=== PATIENT | male | born 1970 | race Caucasian/White ===

== ENCOUNTER 2023-10-20 08:53 | Inpatient (IN) | payer SELFPAY ==
[2023-10-20] VITALS (11 sets, daily range): BP systolic 152–193; BP diastolic 81–125; PULSE 61–92; RESP 11–24; TEMP 36.5–36.7; O2SAT 92–99; BMI 28.3; BMI 32.1
--- NOTE | 2023-10-20 09:48 | XRR_ITS ---
PROCEDURE INFORMATION: Exam: XR Chest Exam date and time: 10/20/2023 9:57 AM Age: 53 years old Clinical indication: Cough and dyspnea; Additional info: Dyspnea/cough TECHNIQUE: Imaging protocol: Radiologic exam of the chest. Views: 1 view. COMPARISON: No relevant prior studies available. FINDINGS: Lungs: There are subtle left lower lobe infiltrates concerning for pneumonia. The right lung is clear. Pleural spaces: Unremarkable. No pleural effusion. No pneumothorax. Heart/Mediastinum: Unremarkable. No cardiomegaly. Bones/joints: Unremarkable. XR/XR chest 1V portable [id number] IMPRESSION: Subtle left lower lobe infiltrates concerning for pneumonia.
[2023-10-20 09:54] LABS: Basophils # 0.1 10^3/uL (0.0-0.1); Basophils % 0.7 %; Eosinophils # 0.2 10^3/uL (0.0-0.8); Eosinophils % 3.1 %; Hematocrit 26.5 % (37-53); Lymphocytes # 0.6 10^3/uL (0.8-4.8); Lymphocytes % 8.6 %; Mean Corpuscular HGB Conc 32.1 g/dL (30-55); Mean Corpuscular Hemoglobin 29.8 pg (27-33); Mean Platelet Volume 9.3 fL (7.4-10.4); Monocytes # 0.8 10^3/uL (0.2-0.9); Monocytes % 11.3 %; Neutrophils # 5.58 10^3/uL (1.8-7.7); Neutrophils % 75.9 %; Nucleated Red Blood Cells % 0 %; Platelet Count 135 10^3/cmm (157-399); Red Blood Count 2.85 10^6/uL (3.85-5.65); Red Cell Distribution Width 16.6 % (12.1-15.1); White Blood Count 7.35 10^3/uL (3.29-11.43)
[2023-10-20 10:15] LABS: Alanine Aminotransferase 19 U/L (0-41); Albumin Level 1.9 g/dL (3.5-5.2); Alkaline Phosphatase 456 U/L (40-130); Anion Gap 10.3 (5-19); Aspartate Amino Transferase 41 U/L (0-40); Blood Urea Nitrogen 33 mg/dL (6-20); Calcium 7.1 mg/dL (8.5-10.5); Carbon Dioxide 19 mmol/L (22-29); Chloride 115 mmol/L (98-107); Globulin 3.4 g/dL (1.3-4.6); Glomerular Filtration Rate 45.6 mL/min (90-130); Glucose 142 mg/dL (65-115); NT Pro B Type Natriuretic Pept 1640 pg/mL (0-125); Osmolality Calculated 300 mOsm/kg (285-295); Potassium 4.3 mmol/L (3.5-5.1); Sodium 140 mmol/L (136-145); Total Bilirubin 0.9 mg/dL (0.15-1.2); Total Protein 5.3 g/dL (6.6-8.7)
--- NOTE | 2023-10-20 10:18 | ED_ITS ---
HPI - SOB/Dyspnea 2 General: Chief Complaint: Shortness of Breath/Dyspnea Stated Complaint: sob, fluid build up Time Seen by Provider: 10/20/23 09:37 History of Present Illness: HPI Narrative: 53-year-old man with a history of cirrho sis and ascites who suddenly moved to [place] from [place] yesterday. He has been having to get paracentesis frequently but did not get 1 before he left. He arrives today with worsening abdominal swelling, some generalized tenderness and primarily just shortness of breath. No fevers. Some mild cough. No altered mental status. No focal motor deficits. No chest pain. O2 sats are 99% on room air on presentation. He is somewhat hypertensive Review of Systems 2 Narrative: Constitutional symptoms: Negative except as documented in HPI. Skin symptoms: Negative except as documented in HPI. Eye symptoms: Negative except as documented in HPI. ENMT symptoms: Negative except as documented in HPI. Respiratory symptoms: Negative except as documented in HPI. Cardiovascular symptoms: Negative except as documented in HPI. Gastrointestinal symptoms: Negative except as documented in HPI. Genitourinary symptoms: Negative except as documented in HPI. Musculoskeletal symptoms: Negative except as documented in HPI. Neurologic symptoms: Negative except as documented in HPI. Psychiatric symptoms: Negative except as documented in HPI. Endocrine symptoms: Negative except as documented in HPI. Physical Exam 2 Narrative: EXAM NARRATIVE: General: Alert, no acute distress. Skin: Warm, dry. Head: Normocephalic, atraumatic. Neck: Supple, trachea midline. Eye: Extraocular movements are intact. Ears, nose, mouth and throat: mucosa moist. Cardiovascular: Regular, Normal peripheral perfusion. Respiratory: Tachypneic, coarse, mild increased work of breathing. Gastrointestinal: Soft, distended, some mild generalized tenderness, protruding umbilical hernia with fluid. Musculoskeletal: Normal ROM, no deformity. Neurological: Alert and oriented, No focal neurological deficit observed. Psychiatric: Cooperative, appropriate mood & affect. Course 2 Vital Signs: Vital signs: Vital Signs Temperature 98.1 F 10/20/23 09:04 Pulse Rate 92 10/20/23 12:49 Respiratory Rate 15 10/20/23 12:49 Blood Pressure 152/81 10/20/23 12:49 Pulse Oximetry 92 10/20/23 12:49 Oxygen Delivery Me thod Room Air 10/20/23 09:04 MDM - SOB/Dyspnea Medical Decision Making Differential diagnosis for patient with shortness of breath includes but is not limited to and based on the above HPI, review of systems and physical exam: Pneumonia. Bronchitis. Asthma or COPD with acute exacerbation. Acute coronary syndrome / HI. Pulmonary embolism. Anxiety. Congestive heart failure. Viral infections including influenza and Covid-19. Atrial fibrillation. Anxiety. Pleural effusion. Pneumothorax. Workup: Lab work, chest X-ray and EKG ordered to evaluate, rule in and rule out above pathologies Chest x-ray: Subtle left lower lobe infiltrate that would be concerning for pneumonia. This was reviewed and interpreted by myself the emergency room physician. I also reviewed the radiology report. CT of the chest abdomen pelvis without contrast: Opacities in the lingula that might represent pneumonia. This was also identified on chest x-ray. Abdomen shows cirrhosis and large volume ascites. Splenomegaly. Periumbilical hernia and inguinal hernia have ascites. Anasarca. This was reviewed and interpreted by myself the emergency room physician. I also reviewed the radiology report. Lab Review: Laboratory results were reviewed and interpreted by myself the emergency room physician. White count is 7. Hemoglobin is 8.5. BUN and creatinine are 33 and 1.6. He has some renal insufficiency. He has known chronic renal disease but unclear what his baseline is as I do not have any other labs. Urinalysis shows just 5- 10 whites and some hematuria but he also has 2+ bacteria so we will treating for urinary tract infection. Ammonia significantly elevated at 118. Platelets are low at 135. Bilirubin is not elevated and is only 0.9. INR is slightly elevated at 1.47. I reviewed the patient's medical record. Reexamination: Patient is slightly confused according to family is compared to his baseline. Still somewhat tachypneic at times. Still has large volume ascites. Oxygen saturations have dropped down into the low 90s on room air at times. Given this complicated situation I feel that admission would be appropriate particularly given his hepatic encephalopathy and multiple infections. Family actually request that he be admitted. He has no focal motor deficits at this time. He has not had any chest pain while he is been here. I had a attempted to try to get this patient home and set up for outpatient care. Having a great deal of difficulty setting up paracentesis and I do not think he can make it till late next week to have this done. Also just the medical complication and number of problems he has right now with no primary provider. He has a pneumonia. He has a urinary tract infection. He has hepatic encephalopathy. He has anasarca. He is very dyspneic with any kind of exertion. Consultation: I spoke with Dr. Medeiros who is on-call for the hospitalist. He reluctantly agrees to observation of the patient. Assessment and plan: Cirrhosis Ascites Anasarca Urinary tract infection Pneumonia Dyspnea -I discussed the patient with the hospitalist on-call who is admitting the patient. - Discussed findings and plan with patient. Answered any questions. - All laboratory values were reviewed and interpreted personally by myself, the ER physician - All imaging was reviewed and interpreted personally by myself, the ER physician. - Evaluation and treatment of this problem were appropriate in the emergency setting Lab Data 10/20/23 09:32 10/20/23 09:32 Labs/Radiology: Radiology Impressions Chest X-Ray 10/20/23 09:48 IMPRESSION: Subtle left lower lobe infiltrates concerning for pneumonia. Chest/Abdomen/Pelvis CT 10/20/23 10:41 IMPRESSION: 1. Opacities in the lingula which could represent pneumonia and/or atelectasis. 2. No calcified coronary artery disease. IMPRESSION: 1. Hepatic cirrhosis and large volume ascites. 2. Splenomegaly and multiple upper abdominal varices. 3. Periumbilical hernia and left inguinal hernia containing ascites. There are no entrapped bowel loops. 4. Anasarca. Laboratory Results WBC 7.35 10^3/uL (3.29-11.43) 10/20/23 09:32 RBC 2.85 10^6/uL (3.85-5.65) L 10/20/23 09:32 Hgb 8.50 g/dL (11.27-16.99) L 10/20/23 09:32 Hct 26.5 % (37-53) L 10/20/23 09:32 MCV 93.0 fl (82-101) 10/20/23 09:32 MCH 29.8 pg (27-33) 10/20/23 09: MCHC 32.1 g/dL (30-55) 10/20/23 09:32 RDW 16.6 % (12.1-15.1) H 10/20/23 09:32 Plt Count 135 10^3/cmm (157-399) L 10/20/23 09:32 MPV 9.3 fL (7.4-10.4) 10/20/23 09:32 Neut % (Auto) 75.9 % 10/20/23 09:32 Lymph % (Auto) 8.6 % 10/20/23 09:32 Steele % (Auto) 11.3 % 10/20/23 09:32 Eos % (Auto) 3.1 % 10/20/23 09:32 Baso % (Auto) 0.7 % 10/20/23 09:32 Neut # (Auto) 5.58 10^3/uL (1.8-7.7) 10/20/23 09:32 Lymph # (Auto) 0.6 10^3/uL (0.8-4.8) L 10/20/23 09:32 Steele # (Auto) 0.8 10^3/uL (0.2-0.9) 10/20/23 09:32 Eos # (Auto) 0.2 10^3/uL (0.0-0.8) 10/20/23 09:32 Baso # (Auto) 0.1 10^3/uL (0.0-0.1) 10/20/23 09:32 Nucleated RBC % (auto) 0 % 10/20/23 09:32 Nucleated RBCs # 0.0 /100WBC 10/20/23 09:32 PT 18.30 SECONDS (12.1-14.9) H 10/20/23 09:32 INR 1.47 (0.8-1.2) H 10/20/23 09:32 APTT 32.4 SECONDS (23.9-36.7) 10/20/23 09:32 Sodium 140 mmol/L (136-145) 10/20/23 09:32 Potassium 4.3 mmol/L (3.5-5.1) 10/20/23 09:32 Chloride 115 mmol/L (98-107) H 10/20/23 09:32 Carbon Dioxide 19 mmol/L (22-29) L 10/20/23 09:32 Anion Gap 10.3 (5-19) 10/20/23 09:32 BUN 33 mg/dL (6-20) H 10/20/23 09:32 Creatinine 1.6 mg/dL (0.7-1.2) H 10/20/23 09:32 GFR Calculation 45.6 mL/min (90-130) L 10/20/23 09:32 Glucose 142 mg/dL (65-115) H 10/20/23 09:32 Calculated Osmolality 300 mOsm/kg (285-295) H 10/20/23 09:32 Lactic Acid 0.9 mmol/L (0.5-2.2) 10/20/23 11:33 Calcium 7.1 mg/dL (8.5-10.5) L 10/20/23 09:32 Total Bilirubin 0.9 mg/dL (0.15-1.2) 10/20/23 09:32 AST 41 U/L (0-40) H 10/20/23 09:32 ALT 19 U/L (0-41) 10/20/23 09:32 Alkaline Phosphatase 456 U/L (40-130) H 10/20/23 09:32 Ammonia 118 umol/L (16-60) H 10/20/23 11:33 NT-Pro-B Natriuret Pep 1640 pg/mL (0-125) H 10/20/23 09:32 Total Protein 5.3 g/dL (6.6-8.7) L 10/20/23 09:32 Albumin 1.9 g/dL (3.5-5.2) L 10/20/23 09:32 Globulin 3.4 g/dL (1.3-4.6) 10/20/23 09:32 Procalcitonin 0.18 ng/mL (0-0.5) 10/20/23 09:32 Urine Color Dark yellow (Yellow) A 10/20/23 10:45 Urine Appearance Clear (CLEAR) 10/20/23 10:45 Urine pH 5 (5-7) 10/20/23 10:45 Ur Specific Hamilton 1.015 (1.005-1.030) 10/20/23 10:45 Urine Protein 3+ (Negative) H 10/20/23 10:45 Urine Glucose (UA) Norm (Normal) 10/20/23 10:45 Urine Ketones Negative (Negative) 10/20/23 10:45 Urine Blood 3+ (Negative) H 10/20/23 10:45 Urine Nitrate Negative (Negative) 10/20/23 10:45 Urine Bilirubin Neg (Negative) 10/20/23 10:45 Urine Urobilinogen Norm mg/dL (Negative) 10/20/23 10:45 Ur Leukocyte Esterase Negative (Negative) 10/20/23 10:45 Urine RBC 25-40 /hpf (0-2) H 10/20/23 10:45 Urine WBC 5-10 /hpf (0-5) H 10/20/23 10:45 Ur Squamous Epith Cells None /hpf (0-5) 10/20/23 10:45 Amorphous Sediment Not Reportable 10/20/23 10:45 Urine Bacteria 2+ /hpf (NONE) H 10/20/23 10:45 All radiology interpretation(s) finalized by discharge Discharge Plan Discharge Patient Disposition: Admitted As Inpatient Admit Provider: Byron Medeiros Clinical Impression: Cirrhosis, Ascites, Hepatic encephalopathy, Pneumonia, Urinary tract infection, Dyspnea Condition: Stable Discharge Diet: As Directed Discharge Activity: Increase activity as tolerated Coding Level of Care Code ED Professor Of Environmental Engineering for Domitila Cortez
[2023-10-20 10:26] LABS: Creatinine Clr Calc Pharmacy 51.7492
[2023-10-20 10:29] LABS: INR 1.47 (0.8-1.2)
[2023-10-20 10:30] LABS: Partial Thromboplastin Time 32.4 SECONDS (23.9-36.7)
--- NOTE | 2023-10-20 10:41 | CTR_ITS ---
PROCEDURE INFORMATION: Exam: CT Chest Without Contrast; Diagnostic Exam date and time: 10/20/2023 10:49 AM Age: 53 years old Clinical indication: Abnormal findings; Abnormal radiologic finding of the abdomen; Abnormal radiologic exam of lung or chest; Additional info: Abnormal chest xray TECHNIQUE: Imaging protocol: Diagnostic computed tomography of the chest without contrast. Radiation optimization: All CT scans at this facility use at least one of these dose optimization techniques: automated exposure control; mA and/or kV adjustment per patient size (includes targeted exams where dose is matched to clinical indication); or iterative reconstruction. COMPARISON: CR (CHEST, ) 10/20/2023 9:57 AM RADIATION DOSE METRICS: Total DLP (mGy-cm): 998.27 FINDINGS: Lungs: There are subtle infiltrates in the lingula which could represent mild pneumonia and/or atelectasis. Pleural spaces: Unremarkable. No pneumothorax. No pleural effusion. Heart: Unremarkable. No cardiomegaly. No pericardial effusion. Coronary arteries: No visible calcified coronary artery disease. Lymph nodes: Several tiny, nonspecific mediastinal and bilateral axillary lymph nodes. Vasculature: Unremarkable. No aortic aneurysm. Bones/joints: Multilevel Schmorl's nodes throughout the thoracic spine. Soft tissues: Mild chest wall edema. PROCEDURE INFORMATION: Exam: CT Abdomen And Pelvis Without Contrast Exam date and time: 10/20/2023 10:49 AM Age: 53 years old Clinical indication: Abnormal findings; Abnormal radiologic finding of the abdomen; Abnormal radiologic exam of lung or chest; Additional info: Abnormal chest xray TECHNIQUE: Imaging protocol: Computed tomography of the abdomen and pelvis without contrast. Radiation optimization: All CT scans at this facility use at least one of these dose optimization techniques: automated exposure control; mA and/or kV adjustment per patient size (includes targeted exams where dose is matched to clinical indication); or iterative reconstruction. COMPARISON: CR (CHEST, ) 10/20/2023 9:57 AM RADIATION DOSE METRICS: Total DLP (mGy-cm): 998.27 FINDINGS: Liver: Hepatic cirrhosis. The liver parenchyma is diffusely heterogeneous, decreasing the sensitivity for liver masses. There is a TIPS stent present. There is recanalization of the umbilical vein and multiple upper abdominal varices. Gallbladder and biliary ducts: Normal. No calcified stones. No ductal dilation. Pancreas: The pancreas is normal in appearance. No evidence of pancreatic ductal dilatation. Spleen: Splenomegaly. The spleen measures 16.5 cm. Adrenal glands: The adrenal glands are normal in appearance. Kidneys and ureters: The kidneys are normal in appearance. No evidence of hydronephrosis or hydroureter. No nephroureteral calculi are identified. Stomach and bowel: The small bowel loops are not thickened and are nondilated. There is colonic diverticulosis but no evidence of diverticulitis. Appendix: The appendix is normal in appearance. No evidence of appendicitis. Intraperitoneal space: There is a large volume of ascites. Vasculature: The abdominal aorta is nonaneurysmal. Lymph nodes: Unremarkable. No enlarged lymph nodes. Urinary bladder: The urinary bladder is normal in appearance. Reproductive: Unremarkable as visualized. Bones/joints: No acute osseous lesions or destructive bone lesion. Soft tissues: There is a periumbilical hernia containing ascites. There is a left inguinal hernia containing ascites. There is diffuse body wall edema suggesting anasarca. CT/[place] [id number] IMPRESSION: 1. Opacities in the lingula which could represent pneumonia and/or atelectasis. 2. No calcified coronary artery disease. IMPRESSION: 1. Hepatic cirrhosis and large volume ascites. 2. Splenomegaly and multiple upper abdominal varices. 3. Periumbilical hernia and left inguinal hernia containing ascites. There are no entrapped bowel loops. 4. Anasarca.
[2023-10-20 11:10] LABS: Procalcitonin 0.18 ng/mL (0-0.5)
[2023-10-20 11:35] LABS: Glucose Urine UA Norm (Normal); Ketones Urine Negative (Negative); Protein Urine 3+ (Negative); Specific Gravity, Urine 1.015 (1.005-1.030); Urine Appearance Clear (CLEAR); Urine Color Dark Yellow (Yellow); pH Urine 5 (5-7)
[2023-10-20 11:36] LABS: Add Urine Culture? Yes; Add Urine Microscopic? YES; Bacteria Urine 2+ /hpf; Bilirubin Urine Neg (Negative); Blood Urine 3+ (Negative); Leukocyte Esterase Urine Negative (Negative); Nitrate Urine Negative (Negative); RBC Urine 25-40 /hpf (0-2); Urobilinogen Urine Norm (Negative)
[2023-10-20] MEDS: FUROsemide 10 mg/mL SDV 10mL 80 MG IVP (11:53)
[2023-10-20] MEDS: doxycycline 100 MG in sodium chloride 0.9% (plus) 100 ML IV (11:54)
[2023-10-20] MEDS: dexamethasone 10 mg/mL INJ IVP (11:56)
[2023-10-20 12:00] LABS: Lactic Sepsis W/Reflex 0.9 mmol/L (0.5-2.2)
[2023-10-20 12:01] LABS: Ammonia 118 umol/L (16-60)
[2023-10-20] MEDS: HYDROcodone-acetaminophen 10-325 mg Tablet 1 TAB PO (12:04)
--- NOTE | 2023-10-20 12:57 | USCV_ITS ---
Luis Fernando Funes Age: 53 Gender: M : 1970 Exam Date: 10/20/2023 15:34 Ordering Phys: Byron Medeiros MD Technologist: GERALD Exam Location: [facility] Indication: chf BP: 152 / 81 HR: 69 Rhythm: Sinus Technical Quality: Adequate MEASUREMENTS (Male / Female) Normal Values 2D ECHO LV Diastolic Diameter PLAX 5.1 cm 4.2 - 5.9 / 3.9 - 5.3 cm IVS Diastolic Thickness 1.3 cm 0.6 - 1.0 / 0.6 - 0.9 cm IVS Systolic Thickness 2.1 cm LVPW Diastolic Thickness 1.8 cm 0.6 - 1.0 / 0.6 - 0.9 cm LVPW Systolic Thickness 3.0 cm LVOT Diameter 2.0 cm LV Ejection Fraction 2D Teich 66.1 % LV Ejection Fraction MOD 4C 69.6 % LV Ejection Fraction MOD 2C 72.4 % LV Ejection Fraction 2C AL 73.6 % LA Diameter 3.7 cm RA Systolic Volume 4C AL 24.6 ml RA Systolic Volume 4C MOD 25.2 ml LA Sys Volume AL 84.5 cm cubed LA Sys Volume Index AL 41.5 cm cubed/m squared Aorta at Sinotubular Diameter 2.3 cm IVC Diameter 1.7 cm M-MODE LA Ao Ratio MM 1.8 AV Cusp Separation MM 2.0 cm DOPPLER AV Peak Velocity 175.0 cm/s AV Area Cont Eq vti 1.6 cm squared AV Area Cont Eq pk 1.7 cm squared MV Peak Velocity 108.0 cm/s MV Area PHT 4.3 cm squared Mitral E to A Ratio 0.8 TV Peak Velocity 198.0 cm/s TR Peak Velocity 205.0 cm/s TR Peak Gradient 16.8 mmHg TR Mean Velocity 164.0 cm/s TR Mean Gradient 11.5 mmHg TR Velocity Time Integral 50.9 cm PV Peak Velocity 166.8 cm/s RV Ejection Time 0.3 s FINDINGS Left Ventricle Mild left ventricular hypertrophy. Normal left ventricular size and systolic function, EF 65%. Right Ventricle Normal right ventricular size and systolic function. Right Atrium Normal right atrial size. Left Atrium Normal left atrial size. Mitral Valve Structurally normal mitral valve. Trace mitral valve regurgitation. Aortic Valve Structurally normal trileaflet aortic valve. No aortic valve stenosis. Tricuspid Valve Structurally normal tricuspid valve. No tricuspid valve regurgitation. Pulmonic Valve Pulmonic valve not well visualized. Pericardium Small pericardial effusion primarily around inferoposterior surface Aorta Normal size aortic root and proximal ascending aorta. IVC Normal inferior vena cava. CONCLUSIONS Mild left ventricle hypertrophy. Normal LV systolic function. Estimated LVEF 65%. No significant valvular abnormalities noted. Normal right heart and pulmonary pressures. Small size pericardial effusion noted around inferoposterior surface. Damir Garay MD (Electronically Signed) Final Date: 20 October 2023 17:32 S
--- NOTE | 2023-10-20 12:58 | P.HP_ITS ---
Providers/Chief Complaint 2 Admitting Physician: Byron Medeiros MD Chief Complaint: sob, fluid build up History of Present Illness Luis Fernando Funes is a 53 year old male with past medical history of liver cirrhosis, CKD, alcohol abuse with last alcohol drink many months ago, post TIPS in last few months who recently moved from [place] yesterday to [place]. Patient states usually he would need to have paracentesis done every few weeks but recently since TIPS procedure he has not required any last 1 month. Today he came to the ER because of abdominal distention, swelling of the scrotum and back pain. Patient denies any nausea, vomiting, headache. States he has been taking his lactulose and rifaximin at home. Patient states he has been admitted to the hospital many times in last 1 year with concerns for ascites. Review of Systems 2 General: Reports: 10 or more systems reviewed and unremarkable except in HPI and below Const: Denies: fever(s), chills, body aches, change in appetite, change in weight, malaise, night sweats, diaphoresis, change in sleep pattern, daytime sleepiness or snoring Eyes: Denies: change in vision, blurry vision, photophobia, eye discomfort or eye discharge ENMT: Denies: throat pain, enlarged tonsils, hoarseness, mouth pain, oral sores, dry mouth, tinnitus, nasal congestion or post nasal drip Card: Denies: chest pain, palpitations, irregular heart rhythm, edema, swelling of feet/ankles, lightheadedness, syncope, pre-syncope, dyspnea on exertion, orthopnea, leg pain with exertion or acrocyanosis Resp: Denies: dyspnea, productive cough, non-productive cough, wheezing, stridor, pain on inspiration, change in phlegm color, hemoptysis or chest congestion GI: Denies: abdominal pain, nausea, vomiting, hematemesis, coffee ground emesis, dysphagia, heartburn, diarrhea, constipation, bloating, GI cramping, change in bowel habits, pain on defecation, hematochezia or melena : Denies: flank pain, difficulty urinating, dysuria, urinary frequency, urinary urgency, urinary hesitancy, urinary dribbling, difficulty starting urination, change in urine stream, nocturia or hematuria Musc: Denies: neck pain, back pain, extremity pain, joint pain, joint swelling, joint redness, joint stiffness or limited range of motion Neuro: Denies: headache(s), numbness in extremities, weakness in extremities, sensory changes, lack of coordination, difficulty walking, frequent falls, dizziness, vertigo, confusion, Slurred speech present, difficulty communicating thoughts or seizure-like activity Psych: Denies: anxiety, depression, mood swings, panic attacks, hopelessness or irritability Endo: Denies: polyuria, polydipsia, tired all the time, cold intolerance, excessive sweating, flushing or heat intolerance Austen/Lymph: Denies: easy bruising or easy bleeding All/Imm: Denies: tongue swelling, facial swelling or acute wheezing Medications/Allergies Home Medications Medication Instructions Recorded Confirmed Last Taken Type azithromycin 250 mg tablet See Rx Instructions PO .COMPLEX #6 10/20/23 Unknown Rx (Zithromax Z-Corby) tabs cefdinir 300 mg capsule 300 mg PO BID 7 days #14 caps 10/20/23 Unknown Rx dexamethasone 6 mg tablet 6 mg PO DAILY 5 days #5 tabs 10/20/23 Unknown Rx furosemide 40 mg tablet (Lasix) 40 mg PO QAM 5 days #5 tabs 10/20/23 Unknown Rx hydrocodone 5 mg-acetaminophen 325 1 tab PO Q6H PRN pain #20 tabs 10/20/23 Unknown Rx mg tablet polyethylene glycol 3350 17 17 g PO DAILY #510 grams 10/20/23 Unknown Rx gram/dose oral powder (Miralax) Allergies Allergy/AdvReac Type Severity Reaction Status Date / Time No Known Allergies Allergy Verified 10/20/23 09:09 PFSH Acute 2 PFSH: Medical History (Updated 10/20/23 @ 15:20 by Byron Medeiros MD) CKD (chronic kidney disease) Varices, gastric Hepatitis C Anemia Portal hypertension Cirrhosis Surgical History (Updated 10/20/23 @ 12:59 by Byron Medeiros MD) S/P TIPS (transjugular intrahepatic portosystemic shunt) Vitals/I&O/Wt Last Vital Signs Temp 98.1 F 10/20/23 09:04 Pulse 92 10/20/23 12:49 Resp 15 10/20/23 12:49 BP 152/81 10/20/23 12:49 Pulse Ox 92 10/20/23 12:49 O2 Del Method Room Air 10/20/23 09:04 Weight last 48 hrs Weight 77.111 kg Physical Exam 2 Narrative: General: No acute distress, AO x3, pallor, icterus present HEENT: PERRLA, pupils bilaterally equal and reactive Chest: Normal vesicular breath sounds, no added sounds, equal good air entry bilaterally CVS: S1-S2 regular, no murmurs, no tachycardia, no gallops, no rubs Abdomen: Soft, distended, nontender no organomegaly, bowel sounds present Neuro: No focal deficits, no facial deformity, AO x3, power 5/5 in all limbs Data 10/20/23 09:32 10/20/23 09:32 Micro: Microbiology 10/20/23 11:34 Blood Culture - Preliminary Blood SPECIMEN COLLECTED 10/20/23 11:34 Blood Culture - Preliminary Blood SPECIMEN COLLECTED A&P Assessment and plan (1) Hyperammonemia: Patient is AOx3. Do not have baseline ammonia levels. Most likely in setting of chronic liver cirrhosis. Continue with lactulose 30 mg 3 times daily, rifaximin twice daily. Repeat ammonia levels in AM. Target 2-3 soft bowel movements a day. (2) Cirrhosis: Post TIPS procedure. With evidence of cirrhosis on CT abdomen/pelvis and varices. Check hepatitis panel, HIV, salicylate level, ammonia level, Tylenol level, urine drug screen. Appreciate INR level. Child perez score: Lactulose and rifaximin as above. Start on propranolol 20 mg twice daily, Protonix 40 mg IV daily. Fluid restriction up to 1200 cc. Already received Lasix in the ER. Most likely will start on Lasix 40 mg oral daily from tomorrow. Strict input charting, daily weights. (3) Ascites: Patient seems comfortable on laying flat for now. Currently on room air. Nontender abdomen. Patient will most likely need paracentesis done on emergently. (4) Hepatitis C: Will await RNA PCR levels. Patient does not remember being treated in the past. Most likely need to set up with PCP as an outpatient for hepatitis C treatment. (5) Anemia: Monitor hemoglobin. Check iron panel, vitamin B12, folate levels. (6) CKD (chronic kidney disease): Do not have baseline creatinine. Patient gives history of CKD. Medical reconciliation done for nephrotoxic drugs. Check urine lites, urine creatinine, urine eosinophils. Plan Infectious source: Unlikely. Patient remains on room air, has no leukocytosis no fever for now. UA negative for leuk esterase or nitrates. Hold off on IV antibiotics for now. Follow-up blood culture in the ER. Respiratory viral panel negative. Request documentation from outside hospital. Full code Cardiac diet Heparin 5000 every 12 hourly for DVT prophylaxis Protonix will be sufficient for PUD prophylaxis Discharge plan: Patient recently moved to the area. Will need to have a PCP to follow-up. Will consult case management once available. Attestations 2 Medical Necessity Statement*: Requires admission under observation hospitalization for management of ascites, anasarca in setting of liver cirrhosis, hyperammonemia, CKD Diagnoses Hyperammonemia E72.20 Cirrhosis K74.60 Ascites R18.8 Hepatitis C B19.20 Anemia D64.9 CKD (chronic kidney disease) N18.9
--- NOTE | 2023-10-20 13:09 | PC.NURSE ---
received pt from ER, around 1 pm. Pt look lethargic and sleepy looking,but awake with eyes open when asked, orientedx4, follows command. noted Ammonia level is 118. Lactulose given as ordered. had 1 bm in ER and voided x1 in toilet. Pt has chronic back pain rated at 4/10 per pain scale. sara orbital, pitting edema noted on LE and feet, distended abdomen. home meds updated.
[2023-10-20] MEDS: pantoprazole 40 mg SDV IVP (13:26)
[2023-10-20] MEDS: lactulose oral liq 20 gm/30 mL UDC 30 GM PO ×2 (13:26→21:05)
[2023-10-20 13:32] LABS: HIV 1 & 2 Antibody Non-Reactive (Non-Reactiv); HIV 1 & 2 Antigen Non-Reactive (Non-Reactiv)
[2023-10-20 13:41] LABS: Hepatitis A Antibody IgM Non-Reactive (Nonreactive); Hepatitis B Core AB, Total Reactive (Nonreactive); Hepatitis B Surface AB < 3.5 (11.5-1000); Iron 74 ug/dL (59-158); Percent Saturation 59.6 % (20-50); Salicylate 2.3 mg/dL (3-10); Thyroid Stimulating Hormone 2.68 uIU/mL (0.27-4.20); Total Iron Binding Capacity 124 mcg/dl; Unsaturated Iron Binding 50 ug/dL (112-347); Vitamin B12 1940 pg/mL (232-1245)
[2023-10-20 13:43] LABS: Acetaminophen < 5.0 ug/mL (10-30); Alcohol Level < 10 mg/dL (0-10); Estmated Average Glucose 85; Hemoglobin A1C 4.6 % (4.0-6.0)
[2023-10-20 13:51] LABS: Adenovirus Not Detected (NOT DETECT); Chlamydia Pneumoniae Not Detected (NOT DETECT); Coronavirus 229E,HKU1,NL63,OC4 Not Detected (NOT DETECT); Human Metapneumovirus Not Detected (NOT DETECT); Human Rhinovirus/Enterovirus Not Detected (NOT DETECT); Influenza A Not Detected (NOT DETECT); Influenza A H1 Not Detected (NOT DETECT); Influenza A H1-2009 Not Detected (NOT DETECT); Influenza A H3 Not Detected (NOT DETECT); Influenza B Not Detected (NOT DETECT); Mycoplasma Pneumoniae Not Detected (NOT DETECT); Parainfluenza Virus Type 1 Not Detected (NOT DETECT); Parainfluenza Virus Type 2 Not Detected (NOT DETECT); Parainfluenza Virus Type 3 Not Detected (NOT DETECT); Parainfluenza Virus Type 4 Not Detected (NOT DETECT); Respiratory Syncytial Virus A Not Detected (NOT DETECT); Respiratory Syncytial Virus B Not Detected (NOT DETECT); SARS-COV-2 Not Detected (NOT DETECT)
[2023-10-20] MEDS: heparin 5,000 unit/mL INJ 1 mL 5000 UNIT SUBCUT (13:54)
[2023-10-20 14:24] LABS: Hepatitis B Surface Antigen Reactive (Nonreactive)
[2023-10-20 14:25] LABS: Hepatitis C Virus Antibody Reactive (Nonreactive)
[2023-10-20 15:21] LABS: Urine Creatinine 107 mg/dL (39-259)
[2023-10-20 15:25] LABS: Amphetamines Screen Urine Positive (Negative); Barbiturates Screen Urine Negative (Negative); Benzodiazepines Screen Urine Negative (Negative); Cocaine Screen Urine Positive (Negative); Opiate Screen Urine Negative (Negative); PCP Screen Urine Negative (Negative); THC Screen Urine Positive (Negative)
[2023-10-20 17:37] LABS: Eosinophil Urine No Eosinophils Seen; Urine Eosinophil Count 0 (0-0)
[2023-10-20] MEDS: propranolol 20 mg Tablet PO (18:04)
[2023-10-20] MEDS: RIFAXIMIN 550 MG 1 EACH PO (18:04)
[2023-10-20] MEDS: HYDROcodone-acetaminophen 5-325 mg Tablet 1 TAB PO (20:20)
[2023-10-20] MEDS: morphine 4 mg/mL SDV 1 mL 2 MG IVP (21:14)
--- NOTE | 2023-10-20 22:32 | PC.NURSE ---
Spoke with regarding patient elevated BP, started on propanolol today but not due for another dose till morning. ordered one time dose of hydralizine.
[2023-10-20] MEDS: hyDRALAzine 20 mg/mL INJ 1 mL 10 MG IVP (23:06)
[2023-10-21] VITALS (47 sets, daily range): BP systolic 91–228; BP diastolic 59–119; PULSE 58–89; RESP 12–28; TEMP 36.3–36.9; O2SAT 58–100
[2023-10-21] MEDS: heparin 5,000 unit/mL INJ 1 mL 5000 UNIT SUBCUT ×2 (00:03→14:13)
[2023-10-21] MEDS: lactulose oral liq 20 gm/30 mL UDC 30 GM PO ×4 (04:01→21:52)
--- NOTE | 2023-10-21 04:13 | PC.NURSE ---
Spoke with regarding patients BP 179/98. ordered dose of hydralizine for elevated BP.
[2023-10-21] MEDS: hyDRALAzine 20 mg/mL INJ 1 mL 10 MG IVP (04:28)
[2023-10-21 04:54] LABS: Basophils % 0.2 %; Hematocrit 28.6 % (37-53); Lymphocytes # 0.5 10^3/uL (0.8-4.8); Lymphocytes % 5.8 %; Mean Corpuscular HGB Conc 32.2 g/dL (30-55); Mean Corpuscular Hemoglobin 29.6 pg (27-33); Mean Platelet Volume 9.4 fL (7.4-10.4); Monocytes # 0.5 10^3/uL (0.2-0.9); Neutrophils # 8.19 10^3/uL (1.8-7.7); Neutrophils % 88.6 %; Nucleated Red Blood Cells % 0 %; Platelet Count 155 10^3/cmm (157-399); Red Blood Count 3.11 10^6/uL (3.85-5.65); Red Cell Distribution Width 16.3 % (12.1-15.1); White Blood Count 9.25 10^3/uL (3.29-11.43)
[2023-10-21 05:19] LABS: Ammonia 130 umol/L (16-60)
[2023-10-21 05:23] LABS: Alanine Aminotransferase 20 U/L (0-41); Albumin Level 2.1 g/dL (3.5-5.2); Alkaline Phosphatase 475 U/L (40-130); Anion Gap 14.6 (5-19); Aspartate Amino Transferase 38 U/L (0-40); Blood Urea Nitrogen 37 mg/dL (6-20); Calcium 7.8 mg/dL (8.5-10.5); Carbon Dioxide 17 mmol/L (22-29); Chloride 113 mmol/L (98-107); Chol HDL Ratio 2.88 mg/dL (1.0-5.00); Cholesterol 170 mg/dL (0-200); Creatinine Clr Calc Pharmacy 47.2663; Glomerular Filtration Rate 37.4 mL/min (90-130); Glucose 247 mg/dL (65-115); HDL Cholesterol 59 mg/dL (60-100); LDL Cholesterol Calculated 104 mg/dL (50-129); LDL HDL Ratio 1.76 RATIO (0.00-3.22); Magnesium 2.4 mg/dL (1.7-2.3); Osmolality Calculated 307 mOsm/kg (285-295); Phosphorus 3.2 mg/dL (2.5-4.5); Potassium 4.6 mmol/L (3.5-5.1); Procalcitonin 0.19 ng/mL (0-0.5); Sodium 140 mmol/L (136-145); Total Bilirubin 0.9 mg/dL (0.15-1.2); Total Protein 6.1 g/dL (6.6-8.7); Triglycerides 36 mg/dL (0-150)
[2023-10-21 05:40] LABS: Folate Level 17.4 ng/mL (4.5-32.2)
[2023-10-21] MEDS: propranolol 20 mg Tablet PO ×2 (08:56→18:00)
[2023-10-21] MEDS: RIFAXIMIN 550 MG 1 EACH PO (08:56)
[2023-10-21] MEDS: FUROsemide 10 mg/mL SDV 4mL 40 MG IVP ×3 (11:06→17:40)
[2023-10-21] MEDS: HYDROcodone-acetaminophen 5-325 mg Tablet 1 TAB PO (11:14)
--- NOTE | 2023-10-21 12:10 | PC.NURSE ---
report called to med surg hand off report provided to Nae Harding.
--- NOTE | 2023-10-21 12:15 | PC.NURSE ---
informed family notified son Minesh that pt is moving to med surg room 278-2. all belongings are sent with patient and his 2 home meds with him to med surg floor.
[2023-10-21] MEDS: pantoprazole 40 mg SDV IVP ×2 (14:12→17:40)
[2023-10-21] MEDS: LORazepam 2 mg/mL INJ 1 mL IVP ×2 (14:12→15:13)
--- NOTE | 2023-10-21 14:53 | XRR_ITS ---
PROCEDURE INFORMATION: Exam: XR Chest Exam date and time: 10/21/2023 3:02 PM Age: 53 years old Clinical indication: Shortness of breath; Additional info: Resp distress TECHNIQUE: Imaging protocol: Radiologic exam of the chest. Views: 1 view. COMPARISON: [place] [id number] 10/20/2023 10:49 AM FINDINGS: Lungs: See Heart/Mediastinum finding. Pleural spaces: Unremarkable. No pleural effusion. No pneumothorax. Heart/Mediastinum: Heart size not optimally evaluated with a single AP view of the chest. Additionally there is a suboptimal inspiratory effort precluding optimal evaluation. Bones/joints: Unremarkable. Gastrointestinal tract: The stomach is distended and filled with debris. XR/XR chest 1V portable [id number] IMPRESSION: No evidence for acute cardiopulmonary disease.
[2023-10-21 15:00] LABS: ABG PCO2 35.7 mmHg (35-45); ABG PH Result 7.33 (7.35-7.45); Arterial Blood Gas Hematocrit 28.8 % (42-52); Base Excess ABG -6.5 mmol/L (-2.0-2.0); Blood Gas Allen Test Pos; Blood Gas Operator Identificat BROMA; Blood Gas Sample Site Radial, left; Blood Gas Sample Type Arterial; HCO3 ABG 18.8 mmol/L (22-26); Oxygen Device ROOM AIR; PO2 FiO2 Ratio Arterial Blood 490
[2023-10-21] MEDS: albuterol 2.5 mg/3 mL Neb INHALATION (15:06)
--- NOTE | 2023-10-21 15:10 | XRR_ITS ---
PROCEDURE INFORMATION: Exam: XR Abdomen Exam date and time: 10/21/2023 4:05 PM Age: 53 years old Clinical indication: Device placement; Gi device; Nasogastric tube; Patient HX: Og placement; Abdominal distention; Cirrhosis TECHNIQUE: Imaging protocol: Radiologic exam of the abdomen. Views: Frontal supine view of the abdomen. 1 View. COMPARISON: [place] [id number] 10/20/2023 10:49 AM FINDINGS: Tubes, catheters and devices: Distal G-tube is positioned in the stomach body. Gastrointestinal tract: The stomach is distended and filled with debris. Colonic constipation is present. Intraperitoneal space: There is ascites in the abdomen/pelvis. Bones/joints: Unremarkable. XR/XR abdomen 1V* [id number] IMPRESSION: 1. Colonic constipation is present. 2. There is ascites in the abdomen/pelvis.
[2023-10-21 15:32] LABS: Glucose Point of Care 196 mg/dL (70-110)
[2023-10-21] MEDS: dexamethasone 10 mg/mL INJ IVP (15:46)
--- NOTE | 2023-10-21 15:46 | XRR_ITS ---
PROCEDURE INFORMATION: Exam: XR Chest Exam date and time: 10/21/2023 3:57 PM Age: 53 years old Clinical indication: Device placement; Ett placement (vent status) TECHNIQUE: Imaging protocol: Radiologic exam of the chest. Views: 1 view. COMPARISON: CR (CHEST, ) 10/21/2023 3:02 PM FINDINGS: Tubes, catheters and devices: ET tube is low lying position 9 mm superior to the miraim and deviated slightly rightward. Lungs: Unremarkable. No consolidation. Pleural spaces: Unremarkable. No pleural effusion. No pneumothorax. Heart/Mediastinum: Heart size not optimally evaluated with a single AP view of the chest. Bones/joints: Unremarkable. XR/XR chest 1V portable [id number] IMPRESSION: ET tube is low lying position 9 mm superior to the miriam and deviated slightly rightward.
[2023-10-21] MEDS: propofol 1,000 MG/100 ML INJ 2.71 MG IV (15:47)
--- NOTE | 2023-10-21 15:51 | ED_ITS ---
HPI - SOB/Dyspnea 2 General: Chief Complaint: Shortness of Breath/Dyspnea Stated Complaint: sob, fluid build up Time Seen by Provider: 10/20/23 09:37 History of Present Illness: HPI Narrative: Was called to bedside for intubation. Patient had increased work of breathing and is being moved to the ICU. [facility] ED 2 PFSH: Medical History (Updated 10/20/23 @ 15:20 by Byron Medeiros MD) CKD (chronic kidney disease) Varices, gastric Hepatitis C Anemia Portal hypertension Cirrhosis Surgical History (Updated 10/20/23 @ 12:59 by Byron Medeiros MD) S/P TIPS (transjugular intrahepatic portosystemic shunt) Physical Exam 2 Narrative: EXAM NARRATIVE: General: Patient appears in distress. Skin: Warm, dry. Head: Normocephalic, atraumatic. Neck: Supple, trachea midline. Eye: Extraocular movements are intact. Ears, nose, mouth and throat: Short thick neck, missing upper teeth, Respiratory: Patient is very tachypneic, severe increased work of breathing. Gastrointestinal: Distended abdomen Musculoskeletal: Normal ROM, no deformity. Neurological: Unable to assess Psychiatric: Unable to assess Course 2 Vital Signs: Vital signs: Vital Signs Temperature 97.7 F 10/21/23 11:43 Pulse Rate 75 10/21/23 15:13 Respiratory Rate 28 H 10/21/23 15:07 Blood Pressure 175/106 10/21/23 11:43 Pulse Oximetry 100 10/21/23 15:07 Oxygen Delivery Me thod Nasal Cannula 10/21/23 15:07 Oxygen Flow Rate 2 10/21/23 15:07 MDM - SOB/Dyspnea Medical Decision Making Time: 1540 Confirmed: Patient, procedure, and site correct. Consent: , Emergent. Indication: Respiratory failure. Procedural sedation: Succinylcholine and etomidate . Monitoring: Cardiac, blood pressure, continuous pulse oximetry. Preparation: Pre oxygenated, Inline stabilization of cervical spine maintained, Ensured proper cuff inflation. Technique: Oral intubation: A 8 ET tube was inserted, glydescope, visualized cords and ett passing through cords. . This was a very technically difficult intubation. The patient had short neck with a very anterior airway. Also vocal cords and epiglottis were extremely edematous. Confirmation of tube placement: Bilateral chest rise, Positive color change indicated on end title CO2. Post procedure exam: Equal breath sounds. Complications: None. Performed by: Self. Total time: 15 minutes. Lab Data 10/21/23 04:40 10/21/23 04:40 Labs/Radiology: Radiology Impressions Chest/Abdomen/Pelvis CT 10/20/23 10:41 IMPRESSION: 1. Opacities in the lingula which could represent pneumonia and/or atelectasis. 2. No calcified coronary artery disease. IMPRESSION: 1. Hepatic cirrhosis and large volume ascites. 2. Splenomegaly and multiple upper abdominal varices. 3. Periumbilical hernia and left inguinal hernia containing ascites. There are no entrapped bowel loops. 4. Anasarca. Chest X-Ray 10/21/23 14:53 IMPRESSION: No evidence for acute cardiopulmonary disease. Laboratory Results WBC 7.35 10^3/uL (3.29-11.43) 10/20/23 09:32 RBC 2.85 10^6/uL (3.85-5.65) L 10/20/23 09:32 Hgb 8.50 g/dL (11.27-16.99) L 10/20/23 09:32 Hct 26.5 % (37-53) L 10/20/23 09:32 MCV 93.0 fl (82-101) 10/20/23 09:32 MCH 29.8 pg (27-33) 10/20/23 09:32 MCHC 32.1 g/dL (30-55) 10/20/23 09:32 RDW 16.6 % (12.1-15.1) H 10/20/23 09:32 Plt Count 135 10^3/cmm (157-399) L 10/20/23 09:32 MPV 9.3 fL (7.4-10.4) 10/20/23 09:32 Neut % (Auto) 75.9 % 10/20/23 09:32 Lymph % (Auto) 8.6 % 10/20/23 09:32 [place] % (Auto) 11.3 % 10/20/23 09:32 Eos % (Auto) 3.1 % 10/20/23 09:32 Baso % (Auto) 0.7 % 10/20/23 09:32 Neut # (Auto) 5.58 10^3/uL (1.8-7.7) 10/20/23 09:32 Lymph # (Auto) 0.6 10^3/uL (0.8-4.8) L 10/20/23 09:32 [place] # (Auto) 0.8 10^3/uL (0.2-0.9) 10/20/23 09:32 Eos # (Auto) 0.2 10^3/uL (0.0-0.8) 10/20/23 09:32 Baso # (Auto) 0.1 10^3/uL (0.0-0.1) 10/20/23 09:32 Nucleated RBC % (auto) 0 % 10/20/23 09:32 Nucleated RBCs # 0.0 /100WBC 10/20/23 09:32 PT 18.30 SECONDS (12.1-14.9) H 10/20/23 09:32 INR 1.47 (0.8-1.2) H 10/20/23 09:32 APTT 32.4 SECONDS (23.9-36.7) 10/20/23 09:32 Sodium 140 mmol/L (136-145) 10/20/23 09:32 Potassium 4.3 mmol/L (3.5-5.1) 10/20/23 09:32 Chloride 115 mmol/L (98-107) H 10/20/23 09:32 Carbon Dioxide 19 mmol/L (22-29) L 10/20/23 09:32 Anion Gap 10.3 (5-19) 10/20/23 09:32 BUN 33 mg/dL (6-20) H 10/20/23 09:32 Creatinine 1.6 mg/dL (0.7-1.2) H 10/20/23 09:32 GFR Calculation 45.6 mL/min (90-130) L 10/20/23 09:32 Glucose 142 mg/dL (65-115) H 10/20/23 09:32 Estimat Average Glucose 85 10/20/23 09:32 Hemoglobin A1c 4.6 % (4.0-6.0) 10/20/23 09:32 Calculated Osmolality 300 mOsm/kg (285-295) H 10/20/23 09:32 Lactic Acid 0.9 mmol/L (0.5-2.2) 10/20/23 11:33 Calcium 7.1 mg/dL (8.5-10.5) L 10/20/23 09:32 Iron 74 ug/dL (59-158) 10/20/23 09:32 TIBC 124 mcg/dl 10/20/23 09:32 % Saturation 59.6 % (20-50) H 10/20/23 09:32 Unsat Iron Binding 50 ug/dL (112-347) L 10/20/23 09:32 Total Bilirubin 0.9 mg/dL (0.15-1.2) 10/20/23 09:32 AST 41 U/L (0-40) H 10/20/23 09:32 ALT 19 U/L (0-41) 10/20/23 09:32 Alkaline Phosphatase 456 U/L (40-130) H 10/20/23 09:32 Ammonia 118 umol/L (16-60) H 10/20/23 11:33 NT-Pro-B Natriuret Pep 1640 pg/mL (0-125) H 10/20/23 09:32 Total Protein 5.3 g/dL (6.6-8.7) L 10/20/23 09:32 Albumin 1.9 g/dL (3.5-5.2) L 10/20/23 09:32 Globulin 3.4 g/dL (1.3-4.6) 10/20/23 09:32 Vitamin B12 1940 pg/mL (232-1245) H 10/20/23 09:32 Procalcitonin 0.18 ng/mL (0-0.5) 10/20/23 09:32 Procalcitonin Cancelled 10/20/23 09:32 TSH 2.68 uIU/mL (0.27-4.20) 10/20/23 09:32 Urine Color Dark yellow (Yellow) A 10/20/23 10:45 Urine Appearance Clear (CLEAR) 10/20/23 10:45 Urine pH 5 (5-7) 10/20/23 10:45 Ur Specific [place] 1.015 (1.005-1.030) 10/20/23 10:45 Urine Protein 3+ (Negative) H 10/20/23 10:45 Urine Glucose (UA) Norm (Normal) 10/20/23 10:45 Urine Ketones Negative (Negative) 10/20/23 10:45 Urine Blood 3+ (Negative) H 10/20/23 10:45 Urine Nitrate Negative (Negative) 10/20/23 10:45 Urine Bilirubin Neg (Negative) 10/20/23 10:45 Urine Urobilinogen Norm mg/dL (Negative) 10/20/23 10:45 Ur Leukocyte Esterase Negative (Negative) 10/20/23 10:45 Urine RBC 25-40 /hpf (0-2) H 10/20/23 10:45 Urine WBC 5-10 /hpf (0-5) H 10/20/23 10:45 Ur Squamous Epith Cells None /hpf (0-5) 10/20/23 10:45 Amorphous Sediment Not Reportable 10/20/23 10:45 Urine Bacteria 2+ /hpf (NONE) H 10/20/23 10:45 Urine Creatinine 107 mg/dL (39-259) 10/20/23 10:45 Salicylates 2.3 mg/dL (3-10) L 10/20/23 09:32 Urine Opiates Screen Negative ng/mL (Negative) 10/20/23 10:45 Acetaminophen < 5.0 ug/mL (10-30) L 10/20/23 09:32 Ur Barbiturates Screen Negative ng/mL (Negative) 10/20/23 10:45 Ur Phencyclidine Scrn Negative ng/mL (Negative) 10/20/23 10:45 Ur Amphetamines Screen Positive ng/mL (Negative) H 10/20/23 10:45 U Benzodiazepines Scrn Negative ng/mL (Negative) 10/20/23 10:45 Urine Cocaine Screen Positive ng/mL (Negative) H 10/20/23 10:45 U Marijuana (THC) Screen Positive ng/mL (Negative) H 10/20/23 10:45 Ethyl Alcohol < 10 mg/dL (0-10) 10/20/23 09:32 Adenovirus (PCR) Not detected (NOT DETECT) 10/20/23 12:05 C. pneumoniae DNA (PCR) Not detected (NOT DETECT) 10/20/23 12:05 Coronavirus 229E (PCR) Not detected (NOT DETECT) 10/20/23 12:05 Hepatitis A IgM Ab Non-reactive (Nonreactive) 10/20/23 09:32 Hep Bs Antigen Reactive (Nonreactive) H 10/20/23 09:32 Hep Bs Antibody < 3.5 (11.5-1000) L 10/20/23 09:32 Hep B Core Total Ab Reactive (Nonreactive) H 10/20/23 09:32 Hepatitis C Antibody Reactive (Nonreactive) H 10/20/23 09:32 HIV 1&2 Ab & HIV 1 Ag Non-reactive (Non-Reactiv) 10/20/23 09:32 HIV 1&2 Antibody Non-reactive (Non-Reactiv) 10/20/23 09:32 Human Metapneumovir PCR Not detected (NOT DETECT) 10/20/23 12:05 Influenza A (H1) PCR Not detected (NOT DETECT) 10/20/23 12:05 Influ A (H1/09) PCR Not detected (NOT DETECT) 10/20/23 12:05 Influenza A (H3) PCR Not detected (NOT DETECT) 10/20/23 12:05 Influenza Type A (PCR) Not detected (NOT DETECT) 10/20/23 12:05 Influenza Type B (PCR) Not detected (NOT DETECT) 10/20/23 12:05 M. pneumoniae (PCR) Not detected (NOT DETECT) 10/20/23 12:05 Parainfluenza 1 (PCR) Not detected (NOT DETECT) 10/20/23 12:05 Parainfluenza 2 (PCR) Not detected (NOT DETECT) 10/20/23 12:05 Parainfluenza 3 (PCR) Not detected (NOT DETECT) 10/20/23 12:05 Parainfluenza 4 (PCR) Not detected (NOT DETECT) 10/20/23 12:05 RSV Type A (PCR) Not detected (NOT DETECT) 10/20/23 12:05 RSV Type B (PCR) Not detected (NOT DETECT) 10/20/23 12:05 Entero/Rhino (PCR) Not detected (NOT DETECT) 10/20/23 12:05 SARS-CoV-2 (PCR) Not detected (NOT DETECT) 10/20/23 12:05 No radiology studies performed this visit Discharge Plan Discharge Patient Disposition: Admitted As Inpatient Admit Provider: Byron Medeiros Clinical Impression: Cirrhosis, Ascites, Hepatic encephalopathy, Pneumonia, Urinary tract infection, Dyspnea Condition: Stable Discharge Diet: As Directed Discharge Activity: Increase activity as tolerated Coding Level of Care Code ED Learning Support Resource Room Teacher for Domitila Cortez
[2023-10-21] MEDS: etomidate 2 mg/mL INJ SDV 10 mL 20 MG IVP (16:00)
[2023-10-21] MEDS: succinylcholine 20 mg/mL SDV 10mL 100 MG IVP (16:00)
--- NOTE | 2023-10-21 16:19 | P.PN_ITS ---
Subjective 2 Subjective: No acute events overnight. Today morning patient went for seen was doing well on CSU with mild difficulty in breathing. He denied having any nausea or vomiting. Complaining of back pain and headache. As per nursing staff he did get agitated overnight because of pain but was directable. During the day he is breathing Getting worse after nebulization treatment but with minimal urine output to Lasix. At around 250 rapid response was called for respiratory distress. Stat chest x-ray, Lasix and nebulization treatment was done along with Castorena catheterization. Patient's respiratory status continued to get worse and with poor mentation hence decision was made to intubate the patient in ICU. Vitals/I&O/Wt Last Vital Signs Temp 97.7 F 10/21/23 11:43 Pulse 75 10/21/23 15:13 Resp 28 H 10/21/23 15:07 BP 175/106 10/21/23 11:43 Pulse Ox 100 10/21/23 15:07 O2 Del Method Nasal Cannula 10/21/23 15:07 O2 Flow Rate 2 10/21/23 15:07 10/21/23 10/21/23 10/21/23 06:59 14:59 22:59 Intake Total 360 / 360 Output Total 200 / 475 200 / 200 Balance -200 / 585 160 / 160 Weight last 48 hrs Weight 90.265 kg Weight 91.444 kg Weight 87.685 kg Weight 77.111 kg Physical Exam 2 Narrative: General: Sedated, intubated HEENT: PERRLA, pupils bilaterally equal and reactive Chest: Normal vesicular breath sounds, no added sounds, equal good air entry bilaterally CVS: S1-S2 regular, no murmurs, no tachycardia, no gallops, no rubs Abdomen: Soft, distended, nontender no organomegaly, bowel sounds present Neuro: No focal deficits, no facial deformity, AO x3, power 5/5 in all limbs Urinary Catheter Management: Castorena: Cath Placed During This Visit: yes Urinary Catheter Date of Insertion: 10/21/23 Urinary Catheter Time of Insertion: 14:53 Data 10/21/23 04:40 10/21/23 04:40 Micro: Microbiology 10/20/23 10:45 Urine Culture - Preliminary Urine,Clean Catch 10/20/23 11:34 Blood Culture - Preliminary Blood NEGATIVE TO DATE 10/20/23 11:34 Blood Culture - Preliminary Blood NEGATIVE TO DATE 10/20/23 16:15 Bacterial Antigens - Final Urine Kidney A&P Assessment and plan (1) Hyperammonemia: Patient is AOx3. Do not have baseline ammonia levels. Most likely in setting of chronic liver cirrhosis. Continue with lactulose 30 mg 4 times daily, rifaximin twice daily. Repeat ammonia levels in AM. Target 2-3 soft bowel movements a day. (2) CKD (chronic kidney disease): Do not have baseline creatinine. Patient gives history of CKD. Medical reconciliation done for nephrotoxic drugs. Appreciate urine lites, urine creatinine, urine eosinophils. Cannot rule out hepatorenal syndrome. Blood pressure stable for now. Will start on IV albumin every 8 hourly and octreotide. Hold off on starting midodrine as blood pressures are elevated (3) Hepatorenal syndrome: (4) Respiratory failure: Most likely in setting of fluid overload along with restrictive lung disease in setting of extensive ascites. Requiring mechanical ventilation. Monitor ABG daily. Sedation with fentanyl and propofol. Empirically start patient on IV vancomycin and Zosyn for now. Check sputum culture, MRSA swab. If MRSA negative will discontinue vancomycin. Diuretics as above. OGT placement. DuoNeb every 6 hour, Solu-Medrol 40 mg IV every 8 hourly. (5) Cirrhosis: Post TIPS procedure. With evidence of cirrhosis on CT abdomen/pelvis and varices. Hep C positive. HIV negative, ammonia level appreciated. Urine drug screen positive for cocaine and amphetamines. Appreciate INR level. Child perez score: Class C 10 points Lactulose and rifaximin as above. Continue with propranolol 20 mg twice daily, Protonix 40 mg IV twice daily. Fluid restriction up to 1200 cc. IV Lasix 40 mg twice daily. Strict input charting, daily weights. (6) Ascites: Patient seems comfortable on laying flat for now. Currently on room air. Nontender abdomen. Will plan for paracentesis once radiology is available. (7) Anemia: Monitor hemoglobin. Appreciate iron panel, vitamin B12, folate levels. (8) Hepatitis C: Will await RNA PCR levels. Patient does not remember being treated in the past. Most likely need to set up with PCP as an outpatient for hepatitis C treatment. Plan Sedation: Fentanyl and propofol Glycemic control: Not needed. A1c 4.6 Nutrition: N.p.o. CODE STATUS: Full code PUD prophylaxis: Protonix DVT prophylaxis: Heparin 5000 every 12 hourly Discharge planning: Home with caregiver once stable Continue with care at ICU This documentation was created by [employer] supervisor aircraft cleaning software. Every effort was made to ensure accuracy of supervisor aircraft cleaning. Any obvious errors or omissions should be clarified with the author of the document. Attestations 2 Medical Necessity Statement*: Requires further hospitalization for management of respiratory failure in setting of fluid overload, ascites in a patient with liver cirrhosis, CADEN and CKD with concerns for hepatorenal syndrome Critical Care Time: The high probability of a clinically significant, sudden or life threatening deterioration of the patient's [pulmonary, neurological, GI, hepato] system(s) required my full and direct attention, intervention and personal management. The critical care time is as shown. This time is in addition to time spent performing any reported procedures but includes the following: [x] Data and vital sign review and interpretation [x] Patient assessment, examination and intervention [x] Documentation [x] Medication orders and management Critical Care Time (min): 90 Coding Level of Care Code Critical Care >/= 30 minutes Critical care time (in minutes): 90 The high probability of a clinically significant, sudden or life threatening deterioration, as referenced in this documentation, required my full and direct attention, intervention and personal management. The critical care time shown is in addition to time spent performing any reported separately billable procedures and includes the following: [x] Data and vital sign review and interpretation [x ] Patient assessment, examination and intervention [x] Medication orders and management [x] Patient/Family updates as able [x] Care Coordination and Documentation. Other Coding Information This patient has a high probability of clinically significant, sudden or life threatening deterioration of the patient's (neurological/pulmonary/cardiac/renal/ID/endocrine) systems required my full, direct attention, the highest level of physician preparedness for urgent intervention and personal management. I managed/supervised life or organ supporting interventions that required frequent physician assessment. I devoted my full attention in the ICU to the direct care of this patient for the period of time indicated above. Time I spent with family or surrogate(s) is included only if the patient was incapable of providing necessary information or participating in decision making. This time includes the following services provided: Telemetry review Mechanical Ventilation Hemodynamic interpretation, assessment and management Review and interpretation of CXR Review and interpretation of lab values Review and interpretation of microbiologic data and culture results Review of medications and administration Review and interpretation of Nutrition requirements and management Discussion of management with other consultants and services Clinical update to family members Diagnoses Hyperammonemia E72.20 CKD (chronic kidney disease) N18.9 Hepatorenal syndrome K76.7 Respiratory failure J96.90 Cirrhosis K74.60 Ascites R18.8 Anemia D64.9 Hepatitis C B19.20
[2023-10-21] MEDS: fentaNYL 1,000 MCG/100 ML BAG 10 MCG IV (16:20)
--- NOTE | 2023-10-21 16:30 | PC.NURSE ---
1535: Pt arrvies to ICU. Agonal breathing and bowers skin t one noted. 1538: Etomidate 20mg IVP and 100mg Succinycholine IVP admin 1540: pt intubated by ER physician. 1545: Og inserted. Several attempts made to start another IV due to pt jerking his arms.
--- NOTE | 2023-10-21 16:34 | PC.NURSE ---
Patient arrived from CSU to Med surg at approx 11:30am. Patient had been complaining of increased shortness of breath and had become very anxious and restless. Physician notified at 1330 and received orders to place CIWA protocol. Ativan 2mg given. Patients breathing pattern worsened,however,vital signs stable at that time. Patient went into resp distress and a rapid response was initiated. Physician present initating orders as follows: Castorena placed, additional 2mg ativan given, 40mg of lasix, additional IV placed, verbal orders to transfer to ICU proceeding Duoneb breathing treatment. During transfer to ICU patient declined rapidly. Patient became cyanotic, due to work of breathing patient unable to communicate. ICU nurse Florencia continued care and patient was intubated.
[2023-10-21 17:14] LABS: ABG PCO2 39.1 mmHg (35-45); ABG PH Result 7.29 (7.35-7.45); Arterial Blood Gas Hematocrit 28.4 % (42-52); Blood Gas Allen Test Pos; Blood Gas Operator Identificat BROMA; Blood Gas Sample Site Radial, right; Blood Gas Sample Type Arterial; Oxygen Device VENT; PO2 FiO2 Ratio Arterial Blood 244
[2023-10-21] MEDS: albumin 25 G/100 ML BAG 60 G IV ×2 (17:18→23:32)
[2023-10-21] MEDS: methylPREDNISolone sod succ 40 mg/mL INJ IVP ×2 (17:42→23:32)
[2023-10-21] MEDS: octreotide 500 MCG in sodium chloride 0.9% (100 ml) 100 ML 10.1 MCG IV (17:45)
[2023-10-21] MEDS: midazolam hcl 100 MG/100 ML BAG IV (17:45)
[2023-10-21] MEDS: vancomycin 1,500 MG/300 ML PIGGYBACK 200 MG IV (17:45)
--- NOTE | 2023-10-21 18:10 | PC.NURSE ---
Medications which were scanned earlier not showing they have been givne. manually documented all medications except for versed and fentanyl. Will scan those and back time to correct time.
[2023-10-21 18:42] LABS: Basophils % 0.1 %; Eosinophils % 0.2 %; Hematocrit 25.6 % (37-53); Lymphocytes # 0.4 10^3/uL (0.8-4.8); Lymphocytes % 2.7 %; Mean Corpuscular HGB Conc 31.6 g/dL (30-55); Mean Corpuscular Hemoglobin 29.9 pg (27-33); Mean Corpuscular Volume 94.5 fl (82-101); Mean Platelet Volume 10.1 fL (7.4-10.4); Monocytes # 0.7 10^3/uL (0.2-0.9); Monocytes % 4.4 %; Neutrophils # 14.12 10^3/uL (1.8-7.7); Neutrophils % 91.9 %; Nucleated Red Blood Cells % 0 %; Platelet Count 152 10^3/cmm (157-399); Red Blood Count 2.71 10^6/uL (3.85-5.65); Red Cell Distribution Width 16.8 % (12.1-15.1); White Blood Count 15.35 10^3/uL (3.29-11.43)
[2023-10-21 19:02] LABS: Alanine Aminotransferase 19 U/L (0-41); Albumin Level 2.2 g/dL (3.5-5.2); Alkaline Phosphatase 416 U/L (40-130); Anion Gap 14.4 (5-19); Aspartate Amino Transferase 35 U/L (0-40); Blood Urea Nitrogen 39 mg/dL (6-20); Calcium 7.7 mg/dL (8.5-10.5); Carbon Dioxide 17 mmol/L (22-29); Chloride 112 mmol/L (98-107); Creatinine Clr Calc Pharmacy 44.6148; Globulin 3.6 g/dL (1.3-4.6); Glomerular Filtration Rate 35.3 mL/min (90-130); Glucose 134 mg/dL (65-115); Osmolality Calculated 297 mOsm/kg (285-295); Potassium 5.4 mmol/L (3.5-5.1); Sodium 138 mmol/L (136-145); Total Bilirubin 1.1 mg/dL (0.15-1.2); Total Protein 5.8 g/dL (6.6-8.7)
[2023-10-21] MEDS: piperacillin-tazobactam 3.375 GM in sodium chloride 0.9% (plus) 50 ML IV (19:13)
--- NOTE | 2023-10-21 20:58 | XRR_ITS ---
PROCEDURE INFORMATION: Exam: XR Chest Exam date and time: 10/21/2023 9:20 PM Age: 53 years old Clinical indication: Device placement; Ett placement (vent status); Patient HX: Ett adjustment TECHNIQUE: Imaging protocol: Radiologic exam of the chest. Views: 1 view. COMPARISON: CR XR chest 1V portable [id number] 10/21/2023 3:57 PM FINDINGS: Tubes, catheters and devices: Endotracheal tube terminates approximately 2.0 cm above the miriam. A tube overlies the mediastinum and stomach, which extends inferiorly out of the field of view. Lungs: The lungs are hypoexpanded with central vascular prominence. Pleural spaces: No pleural effusion or pneumothorax. Heart/Mediastinum: Unremarkable. No cardiomegaly. Bones/joints: Unremarkable. XR/XR chest 1V portable [id number] IMPRESSION: 1. Endotracheal tube terminates approximately 2.0 cm above the miriam. 2. The lungs are hypoexpanded with central vascular prominence. 3. No pleural effusion.
--- NOTE | 2023-10-21 22:00 | PC.NURSE ---
Propranolol Patient's HR maintaining 59-60, BP 120s/80s. 20 mg propranolol PO due at 2100. Dr. Hooks contacted and verification received to hold dose.
[2023-10-22] VITALS (105 sets, daily range): BP systolic 111–140; BP diastolic 65–92; PULSE 51–66; RESP 15–22; TEMP 36.1–37.2; O2SAT 98–100; BMI 33.6; BMI 33.3
[2023-10-22] MEDS: fentaNYL 1,000 MCG/100 ML BAG 7.5 MCG IV ×2 (00:06→11:33)
--- NOTE | 2023-10-22 00:20 | PC.NURSE ---
Breathing Pattern Patient's ventilator alarming airway obstruction and patient noted to be inhaling deeply then having a delayed and short exhalation. RT at bedside. Versed titrated for ventilator compliance.
[2023-10-22 00:36] LABS: Glucose Point of Care 152 mg/dL (70-110)
[2023-10-22] MEDS: ipratropium-albuterol 3 mL Neb INHALATION ×4 (00:59→20:23)
--- NOTE | 2023-10-22 01:30 | PC.NURSE ---
Hold Heparin Blood noted to be coming out of patient's mouth with a noted history of varices. 5000 units heparin subq due at 0100; Dr. Wyman contacted and order received to hold heparin.
--- NOTE | 2023-10-22 01:40 | PC.NURSE ---
Breathing Pattern Patient's ventilator alarming airway obstruction and patient noted to be inhaling deeply then having a delayed and short exhalation. RT and Dr. Wyman notified and at bedside. Patient experiencing no response to verbal or painful stimuli and no gag reflex with deep suction. Order received to place biteblock on tube and unhook the ventilator to allow exhalation outside of the circuit. Interventions completed with no change in respiratory pattern.
[2023-10-22] MEDS: octreotide 500 MCG in sodium chloride 0.9% (100 ml) 100 ML 10.1 MCG IV ×2 (03:16→11:58)
[2023-10-22] MEDS: pantoprazole 40 mg SDV IVP ×2 (03:16→14:55)
[2023-10-22] MEDS: FUROsemide 10 mg/mL SDV 4mL 40 MG IVP ×2 (03:16→14:55)
[2023-10-22] MEDS: piperacillin-tazobactam 3.375 GM in sodium chloride 0.9% (plus) 50 ML IV ×3 (03:18→18:03)
[2023-10-22 03:41] LABS: Basophils % 0.1 %; Hematocrit 25.6 % (37-53); Lymphocytes # 0.5 10^3/uL (0.8-4.8); Lymphocytes % 4.1 %; Mean Corpuscular HGB Conc 31.6 g/dL (30-55); Mean Corpuscular Hemoglobin 30.2 pg (27-33); Mean Corpuscular Volume 95.5 fl (82-101); Mean Platelet Volume 10.6 fL (7.4-10.4); Monocytes # 0.3 10^3/uL (0.2-0.9); Monocytes % 2.1 %; Neutrophils # 11.13 10^3/uL (1.8-7.7); Nucleated Red Blood Cells % 0 %; Platelet Count 143 10^3/cmm (157-399); Red Blood Count 2.68 10^6/uL (3.85-5.65); Red Cell Distribution Width 17.2 % (12.1-15.1); White Blood Count 11.96 10^3/uL (3.29-11.43)
[2023-10-22 03:58] LABS: Alanine Aminotransferase 17 U/L (0-41); Albumin Level 2.8 g/dL (3.5-5.2); Alkaline Phosphatase 383 U/L (40-130); Anion Gap 17.1 (5-19); Aspartate Amino Transferase 32 U/L (0-40); Blood Urea Nitrogen 43 mg/dL (6-20); Calcium 7.9 mg/dL (8.5-10.5); Carbon Dioxide 16 mmol/L (22-29); Chloride 110 mmol/L (98-107); Globulin 3.5 g/dL (1.3-4.6); Glomerular Filtration Rate 28.6 mL/min (90-130); Glucose 146 mg/dL (65-115); Osmolality Calculated 297 mOsm/kg (285-295); Potassium 6.1 mmol/L (3.5-5.1); Sodium 137 mmol/L (136-145); Total Protein 6.3 g/dL (6.6-8.7)
[2023-10-22 04:06] LABS: ABG PCO2 42.1 mmHg (35-45); ABG PH Result 7.25 (7.35-7.45); Arterial Blood Gas Hematocrit 29.5 % (42-52); Base Excess ABG -8.4 mmol/L (-2.0-2.0); Blood Gas Allen Test Pos; Blood Gas Operator Identificat JB; Blood Gas Sample Site Radial, right; Blood Gas Sample Type Arterial; Carboxyhemoglobin 0.8 %THgb (0.4-20.1); HCO3 ABG 18.4 mmol/L (22-26); HGB O2 Sat 97.9 % (95-100); Ionized Calcium Level - ABG 1.2 mmol/L (1.1-1.4); Methemoglobin 1.1 % (0.4-1.5); Oxygen Device VENT; Oxygen Saturation ABG 99.8; Potassium Level - ABG 5.9 mmol/L (3.5-5.0); Total Hemoglobin 9.6 g/dL (14-18)
[2023-10-22 04:07] LABS: Alveolar-Arterial Oxygen Gradi 11.7 mmHg (5-10); PO2 FiO2 Ratio Arterial Blood 350
--- NOTE | 2023-10-22 05:00 | PC.NURSE ---
Breathing Pattern Patient's ventilator still alarming airway obstruction as patient remains to be inhaling deeply then having a delayed and short exhalation. RT and Dr. Wyman notified and at bedside. Patient experiencing no response to verbal or painful stimuli and no gag reflex with deep suction. Order received to place biteblock on tube and unhook the ventilator to allow exhalation outside of the circuit. Sedation discussed. Interventions completed with no change in respiratory pattern. Dr. Wyman notified of ventilator noncompliance maintaining; paralytic options discussed. Day physician to decide on further action.
--- NOTE | 2023-10-22 06:00 | US_ITS ---
WS: [id number] ULTRASOUND-GUIDED THERAPEUTIC AND DIAGNOSTIC PARACENTESIS Procedure, risks, and complications have been explained to the patient. Consent is obtained. Utilizing aseptic technique and 1% buffered lidocaine, a small dermatome was made through which a 5 F rench Yueh catheter was inserted. Approximately 3000 ml of clear peritoneal fluid was obtained witho ut difficulty. No complications encountered. Specimen collected for analysis. US/US paracentesis abd w [id number] IMPRESSION: Uncomplicated paracentesis yielding 3000 ml of peritoneal fluid.
[2023-10-22] MEDS: lactulose oral liq 20 gm/30 mL UDC 30 GM PO ×4 (06:24→23:20)
[2023-10-22] MEDS: methylPREDNISolone sod succ 40 mg/mL INJ IVP ×3 (08:01→23:20)
[2023-10-22] MEDS: albumin 25 G/100 ML BAG 60 G IV ×2 (08:03→16:28)
[2023-10-22] MEDS: propranolol 20 mg Tablet PO (08:07)
[2023-10-22] MEDS: RIFAXIMIN 550 MG 1 EACH PO ×2 (08:07→18:03)
[2023-10-22] MEDS: thiamine 100 mg Tablet PO (08:07)
[2023-10-22] MEDS: multivitamin therapeutic Tablet 1 TAB PO (08:07)
[2023-10-22] MEDS: folic acid 1 mg Tablet PO (08:07)
--- NOTE | 2023-10-22 08:55 | PC.NURSE ---
MTS contacted per policy.
[2023-10-22 10:19] LABS: Cyto Order Verification Order Verified
[2023-10-22 10:27] LABS: Body Fluid Polynuclear #Cells 0.005; Body Fluid WBC 73 /uL; Monocytes # Body Fluid 0.068; RBC, Body Fluid 0 10^3/uL
[2023-10-22 10:28] LABS: Apprearance, Body Fluid CLEAR; Color, Body Fluid PALE YELLOW
[2023-10-22 10:29] LABS: PATH Referral YES
[2023-10-22] MEDS: magnesium hydroxide 30 mL UDC PO (10:47)
[2023-10-22 10:59] LABS: Albumin Body Fluid 0.5 g/dL
--- NOTE | 2023-10-22 12:12 | XR_ITS ---
WS: [id number] PORTABLE CHEST HISTORY: Post PICC insertion COMPARISON: 10/21/2023 Right-sided PICC line terminates over the RIGHT atrium. Recommend retracting 2 cm to confirm optimal positioning. Lung volumes are decreased. Patent patchy consolidations probably due to atelectasis. Small amount of fluid overload is not excluded. No pleural effusion or pneumothorax. Cardiac size: Normal. Mediastinum/Aorta: Mild mediastinal prominence. Patient is intubated. No osseous abnormality seen. XR/XR chest 1V portable [id number] IMPRESSION: 1. Recommend retracting RIGHT PICC line 2 cm to ensure more optimal positionin g. 2. Low lung volumes due to poor inspiration with mild edema. 3. Endotracheal tube in good position.
--- NOTE | 2023-10-22 13:17 | PICC.NOTE ---
Triple lumen PICC placed to right basilic vein. Referred to vascular access nurse for PICC placement due to poor access. Risks and benefits discussed and informed consent obtained. Right arm assessed with right basilic vein measuring 4.5 mm, straight, and apparent best choice for placement. Using sterile technique and MST, right basilic vein accessed x 1 stick. Mid-arm circumference measured 10 cm from right AC 30 cm. Trimmed cath 41 cm with 4 cm external length noted. CXR shows tip above atrium. Radiologist recommends retracting 2 cm for more optimal positioning. Line retracted 2 cm as recommended, which should place tip in distal SVC. Line secured with stat-lock. Insertion site covered with Biopatch, gauze, and TSM. Report given to bedside nurse, DON Rodriguez.
[2023-10-22 14:31] LABS: HEP C RNA Viral Load Quant <1.18 NOT DETECTED Log IU/mL (NOT DETECTED); HEP C RNA Viral Load Quant <15 NOT DETECTED IU/mL (NOT DETECTED)
[2023-10-22 16:09] LABS: Anion Gap 19.2 (5-19); Blood Urea Nitrogen 53 mg/dL (6-20); Calcium 7.9 mg/dL (8.5-10.5); Carbon Dioxide 16 mmol/L (22-29); Chloride 111 mmol/L (98-107); Creatinine Clr Calc Pharmacy 31.9716; Glomerular Filtration Rate 23.9 mL/min (90-130); Glucose 171 mg/dL (65-115); Osmolality Calculated 308 mOsm/kg (285-295); Potassium 6.2 mmol/L (3.5-5.1); Sodium 140 mmol/L (136-145)
--- NOTE | 2023-10-22 18:46 | PC.NURSE ---
Notified Dr. Hassan of neurological changes, BUN, Creat, K trending up. Order for Kayexalate received.
[2023-10-22] MEDS: sodium polystyrene sulfonate 15 gm/60 mL Btl OG-TUBE (18:50)
--- NOTE | 2023-10-22 20:29 | PC.NURSE ---
Pulse variable 55-62, contacted Dr. Hooks to verify whether to hold evening Propranolol. Ordered to hold dose.
--- NOTE | 2023-10-22 22:02 | P.PN_ITS ---
Subjective 2 Subjective: Intubated, sedated, mechanically ventilated. Yesterday with weaning sedation reported possible posturing. Overnight with reported apnea episodes. Vitals/I&O/Wt Last Vital Signs Temp 98.0 F 10/22/23 20:00 Pulse 59 L 10/22/23 21:00 Resp 18 10/22/23 20:23 BP 135/74 10/22/23 21:00 Pulse Ox 99 10/22/23 21:00 O2 Del Method Mechanical Ventilation 10/22/23 20:23 O2 Flow Rate 2 10/21/23 15:07 FiO2 40 10/22/23 20:23 10/22/23 10/22/23 10/22/23 06:59 14:59 22:59 Intake Total 359.151 / 1232.868 446.028 / 446.028 140 / 586.028 Output Total 150 / 825 150 / 150 Balance 209.151 / 407.868 446.028 / 446.028 -10 / 436.028 Weight last 48 hrs Weight 90.86 kg Weight 91.626 kg Weight 90.265 kg Weight 91.444 kg Physical Exam 2 Const: GENERAL APPEARANCE: patient mechanically ventilated Eye: OTHER: Pupils equal. Neck/C-Spine: COMMON NORMALS: no JVD Resp: AUSCULTATION: wheezes Cardio: COMMON NORMALS: no JVD, regular rhythm, S1 normal heart sound present, S2 normal heart sound present and No murmurs present (Cardio) RHYTHM: regular rhythm HEART SOUNDS: S1 normal heart sound present and S2 normal heart sound present GI: COMMON NORMALS: Normal to inspection, nondistended, normoactive bowel sounds present, Soft to palpation and non-tender PALPATION: Yes Soft to palpation Extremity: COMMON NORMALS: no joint enlargement and no pedal edema Skin: COMMON NORMALS: no rashes or lesions noted GENERAL SKIN EXAM: no rashes or lesions noted Urinary Catheter Management: Castorena: Cath Placed During This Visit: yes Reason for Continuing Indwelling Catheter: Accurate Measurement of Urinary Output in Critically Ill Patients Urinary Catheter Date of Insertion: 10/21/23 Urinary Catheter Time of Insertion: 14:53 Data 10/22/23 03:27 10/22/23 15:40 Micro: Microbiology 10/22/23 00:15 Gram Stain - Final Sputum - Endotracheal Tube Aspirate 10/22/23 10:00 Gram Stain - Final Peritoneal Fluid 10/20/23 10:45 Urine Culture - Final Urine,Clean Catch A&P Assessment and plan (1) Acute encephalopathy: Acute encephalopathy with delirium, suspected withdrawal secondary to possible polysubstance, as well as metabolic encephalopathy with hyperammonemia. U tox positive for amphetamine, cocaine, marijuana. Has continued on Versed, Ativan. Yesterday while off Versed with some reported posturing. Was resumed on Versed. Overnight with apnea. This morning sedated, unresponsive. Discussed with nursing staff, weaning Versed. Later in the evening reported on reassessment to be opening eyes, making eye contact. Continue supportive care, treat withdrawal, reassess mental status for consideration of shortness for extubation. Recheck ammonia level. (2) Respiratory failure: Continues on diuretics, however, low urine output today, did also undergo paracentesis for now did not increase Lasix dose, will reassess blood pressures, continues on albumin. Increase Lasix for the morning. Continue with 60 mg IV twice daily. Reassess urine output, volume status, currently with anasarca. Reassess kidney function with noted kidney injury, creatinine up to 2.8. Most likely in setting of fluid overload along with restrictive lung disease in setting of extensive ascites. Requiring mechanical ventilation. Monitor ABG daily. Sedation with fentanyl and propofol. Empirically start patient on IV vancomycin and Zosyn for now. Check sputum culture, MRSA swab. If MRSA negative will discontinue vancomycin. Diuretics as above. OGT placement. DuoNeb every 6 hour, Solu-Medrol 40 mg IV every 8 hourly. (3) [id number]-[id number] kidney injury: Possible hepatorenal syndrome, although he is maintaining blood pressures 135/74. Albumin low 2.8. Continues with albumin infusions. Lasix. Increased dose starting in the morning given had paracentesis today. So far without response to octreotide, worsening renal function. With worsening bradycardia, discontinued octreotide. Start fixed rate Levophed 1 mcg/min. Discontinue vancomycin. (4) Hyperammonemia: Patient is AOx3. Do not have baseline ammonia levels. Most likely in setting of chronic liver cirrhosis. Continue with lactulose 30 mg 4 times daily, rifaximin twice daily. Repeat ammonia levels in AM. Target 2-3 soft bowel movements a day. (5) CKD (chronic kidney disease): Do not have baseline creatinine. Patient gives history of CKD. (6) Hepatorenal syndrome: Worsening renal function. Start Levophed. Stop octreotide. (7) Cirrhosis: Post TIPS procedure. With evidence of cirrhosis on CT abdomen/pelvis and varices. Hep C positive. HIV negative, ammonia level appreciated. Urine drug screen positive for cocaine and amphetamines. Appreciate INR level. Child perez score: Class C 10 points Lactulose and rifaximin as above. Continue with propranolol 20 mg twice daily, Protonix 40 mg IV twice daily. Fluid restriction up to 1200 cc. IV Lasix 40 mg twice daily. Strict input charting, daily weights. (8) Ascites: Added to ascites studies. Paracentesis performed today. Not suggestive of peritonitis. Patient seems comfortable on laying flat for now. Currently on room air. Nontender abdomen. Will plan for paracentesis once radiology is available. (9) Anemia: Monitor hemoglobin. Appreciate iron panel, vitamin B12, folate levels. (10) Hepatitis C: Will await RNA PCR levels. Patient does not remember being treated in the past. Most likely need to set up with PCP as an outpatient for hepatitis C treatment. Plan Sedation: Wean off sedation. Reassess mental status. Glycemic control: Not needed. A1c 4.6 Nutrition: N.p.o. CODE STATUS: Full code PUD prophylaxis: Protonix DVT prophylaxis: Heparin 5000 every 12 hourly Discharge planning: Discussed with case management specialist. This documentation was created by [employer] jumpbasting lining baster software. Every effort was made to ensure accuracy of jumpbasting lining baster. Any obvious errors or omissions should be clarified with the author of the document. Attestations 2 Medical Necessity Statement*: Continue admission for assessment of management of polysubstance withdrawal, acute encephalopathy, hyperammonemia, worsening CADEN on CKD with hepatorenal syndrome and a gentleman with underlying liver cirrhosis. Coding Level of Care Code Critical Care >/= 30 minutes Critical care time (in minutes): 45 The high probability of a clinically significant, sudden or life threatening deterioration, as referenced in this documentation, required my full and direct attention, intervention and personal management. The critical care time shown is in addition to time spent performing any reported separately billable procedures and includes the following: [x] Data and vital sign review and interpretation [x ] Patient assessment, examination and intervention [x] Medication orders and management [x] Patient/Family updates as able [x] Care Coordination and Documentation. Diagnoses Acute encephalopathy G93.40 Respiratory failure J96.90 Mglmz-mg-adveyai kidney injury N17.9; N18.9 Hyperammonemia E72.20 CKD (chronic kidney disease) N18.9 Hepatorenal syndrome K76.7 Cirrhosis K74.60 Ascites R18.8 Anemia D64.9 Hepatitis C B19.20
[2023-10-22] MEDS: norepinephrine 4 MG/250 ML BAG IV (23:19)
[2023-10-23] VITALS (106 sets, daily range): BP systolic 130–200; BP diastolic 71–107; PULSE 55–80; RESP 13–19; TEMP 35.8–36.7; O2SAT 94–100
[2023-10-23] MEDS: fentaNYL 1,000 MCG/100 ML BAG 7.5 MCG IV (00:35)
[2023-10-23] MEDS: albumin 25 G/100 ML BAG 60 G IV ×4 (00:35→23:31)
[2023-10-23] MEDS: chlorhexidine gluconate 4% Btl 118 mL 1 APPLIC TOPICAL (01:00)
[2023-10-23] MEDS: ipratropium-albuterol 3 mL Neb INHALATION ×4 (02:05→19:58)
[2023-10-23 02:35] LABS: Hepatitis B Surface AG REACTIVE (NON-REACTIVE)
[2023-10-23] MEDS: piperacillin-tazobactam 3.375 GM in sodium chloride 0.9% (plus) 50 ML IV ×3 (04:55→18:59)
[2023-10-23] MEDS: pantoprazole 40 mg SDV IVP ×2 (04:56→16:57)
[2023-10-23] MEDS: FUROsemide 10 mg/mL SDV 4mL 60 MG IVP ×2 (04:56→17:01)
[2023-10-23] MEDS: lactulose oral liq 20 gm/30 mL UDC 30 GM PO ×4 (04:57→23:25)
[2023-10-23 05:32] LABS: Basophils % 0.1 %; Hematocrit 25.9 % (37-53); Lymphocytes # 0.4 10^3/uL (0.8-4.8); Lymphocytes % 3.8 %; Mean Corpuscular HGB Conc 30.5 g/dL (30-55); Mean Corpuscular Volume 98.5 fl (82-101); Mean Platelet Volume 10.8 fL (7.4-10.4); Monocytes # 0.5 10^3/uL (0.2-0.9); Monocytes % 5.3 %; Neutrophils # 8.55 10^3/uL (1.8-7.7); Neutrophils % 89.3 %; Nucleated Red Blood Cells % 0 %; Platelet Count 145 10^3/cmm (157-399); Red Blood Count 2.63 10^6/uL (3.85-5.65); Red Cell Distribution Width 17.3 % (12.1-15.1); White Blood Count 9.57 10^3/uL (3.29-11.43)
[2023-10-23 05:49] LABS: Ammonia 129 umol/L (16-60)
[2023-10-23 05:50] LABS: Alanine Aminotransferase 15 U/L (0-41); Albumin Level 3.1 g/dL (3.5-5.2); Alkaline Phosphatase 291 U/L (40-130); Anion Gap 19.1 (5-19); Aspartate Amino Transferase 23 U/L (0-40); Blood Urea Nitrogen 63 mg/dL (6-20); Calcium 7.7 mg/dL (8.5-10.5); Carbon Dioxide 16 mmol/L (22-29); Chloride 110 mmol/L (98-107); Creatinine Clr Calc Pharmacy 28.8776; Globulin 3.2 g/dL (1.3-4.6); Glomerular Filtration Rate 21.3 mL/min (90-130); Glucose 194 mg/dL (65-115); Osmolality Calculated 311 mOsm/kg (285-295); Potassium 6.1 mmol/L (3.5-5.1); Sodium 139 mmol/L (136-145); Total Bilirubin 0.9 mg/dL (0.15-1.2); Total Protein 6.3 g/dL (6.6-8.7)
--- NOTE | 2023-10-23 08:30 | PICC.NOTE ---
24 hour PICC dressing change completed. Old dressing to RUE insertion site noted to have small amount old bloody drainage noted on gauze. Site cleaned with CHG. Biopatch applied to insertion site and secured with Sorbaview dressing. No redness, swelling, hematoma, or fresh bleeding noted. Report given to bedside nurseBrian.
[2023-10-23] MEDS: methylPREDNISolone sod succ 40 mg/mL INJ IVP ×3 (08:42→23:24)
[2023-10-23] MEDS: thiamine 100 mg Tablet PO (08:45)
[2023-10-23] MEDS: RIFAXIMIN 550 MG 1 EACH PO ×2 (08:45→17:27)
[2023-10-23] MEDS: folic acid 1 mg Tablet PO (08:45)
[2023-10-23] MEDS: propofol 1,000 MG/100 ML INJ 2.64 MG IV (11:39)
[2023-10-23] MEDS: LORazepam 2 mg/mL INJ 1 mL IVP ×3 (12:01→23:31)
--- NOTE | 2023-10-23 12:12 | PC.NURSE ---
Patient has started becoming increasingly agitated. SItting up in bed and kicking feet. No purposeful eye movements, not following any commands. Patient is fighting the ventilator. Will bear down and not allow a breath triggering low tidal volume alarms, and then taking 1 or two large breaths of 1200tidal volume. BLood pressure has also started to increase with this agitation and non compliance with the ventilator, some pressures as high as 190 systolic. Nurse has given ativan and started propofol drip at a low rate. Will continue to monitor as heart rate is in the low 60's. Intention is to reduce propofol after patient has calmed to allow patient to wake up and continue to monitor mental status. Nurse updated Dr mejia.
--- NOTE | 2023-10-23 15:09 | P.PN_ITS ---
Subjective 2 Subjective: Intubated, sedated. Became restless and agitated when trying to wean sedation earlier. Started raising his needs to his head, risk of self extubation, sedation had to be restarted. Vitals/I&O/Wt Last Vital Signs Temp 96.4 F L 10/23/23 13:00 Pulse 61 10/23/23 15:00 Resp 14 10/23/23 14:30 BP 163/94 10/23/23 15:00 Pulse Ox 98 10/23/23 15:00 O2 Del Method Mechanical Ventilation 10/23/23 14:30 O2 Flow Rate 2 10/21/23 15:07 FiO2 30 10/23/23 14:30 10/23/23 10/23/23 10/23/23 06:59 14:59 22:59 Intake Total 301.608 / 887.636 181.833 / 181.833 Output Total 250 / 400 300 / 300 Balance 51.608 / 487.636 -118.167 / -118.167 Weight last 48 hrs Weight 93.894 kg Weight 87.861 kg Weight 90.86 kg Weight 91.626 kg Physical Exam 2 Const: GENERAL APPEARANCE: patient mechanically ventilated Eye: OTHER: Pupils equal. Neck/C-Spine: COMMON NORMALS: no JVD Resp: AUSCULTATION: wheezes Cardio: COMMON NORMALS: no JVD, regular rhythm, S1 normal heart sound present, S2 normal heart sound present and No murmurs present (Cardio) RHYTHM: regular rhythm HEART SOUNDS: S1 normal heart sound present and S2 normal heart sound present GI: COMMON NORMALS: Normal to inspection, nondistended, normoactive bowel sounds present, Soft to palpation and non-tender PALPATION: Yes Soft to palpation Extremity: COMMON NORMALS: no joint enlargement OTHER: Persistent anasarca. Slightly better today. Skin: COMMON NORMALS: no rashes or lesions noted GENERAL SKIN EXAM: no rashes or lesions noted Urinary Catheter Management: Castorena: Cath Placed During This Visit: yes Reason for Continuing Indwelling Catheter: Accurate Measurement of Urinary Output in Critically Ill Patients Urinary Catheter Date of Insertion: 10/21/23 Urinary Catheter Time of Insertion: 14:53 Data 10/23/23 04:54 10/23/23 04:54 Micro: Microbiology 10/22/23 10:00 Gram Stain - Final Peritoneal Fluid Anaerobic Culture - Preliminary Body Fluid Culture - Preliminary 10/22/23 00:15 Gram Stain - Final Sputum - Endotracheal Tube Aspirate Sputum Culture - Preliminary 10/20/23 10:45 Urine Culture - Final Urine,Clean Catch A&P Assessment and plan (1) Acute encephalopathy: Reviewed vitals, CBC, CMP, discussed with nursing staff, so far with weaning sedation without improvement, became agitated again, raising his knees to his head, risk of self extubation, sedation had to be restarted. We discussed adjusting sedation as some given he is hypertensive switching over to propofol, weaning of fentanyl. Using Ativan as needed in case of episodes of restlessness/agitation. Continue reassessments. Discussed with his son concern for withdrawal which may be difficult to manage. Discussed with his son. Acute encephalopathy with delirium, suspected withdrawal secondary to possible polysubstance, as well as metabolic encephalopathy with hyperammonemia. U tox positive for amphetamine, cocaine, marijuana. Has continued on Versed, Ativan. Yesterday while off Versed with some reported posturing. Was resumed on Versed. Overnight with apnea. This morning sedated, unresponsive. Discussed with nursing staff, weaning Versed. Later in the evening reported on reassessment to be opening eyes, making eye contact. Continue supportive care, treat withdrawal, reassess mental status for consideration of shortness for extubation. Reviewed ammonia level, still elevated 129. Continue lactulose. Will give NC Dulcolax as well. Has not had a bowel movement so far. No sign of obstruction on CT. (2) Respiratory failure: Reviewed mechanical ventilator settings, oxygenation, currently on 30% FiO2. Status post paracentesis, continues with albumin infusions. Diuretic dose increased to 60 mg. Is producing more urine today. Reassess renal function, potassium with hyperkalemia. Received Kayexalate yesterday. So far no BM, without any symptoms or sign of obstruction on CT. Will give additional dose of Dulcolax NC. Continue lactulose. Most likely in setting of fluid overload along with restrictive lung disease in setting of extensive ascites. Requiring mechanical ventilation. Sedation with fentanyl and propofol. Empirically start patient on IV vancomycin and Zosyn for now. Check sputum culture, MRSA swab. If MRSA negative will discontinue vancomycin. Diuretics as above. OGT placement. DuoNeb every 6 hour, Solu-Medrol 40 mg IV every 8 hourly. (3) Joowb-mh-whroxzk kidney injury: Worsening CADEN, creatinine up to 3.1. Potassium 6.1. Received Kayexalate yesterday, will give additional dose of Dulcolax NC. Without sign of obstruction on CT review. Suspected hepatorenal syndrome, started on Levophed, continue Lasix, albumin infusions. Albumin with slight improvement. Urine output is slightly better today. Reassess kidney function, potassium. Discussed with his son regarding the above problems and CADEN, consider in case of further deterioration may require dialysis. (4) Hyperammonemia: Will give additional doses of Dulcolax NC. Continue lactulose. Patient is AOx3. Do not have baseline ammonia levels. Most likely in setting of chronic liver cirrhosis. Continue with lactulose 30 mg 4 times daily, rifaximin twice daily. Repeat ammonia levels in AM. Target 2-3 soft bowel movements a day. (5) CKD (chronic kidney disease): Do not have baseline creatinine. Patient gives history of CKD. (6) Hepatorenal syndrome: Worsening renal function. Levophed. Albumin infusions. (7) Cirrhosis: Post TIPS procedure. With evidence of cirrhosis on CT abdomen/pelvis and varices. With hyperammonemia. Hep C positive. HIV negative, ammonia level appreciated. Urine drug screen positive for cocaine and amphetamines. Appreciate INR level. Child perez score: Class C 10 points Lactulose and rifaximin as above. Continue with propranolol 20 mg twice daily, Protonix 40 mg IV twice daily. Fluid restriction up to 1200 cc. IV Lasix 40 mg twice daily. Strict input charting, daily weights. (8) Ascites: Added to ascites studies. Paracentesis performed 10/21. Not suggestive of peritonitis. (9) Anemia: Monitor hemoglobin. Appreciate iron panel, vitamin B12, folate levels. (10) Hepatitis C: Reviewed HCV RNA PCR, not detected. Patient does not remember being treated in the past. Most likely need to set up with PCP as an outpatient for Follow-up. Plan Sedation: Wean off sedation. Reassess mental status. Glycemic control: Not needed. A1c 4.6 Nutrition: N.p.o. CODE STATUS: Full code PUD prophylaxis: Protonix DVT prophylaxis: Heparin 5000 every 12 hourly Discharge planning: Discussed with telephonic nurse case manager. This documentation was created by [employer] manager of information software. Every effort was made to ensure accuracy of manager of information. Any obvious errors or omissions should be clarified with the author of the document. Attestations 2 Medical Necessity Statement*: Continue admission for assessment of management of polysubstance withdrawal, acute encephalopathy, hyperammonemia, worsening CADEN on CKD with hepatorenal syndrome and a gentleman with underlying liver cirrhosis. Coding Level of Care Code Critical Care >/= 30 minutes Critical care time (in minutes): 50 The high probability of a clinically significant, sudden or life threatening deterioration, as referenced in this documentation, required my full and direct attention, intervention and personal management. The critical care time shown is in addition to time spent performing any reported separately billable procedures and includes the following: [x] Data and vital sign review and interpretation [x ] Patient assessment, examination and intervention [x] Medication orders and management [x] Patient/Family updates as able [x] Care Coordination and Documentation. Diagnoses Acute encephalopathy G93.40 Respiratory failure J96.90 Npzto-rs-zggcczp kidney injury N17.9; N18.9 Hyperammonemia E72.20 CKD (chronic kidney disease) N18.9 Hepatorenal syndrome K76.7 Cirrhosis K74.60 Ascites R18.8 Anemia D64.9 Hepatitis C B19.20
[2023-10-23 16:33] LABS: Anion Gap 21.6 (5-19); Blood Urea Nitrogen 72 mg/dL (6-20); Calcium 7.6 mg/dL (8.5-10.5); Carbon Dioxide 15 mmol/L (22-29); Chloride 111 mmol/L (98-107); Creatinine Clr Calc Pharmacy 26.7658; Glomerular Filtration Rate 19.1 mL/min (90-130); Glucose 200 mg/dL (65-115); Osmolality Calculated 321 mOsm/kg (285-295); Potassium 5.6 mmol/L (3.5-5.1); Sodium 142 mmol/L (136-145)
[2023-10-23] MEDS: bisacodyl 10 mg Supp PR (16:58)
--- NOTE | 2023-10-23 19:26 | PC.NURSE ---
SHift SUmmary: Uneventful shift. Patient has been off of versed all day. Was started on a low amount of propofol and received one ativan push due to severe agitation in the late morning. Patient will open eyes in response to sound, but will not look in direction of sound, will not track nurse with eyes. Patient does not follow commands. No purposeful responses observed today. No bowel movement.
[2023-10-23] MEDS: propranolol 20 mg Tablet PO (21:25)
[2023-10-23] MEDS: norepinephrine 4 MG/250 ML BAG 3.6 MG IV (23:24)
[2023-10-24] VITALS (80 sets, daily range): BP systolic 157–213; BP diastolic 81–101; PULSE 51–73; RESP 13–19; TEMP 36.3–36.5; O2SAT 96–100; BMI 33.2
[2023-10-24] MEDS: ipratropium-albuterol 3 mL Neb INHALATION ×4 (01:32→20:03)
--- NOTE | 2023-10-24 01:48 | PC.NURSE ---
Contacted Dr. Wyman regarding hypertension. Has had blood pressures consistently 170-200 systolic. Ordered to pause levophed at this time.
[2023-10-24] MEDS: lactulose oral liq 20 gm/30 mL UDC 30 GM PO ×3 (04:02→23:31)
[2023-10-24] MEDS: pantoprazole 40 mg SDV IVP ×2 (04:02→14:29)
[2023-10-24] MEDS: piperacillin-tazobactam 3.375 GM in sodium chloride 0.9% (plus) 50 ML IV ×3 (04:02→18:02)
[2023-10-24] MEDS: FUROsemide 10 mg/mL SDV 4mL 60 MG IVP ×2 (04:03→15:50)
[2023-10-24] MEDS: fentaNYL 1,000 MCG/100 ML BAG 5 MCG IV (04:19)
[2023-10-24] MEDS: chlorhexidine gluconate 4% Btl 118 mL 1 APPLIC TOPICAL (04:26)
[2023-10-24 05:14] LABS: Basophils % 0.2 %; Hematocrit 23.7 % (37-53); Lymphocytes # 0.3 10^3/uL (0.8-4.8); Lymphocytes % 5.3 %; Mean Corpuscular HGB Conc 30.8 g/dL (30-55); Mean Corpuscular Hemoglobin 30.2 pg (27-33); Mean Corpuscular Volume 97.9 fl (82-101); Mean Platelet Volume 11.4 fL (7.4-10.4); Monocytes # 0.2 10^3/uL (0.2-0.9); Monocytes % 4.6 %; Neutrophils # 4.35 10^3/uL (1.8-7.7); Neutrophils % 87.9 %; Nucleated Red Blood Cells % 0 %; Platelet Count 96 10^3/cmm (157-399); Red Blood Count 2.42 10^6/uL (3.85-5.65); White Blood Count 4.95 10^3/uL (3.29-11.43)
[2023-10-24 05:40] LABS: Alanine Aminotransferase 12 U/L (0-41); Albumin Level 3.4 g/dL (3.5-5.2); Alkaline Phosphatase 204 U/L (40-130); Anion Gap 22.4 (5-19); Aspartate Amino Transferase 18 U/L (0-40); Blood Urea Nitrogen 78 mg/dL (6-20); Calcium 7.5 mg/dL (8.5-10.5); Carbon Dioxide 15 mmol/L (22-29); Chloride 112 mmol/L (98-107); Creatinine Clr Calc Pharmacy 27.5769; Globulin 2.6 g/dL (1.3-4.6); Glomerular Filtration Rate 19.8 mL/min (90-130); Glucose 209 mg/dL (65-115); Osmolality Calculated 327 mOsm/kg (285-295); Potassium 5.4 mmol/L (3.5-5.1); Sodium 144 mmol/L (136-145); Total Bilirubin 0.9 mg/dL (0.15-1.2)
[2023-10-24] MEDS: propofol 1,000 MG/100 ML INJ 2.64 MG IV (06:03)
[2023-10-24] MEDS: methylPREDNISolone sod succ 40 mg/mL INJ IVP ×2 (07:45→15:54)
[2023-10-24] MEDS: albumin 25 G/100 ML BAG 100 G IV ×2 (07:48→15:55)
[2023-10-24] MEDS: propranolol 20 mg Tablet PO (10:19)
[2023-10-24] MEDS: folic acid 1 mg Tablet PO (10:20)
[2023-10-24] MEDS: thiamine 100 mg Tablet PO (10:20)
[2023-10-24] MEDS: RIFAXIMIN 550 MG 1 EACH PO ×2 (10:24→17:00)
--- NOTE | 2023-10-24 16:28 | PC.NURSE ---
1625 When turning down Propofol, Blood pressure goes back up, so turned Propofol back up.
[2023-10-24] MEDS: propofol 1,000 MG/100 ML INJ 7.91 MG IV (19:40)
--- NOTE | 2023-10-24 20:55 | P.PN_ITS ---
Subjective 2 Subjective: Mental status reassessed again today but again becoming restless, agitated, confused, sedation had to be restarted. Vitals/I&O/Wt Last Vital Signs Temp 97.6 F 10/24/23 20:00 Pulse 61 10/24/23 20:30 Resp 14 10/24/23 20:30 BP 213/95 10/24/23 20:30 Pulse Ox 99 10/24/23 20:30 O2 Del Method Mechanical Ventilation 10/24/23 20:04 O2 Flow Rate 2 10/21/23 15:07 FiO2 30 10/24/23 20:30 10/24/23 10/24/23 10/24/23 06:59 14:59 22:59 Intake Total 458.404 / 1083.453 273.360 / 273.360 154.622 / 427.982 Output Total 1000 / 1625 1300 / 1300 Balance -541.596 / -541.547 273.360 / 273.360 -1145.378 / -872.018 Weight last 48 hrs Weight 90.582 kg Weight 93.894 kg Weight 87.861 kg Physical Exam 2 Const: GENERAL APPEARANCE: patient mechanically ventilated Eye: OTHER: Pupils equal. Neck/C-Spine: COMMON NORMALS: no JVD Resp: COMMON NORMALS: clear to auscultation bilaterally AUSCULTATION: clear to auscultation bilaterally Cardio: COMMON NORMALS: no JVD, regular rhythm, S1 normal heart sound present, S2 normal heart sound present and No murmurs present (Cardio) RHYTHM: regular rhythm HEART SOUNDS: S1 normal heart sound present and S2 normal heart sound present GI: COMMON NORMALS: Normal to inspection, nondistended, normoactive bowel sounds present, Soft to palpation and non-tender PALPATION: Yes Soft to palpation : OTHER: Producing urine. Extremity: COMMON NORMALS: no joint enlargement and no pedal edema OTHER: Anasarca. Skin: COMMON NORMALS: no rashes or lesions noted GENERAL SKIN EXAM: no rashes or lesions noted Urinary Catheter Management: Castorena: Cath Placed During This Visit: yes Reason for Continuing Indwelling Catheter: Accurate Measurement of Urinary Output in Critically Ill Patients Urinary Catheter Date of Insertion: 10/21/23 Urinary Catheter Time of Insertion: 14:53 Data 10/24/23 04:12 10/24/23 04:12 Micro: Microbiology 10/22/23 10:00 Gram Stain - Final Peritoneal Fluid Anaerobic Culture - Preliminary Body Fluid Culture - Preliminary 10/22/23 00:15 Gram Stain - Final Sputum - Endotracheal Tube Aspirate Sputum Culture - Preliminary Yeast species A&P Assessment and plan (1) Acute encephalopathy: Mental status reassessed again today weaning sedation, but again becoming agitated, restless, confused, sedation had to be restarted. Continue supportive measures for polysubstance withdrawal, sedation switched to propofol to allow additional mental status reassessment. Continue Ativan pushes as needed for restlessness/agitation/withdrawal. Reported concern for possibility of underlying anoxic injury as well due to degree of hypoxia with respiratory failure and intubation. Additionally very hypertensive, this evening blood pressure now is coming up as high as 213/95, will add nicardipine drip, with risk of PRES. Reviewed vitals, CBC, CMP, discussed with nursing staff,manager biostatistics. Continue reassessments. Discussed with his son concern for withdrawal which may be difficult to manage. Additionally, component of hepatic encephalopathy, now has had a bowel movement. Recheck ammonia. (2) Uqxyt-xk-ogywasn kidney injury: Reviewed potassium, BUN, creatinine, anion gap, bicarb, renal function today with some improvement, creatinine down slightly to 3.3 after high as 3.4 yesterday. He is producing urine. In negative balance today. Still with significant anasarca. Continues with albumin infusions. Does appear to have responded to Levophed with hepatorenal syndrome, although Levophed had to be discontinued with significant hypotension. Continue albumin, diuretics, Lasix 60 mg IV twice daily. (3) Respiratory failure: Respiratory failure with improvement. FiO2 requirement down to 30%. Continue weaning trials. Mental status barrier to extubation. Heavy yeast species on sputum culture. Add fluconazole for possible invasive candidiasis. With severe hypertension, encephalopathy, stop Solu-Medrol. Status post paracentesis, continues with albumin infusions. Diuretic dose increased to 60 mg. Is producing more urine today. Reassess renal function, potassium with hyperkalemia. Received Kayexalate yesterday. So far no BM, without any symptoms or sign of obstruction on CT. Will give additional dose of Dulcolax MD. Continue lactulose. Most likely in setting of fluid overload along with restrictive lung disease in setting of extensive ascites. Requiring mechanical ventilation. Sedation with fentanyl and propofol. Empirically start patient on IV vancomycin and Zosyn for now. Check sputum culture, MRSA swab. If MRSA negative will discontinue vancomycin. Diuretics with Lasix 60 mg IV twice daily. (4) Hyperammonemia: Will give additional doses of Dulcolax MD. Continue lactulose. Patient is AOx3. Do not have baseline ammonia levels. Most likely in setting of chronic liver cirrhosis. Continue with lactulose 30 mg 4 times daily, rifaximin twice daily. Repeat ammonia levels in AM. Target 2-3 soft bowel movements a day. (5) CKD (chronic kidney disease): Do not have baseline creatinine. Patient gives history of CKD. (6) Hepatorenal syndrome: Worsening renal function. Levophed had to be stopped. Albumin infusions. (7) Cirrhosis: Post TIPS procedure. With evidence of cirrhosis on CT abdomen/pelvis and varices. With hyperammonemia. Hep C positive. HIV negative, ammonia level appreciated. Urine drug screen positive for cocaine and amphetamines. Appreciate INR level. Child perez score: Class C 10 points Lactulose and rifaximin as above. Continue with propranolol 20 mg twice daily, Protonix 40 mg IV twice daily. Fluid restriction up to 1200 cc. IV Lasix 40 mg twice daily. Strict input charting, daily weights. (8) Ascites: Added to ascites studies. Paracentesis performed 10/21. Not suggestive of peritonitis. (9) Anemia: Gradually worsening anemia. Hemoglobin down to 7.3. Check Hemoccult. Continue IV PPI twice daily. Monitor hemoglobin. Appreciate iron panel, vitamin B12, folate levels. (10) Hepatitis C: Reviewed HCV RNA PCR, not detected. Patient does not remember being treated in the past. Most likely need to set up with PCP as an outpatient for Follow-up. Plan Sedation: Wean off sedation. Reassess mental status. Glycemic control: Not needed. A1c 4.6 Nutrition: N.p.o. CODE STATUS: Full code PUD prophylaxis: Protonix DVT prophylaxis: Heparin 5000 every 12 hourly Discharge planning: Discussed with bilingual patient support caseworker. This documentation was created by [employer] land manager software. Every effort was made to ensure accuracy of land manager. Any obvious errors or omissions should be clarified with the author of the document. Attestations 2 Medical Necessity Statement*: Continue admission for assessment of management of polysubstance withdrawal, acute encephalopathy, hyperammonemia, worsening CADEN on CKD with hepatorenal syndrome and a gentleman with underlying liver cirrhosis. Coding Level of Care Code Critical Care >/= 30 minutes Critical care time (in minutes): 45 The high probability of a clinically significant, sudden or life threatening deterioration, as referenced in this documentation, required my full and direct attention, intervention and personal management. The critical care time shown is in addition to time spent performing any reported separately billable procedures and includes the following: [x] Data and vital sign review and interpretation [x ] Patient assessment, examination and intervention [x] Medication orders and management [x] Patient/Family updates as able [x] Care Coordination and Documentation. Diagnoses Acute encephalopathy G93.40 Ydmwv-ue-vtzfkda kidney injury N17.9; N18.9 Respiratory failure J96.90 Hyperammonemia E72.20 CKD (chronic kidney disease) N18.9 Hepatorenal syndrome K76.7 Cirrhosis K74.60 Ascites R18.8 Anemia D64.9 Hepatitis C B19.20
--- NOTE | 2023-10-24 21:05 | PC.NURSE ---
Held propranolol due to pts low HR, current HR 52. Okayed by Dr Hooks. BPs elevated and pt cannot have propranolol, new order received for 5mg ivp hydralazine per Dr Hooks.
[2023-10-24] MEDS: hyDRALAzine 20 mg/mL INJ 1 mL 5 MG IVP (21:17)
[2023-10-24] MEDS: fluconazole premix 200 MG/100 ML PREMIX 100 MG IV (21:17)
[2023-10-25] VITALS (61 sets, daily range): BP systolic 120–195; BP diastolic 61–123; PULSE 47–70; RESP 12–25; TEMP 36.2–36.6; O2SAT 93–100; BMI 30.9
[2023-10-25] MEDS: albumin 25 G/100 ML BAG 60 G IV ×3 (00:26→16:04)
[2023-10-25] MEDS: chlorhexidine gluconate 4% Btl 118 mL 1 APPLIC TOPICAL (01:16)
[2023-10-25] MEDS: ipratropium-albuterol 3 mL Neb INHALATION ×4 (01:59→19:51)
[2023-10-25] MEDS: piperacillin-tazobactam 3.375 GM in sodium chloride 0.9% (plus) 50 ML IV ×3 (03:10→18:02)
[2023-10-25] MEDS: pantoprazole 40 mg SDV IVP ×2 (03:11→16:04)
[2023-10-25] MEDS: FUROsemide 10 mg/mL SDV 4mL 60 MG IVP (03:12)
[2023-10-25 05:52] LABS: Hematocrit 23.8 % (37-53); Lymphocytes # 0.2 10^3/uL (0.8-4.8); Lymphocytes % 5.2 %; Mean Corpuscular HGB Conc 31.1 g/dL (30-55); Mean Corpuscular Hemoglobin 29.5 pg (27-33); Mean Corpuscular Volume 94.8 fl (82-101); Mean Platelet Volume 10.9 fL (7.4-10.4); Monocytes # 0.2 10^3/uL (0.2-0.9); Monocytes % 4.5 %; Neutrophils # 3.94 10^3/uL (1.8-7.7); Neutrophils % 89.4 %; Nucleated Red Blood Cells % 0 %; Platelet Count 89 10^3/cmm (157-399); Red Blood Count 2.51 10^6/uL (3.85-5.65); Red Cell Distribution Width 16.5 % (12.1-15.1); White Blood Count 4.41 10^3/uL (3.29-11.43)
[2023-10-25 06:16] LABS: Alanine Aminotransferase 11 U/L (0-41); Albumin Level 3.5 g/dL (3.5-5.2); Alkaline Phosphatase 170 U/L (40-130); Anion Gap 22.6 (5-19); Aspartate Amino Transferase 17 U/L (0-40); Calcium 7.7 mg/dL (8.5-10.5); Carbon Dioxide 16 mmol/L (22-29); Chloride 112 mmol/L (98-107); Globulin 2.3 g/dL (1.3-4.6); Glomerular Filtration Rate 17.3 mL/min (90-130); Glucose 221 mg/dL (65-115); Osmolality Calculated 336 mOsm/kg (285-295); Potassium 4.6 mmol/L (3.5-5.1); Sodium 146 mmol/L (136-145); Total Protein 5.8 g/dL (6.6-8.7)
[2023-10-25 06:23] LABS: Ammonia 121 umol/L (16-60)
[2023-10-25 06:29] LABS: Blood Urea Nitrogen 90 mg/dL (6-20)
[2023-10-25] MEDS: lactulose oral liq 20 gm/30 mL UDC 30 GM PO ×3 (06:29→16:04)
[2023-10-25] MEDS: propofol 1,000 MG/100 ML INJ 21.09 MG IV ×4 (08:01→22:03)
[2023-10-25] MEDS: folic acid 1 mg Tablet PO (08:02)
[2023-10-25] MEDS: RIFAXIMIN 550 MG 1 EACH PO ×2 (08:02→17:16)
[2023-10-25] MEDS: thiamine 100 mg Tablet PO (08:02)
--- NOTE | 2023-10-25 08:05 | XR_ITS ---
WS: [id number] Portable AP supine chest, 10/25/2023 Clinical Data: daily for intubation Comparison: Portable chest, 10/22/2023 Findings: The right PICC line has been retracted and now ends in the superior vena cava. The nasogast liz tube and endotracheal tube remain in position. The patchy opacities in both lungs have diminished . The heart size remains the same. No nodules, masses or effusions are seen. . The pulmonary vascular ity is not increased. No pneumonia or pneumothorax is seen. XR/XR chest 1V portable [id number] Impression: 1. Right PICC line now ends in superior vena cava chest.. 2. Decrease in patchy opacities in both lungs. 3. No change in endotracheal tube and nasogastric tube.
--- NOTE | 2023-10-25 11:25 | P.CONIM_ITS ---
Providers/Reason For Consult 2 Consulting Physician/Specialty*: [facility] /Nephrology Reason for Consult*: CADEN Attending Physician: Andrés Hassan History of Present Illness History of Present Illness Luis Fernando Funes is a 53 year old male Patient currently denies any complaints patient is a 53-year-old male with past medical history of liver cirrhosis,, prior TIPS procedure, chronic kidney disease patient presented to the ER complaining of abdominal distention-ascites . Patient was noted to be with altered mental status ammonia level was elevated. Lab data significant for creatinine of 1.6 on presentation. No prior labs available, hemoglobin was 8.5. Patient was intubated on 10/21/2023 due to concerns for worsening altered mental status/delirium tremens. Patient remains intubated currently, not on pressors Review of Systems 2 Narrative: cannot obtain Medications/Allergies Home Medications Medication Instructions Recorded Confirmed Last Taken Type azithromycin 250 mg tablet See Rx Instructions PO .COMPLEX #6 10/20/23 Unknown Rx (Zithromax Z-Corby) tabs cefdinir 300 mg capsule 300 mg PO BID 7 days #14 caps 10/20/23 Unknown Rx dexamethasone 6 mg tablet 6 mg PO DAILY 5 days #5 tabs 10/20/23 Unknown Rx furosemide 40 mg tablet (Lasix) 40 mg PO QAM 5 days #5 tabs 10/20/23 Unknown Rx hydrocodone 5 mg-acetaminophen 325 1 tab PO Q6H PRN pain #20 tabs 10/20/23 Unknown Rx mg tablet lactulose 10 gram/15 mL oral 30 ml PO BID 10/20/23 10/20/23 10/19/23 21:00 History solution polyethylene glycol 3350 17 17 g PO DAILY #510 grams 10/20/23 Unknown Rx gram/dose oral powder (Miralax) rifaximin 550 mg tablet 1 mg PO BID 10/20/23 10/20/23 10/19/23 21:00 History Allergies Allergy/AdvReac Type Severity Reaction Status Date / Time No Known Allergies Allergy Verified 10/20/23 09:09 Current Medications Generic Name Dose Route Start Last Admin Trade Name Freq PRN Reason Stop Dose Admin Hydrocodone Bitart/Acetaminophen 1 tab 10/20/23 15:25 10/21/23 11:14 Hydrocodone-Acetaminophen 5-325 Mg Tablet PO 1 tab Q6H PRN Administration MODERATE PAIN Albuterol/Ipratropium 3 ml 10/21/23 20:00 10/25/23 08:11 Ipratropium-Albuterol 3 Ml Neb INHALATION 3 ml Q6H.RESP DEL Administration Chlorhexidine Gluconate 1 applic 10/22/23 01:00 10/25/23 01:16 Chlorhexidine Gluconate 4% Btl 118 Ml TOPICAL 1 applic 0100 DEL Administration Folic Acid 1 mg 10/22/23 09:00 10/25/23 08:02 Folic Acid 1 Mg Tablet PO 1 mg DAILY DEL Administration Heparin Sodium (Porcine) 5,000 unit 10/20/23 13:00 10/22/23 03:25 Heparin 5,000 Unit/Ml Inj 1 Ml SUBCUT Not Given Q12H DEL Piperacillin Sod/Tazobactam 50 mls @ 12.5 mls/hr 10/21/23 19:00 10/25/23 10:30 Sod 3.375 gm/ Sodium Chloride IV 12.5 mls/hr Q8H DEL Administration Protocol Fentanyl 1,000 mcg in 100 mls @ 0 mls/hr 10/21/23 16:15 10/24/23 17:57 Sublimaze IV 0 mcg/hr .Q0M DEL 0 mls/hr Titration Protocol Per Protocol Albumin Human 25 g in 100 mls @ 60 mls/hr 10/21/23 16:30 10/25/23 07:31 Albumin IV 60 mls/hr Q8H DEL Administration Octreotide Acetate 500 mcg/ 101 mls @ 10.1 mls/hr 10/21/23 16:30 10/22/23 11:58 Sodium Chloride IV 50 mcg/hr .Q10H DEL 10.1 mls/hr Administration 50 MCG/HR Midazolam HCl 100 mg in 100 mls @ 0 mls/hr 10/21/23 17:00 10/24/23 17:57 Versed IV 0 mg/hr .Q0M DEL 0 mls/hr Titration Protocol Per Protocol Propofol 1,000 mg in 100 mls @ 0 mls/hr 10/23/23 08:45 10/25/23 08:01 Diprivan IV 40 mcg/kg/min .Q0M DEL 21.09 mls/hr Administration Protocol Per Protocol Fluconazole 200 mg in 100 mls @ 100 mls/hr 10/24/23 21:15 10/24/23 22:23 Diflucan Premix IV Infused Q24H DEL Infusion Lactulose 30 gm 10/21/23 10:45 10/25/23 10:31 Lactulose Oral Liq 20 Gm/30 Ml Udc PO 30 gm Q6H DEL Administration Protocol Lorazepam 2 mg 10/21/23 16:47 10/23/23 23:31 Lorazepam 2 Mg/Ml Inj 1 Ml IVP 2 mg Q4H PRN Administration ANXIETY Magnesium Hydroxide 30 ml 10/20/23 12:57 10/22/23 10:47 Magnesium Hydroxide 30 Ml Udc PO 30 ml DAILY PRN Administration Constipation (see protocol) Protocol Morphine Sulfate 2 mg 10/20/23 12:57 10/20/23 21:14 Morphine 4 Mg/Ml Sdv 1 Ml IVP 2 mg Q4H PRN Administration SEVERE PAIN Non-Formulary Med ( 1 each 10/20/23 18:00 10/25/23 08:02 Rifaximin 550mg PO 1 each Tablets) BID DEL Administration Pantoprazole Sodium 40 mg 10/21/23 15:15 10/25/23 03:11 Pantoprazole 40 Mg Sdv IVP 40 mg Q12H DEL Administration Thiamine Mononitrate 100 mg 10/22/23 09:00 10/25/23 08:02 Thiamine 100 Mg Tablet PO 100 mg DAILY DEL Administration PFSH Acute 2 PFSH: Medical History (Updated 10/22/23 @ 22:08 by Andrés Hassan MD) CKD (chronic kidney disease) Varices, gastric Hepatitis C Anemia Portal hypertension Cirrhosis Surgical History (Updated 10/20/23 @ 12:59 by Byron Medeiros MD) S/P TIPS (transjugular intrahepatic portosystemic shunt) Vitals/I&O/Wt Last Vital Signs Temp 97.5 F L 10/25/23 04:00 Pulse 54 L 10/25/23 10:00 Resp 12 10/25/23 11:07 BP 162/77 10/25/23 10:00 Pulse Ox 98 10/25/23 11:07 O2 Del Method Mechanical Ventilation 10/25/23 08:00 O2 Flow Rate 2 10/21/23 15:07 FiO2 30 10/25/23 11:07 10/24/23 10/25/23 10/25/23 22:59 06:59 14:59 Intake Total 304.622 / 577.982 176.237 / 754.219 72.664 / 72.664 Output Total 1300 / 1300 1500 / 2800 Balance -995.378 / -722.018 -1323.763 / -2045.781 72.664 / 72.664 Weight last 48 hrs Weight 84.414 kg Weight 90.582 kg Physical Exam 2 Narrative: intubated , sedated No distress Urinary Catheter Management: Castorena: Cath Placed During This Visit: yes Reason for Continuing Indwelling Catheter: Accurate Measurement of Urinary Output in Critically Ill Patients Urinary Catheter Date of Insertion: 10/21/23 Urinary Catheter Time of Insertion: 14:53 Data 10/25/23 04:48 10/25/23 12:14 Micro: Microbiology 10/24/23 21:30 Occult Blood (FIT) - Final Stool Routine Collection 10/22/23 10:00 Gram Stain - Final Peritoneal Fluid Anaerobic Culture - Preliminary Body Fluid Culture - Preliminary 10/22/23 00:15 Gram Stain - Final Sputum - Endotracheal Tube Aspirate Sputum Culture - Preliminary Yeast species A&P Assessment and plan (1) Enfzv-uk-yuorwkw kidney injury: 1. Acute on chronic kidney disease: Baseline creatinine not available, patient presented with a creatinine of 1.6 worsened to 3.6 currently . Likely multifactorial-possibly ATN and, HRS also possible. Was on IV albumin and octreotide . Continue albumin and monitor renal functions and will continue IV Lasix. Avoid nephrotoxins and contrast studies. No acute indication for dialysis , can do temporary HD for volume management but patient will not be a good long-term dialysis candidate . 2. Acute respiratory failure, on 30% FiO2 3. Hepatic encephalopathy, 4. Liver cirrhosis , status post paracentesis continue IV albumin. 5. Metabolic acidosis : monitor , will give iV bicarb as needed , can add bicitra if has NGT Patient evaluated using audiovisual cart. Time spent 40 minutes Consult Attestations 2 Medical Necessity Statement: Per medicine team Coding Level of Care Code Acute Code for Chg Fwd Diagnoses Oggqo-xf-ksxqynp kidney injury N17.9; N18.9
[2023-10-25 12:57] LABS: Calcium 7.8 mg/dL (8.5-10.5); Carbon Dioxide 15 mmol/L (22-29); Chloride 109 mmol/L (98-107); Glomerular Filtration Rate 17.9 mL/min (90-130); Glucose 215 mg/dL (65-115); Osmolality Calculated 332 mOsm/kg (285-295); Sodium 143 mmol/L (136-145)
[2023-10-25 13:05] LABS: Anion Gap 23.5 (5-19); Blood Urea Nitrogen 94 mg/dL (6-20); Creatinine Clr Calc Pharmacy 23.9914; Potassium 4.5 mmol/L (3.5-5.1)
[2023-10-25] MEDS: sodium bicarbonate 150 MEQ in dextrose 5% 1,000 ML 75 MEQ IV (13:42)
[2023-10-25 14:25] LABS: Methicillin-Resist S.aureu PCR NOT DETECTED (NOT DETECTED)
[2023-10-25] MEDS: nicardipine 20 MG/200 ML PREMIX 50 MG IV (16:05)
--- NOTE | 2023-10-25 17:24 | PC.NURSE ---
Wasted 58 ml of fent and 45 ml versed
--- NOTE | 2023-10-25 21:41 | P.PN_ITS ---
Subjective 2 Subjective: Mental status without improvement. Continue to require sedation. Last night needed IV Ativan dose. Vitals/I&O/Wt Last Vital Signs Temp 97.8 F 10/25/23 17:30 Pulse 57 L 10/25/23 19:51 Resp 14 10/25/23 19:52 BP 120/64 10/25/23 17:30 Pulse Ox 95 10/25/23 19:52 O2 Del Method Mechanical Ventilation 10/25/23 19:51 O2 Flow Rate 2 10/21/23 15:07 FiO2 30 10/25/23 20:00 10/25/23 10/25/23 10/25/23 06:59 14:59 22:59 Intake Total 176.237 / 754.219 303.861 / 303.861 263.333 / 567.194 Output Total 1500 / 2800 1400 / 1400 Balance -1323.763 / -2045.781 303.861 / 303.861 -1136.667 / -832.806 Weight last 48 hrs Weight 85.275 kg Weight 84.414 kg Weight 90.582 kg Physical Exam 2 Const: GENERAL APPEARANCE: patient mechanically ventilated Eye: OTHER: Pupils equal. Neck/C-Spine: COMMON NORMALS: no JVD Resp: COMMON NORMALS: clear to auscultation bilaterally AUSCULTATION: clear to auscultation bilaterally and wheezes Cardio: COMMON NORMALS: no JVD, regular rhythm, S1 normal heart sound present, S2 normal heart sound present and No murmurs present (Cardio) RHYTHM: regular rhythm HEART SOUNDS: S1 normal heart sound present and S2 normal heart sound present GI: COMMON NORMALS: Normal to inspection, nondistended, normoactive bowel sounds present, Soft to palpation and non-tender PALPATION: Yes Soft to palpation : OTHER: Producing urine. Extremity: COMMON NORMALS: no joint enlargement OTHER: Anasarca. Skin: COMMON NORMALS: no rashes or lesions noted GENERAL SKIN EXAM: no rashes or lesions noted Urinary Catheter Management: Castorena: Cath Placed During This Visit: yes Reason for Continuing Indwelling Catheter: Accurate Measurement of Urinary Output in Critically Ill Patients Urinary Catheter Date of Insertion: 10/21/23 Urinary Catheter Time of Insertion: 14:53 Data 10/25/23 04:48 10/25/23 12:14 Micro: Microbiology 10/22/23 10:00 Gram Stain - Final Peritoneal Fluid Anaerobic Culture - Preliminary Body Fluid Culture - Final 10/20/23 11:34 Blood Culture - Final Blood NO GROWTH AFTER 5 DAYS 10/20/23 11:34 Blood Culture - Final Blood NO GROWTH AFTER 5 DAYS 10/24/23 21:30 Occult Blood (FIT) - Final Stool Routine Collection A&P Assessment and plan (1) Acute encephalopathy: So far without improvement, now possibly also with a component of possible metabolic encephalopathy from renal dysfunction, uremia. Reviewed vitals, CBC, CMP. On weaning sedation, still becoming agitated, restless, confused, sedation had to be restarted. Continue to reassess. Continue supportive measures for polysubstance withdrawal, sedation switched to propofol to allow additional mental status reassessment. Continue Ativan pushes as needed for restlessness/agitation/withdrawal. Discussed with Nursing, shoe parts caser. Reported concern for possibility of underlying anoxic injury as well due to degree of hypoxia with respiratory failure and intubation. Additionally very hypertensive, this evening blood pressure now is coming up as high as 213/95, will add nicardipine drip, with risk of PRES. Continue reassessments. Discussed with his son concern for withdrawal which may be difficult to manage. Additionally, component of hepatic encephalopathy, now has had a bowel movement. Reviewed ammonia, still elevated at 120. Continue lactulose. Is status post TIPS. (2) Tmjbp-km-laqcupc kidney injury: Reviewed creatinine, BUN, anion gap, bicarb, potassium. Discussed with professional shopper. Appreciate consultation. He was started on bicarb. He is so far making urine. Continue albumin. IV Lasix. Previously on norepinephrine drip with suspected hepatorenal syndrome, but had to be discontinued with severe hypertension. (3) HTN (hypertension): Blood pressures rising further today, up as high as 195/86. Had to be started on nicardipine drip. Continue to monitor blood pressures. (4) Respiratory failure: Respiratory failure with improvement. FiO2 requirement down to 30%. Continue weaning trials. Mental status barrier to extubation. Heavy yeast species on sputum culture. Add fluconazole for possible invasive candidiasis. With severe hypertension, encephalopathy, stop Solu-Medrol. Status post paracentesis, continues with albumin infusions. Diuretic dose increased to 60 mg. Is producing more urine today. Reassess renal function, potassium with hyperkalemia. Received Kayexalate yesterday. So far no BM, without any symptoms or sign of obstruction on CT. Will give additional dose of Dulcolax SC. Continue lactulose. Most likely in setting of fluid overload along with restrictive lung disease in setting of extensive ascites. Requiring mechanical ventilation. Sedation with fentanyl and propofol. Empirically start patient on IV vancomycin and Zosyn for now. Check sputum culture, MRSA swab. If MRSA negative will discontinue vancomycin. Diuretics with Lasix 60 mg IV twice daily. (5) Hyperammonemia: Will give additional doses of Dulcolax SC. Continue lactulose. Patient is AOx3. Do not have baseline ammonia levels. Most likely in setting of chronic liver cirrhosis. Continue with lactulose 30 mg 4 times daily, rifaximin twice daily. Repeat ammonia levels in AM. Target 2-3 soft bowel movements a day. (6) CKD (chronic kidney disease): Do not have baseline creatinine. Patient gives history of CKD. (7) Hepatorenal syndrome: Worsening renal function. Levophed had to be stopped. Albumin infusions. (8) Cirrhosis: Post TIPS procedure. With evidence of cirrhosis on CT abdomen/pelvis and varices. With hyperammonemia. Hep C positive. HIV negative, ammonia level appreciated. Urine drug screen positive for cocaine and amphetamines. Appreciate INR level. Child perez score: Class C 10 points Lactulose and rifaximin as above. Continue with propranolol 20 mg twice daily, Protonix 40 mg IV twice daily. Fluid restriction up to 1200 cc. IV Lasix 40 mg twice daily. Strict input charting, daily weights. (9) Ascites: Added to ascites studies. Paracentesis performed 10/21. Not suggestive of peritonitis. (10) Anemia: Gradually worsening anemia. But appears to have leveled off, hemoglobin 7.4. Check Hemoccult. Continue IV PPI twice daily. Monitor hemoglobin. Appreciate iron panel, vitamin B12, folate levels. (11) Hepatitis C: Reviewed HCV RNA PCR, not detected. Patient does not remember being treated in the past. Most likely need to set up with PCP as an outpatient for Follow-up. Plan Sedation: Wean off sedation. Reassess mental status. Glycemic control: Not needed. A1c 4.6 Nutrition: N.p.o. CODE STATUS: Full code PUD prophylaxis: Protonix DVT prophylaxis: Heparin 5000 every 12 hourly Discharge planning: Discussed with shoe parts caser. This documentation was created by [employer] accounting support specialist software. Every effort was made to ensure accuracy of accounting support specialist. Any obvious errors or omissions should be clarified with the author of the document. Attestations 2 Medical Necessity Statement*: Continue admission for assessment of management of polysubstance withdrawal, acute encephalopathy, hyperammonemia, worsening CADEN on CKD with hepatorenal syndrome and a gentleman with underlying liver cirrhosis. Coding Level of Care Code Critical Care >/= 30 minutes Critical care time (in minutes): 45 The high probability of a clinically significant, sudden or life threatening deterioration, as referenced in this documentation, required my full and direct attention, intervention and personal management. The critical care time shown is in addition to time spent performing any reported separately billable procedures and includes the following: [x] Data and vital sign review and interpretation [x ] Patient assessment, examination and intervention [x] Medication orders and management [x] Patient/Family updates as able [x] Care Coordination and Documentation. Diagnoses Acute encephalopathy G93.40 Xpmae-ac-uupfark kidney injury N17.9; N18.9 HTN (hypertension) I10 Respiratory failure J96.90 Hyperammonemia E72.20 CKD (chronic kidney disease) N18.9 Hepatorenal syndrome K76.7 Cirrhosis K74.60 Ascites R18.8 Anemia D64.9 Hepatitis C B19.20
[2023-10-25] MEDS: fluconazole premix 200 MG/100 ML PREMIX 100 MG IV (21:48)
[2023-10-26] VITALS (53 sets, daily range): BP systolic 87–196; BP diastolic 44–86; PULSE 45–69; RESP 14–27; TEMP 36.1–36.4; O2SAT 91–100; BMI 31.0
[2023-10-26] MEDS: lactulose oral liq 20 gm/30 mL UDC 30 GM PO ×5 (00:10→23:10)
[2023-10-26] MEDS: albumin 25 G/100 ML BAG 60 G IV ×3 (00:11→15:35)
[2023-10-26] MEDS: propofol 1,000 MG/100 ML INJ 21.09 MG IV ×3 (02:01→17:25)
[2023-10-26] MEDS: chlorhexidine gluconate 4% Btl 118 mL 1 APPLIC TOPICAL (02:27)
[2023-10-26] MEDS: ipratropium-albuterol 3 mL Neb INHALATION ×4 (03:00→20:37)
[2023-10-26 04:28] LABS: Basophils % 0.2 %; Hematocrit 22.2 % (37-53); Lymphocytes # 0.2 10^3/uL (0.8-4.8); Lymphocytes % 4.8 %; Mean Corpuscular HGB Conc 33.3 g/dL (30-55); Mean Corpuscular Hemoglobin 30.7 pg (27-33); Mean Corpuscular Volume 92.1 fl (82-101); Mean Platelet Volume 11.5 fL (7.4-10.4); Monocytes # 0.4 10^3/uL (0.2-0.9); Monocytes % 9.5 %; Neutrophils # 3.86 10^3/uL (1.8-7.7); Neutrophils % 83.6 %; Nucleated Red Blood Cells % 0 %; Platelet Count 83 10^3/cmm (157-399); Red Blood Count 2.41 10^6/uL (3.85-5.65); Red Cell Distribution Width 16.5 % (12.1-15.1); White Blood Count 4.62 10^3/uL (3.29-11.43)
[2023-10-26] MEDS: piperacillin-tazobactam 3.375 GM in sodium chloride 0.9% (plus) 50 ML IV ×3 (04:31→18:02)
[2023-10-26] MEDS: pantoprazole 40 mg SDV IVP ×2 (04:32→15:35)
[2023-10-26 04:45] LABS: Alanine Aminotransferase 8 U/L (0-41); Albumin Level 3.7 g/dL (3.5-5.2); Alkaline Phosphatase 148 U/L (40-130); Ammonia 126 umol/L (16-60); Anion Gap 22.2 (5-19); Aspartate Amino Transferase 19 U/L (0-40); Calcium 8.2 mg/dL (8.5-10.5); Carbon Dioxide 19 mmol/L (22-29); Chloride 110 mmol/L (98-107); Creatinine Clr Calc Pharmacy 24.1083; Globulin 2.1 g/dL (1.3-4.6); Glomerular Filtration Rate 17.9 mL/min (90-130); Glucose 270 mg/dL (65-115); Magnesium 2.8 mg/dL (1.7-2.3); Osmolality Calculated 343 mOsm/kg (285-295); Potassium 4.2 mmol/L (3.5-5.1); Sodium 147 mmol/L (136-145); Total Protein 5.8 g/dL (6.6-8.7)
[2023-10-26] MEDS: sodium bicarbonate 8.4% 1 mEq/mL 50mL Syr 150 MEQ (04:56)
[2023-10-26] MEDS: sodium bicarbonate 150 MEQ in dextrose 5% 1,000 ML 75 MEQ IV ×2 (04:56→17:34)
[2023-10-26 05:03] LABS: Blood Urea Nitrogen 96 mg/dL (6-20)
[2023-10-26] MEDS: propofol 1,000 MG/100 ML INJ 15.82 MG IV (07:10)
[2023-10-26] MEDS: folic acid 1 mg Tablet PO (08:26)
[2023-10-26] MEDS: RIFAXIMIN 550 MG 1 EACH PO ×2 (08:26→17:10)
[2023-10-26] MEDS: thiamine 100 mg Tablet PO (08:26)
[2023-10-26] MEDS: FUROsemide 10 mg/mL SDV 10mL 80 MG IVP (10:02)
--- NOTE | 2023-10-26 12:36 | PM.PN ---
Subjective Subjective: remains on vent 40 % Fio2 Medications: Reviewed: Yes Vitals/I&O/Wt Last Vital Signs Temp 97.6 F 10/26/23 08:00 Pulse 50 L 10/26/23 10:00 Resp 17 10/26/23 11:53 BP 158/81 10/26/23 10:00 Pulse Ox 96 10/26/23 11:53 O2 Del Method Mechanical Ventilation 10/26/23 08:00 O2 Flow Rate 2 10/21/23 15:07 FiO2 30 10/26/23 11:53 10/25/23 10/26/23 10/26/23 22:59 06:59 14:59 Intake Total 413.333 / 378.419 7183.046 / 2259.240 89.55 / 89.55 Output Total 1400 / 1400 1100 / 2500 Balance -986.667 / -682.806 442.046 / -240.760 89.55 / 89.55 Weight last 48 hrs Weight 84.595 kg Weight 85.275 kg Weight 84.414 kg Physical Exam Narrative: intubated , sedated No distress Urinary Catheter Management: Castorena: Cath Placed During This Visit: yes Reason for Continuing Indwelling Catheter: Accurate Measurement of Urinary Output in Critically Ill Patients Urinary Catheter Date of Insertion: 10/21/23 Urinary Catheter Time of Insertion: 14:53 Data 10/26/23 04:15 10/26/23 04:15 Micro: Microbiology 10/22/23 10:00 Gram Stain - Final Peritoneal Fluid Anaerobic Culture - Preliminary Body Fluid Culture - Final 10/20/23 11:34 Blood Culture - Final Blood NO GROWTH AFTER 5 DAYS 10/20/23 11:34 Blood Culture - Final Blood NO GROWTH AFTER 5 DAYS A&P Assessment and plan (1) Vjzbq-qo-lzaqomv kidney injury: 1. Acute on chronic kidney disease: Baseline creatinine not available, patient presented with a creatinine of 1.6 worsened to 3.6 currently . Likely multifactorial-possibly ATN and, HRS also possible. Was on IV albumin and s/p octreotide . Continue albumin and monitor renal functions. Avoid nephrotoxins and contrast studies. Noted worsening uremia , added free water via NGT , , No acute indication for dialysis , can do temporary HD for volume management if indicated but patient will not be a good long-term dialysis candidate . 2. Acute respiratory failure, on 30% FiO2 3. Hepatic encephalopathy, 4. Liver cirrhosis , status post paracentesis continue IV albumin. 5. Metabolic acidosis : monitor , will give iV bicarb as needed , can add bicitra if has NGT 6. hypernatremia : added free water via nGT Patient evaluated using audiovisual cart. Time spent 40 minutes Attestations [facility] Necessity [facility] C[facility] Level of Care Code Acute Code for Chg Fwd Diagnoses Uxzvj-vf-[id number] kidney injury N17.9; N18.9
[2023-10-26] MEDS: nicardipine 20 MG/200 ML PREMIX 50 MG IV (15:36)
--- NOTE | 2023-10-26 16:17 | PC.NURSE ---
[facility] called, requested to be notified if goals of care move to comfort care
--- NOTE | 2023-10-26 19:09 | P.PN_ITS ---
Subjective 2 Subjective: So far still becoming agitated, restless with trying to wean sedation. Vitals/I&O/Wt Last Vital Signs Temp 97.6 F 10/26/23 18:00 Pulse 64 10/26/23 18:00 Resp 22 H 10/26/23 17:00 BP 100/46 10/26/23 18:00 Pulse Ox 92 10/26/23 18:00 O2 Del Method Mechanical Ventilation 10/26/23 14:00 O2 Flow Rate 2 10/21/23 15:07 FiO2 30 10/26/23 17:00 10/26/23 10/26/23 10/26/23 06:59 14:59 22:59 Intake Total 1542.046 / 2259.240 333.943 / 074.932 8493.835 / 1831.778 Output Total 1100 / 2500 1200 / 1200 Balance 442.046 / -240.760 333.943 / 333.943 297.835 / 631.778 Weight last 48 hrs Weight 85.275 kg Weight 84.595 kg Weight 85.275 kg Weight 84.414 kg Physical Exam 2 Const: GENERAL APPEARANCE: patient mechanically ventilated Eye: OTHER: Pupils equal. Neck/C-Spine: COMMON NORMALS: no JVD Resp: COMMON NORMALS: clear to auscultation bilaterally AUSCULTATION: clear to auscultation bilaterally and wheezes Cardio: COMMON NORMALS: no JVD, regular rhythm, S1 normal heart sound present, S2 normal heart sound present and No murmurs present (Cardio) RHYTHM: regular rhythm HEART SOUNDS: S1 normal heart sound present and S2 normal heart sound present GI: COMMON NORMALS: Normal to inspection, nondistended, normoactive bowel sounds present, Soft to palpation and non-tender PALPATION: Yes Soft to palpation : OTHER: Producing urine. Extremity: COMMON NORMALS: no joint enlargement and no pedal edema OTHER: Anasarca. Skin: COMMON NORMALS: no rashes or lesions noted GENERAL SKIN EXAM: no rashes or lesions noted Urinary Catheter Management: Castorena: Cath Placed During This Visit: yes Reason for Continuing Indwelling Catheter: Accurate Measurement of Urinary Output in Critically Ill Patients Urinary Catheter Date of Insertion: 10/21/23 Urinary Catheter Time of Insertion: 14:53 Data 10/26/23 04:15 10/26/23 04:15 Micro: Microbiology 10/22/23 10:00 Gram Stain - Final Peritoneal Fluid Anaerobic Culture - Preliminary Body Fluid Culture - Final A&P Assessment and plan (1) Acute encephalopathy: Discussed with nursing, field case manager. Reviewed nephrology note, vitals, CBC, CMP, magnesium, ammonia, intake and output. Still with encephalopathy with trying to wean sedation. Discussed with his son will obtain CT of the head. Ammonia still elevated, but is having bowel movements. Continue lactulose. Continue attempts at weaning sedation. Continue to reassess. Continue supportive measures for polysubstance withdrawal, sedation switched to propofol to allow additional mental status reassessment. Continue Ativan pushes as needed for restlessness/agitation/withdrawal. Continue management of hypertension. Blood pressure is soft this afternoon, hold nicardipine drip. Reported concern for possibility of underlying anoxic injury as well due to degree of hypoxia with respiratory failure and intubation. Additionally very hypertensive, this evening blood pressure now is coming up as high as 213/95, will add nicardipine drip, with risk of PRES. Continue reassessments. Discussed with his son concern for withdrawal which may be difficult to manage. Additionally, component of hepatic encephalopathy, now has had a bowel movement. Reviewed ammonia, still elevated at 120. Continue lactulose. Is status post TIPS. (2) Sconm-nk-xusrmyt kidney injury: Reviewed creatinine, BUN, anion gap, bicarb, potassium. Discussed with chemist steroids. Appreciate consultation. He was started on bicarb. He is so far making urine. Continue albumin. IV Lasix. Adjusted to Zosyn dose. Previously on norepinephrine drip with suspected hepatorenal syndrome, but had to be discontinued with severe hypertension. (3) HTN (hypertension): Blood pressures rising further today, up as high as 195/86. Had to be started on nicardipine drip. Continue to monitor blood pressures. (4) Respiratory failure: On cuff deflation today noted still having 600 cc in his lungs, reported by respiratory therapy. Discussed with his son, possible laryngeal edema. Will obtain CT of the neck for additional assessment. Would benefit from steroids, although concern may be regarding bleeding risk. Also with decreasing platelet level. Reassess platelets. Continues on PPI. Respiratory failure with improvement. FiO2 requirement down to 30%. Continue weaning trials. Mental status barrier to extubation. Heavy yeast species on sputum culture. Add fluconazole for possible invasive candidiasis. With severe hypertension, encephalopathy, stop Solu-Medrol. Status post paracentesis, continues with albumin infusions. Diuretic dose increased to 60 mg. Is producing more urine today. Reassess renal function, potassium with hyperkalemia. Received Kayexalate yesterday. So far no BM, without any symptoms or sign of obstruction on CT. Will give additional dose of Dulcolax MO. Continue lactulose. Most likely in setting of fluid overload along with restrictive lung disease in setting of extensive ascites. Requiring mechanical ventilation. Sedation with fentanyl and propofol. Empirically start patient on IV vancomycin and Zosyn for now. Check sputum culture, MRSA swab. If MRSA negative will discontinue vancomycin. Diuretics with Lasix 60 mg IV twice daily. (5) Hyperammonemia: Will give additional doses of Dulcolax MO. Continue lactulose. Patient is AOx3. Do not have baseline ammonia levels. Most likely in setting of chronic liver cirrhosis. Continue with lactulose 30 mg 4 times daily, rifaximin twice daily. Repeat ammonia levels in AM. Target 2-3 soft bowel movements a day. (6) CKD (chronic kidney disease): Do not have baseline creatinine. Patient gives history of CKD. (7) Hepatorenal syndrome: Worsening renal function. Levophed had to be stopped. Albumin infusions. (8) Cirrhosis: Post TIPS procedure. With evidence of cirrhosis on CT abdomen/pelvis and varices. With hyperammonemia. Hep C positive. HIV negative, ammonia level appreciated. Urine drug screen positive for cocaine and amphetamines. Appreciate INR level. Child perez score: Class C 10 points Lactulose and rifaximin as above. Continue with propranolol 20 mg twice daily, Protonix 40 mg IV twice daily. Fluid restriction up to 1200 cc. IV Lasix 40 mg twice daily. Strict input charting, daily weights. (9) Ascites: Reviewed ascitic fluid culture. So far without growth. Added to ascites studies. Paracentesis performed 10/21. Not suggestive of peritonitis. (10) Anemia: Reviewed Hemoccult, negative. Worsening thrombocytopenia, suspect related to cirrhosis. Renally adjust Zosyn. Gradually worsening anemia. But appears to have leveled off, hemoglobin 7.4. Check Hemoccult. Continue IV PPI twice daily. Monitor hemoglobin. Appreciate iron panel, vitamin B12, folate levels. (11) Hepatitis C: Reviewed HCV RNA PCR, not detected. Patient does not remember being treated in the past. Most likely need to set up with PCP as an outpatient for Follow-up. Plan Sedation: Wean off sedation. Reassess mental status. Glycemic control: Not needed. A1c 4.6 Nutrition: N.p.o. CODE STATUS: Full code PUD prophylaxis: Protonix DVT prophylaxis: Heparin had been on hold due to a lot of blood coming from his mouth, history of varices. Continues on SCDs. Discharge planning: Discussed with field case manager. This documentation was created by [employer] environmental services aide software. Every effort was made to ensure accuracy of environmental services aide. Any obvious errors or omissions should be clarified with the author of the document. Attestations 2 Medical Necessity Statement*: Continue admission for assessment of management of polysubstance withdrawal, acute encephalopathy, hyperammonemia, worsening CADEN on CKD with hepatorenal syndrome and a gentleman with underlying liver cirrhosis. Coding Level of Care Code Critical Care >/= 30 minutes Critical care time (in minutes): 40 The high probability of a clinically significant, sudden or life threatening deterioration, as referenced in this documentation, required my full and direct attention, intervention and personal management. The critical care time shown is in addition to time spent performing any reported separately billable procedures and includes the following: [x] Data and vital sign review and interpretation [x ] Patient assessment, examination and intervention [x] Medication orders and management [x] Patient/Family updates as able [x] Care Coordination and Documentation. Diagnoses Acute encephalopathy G93.40 Tqogc-eg-ieiqvid kidney injury N17.9; N18.9 HTN (hypertension) I10 Respiratory failure J96.90 Hyperammonemia E72.20 CKD (chronic kidney disease) N18.9 Hepatorenal syndrome K76.7 Cirrhosis K74.60 Ascites R18.8 Anemia D64.9 Hepatitis C B19.20
--- NOTE | 2023-10-26 19:19 | CTR_ITS ---
PROCEDURE INFORMATION: Exam: CT Head Without Contrast Exam date and time: 10/27/2023 1:01 AM Age: 53 years old Clinical indication: Altered mental status/memory loss; Patient HX: Persistent encephalopathy despite weaning of sedation. Intubated. ; Additional info: Encephalopathy, laryngeal edema TECHNIQUE: Imaging protocol: Computed tomography of the head without contrast. Radiation optimization: All CT scans at this facility use at least one of these dose optimization techniques: automated exposure control; mA and/or kV adjustment per patient size (includes targeted exams where dose is matched to clinical indication); or iterative reconstruction. COMPARISON: No relevant prior studies available. RADIATION DOSE METRICS: Total DLP (mGy-cm): 1276.56 FINDINGS: Brain: Nonspecific hypoattenuating white matter within high paramedian frontal lobes. No acute intracranial hemorrhage or territorial infarction. No mass effect or midline shift. Cerebral ventricles: No ventriculomegaly. Paranasal sinuses: Visualized sinuses are unremarkable. No fluid levels. Mastoid air cells: Visualized mastoid air cells are well aerated. Bones: Unremarkable. No acute fracture. Soft tissues: Unremarkable. CT/CT head wo con* [id number] IMPRESSION: No acute intracranial hemorrhage or territorial infarction. Nonspecific hypoattenuating white matter within high paramedian frontal lobes. Findings can be further evaluated with brain MRI if clinically indicated.
[2023-10-26] MEDS: fentaNYL 1,000 MCG/100 ML BAG 2.5 MCG IV (19:20)
--- NOTE | 2023-10-26 19:29 | CTR_ITS ---
PROCEDURE INFORMATION: Exam: CT Neck Without Contrast Exam date and time: 10/27/2023 1:04 AM Age: 53 years old Clinical indication: Patient HX: Laryngeal edema. Intubated. ; Additional info: No cuff leak, laryngeal edema vs other TECHNIQUE: Imaging protocol: Computed tomography of the neck without contrast. Radiation optimization: All CT scans at this facility use at least one of these dose optimization techniques: automated exposure control; mA and/or kV adjustment per patient size (includes targeted exams where dose is matched to clinical indication); or iterative reconstruction. COMPARISON: CT head wo con* [id number] 10/27/2023 1:01 AM RADIATION DOSE METRICS: Total DLP (mGy-cm): 620.15 FINDINGS: Tubes, catheters and devices: Enteric tube courses within the esophagus inferiorly out of the field of view. Right-sided PICC line tip courses within the SVC inferiorly out of the field of view. Salivary glands: Glands are normal in size. Pharynx: There is symmetric crowding of the nasopharynx with adenoid hypertrophy. The oropharynx is edematous with mass effect. Prevertebral and retropharyngeal spaces: Unremarkable. Larynx: Epiglottis is normal. Thyroid: Normal. No enlarged or calcified nodules. Trachea: Endotracheal tube courses within the trachea. Minimal secretions seen proximally to the tracheal balloon. Lungs: Moderate bilateral pleural effusions. Interlobular septal thickening concerning for pulmonary edema. Lymph nodes: Mildly prominent cervical lymph nodes likely reactive in etiology. Bones/joints: No acute fracture. Mild cervical spondylosis. Soft tissues: Diffuse anasarca. No focal fluid collections CT/CT neck wo con [id number] IMPRESSION: 1. There is laryngeal edema with fullness of the glottic structures. Symmetric crowding of the nasopharynx with adenoid hypertrophy. 2. Moderate bilateral pleural effusions. Interlobular septal thickening concerning for pulmonary edema. 3. Diffuse anasarca.
[2023-10-26] MEDS: fluconazole premix 200 MG/100 ML PREMIX 100 MG IV (20:49)
[2023-10-26] MEDS: propofol 1,000 MG/100 ML INJ 13.18 MG IV (23:44)
[2023-10-27] VITALS (53 sets, daily range): BP systolic 100–137; BP diastolic 54–86; PULSE 45–56; RESP 14–19; TEMP 34.3–36.6; O2SAT 91–100; BMI 31.2
[2023-10-27] MEDS: albumin 25 G/100 ML BAG 60 G IV ×3 (00:47→16:23)
[2023-10-27] MEDS: ipratropium-albuterol 3 mL Neb INHALATION ×4 (02:14→19:43)
[2023-10-27] MEDS: pantoprazole 40 mg SDV IVP ×2 (03:46→16:22)
[2023-10-27 04:04] LABS: Basophils % 0.2 %; Eosinophils % 0.6 %; Hematocrit 23.7 % (37-53); Lymphocytes # 0.3 10^3/uL (0.8-4.8); Mean Corpuscular HGB Conc 32.5 g/dL (30-55); Mean Corpuscular Hemoglobin 30.1 pg (27-33); Mean Corpuscular Volume 92.6 fl (82-101); Mean Platelet Volume 11.4 fL (7.4-10.4); Monocytes # 0.5 10^3/uL (0.2-0.9); Monocytes % 7.4 %; Nucleated Red Blood Cells % 0 %; Platelet Count 94 10^3/cmm (157-399); Red Blood Count 2.56 10^6/uL (3.85-5.65); Red Cell Distribution Width 16.4 % (12.1-15.1); White Blood Count 6.59 10^3/uL (3.29-11.43)
[2023-10-27 04:17] LABS: Ammonia 62 umol/L (16-60)
[2023-10-27 04:19] LABS: Alanine Aminotransferase 11 U/L (0-41); Albumin Level 3.7 g/dL (3.5-5.2); Alkaline Phosphatase 152 U/L (40-130); Anion Gap 21.5 (5-19); Aspartate Amino Transferase 20 U/L (0-40); Calcium 8.3 mg/dL (8.5-10.5); Carbon Dioxide 22 mmol/L (22-29); Chloride 108 mmol/L (98-107); Creatinine Clr Calc Pharmacy 22.8395; Globulin 1.9 g/dL (1.3-4.6); Glomerular Filtration Rate 16.8 mL/min (90-130); Glucose 180 mg/dL (65-115); Osmolality Calculated 342 mOsm/kg (285-295); Potassium 3.5 mmol/L (3.5-5.1); Sodium 148 mmol/L (136-145); Total Bilirubin 1.2 mg/dL (0.15-1.2); Total Protein 5.6 g/dL (6.6-8.7)
[2023-10-27 04:29] LABS: Blood Urea Nitrogen 101 mg/dL (6-20)
[2023-10-27] MEDS: fentaNYL 1,000 MCG/100 ML BAG 7.5 MCG IV ×2 (04:36→12:33)
[2023-10-27] MEDS: lactulose oral liq 20 gm/30 mL UDC 30 GM PO ×4 (05:12→22:39)
[2023-10-27] MEDS: piperacillin-tazobactam 3.375 GM in sodium chloride 0.9% (plus) 50 ML IV (05:12)
[2023-10-27] MEDS: propofol 1,000 MG/100 ML INJ 13.18 MG IV (05:17)
[2023-10-27] MEDS: thiamine 100 mg Tablet PO (08:00)
[2023-10-27] MEDS: folic acid 1 mg Tablet PO (08:00)
[2023-10-27] MEDS: RIFAXIMIN 550 MG 1 EACH PO ×2 (08:00→17:29)
--- NOTE | 2023-10-27 11:29 | P.PN_ITS ---
Subjective 2 Subjective: remains on vent on levophed Medications: Reviewed: Yes Vitals/I&O/Wt Last Vital Signs Temp 97.6 F 10/26/23 18:00 Pulse 49 L 10/27/23 10:00 Resp 16 10/27/23 11:21 BP 118/67 10/27/23 10:00 Pulse Ox 99 10/27/23 11:21 O2 Del Method Mechanical Ventilation 10/27/23 08:00 O2 Flow Rate 2 10/21/23 15:07 FiO2 30 10/27/23 11:21 10/26/23 10/27/23 10/27/23 22:59 06:59 14:59 Intake Total 2242.800 / 2576.743 804.350 / 3381.093 200 / 200 Output Total 1200 / 1200 350 / 1550 Balance 1042.800 / 1376.743 454.350 / 1831.093 200 / 200 Weight last 48 hrs Weight 85.275 kg Weight 85.275 kg Weight 84.595 kg Physical Exam 2 Narrative: intubated , sedated No distress Urinary Catheter Management: Castorena: Cath Placed During This Visit: yes Reason for Continuing Indwelling Catheter: Accurate Measurement of Urinary Output in Critically Ill Patients Urinary Catheter Date of Insertion: 10/21/23 Urinary Catheter Time of Insertion: 14:53 Data 10/27/23 03:24 10/27/23 03:24 Micro: Microbiology 10/22/23 10:00 Gram Stain - Final Peritoneal Fluid Anaerobic Culture - Preliminary Body Fluid Culture - Final A&P Assessment and plan (1) Gpygo-bv-mdkuwfv kidney injury: 1. Acute on chronic kidney disease: Baseline creatinine not available, patient presented with a creatinine of 1.6 worsened to 3.6 currently . Likely multifactorial-possibly ATN and, HRS also possible. Was on IV albumin and s/p octreotide . Continue albumin and monitor renal functions. Avoid nephrotoxins and contrast studies. Noted worsening uremia , added free water via NGT and D5W infusion , , , No acute indication for dialysis , can do temporary HD for volume management if indicated but patient will not be a good long-term dialysis candidate . 2. Acute respiratory failure, on 30% FiO2 3. Hepatic encephalopathy, 4. Liver cirrhosis , status post paracentesis continue IV albumin. 5. Metabolic acidosis : monitor , will give iV bicarb as needed , 6. hypernatremia : added free water via nGT Patient evaluated using audiovisual cart. Time spent 40 minutes Attestations 2 Medical Necessity Statement*: per n[facility]ia Coding Level of Care Code Acute Code for Chg Fwd Diagnoses Kxntu-wg-[id number] kidney injury N17.9; N18.9
[2023-10-27] MEDS: dextrose 5 % 500 ML 50 ML IV (11:52)
[2023-10-27] MEDS: propofol 1,000 MG/100 ML INJ 5.27 MG IV (12:33)
[2023-10-27] MEDS: piperacillin-tazobactam 3.375 GM in dextrose 5% (plus) 50 ML IV (17:31)
--- NOTE | 2023-10-27 18:28 | P.PN_ITS ---
Subjective 2 Subjective: Becoming agitated, restless with trying to wean sedation. Vitals/I&O/Wt Last Vital Signs Temp 98 F 10/27/23 12:00 Pulse 46 L 10/27/23 17:00 Resp 15 10/27/23 16:00 BP 126/77 10/27/23 17:00 Pulse Ox 97 10/27/23 17:00 O2 Del Method Mechanical Ventilation 10/27/23 13:21 O2 Flow Rate 2 10/21/23 15:07 FiO2 30 10/27/23 16:00 10/27/23 10/27/23 10/27/23 06:59 14:59 22:59 Intake Total 804.350 / 3381.093 755.400 / 755.400 400 / 1155.400 Output Total 350 / 1550 1000 / 1000 Balance 454.350 / 1831.093 755.400 / 755.400 -600 / 155.400 Weight last 48 hrs Weight 85.275 kg Weight 85.275 kg Weight 84.595 kg Physical Exam 2 Const: GENERAL APPEARANCE: patient mechanically ventilated Eye: OTHER: Pupils equal. Neck/C-Spine: COMMON NORMALS: no JVD Resp: COMMON NORMALS: clear to auscultation bilaterally AUSCULTATION: clear to auscultation bilaterally and wheezes Cardio: COMMON NORMALS: no JVD, regular rhythm, S1 normal heart sound present, S2 normal heart sound present and No murmurs present (Cardio) RHYTHM: regular rhythm HEART SOUNDS: S1 normal heart sound present and S2 normal heart sound present GI: COMMON NORMALS: Normal to inspection, nondistended, normoactive bowel sounds present, Soft to palpation and non-tender PALPATION: Yes Soft to palpation : OTHER: Producing urine. Extremity: COMMON NORMALS: no joint enlargement and no pedal edema OTHER: Anasarca. Improved edema feet. Skin: COMMON NORMALS: no rashes or lesions noted GENERAL SKIN EXAM: no rashes or lesions noted Urinary Catheter Management: Castorena: Cath Placed During This Visit: yes Reason for Continuing Indwelling Catheter: Accurate Measurement of Urinary Output in Critically Ill Patients Urinary Catheter Date of Insertion: 10/21/23 Urinary Catheter Time of Insertion: 14:53 Data 10/27/23 03:24 10/27/23 03:24 Micro: Microbiology 10/22/23 10:00 Gram Stain - Final Peritoneal Fluid Anaerobic Culture - Preliminary Body Fluid Culture - Final A&P Assessment and plan (1) Acute encephalopathy: So far without improvement per discussion with nursing. Trying to wean down sedation he becomes restless, fighting the vent. He is having worsening bradycardia. Stop fentanyl infusion. Hold propofol. Ativan as needed. Versed if needed. Reviewed CT head, no acute abnormality. CT neck with laryngeal edema with fullness of the glottic structures. Symmetric crowding of the nasopharynx with adenoid hypertrophy. Discussed with respiratory therapy, leak test performed today, and showing improvement, there was air leak today. Reviewed nephrology note, vitals, CBC, CMP, magnesium, ammonia, intake and output. Still with encephalopathy with trying to wean sedation. Ammonia showing some improvement, down to 62.Continue lactulose. Platelets doing mildly better at 94. He is at elevated risk of VTE. So far no additional bleeding. So far hemoglobin remained stable. Resume low-dose heparin VTE prophylaxis. Monitor for bleeding. Continue PPI. Continue attempts at weaning sedation. Continue to reassess. Continue supportive measures for polysubstance withdrawal, sedation switched to propofol to allow additional mental status reassessment. Continue Ativan pushes as needed for restlessness/agitation/withdrawal. Continue management of hypertension. Blood pressure is soft this afternoon, hold nicardipine drip. Reported concern for possibility of underlying anoxic injury as well due to degree of hypoxia with respiratory failure and intubation. Additionally very hypertensive, this evening blood pressure now is coming up as high as 213/95, will add nicardipine drip, with risk of PRES. Continue reassessments. Discussed with his son concern for withdrawal which may be difficult to manage. Additionally, component of hepatic encephalopathy, now has had a bowel movement. Reviewed ammonia, still elevated at 120. Continue lactulose. Is status post TIPS. (2) Hoysp-yd-afdmbig kidney injury: Reviewed nephrology note. Reviewed creatinine, BUN, anion gap, bicarb, potassium. Bicarb drip was discontinued. With noted hypernatremia, hyperchloremia, started on dextrose low rate infusion. Appreciate consultation. He is so far making urine. Continue albumin. Previously on norepinephrine drip with suspected hepatorenal syndrome, but had to be discontinued with severe hypertension. (3) HTN (hypertension): So far with improvement. (4) Respiratory failure: Reviewed CT head, no acute abnormality. CT neck with laryngeal edema with fullness of the glottic structures. Symmetric crowding of the nasopharynx with adenoid hypertrophy. Discussed with respiratory therapy, leak test performed today, and showing improvement, there was air leak today. May need to consider steroids if persistent edema, although do anticipate should improve with improvement in anasarca. Pending consideration of need for temporary dialysis. In the meantime discussed with nephrology will give 40 mg IV Lasix x 1. With steroids certainly increased risk of GI bleeding, with also reported history of cirrhosis, esophageal varices and may worsen uremia. Consider ENT assessment when getting ready for extubation. Oxygen requirement with improvement. FiO2 requirement down to 30%. Continue weaning trials. Mental status barrier to extubation. Heavy yeast species on sputum culture. Add fluconazole for possible invasive candidiasis. With severe hypertension, encephalopathy, stop Solu-Medrol. Status post paracentesis, continues with albumin infusions. Diuretic dose increased to 60 mg. Is producing more urine today. Reassess renal function, potassium with hyperkalemia. Received Kayexalate yesterday. So far no BM, without any symptoms or sign of obstruction on CT. Will give additional dose of Dulcolax [place]. Continue lactulose. Most likely in setting of fluid overload along with restrictive lung disease in setting of extensive ascites. Requiring mechanical ventilation. Sedation with fentanyl and propofol. Empirically start patient on IV vancomycin and Zosyn for now. Check sputum culture, MRSA swab. If MRSA negative will discontinue vancomycin. Diuretics with Lasix 60 mg IV twice daily. (5) Hyperammonemia: Ammonia slightly better today. 62. Continue lactulose. Patient is AOx3. Do not have baseline ammonia levels. Most likely in setting of chronic liver cirrhosis. Continue with lactulose 30 mg 4 times daily, rifaximin twice daily. Repeat ammonia levels in AM. Target 2-3 soft bowel movements a day. (6) CKD (chronic kidney disease): Do not have baseline creatinine. Patient gives history of CKD. (7) Hepatorenal syndrome: Worsening renal function. Levophed had to be stopped. Albumin infusions. (8) Cirrhosis: Post TIPS procedure. With evidence of cirrhosis on CT abdomen/pelvis and varices. With hyperammonemia. Hep C positive. HIV negative, ammonia level appreciated. Urine drug screen positive for cocaine and amphetamines. Appreciate INR level. Child perez score: Class C 10 points Lactulose and rifaximin as above. Continue with propranolol 20 mg twice daily, Protonix 40 mg IV twice daily. Fluid restriction up to 1200 cc. IV Lasix 40 mg twice daily. Strict input charting, daily weights. (9) Ascites: Reviewed ascitic fluid culture. So far without growth. Added to ascites studies. Paracentesis performed 10/21. Not suggestive of peritonitis. (10) Anemia: Reviewed Hemoccult, negative. Worsening thrombocytopenia, suspect related to cirrhosis. Renally adjust Zosyn. Gradually worsening anemia. But appears to have leveled off, hemoglobin 7.4. Check Hemoccult. Continue IV PPI twice daily. Monitor hemoglobin. Appreciate iron panel, vitamin B12, folate levels. (11) Hepatitis C: Reviewed HCV RNA PCR, not detected. Patient does not remember being treated in the past. Most likely need to set up with PCP as an outpatient for Follow-up. Plan Sedation: Wean off sedation. Reassess mental status. Glycemic control: Not needed. A1c 4.6 Nutrition: N.p.o. CODE STATUS: Full code PUD prophylaxis: Protonix DVT prophylaxis: Heparin had been on hold due to a lot of blood coming from his mouth, history of varices. Continues on SCDs. Discharge planning: Discussed with outpatient case manager. This documentation was created by [employer] industrial painter software. Every effort was made to ensure accuracy of industrial painter. Any obvious errors or omissions should be clarified with the author of the document. Attestations 2 Medical Necessity Statement*: Continue admission for assessment of management of polysubstance withdrawal, acute encephalopathy, hyperammonemia, worsening CADEN on CKD with hepatorenal syndrome and a gentleman with underlying liver cirrhosis. Coding Level of Care Code Critical Care >/= 30 minutes Critical care time (in minutes): 50 The high probability of a clinically significant, sudden or life threatening deterioration, as referenced in this documentation, required my full and direct attention, intervention and personal management. The critical care time shown is in addition to time spent performing any reported separately billable procedures and includes the following: [x] Data and vital sign review and interpretation [x ] Patient assessment, examination and intervention [x] Medication orders and management [x] Patient/Family updates as able [x] Care Coordination and Documentation. Diagnoses Acute encephalopathy G93.40 Hnbub-st-[id number] kidney injury N17.9; N18.9 HTN (hypertension) I10 Respiratory failure J96.90 Hyperammonemia E72.20 CKD (chronic kidney disease) N18.9 Hepatorenal syndrome K76.7 Cirrhosis K74.60 Ascites R18.8 Anemia D64.9 Hepatitis C B19.20
[2023-10-27] MEDS: FUROsemide 10 mg/mL SDV 4mL 40 MG IVP (19:18)
[2023-10-27] MEDS: fluconazole premix 200 MG/100 ML PREMIX 50 MG IV (20:57)
--- NOTE | 2023-10-27 21:29 | PC.NURSE ---
1944 -- upon assuming care of patient assessment done and temp noted to be 93.8 oral and 92.8 axillary. Notified [place] Maruer placed on patient. 1999 -- rectal probe place to monitor temp closely.
[2023-10-28] VITALS (55 sets, daily range): BP systolic 122–183; BP diastolic 72–114; PULSE 52–81; RESP 10–18; TEMP 35.2–37.7; O2SAT 93–99; BMI 32.3
[2023-10-28] MEDS: albumin 25 G/100 ML BAG 60 G IV ×3 (00:27→15:28)
[2023-10-28] MEDS: heparin 5,000 unit/mL INJ 1 mL 5000 UNIT SUBCUT ×2 (01:06→13:19)
[2023-10-28] MEDS: ipratropium-albuterol 3 mL Neb INHALATION ×4 (02:07→20:16)
[2023-10-28] MEDS: pantoprazole 40 mg SDV IVP ×2 (02:31→15:27)
[2023-10-28 02:52] LABS: Basophils % 0.1 %; Eosinophils # 0.2 10^3/uL (0.0-0.8); Eosinophils % 2.9 %; Hematocrit 23.8 % (37-53); Lymphocytes # 0.5 10^3/uL (0.8-4.8); Lymphocytes % 6.1 %; Mean Corpuscular HGB Conc 32.8 g/dL (30-55); Mean Corpuscular Hemoglobin 30.1 pg (27-33); Mean Corpuscular Volume 91.9 fl (82-101); Mean Platelet Volume 11.2 fL (7.4-10.4); Monocytes # 0.6 10^3/uL (0.2-0.9); Monocytes % 7.7 %; Neutrophils # 6.37 10^3/uL (1.8-7.7); Neutrophils % 81.4 %; Nucleated Red Blood Cells % 0 %; Platelet Count 84 10^3/cmm (157-399); Red Blood Count 2.59 10^6/uL (3.85-5.65); Red Cell Distribution Width 16.2 % (12.1-15.1); White Blood Count 7.83 10^3/uL (3.29-11.43)
[2023-10-28 03:15] LABS: Alanine Aminotransferase 11 U/L (0-41); Albumin Level 3.9 g/dL (3.5-5.2); Alkaline Phosphatase 121 U/L (40-130); Anion Gap 20.6 (5-19); Aspartate Amino Transferase 24 U/L (0-40); Calcium 8.1 mg/dL (8.5-10.5); Carbon Dioxide 23 mmol/L (22-29); Chloride 106 mmol/L (98-107); Creatinine Clr Calc Pharmacy 25.5265; Globulin 1.5 g/dL (1.3-4.6); Glomerular Filtration Rate 19.1 mL/min (90-130); Glucose 128 mg/dL (65-115); Osmolality Calculated 337 mOsm/kg (285-295); Potassium 3.6 mmol/L (3.5-5.1); Sodium 146 mmol/L (136-145); Total Bilirubin 1.3 mg/dL (0.15-1.2); Total Protein 5.4 g/dL (6.6-8.7)
[2023-10-28 03:16] LABS: Magnesium 2.5 mg/dL (1.7-2.3)
[2023-10-28 03:23] LABS: Ammonia 94 umol/L (16-60)
[2023-10-28 03:28] LABS: Blood Urea Nitrogen 107 mg/dL (6-20)
[2023-10-28] MEDS: lactulose oral liq 20 gm/30 mL UDC 30 GM PO ×4 (04:46→22:47)
[2023-10-28] MEDS: piperacillin-tazobactam 3.375 GM in dextrose 5% (plus) 50 ML IV ×2 (04:47→16:45)
--- NOTE | 2023-10-28 07:57 | PM.PN ---
Subjective Subjective: seen and examined. off sedation and pressors. remains on vent, not verbal Medications: Reviewed: Yes Medication Review Details: Current Medications Acetaminophen (Acetaminophen 325 Mg Tablet) 500 mg PO Q8H PRN PRN Reason: Mild/Mod Pain Or Temp >/= 101 Hydrocodone Bitart/Acetaminophen (Hydrocodone-Acetaminophen 5-325 Mg Tablet) 1 tab PO Q6H PRN PRN Reason: MODERATE PAIN Last Admin: 10/21/23 11:14 Dose: 1 tab Albuterol/Ipratropium (Ipratropium-Albuterol 3 Ml Neb) 3 ml INHALATION Q6H.RESP DEL Last Admin: 10/28/23 02:07 Dose: 3 ml Bisacodyl (Bisacodyl 5 Mg Tablet) 10 mg PO DAILY PRN; Protocol PRN Reason: Constipation (see protocol) Chlorhexidine Gluconate (Chlorhexidine Gluconate 4% Btl 118 Ml) 1 applic TOPICAL 0100 [facility] Last Admin: 10/28/23 01:09 Dose: Not Given Folic Acid (Folic Acid 1 Mg Tablet) 1 mg PO DAILY DEL Last Admin: 10/27/23 08:00 Dose: 1 mg Heparin Sodium (Porcine) (Heparin 5,000 Unit/Ml Inj 1 Ml) 5,000 unit SUBCUT Q12H DEL Last Admin: 10/28/23 01:06 Dose: 5,000 unit Albumin Human (Albumin) 25 g in 100 mls @ 60 mls/hr IV Q8H [facility] Last Infusion: 10/28/23 02:08 Dose: Infused Midazolam HCl (Versed) 100 mg in 100 mls @ 0 mls/hr IV .Q0M [facility]; Protocol Last Titration: 10/25/23 17:23 Dose: Infused Propofol (Diprivan) 1,000 mg in 100 mls @ 0 mls/hr IV .Q0M DEL; Protocol Last Admin: 10/27/23 12:33 Dose: 10 mcg/kg/min, 5.27 mls/hr Nicardipine/Sodium Chloride (Cardene) 20 mg in 200 mls @ 0 mls/hr IV .Q0M DEL; Protocol Last Titration: 10/26/23 16:48 Dose: 0 mg/hr, 0 mls/hr Fluconazole (Diflucan Premix) 200 mg in 100 mls @ 100 mls/hr IV Q24H [facility] Last Infusion: 10/27/23 23:10 Dose: Infused Piperacillin Sod/Tazobactam (Sod 3.375 gm/ Dextrose) 50 mls @ 12.5 mls/hr IV Q12H [facility]; Protocol Last Admin: 10/28/23 04:47 Dose: 12.5 mls/hr Lactulose (Lactulose Oral Liq 20 Gm/30 Ml Udc) 30 gm PO Q6H [facility]; Protocol Last Admin: 10/28/23 04:46 Dose: 30 gm Lorazepam (Lorazepam 2 Mg/Ml Inj 1 Ml) 2 mg IVP Q4H PRN PRN Reason: ANXIETY Last Admin: 10/23/23 23:31 Dose: 2 mg Magnesium Hydroxide (Magnesium Hydroxide 30 Ml Udc) 30 ml PO DAILY PRN; Protocol PRN Reason: Constipation (see protocol) Last Admin: 10/22/23 10:47 Dose: 30 ml Morphine Sulfate (Morphine 4 Mg/Ml Sdv 1 Ml) 2 mg IVP Q4H PRN PRN Reason: SEVERE PAIN Last Admin: 10/20/23 21:14 Dose: 2 mg Non-Formulary Med ( Rifaximin 550mg Tablets) 1 each PO BID [facility] Last Admin: 10/27/23 17:29 Dose: 1 each Ondansetron HCl (Ondansetron 2 Mg/Ml Sdv 2 Ml) 4 mg IVP Q8H PRN PRN Reason: vomiting, or N/V if npo Pantoprazole Sodium (Pantoprazole 40 Mg Sdv) 40 mg IVP Q12H [facility] Last Admin: 10/28/23 02:31 Dose: 40 mg Thiamine Mononitrate (Thiamine 100 Mg Tablet) 100 mg PO DAILY [facility] Last Admin: 10/27/23 08:00 Dose: 100 mg Vitals/I&O/Wt Last Vital Signs Temp 98.4 F 10/28/23 06:00 Pulse 61 10/28/23 06:00 Resp 17 10/28/23 06:00 BP 126/73 10/28/23 06:00 Pulse Ox 94 10/28/23 06:00 O2 Del Method Mechanical Ventilation 10/28/23 06:00 O2 Flow Rate 30 10/28/23 04:00 FiO2 30 10/28/23 06:00 10/27/23 10/28/23 10/28/23 22:59 06:59 14:59 Intake Total 1450 / 2205.400 700 / 2905.400 Output Total 1000 / 1000 1475 / 2475 Balance 450 / 1205.400 -775 / 430.400 Weight last 48 hrs Weight 87.997 kg Weight 85.275 kg Weight 85.275 kg Physical Exam Narrative: intubated fio2=30%, no pressors anasarca heent- nc/at, eomi neck supple lungs dull bases heart reg abd soft, + bs ext b/l 2+ edema neuro- responds to pain Urinary Catheter Management: Castorena: Cath Placed During This Visit: yes Reason for Continuing Indwelling Catheter: Accurate Measurement of Urinary Output in Critically Ill Patients Urinary Catheter Date of Insertion: 10/21/23 Urinary Catheter Time of Insertion: 14:53 Data 10/28/23 02:34 10/28/23 02:34 Micro: Microbiology 10/22/23 10:00 Gram Stain - Final Peritoneal Fluid Anaerobic Culture - Preliminary Body Fluid Culture - Final A&P Assessment and plan (1) Hlhvb-ch-luzoqvn kidney injury: 1. Acute on chronic kidney disease: Baseline creatinine not available, patient presented with a creatinine of 1.6 worsened to 3.6 mg/dl. cr now stable to slight improvement at 3.4 mg/dl . Likely multifactorial-possibly ATN and, HRS also possible. Was on IV albumin and s/p octreotide . Continue albumin and monitor renal functions. Avoid nephrotoxins and contrast studies. -check urine electrolytes and cr -good urine output 2. hypernatremia- likely effective intravascular volume depletion with total body water overlaod. consider using metolazone if need diuresis 3. VDRF-, on 30% FiO2- wean as per hospitalist 4. Hepatic encephalopathy, .- Liver cirrhosis , status post paracentesis continue IV albumin. 5. repeat abg- to better assess acid/ base status 6. anemia and thromboxytopenia - likely from liver disease chart reviewed Patient evaluated using audiovisual cart and RN examined pt Plan see above Attestations Medical Necessity Statement*: VDRF, CADEN, high ammonia, cirrhosis, anemia Time Spent in Patient Care: Greater than 35 minutes (>than 50% of time spent in counselling and/or direct pt care on unit). Coding Level of Care Code Acute Code for Chg Fwd Diagnoses Gpzut-ni-anfkcfs kidney injury N17.9; N18.9
[2023-10-28] MEDS: metOLazone 5 MG Tablet 2.5 MG PO (08:19)
[2023-10-28] MEDS: thiamine 100 mg Tablet PO (08:19)
[2023-10-28] MEDS: folic acid 1 mg Tablet PO (08:19)
[2023-10-28] MEDS: RIFAXIMIN 550 MG 1 EACH PO ×2 (08:20→16:45)
[2023-10-28 09:30] LABS: Potassium, Radom Urine 14 mmol/L; Urine Creatinine 53 mg/dL (39-259); Urine Random Chloride 40 mmol/L; Urine Random Sodium 58 mmol/L
--- NOTE | 2023-10-28 14:51 | PC.NURSE ---
sedation off attepting weaning on vent , slowly waking with oral care noted bleeding mouth had bit down with lower jagged teeth and opened are bottom underneath tongue now bleeding oral care done gauze added to assist hold pressure at this time
--- NOTE | 2023-10-28 16:16 | PM.PN ---
Subjective Subjective: Weaning on sedation to reassess mental status, previously becoming restless. Medications: Reviewed: Yes Medication Review Details: Current Medications Acetaminophen (Acetaminophen 325 Mg Tablet) 500 mg PO Q8H PRN PRN Reason: Mild/Mod Pain Or Temp >/= 101 Hydrocodone Bitart/Acetaminophen (Hydrocodone-Acetaminophen 5-325 Mg Tablet) 1 tab PO Q6H PRN PRN Reason: MODERATE PAIN Last Admin: 10/21/23 11:14 Dose: 1 tab Albuterol/Ipratropium (Ipratropium-Albuterol 3 Ml Neb) 3 ml INHALATION Q6H.RESP DEL Last Admin: 10/28/23 02:07 Dose: 3 ml Bisacodyl (Bisacodyl 5 Mg Tablet) 10 mg PO DAILY PRN; Protocol PRN Reason: Constipation (see protocol) Chlorhexidine Gluconate (Chlorhexidine Gluconate 4% Btl 118 Ml) 1 applic TOPICAL 0100 DEL Last Admin: 10/28/23 01:09 Dose: Not Given Folic Acid (Folic Acid 1 Mg Tablet) 1 mg PO DAILY DEL Last Admin: 10/27/23 08:00 Dose: 1 mg Heparin Sodium (Porcine) (Heparin 5,000 Unit/Ml Inj 1 Ml) 5,000 unit SUBCUT Q12H DEL Last Admin: 10/28/23 01:06 Dose: 5,000 unit Albumin Human (Albumin) 25 g in 100 mls @ 60 mls/hr IV Q8H [facility] Last Infusion: 10/28/23 02:08 Dose: Infused Midazolam HCl (Versed) 100 mg in 100 mls @ 0 mls/hr IV .Q0M [facility]; Protocol Last Titration: 10/25/23 17:23 Dose: Infused Propofol (Diprivan) 1,000 mg in 100 mls @ 0 mls/hr IV .Q0M DEL; Protocol Last Admin: 10/27/23 12:33 Dose: 10 mcg/kg/min, 5.27 mls/hr Nicardipine/Sodium Chloride (Cardene) 20 mg in 200 mls @ 0 mls/hr IV .Q0M DEL; Protocol Last Titration: 10/26/23 16:48 Dose: 0 mg/hr, 0 mls/hr Fluconazole (Diflucan Premix) 200 mg in 100 mls @ 100 mls/hr IV Q24H [facility] Last Infusion: 10/27/23 23:10 Dose: Infused Piperacillin Sod/Tazobactam (Sod 3.375 gm/ Dextrose) 50 mls @ 12.5 mls/hr IV Q12H DEL; Protocol Last Admin: 10/28/23 04:47 Dose: 12.5 mls/hr Lactulose (Lactulose Oral Liq 20 Gm/30 Ml Udc) 30 gm PO Q6H DEL; Protocol Last Admin: 10/28/23 04:46 Dose: 30 gm Lorazepam (Lorazepam 2 Mg/Ml Inj 1 Ml) 2 mg IVP Q4H PRN PRN Reason: ANXIETY Last Admin: 10/23/23 23:31 Dose: 2 mg Magnesium Hydroxide (Magnesium Hydroxide 30 Ml Udc) 30 ml PO DAILY PRN; Protocol PRN Reason: Constipation (see protocol) Last Admin: 10/22/23 10:47 Dose: 30 ml Morphine Sulfate (Morphine 4 Mg/Ml Sdv 1 Ml) 2 mg IVP Q4H PRN PRN Reason: SEVERE PAIN Last Admin: 10/20/23 21:14 Dose: 2 mg Non-Formulary Med ( Rifaximin 550mg Tablets) 1 each PO BID [facility] Last Admin: 10/27/23 17:29 Dose: 1 each Ondansetron HCl (Ondansetron 2 Mg/Ml Sdv 2 Ml) 4 mg IVP Q8H PRN PRN Reason: vomiting, or N/V if npo Pantoprazole Sodium (Pantoprazole 40 Mg Sdv) 40 mg IVP Q12H [facility] Last Admin: 10/28/23 02:31 Dose: 40 mg Thiamine Mononitrate (Thiamine 100 Mg Tablet) 100 mg PO DAILY [facility] Last Admin: 10/27/23 08:00 Dose: 100 mg Vitals/I&O/Wt Last Vital Signs Temp 98.4 F 10/28/23 12:30 Pulse 69 10/28/23 14:30 Resp 17 10/28/23 15:47 BP 163/88 10/28/23 14:30 Pulse Ox 97 10/28/23 15:47 O2 Del Method Mechanical Ventilation 10/28/23 13:56 O2 Flow Rate 30 10/28/23 04:00 FiO2 30 10/28/23 15:47 10/28/23 10/28/23 10/28/23 06:59 14:59 22:59 Intake Total 700 / 2905.400 650 / 650 Output Total 1475 / 2475 Balance -775 / 430.400 650 / 650 Weight last 48 hrs Weight 87.997 kg Weight 87.997 kg Weight 85.275 kg Physical Exam Const: GENERAL APPEARANCE: patient mechanically ventilated Eye: OTHER: Pupils equal. Neck/C-Spine: COMMON NORMALS: no JVD Resp: COMMON NORMALS: clear to auscultation bilaterally AUSCULTATION: clear to auscultation bilaterally and wheezes Cardio: COMMON NORMALS: no JVD, regular rhythm, S1 normal heart sound present, S2 normal heart sound present and No murmurs present (Cardio) RHYTHM: regular rhythm HEART SOUNDS: S1 normal heart sound present and S2 normal heart sound present GI: COMMON NORMALS: Normal to inspection, nondistended, normoactive bowel sounds present, Soft to palpation and non-tender PALPATION: Yes Soft to palpation : OTHER: Producing urine. Extremity: COMMON NORMALS: no joint enlargement and no pedal edema OTHER: Anasarca. Improved edema feet. Skin: COMMON NORMALS: no rashes or lesions noted GENERAL SKIN EXAM: no rashes or lesions noted Urinary Catheter Management: Castorena: Cath Placed During This Visit: yes Reason for Continuing Indwelling Catheter: Accurate Measurement of Urinary Output in Critically Ill Patients Urinary Catheter Date of Insertion: 10/21/23 Urinary Catheter Time of Insertion: 14:53 Data 10/28/23 02:34 10/28/23 02:34 Micro: Microbiology 10/22/23 10:00 Gram Stain - Final Peritoneal Fluid Anaerobic Culture - Preliminary Body Fluid Culture - Final A&P Assessment and plan (1) Acute encephalopathy: So far still with encephalopathy. Fentanyl was discontinued last night due to bradycardia, propofol was discontinued overnight as well. This morning we are giving him a break from sedation, remained off sedation most of the day. In the evening reported to have some wakefulness and appearing somewhat calmer after the visit of his son and girlfriend. Hold off sedation if possible. Ativan if needed. Reorient. Ammonia with some improvement but still elevated at 94. He is having bowel movements. Continue lactulose. Reviewed nephrology note, continuing follow-up with regards to renal function. So far benefit was not found to outweigh risk on hemodialysis. Continue assessment of suspected polysubstance withdrawal. With concern for possible anoxic injury as well. Consider neuro prognostication in case lack of return of cognitive function if shows improvement of metabolic derangements. Continue to optimize hypertension control. Blood pressure somewhat variable, he is sensitive to medication with renal and liver dysfunction. Receiving blood pressure somewhat higher, 171/95, given 5 mg amlodipine. Has been resumed on heparin for VTE prophylaxis. Today some bleeding from his mouth but secondary to tongue injury on a tooth. Continue heparin for now unless recurrent or other bleeding. Reassess blood counts. Continue attempts at weaning sedation. (2) Blbch-go-cpdsols kidney injury: Reviewed nephrology note. Given metolazone today. Continue albumin. Dextrose infusion stopped. Reviewed creatinine, BUN, anion gap, bicarb, potassium. Appreciate consultation. He is so far making urine. Continue albumin. Previously on norepinephrine drip with suspected hepatorenal syndrome, but had to be discontinued with severe hypertension. (3) HTN (hypertension): So far with improvement. (4) Respiratory failure: Reviewed vitals, oxygen requirement, ventilatory settings. So far on minimal settings on the ventilator. Continue support. Mental status, renal failure, anasarca and current time bigger barriers to extubation. Does have pleural effusions. Continue diuresis as tolerated as per direction of nephrology. CT neck with laryngeal edema with fullness of the glottic structures. Symmetric crowding of the nasopharynx with adenoid hypertrophy. Discussed with respiratory therapy, leak test performed today, and showing improvement, there was air leak on 10/26. May need to consider steroids if persistent edema, although do anticipate should improve with improvement in anasarca. Pending consideration of need for temporary dialysis. In the meantime discussed with nephrology will give 40 mg IV Lasix x 1. With steroids certainly increased risk of GI bleeding, with also reported history of cirrhosis, esophageal varices , thrombocytopenia, and may worsen uremia. Consider ENT assessment when getting ready for extubation. Of vancomycin, has been continued empirically on Zosyn. Oxygen requirement with improvement. FiO2 requirement down to 30%. Continue weaning trials. Mental status barrier to extubation. Heavy yeast species on sputum culture. Continue fluconazole for possible invasive candidiasis. With severe hypertension, encephalopathy, off Solu-Medrol. Status post paracentesis 3L. Most likely in setting of fluid overload along with restrictive lung disease in setting of extensive ascites. Requiring mechanical ventilation. (5) Hyperammonemia: Ammonia slightly better. Continue lactulose. Patient is AOx3. Do not have baseline ammonia levels. Most likely in setting of chronic liver cirrhosis. Target 2-3 soft bowel movements a day. (6) CKD (chronic kidney disease): Do not have baseline creatinine. Patient gives history of CKD. (7) Hepatorenal syndrome: Worsening renal function. Levophed had to be stopped. Albumin infusions. (8) Cirrhosis: Post TIPS procedure. With evidence of cirrhosis on CT abdomen/pelvis and varices. With hyperammonemia. Hep C positive. HIV negative, ammonia level appreciated. Urine drug screen positive for cocaine and amphetamines. Appreciate INR level. Child perez score: Class C 10 points Lactulose and rifaximin as above. Off propranolol. Fluid restriction up to 1200 cc. Strict input charting, daily weights. (9) Ascites: Ascitic fluid culture without growth. Added to ascites studies. Paracentesis performed 10/21. 3L. Not suggestive of peritonitis. (10) Anemia: Reviewed Hemoccult, negative. Thrombocytopenia, suspect related to cirrhosis. Gradually worsening anemia. But appears to have leveled off, hemoglobin. Negative hemoccult. Continue IV PPI twice daily. Monitor hemoglobin. Appreciate iron panel, vitamin B12, folate levels. (11) Hepatitis C: Reviewed HCV RNA PCR, not detected. Patient does not remember being treated in the past. Most likely need to set up with PCP as an outpatient for Follow-up. Plan Sedation: Wean off sedation. Reassess mental status. Glycemic control: Not needed. A1c 4.6 Nutrition: N.p.o. CODE STATUS: Full code PUD prophylaxis: Protonix DVT prophylaxis: Resumed on heparin PPx. Continues on SCDs. This documentation was created by [employer] inside wirer software. Every effort was made to ensure accuracy of inside wirer. Any obvious errors or omissions should be clarified with the author of the document. Attestations Medical Necessity Statement*: Continue admission for assessment of management of polysubstance withdrawal, acute encephalopathy, hyperammonemia, worsening CADEN on CKD with hepatorenal syndrome and a gentleman with underlying liver cirrhosis. Coding Level of Care Code Critical Care >/= 30 minutes Critical care time (in minutes): 40 The high probability of a clinically significant, sudden or life threatening deterioration, as referenced in this documentation, required my full and direct attention, intervention and personal management. The critical care time shown is in addition to time spent performing any reported separately billable procedures and includes the following: [x] Data and vital sign review and interpretation [x] Patient assessment, examination and intervention [x] Medication orders and management [x] Patient/Family updates as able [x] Care Coordination and Documentation. Diagnoses Acute encephalopathy G93.40 Uavri-wd-zislqka kidney injury N17.9; N18.9 HTN (hypertension) I10 Respiratory failure J96.90 Hyperammonemia E72.20 CKD (chronic kidney disease) N18.9 Hepatorenal syndrome K76.7 Cirrhosis K74.60 Ascites R18.8 Anemia D64.9 Hepatitis C B19.20
[2023-10-28] MEDS: amlodipine 5 mg Tablet PO (19:30)
[2023-10-28] MEDS: fluconazole premix 200 MG/100 ML PREMIX 50 MG IV (21:11)
[2023-10-28] MEDS: HYDROcodone-acetaminophen 5-325 mg Tablet 1 TAB PO (21:17)
[2023-10-28] MEDS: morphine 4 mg/mL SDV 1 mL 2 MG IVP (23:24)
[2023-10-29] VITALS (47 sets, daily range): BP systolic 132–202; BP diastolic 69–113; PULSE 68–99; RESP 11–20; TEMP 36.6–37.6; O2SAT 94–100
[2023-10-29] MEDS: albumin 25 G/100 ML BAG 60 G IV ×2 (00:06→08:09)
[2023-10-29] MEDS: chlorhexidine gluconate 4% Btl 118 mL 1 APPLIC TOPICAL (00:11)
[2023-10-29] MEDS: heparin 5,000 unit/mL INJ 1 mL 5000 UNIT SUBCUT ×2 (00:49→13:20)
[2023-10-29] MEDS: ipratropium-albuterol 3 mL Neb INHALATION ×4 (02:33→19:54)
[2023-10-29] MEDS: hyDRALAzine 20 mg/mL INJ 1 mL 10 MG IVP ×3 (02:48→17:04)
[2023-10-29] MEDS: pantoprazole 40 mg SDV IVP ×2 (03:18→15:55)
[2023-10-29 04:34] LABS: Basophils % 0.1 %; Eosinophils # 0.4 10^3/uL (0.0-0.8); Eosinophils % 3.5 %; Lymphocytes # 0.8 10^3/uL (0.8-4.8); Lymphocytes % 7.5 %; Mean Corpuscular HGB Conc 31.6 g/dL (30-55); Mean Corpuscular Hemoglobin 29.5 pg (27-33); Mean Corpuscular Volume 93.3 fl (82-101); Mean Platelet Volume 11.5 fL (7.4-10.4); Monocytes # 0.9 10^3/uL (0.2-0.9); Monocytes % 8.8 %; Neutrophils # 8.28 10^3/uL (1.8-7.7); Neutrophils % 78.8 %; Nucleated Red Blood Cells % 0 %; Platelet Count 89 10^3/cmm (157-399); Red Blood Count 2.68 10^6/uL (3.85-5.65); Red Cell Distribution Width 17.1 % (12.1-15.1); White Blood Count 10.52 10^3/uL (3.29-11.43)
[2023-10-29] MEDS: piperacillin-tazobactam 3.375 GM in dextrose 5% (plus) 50 ML IV ×2 (04:51→16:37)
[2023-10-29] MEDS: lactulose oral liq 20 gm/30 mL UDC 30 GM PO ×4 (04:51→22:32)
[2023-10-29 04:58] LABS: Ammonia 76 umol/L (16-60)
[2023-10-29 05:00] LABS: Alanine Aminotransferase 12 U/L (0-41); Albumin Level 4.5 g/dL (3.5-5.2); Alkaline Phosphatase 137 U/L (40-130); Aspartate Amino Transferase 27 U/L (0-40); Calcium 8.9 mg/dL (8.5-10.5); Carbon Dioxide 21 mmol/L (22-29); Chloride 104 mmol/L (98-107); Globulin 1.4 g/dL (1.3-4.6); Glomerular Filtration Rate 20.5 mL/min (90-130); Glucose 136 mg/dL (65-115); Magnesium 2.5 mg/dL (1.7-2.3); Osmolality Calculated 333 mOsm/kg (285-295); Phosphorus 4.6 mg/dL (2.5-4.5); Sodium 145 mmol/L (136-145); Total Bilirubin 2.5 mg/dL (0.15-1.2); Total Protein 5.9 g/dL (6.6-8.7)
[2023-10-29 05:12] LABS: Blood Urea Nitrogen 100 mg/dL (6-20)
--- NOTE | 2023-10-29 07:00 | P.PN_ITS ---
Subjective 2 Subjective: more awake, on vent, follows simple commands. dec edema. excellent UOP. Medications: Reviewed: Yes Medication Review Details: Current Medications Acetaminophen (Acetaminophen 325 Mg Tablet) 500 mg PO Q8H PRN PRN Reason: Mild/Mod Pain Or Temp >/= 101 Hydrocodone Bitart/Acetaminophen (Hydrocodone-Acetaminophen 5-325 Mg Tablet) 1 tab PO Q6H PRN PRN Reason: MODERATE PAIN Last Admin: 10/28/23 21:17 Dose: 1 tab Albuterol/Ipratropium (Ipratropium-Albuterol 3 Ml Neb) 3 ml INHALATION Q6H.RESP DEL Last Admin: 10/29/23 02:33 Dose: 3 ml Bisacodyl (Bisacodyl 5 Mg Tablet) 10 mg PO DAILY PRN; Protocol PRN Reason: Constipation (see protocol) Chlorhexidine Gluconate (Chlorhexidine Gluconate 4% Btl 118 Ml) 1 applic TOPICAL 0100 [facility] Last Admin: 10/29/23 00:11 Dose: 1 applic Folic Acid (Folic Acid 1 Mg Tablet) 1 mg PO DAILY DEL Last Admin: 10/28/23 08:19 Dose: 1 mg Heparin Sodium (Porcine) (Heparin 5,000 Unit/Ml Inj 1 Ml) 5,000 unit SUBCUT Q12H DEL Last Admin: 10/29/23 00:49 Dose: 5,000 unit Albumin Human (Albumin) 25 g in 100 mls @ 60 mls/hr IV Q8H DEL Last Infusion: 10/29/23 01:46 Dose: Infused Midazolam HCl (Versed) 100 mg in 100 mls @ 0 mls/hr IV .Q0M [facility]; Protocol Last Titration: 10/25/23 17:23 Dose: Infused Fluconazole (Diflucan Premix) 200 mg in 100 mls @ 100 mls/hr IV Q24H DEL Last Infusion: 10/28/23 23:15 Dose: Infused Piperacillin Sod/Tazobactam (Sod 3.375 gm/ Dextrose) 50 mls @ 12.5 mls/hr IV Q12H [facility]; Protocol Last Admin: 10/29/23 04:51 Dose: 12.5 mls/hr Lactulose (Lactulose Oral Liq 20 Gm/30 Ml Udc) 30 gm PO Q6H DEL; Protocol Last Admin: 10/29/23 04:51 Dose: 30 gm Lorazepam (Lorazepam 2 Mg/Ml Inj 1 Ml) 2 mg IVP Q4H PRN PRN Reason: ANXIETY Last Admin: 10/23/23 23:31 Dose: 2 mg Magnesium Hydroxide (Magnesium Hydroxide 30 Ml Udc) 30 ml PO DAILY PRN; Protocol PRN Reason: Constipation (see protocol) Last Admin: 10/22/23 10:47 Dose: 30 ml Morphine Sulfate (Morphine 4 Mg/Ml Sdv 1 Ml) 2 mg IVP Q4H PRN PRN Reason: SEVERE PAIN Last Admin: 10/28/23 23:24 Dose: 2 mg Non-Formulary Med ( Rifaximin 550mg Tablets) 1 each PO BID [facility] Last Admin: 10/28/23 16:45 Dose: 1 each Ondansetron HCl (Ondansetron 2 Mg/Ml Sdv 2 Ml) 4 mg IVP Q8H PRN PRN Reason: vomiting, or N/V if npo Pantoprazole Sodium (Pantoprazole 40 Mg Sdv) 40 mg IVP Q12H [facility] Last Admin: 10/29/23 03:18 Dose: 40 mg Thiamine Mononitrate (Thiamine 100 Mg Tablet) 100 mg PO DAILY [facility] Last Admin: 10/28/23 08:19 Dose: 100 mg Vitals/I&O/Wt Last Vital Signs Temp 98.8 F 10/29/23 06:00 Pulse 84 10/29/23 06:30 Resp 14 10/29/23 06:00 BP 173/90 10/29/23 06:30 Pulse Ox 96 10/29/23 06:30 O2 Del Method Mechanical Ventilation 10/29/23 06:00 O2 Flow Rate 30 10/28/23 04:00 FiO2 30 10/29/23 06:00 10/28/23 10/29/23 10/29/23 22:59 06:59 14:59 Intake Total 1050 / 1700 650 / 2350 Output Total 1999 2050 / 4050 Balance -950 / -300 -1400 / -1700 Weight last 48 hrs Weight 83.96 kg Weight 87.997 kg Weight 87.997 kg Weight 85.275 kg Physical Exam 2 Narrative: intubated fio2=30%, PEEP 5, no pressors heent- nc/at, eomi neck supple lungs dull bases heart reg abd soft, + bs ext b/l improving edema neuro- responds to pain and voice- more awake and alert Urinary Catheter Management: Castorena: Cath Placed During This Visit: yes Reason for Continuing Indwelling Catheter: Accurate Measurement of Urinary Output in Critically Ill Patients Urinary Catheter Date of Insertion: 10/21/23 Urinary Catheter Time of Insertion: 14:53 Data 10/29/23 03:55 10/29/23 03:55 Micro: Microbiology 10/22/23 10:00 Gram Stain - Final Peritoneal Fluid Anaerobic Culture - Preliminary Body Fluid Culture - Final A&P Assessment and plan (1) [id number] kidney injury: 1. Acute on chronic kidney disease: Baseline creatinine not available, patient presented with a creatinine of 1.6 worsened to 3.6 mg/dl. cr slowly improving to at 3 mg/dl . Likely multifactorial-possibly ATN and, HRS also possible. Was on IV albumin and s/p octreotide . Continue albumin and monitor renal functions. Avoid nephrotoxins and contrast studies. -check urine electrolytes and cr -good urine output 2. hypernatremia- likely effective intravascular volume depletion with total body water overlaod. hold diuretics please give free water or D5W with potassium 3. VDRF-, on 30% FiO2- wean as per hospitalist 4. Hepatic encephalopathy, - Liver cirrhosis , status post paracentesis continue IV albumin. 5. repeat abg- to better assess acid/ base status 6. anemia and thrombocytopenia - likely from liver disease 7. htn - canstart amlodipine 5 mg po d chart reviewed Patient evaluated using audiovisual cart and RN examined pt Plan see above Attestations 2 Medical Necessity Statement*: VDRF, CADEN, CKD stage 3b, AMS Time Spent in Patient Care: 16 - 35 minutes (>than 50% of time sp ent in counselling and/or direct pt care on unit) . Coding Level of Care Code Acute Code for Chg Fwd Diagnoses Sarzx-yn-jhqomao kidney injury N17.9; N18.9
[2023-10-29 07:52] LABS: ABG PH Result 7.46 (7.35-7.45); Alveolar-Arterial Oxygen Gradi 12.4 mmHg (5-10); Base Excess ABG -0.1 mmol/L (-2.0-2.0); Blood Gas Allen Test Pos; Blood Gas Operator Identificat CAK; Blood Gas Sample Site Radial, left; Blood Gas Sample Type Arterial; Ionized Calcium Level - ABG 1.2 mmol/L (1.1-1.4); Oxygen Device VENT; Oxygen Saturation ABG 96.5
[2023-10-29 07:53] LABS: ABG PCO2 33.2 mmHg (35-45); Arterial Blood Gas Hematocrit 26.4 % (42-52); Blood Gas Tidal Volume 0.41; Carboxyhemoglobin 1.4 %THgb (0.4-20.1); HCO3 ABG 23.5 mmol/L (22-26); HGB O2 Sat 93.9 % (95-100); Methemoglobin 1.3 % (0.4-1.5); PO2 ABG 76.8 mmHg (80.0-100.0); PO2 FiO2 Ratio Arterial Blood 256; Potassium Level - ABG 2.9 mmol/L (3.5-5.0); Total Hemoglobin 8.6 g/dL (14-18)
[2023-10-29] MEDS: folic acid 1 mg Tablet PO (08:09)
[2023-10-29] MEDS: thiamine 100 mg Tablet PO (08:09)
[2023-10-29] MEDS: RIFAXIMIN 550 MG 1 EACH PO ×2 (08:10→17:05)
[2023-10-29] MEDS: potassium chloride oral liq 20 mEq/15 mL UDC PO (08:10)
[2023-10-29] MEDS: dextrose 5% + KCl 20 mEq 20 MEQ/1,000 ML BAG 75 MEQ IV ×2 (08:22→21:10)
[2023-10-29 09:38] LABS: Potassium, Radom Urine 20 mmol/L; Urine Creatinine 59 mg/dL (39-259); Urine Random Chloride 26 mmol/L; Urine Random Sodium 46 mmol/L
--- NOTE | 2023-10-29 12:46 | PC.NUTR ---
Begin TFs following RD recs below -Nepro 1.8 @ 10ml/hr and advance 10ml/hr q8 until goal of 40ml/hr is reached. -FWF: 120 ml q4 with See most recent RD note for details
[2023-10-29] MEDS: dexamethasone 10 mg/mL INJ 6 MG IVP (13:18)
[2023-10-29] MEDS: gabapentin 100 mg Capsule 200 MG PO ×3 (13:19→21:07)
[2023-10-29] MEDS: cloNIDine 0.2 mg/24 hr Patch 1 PATCH TRANSDERMA (13:19)
[2023-10-29] MEDS: divalproex Sprinkles 125 mg Capsule PO (17:05)
[2023-10-29] MEDS: BuSPIRONE 10 mg Tablet PO (17:05)
--- NOTE | 2023-10-29 17:39 | PM.PN ---
Subjective Subjective: Hospital course, labs appreciated. Patient has been off sedation for around 24 hours. Patient following simple commands on and off. Less agitated. Maintaining saturation over 95%. Tmax of 99.9 Fahrenheit in last 24 hours. Document urine output of around 4 L in last 24 hours. Appreciate labs. Vitals/I&O/Wt Last Vital Signs Temp 99.7 F H 10/29/23 16:00 Pulse 90 10/29/23 16:30 Resp 15 10/29/23 15:25 BP 188/93 10/29/23 16:30 Pulse Ox 96 10/29/23 16:30 O2 Del Method Mechanical Ventilation 10/29/23 13:22 O2 Flow Rate 30 10/28/23 04:00 FiO2 30 10/29/23 15:25 10/29/23 10/29/23 10/29/23 06:59 14:59 22:59 Intake Total 650 / 2350 150 / 150 Output Total 2050 / 4050 Balance -1400 / -1700 150 / 150 Weight last 48 hrs Weight 84.096 kg Weight 83.96 kg Weight 87.997 kg Weight 87.997 kg Physical Exam Narrative: General: Intubated, not sedated, following simple commands on and off HEENT: PERRLA, pupils bilaterally equal and reactive Chest: Normal vesicular breath sounds, no added sounds, equal good air entry bilaterally CVS: S1-S2 regular, no murmurs, no tachycardia, no gallops, no rubs Abdomen: Soft, distended, nontender no organomegaly, bowel sounds present Neuro: Moving all limbs, following simple commands Urinary Catheter Management: Castorena: Cath Placed During This Visit: yes Reason for Continuing Indwelling Catheter: Accurate Measurement of Urinary Output in Critically Ill Patients Urinary Catheter Date of Insertion: 10/21/23 Urinary Catheter Time of Insertion: 14:53 Data 10/29/23 03:55 10/29/23 03:55 Micro: Microbiology 10/22/23 10:00 Gram Stain - Final Peritoneal Fluid Anaerobic Culture - Final Body Fluid Culture - Final 10/22/23 00:15 Gram Stain - Final Sputum - Endotracheal Tube Aspirate Sputum Culture - Final Fernanda glabrata 10/29/23 13:30 Blood Culture - Preliminary Blood SPECIMEN COLLECTED 10/29/23 13:38 Blood Culture - Preliminary Blood SPECIMEN COLLECTED A&P Assessment and plan (1) Acute encephalopathy: Multifactorial. Could be in setting of sedation with fentanyl and propofol being weaned off the system given concerns for renal and liver dysfunction. Could be in setting of uremia with BUN of 100. Could be in setting of hepatic encephalopathy with concerns for high ammonia levels. Unfortunately do not have baseline ammonia levels. Could be in setting of mild hypernatremia with sodium level up to 145. Cannot rule out in setting of polysubstance withdrawal. On admission urine drug screen positive for cocaine and amphetamines. On review from old chart patient does have history of polysubstance abuse with amphetamine, cocaine, heroin and fentanyl. Cannot rule out in setting of withdrawal of home medications. On review of old chart patient is supposed to be on BuSpar, gabapentin, Depakote. Restart BuSpar 10 mg twice daily, gabapentin 200 mg 3 times daily, Depakote 125 mg twice daily. Continue to monitor. Hold off on extubation for now given encephalopathy and concerns for laryngeal edema on CT neck done on 10/25. (2) [id number]-ffpgzko kidney injury: Appreciate nephrology recommendations. Restarted D5 infusion. Patient overall euvolemic as per input output charting. Does have anasarca. Albumin levels improving. Hold off on IV albumin supplementation. Appreciate urine output. Does have concerns for uremia. Repeating potassium. Repeat BMP in evening. Concerns for hepatorenal syndrome in the past. Levophed drip had to be discontinued because of hypertension. (3) HTN (hypertension): Goal blood pressure less than 140/90 mmHg. Blood pressure is elevated. Could be in setting of withdrawal. Restarting medication as above. Start on clonidine 0.2 mg patch. IV hydralazine 10 mg every 4 hours as needed for systolic blood pressure 160 mmHg. (4) Respiratory failure: Reviewed vitals, oxygen requirement, ventilatory settings. So far on minimal settings on the ventilator. Continue support. Mental status, renal failure, anasarca along with laryngeal edema seen on CT neck and current time bigger barriers to extubation. Does have pleural effusions. Continue diuresis as tolerated as per direction of nephrology. CT neck with laryngeal edema with fullness of the glottic structures. Symmetric crowding of the nasopharynx with adenoid hypertrophy. Discussed with respiratory therapy, leak test performed today, and showing improvement, there was air leak on 10/26. For now start on IV dexamethasone 6 mg daily. Monitor for bleeding. Patient is at high risk of GI bleeding though persistently laryngeal edema for now steroid is important. IV Protonix 40 mg twice daily. Consider ENT assessment when getting ready for extubation. Monitor cultures. So far sputum culture growing Fernanda glabrata. Continue with IV fluconazole. Continue with empiric Zosyn. Oxygen supplementation keeping saturation over 90%. Continue with DuoNeb. Status post paracentesis 3L. (5) Hyperammonemia: Continue to monitor for bowel movements. Ammonia level was around 90. Continue with lactulose 4 times daily. Continue with home dose of rifaximin. Target 2-3 soft bowel movements a day. (6) CKD (chronic kidney disease): Do not have baseline creatinine. Patient gives history of CKD. (7) Hepatorenal syndrome: Worsening renal function. Levophed had to be stopped. Albumin infusions. (8) Cirrhosis: Post TIPS procedure. With evidence of cirrhosis on CT abdomen/pelvis and varices. With hyperammonemia. Hep C positive. HIV negative, ammonia level appreciated. Urine drug screen positive for cocaine and amphetamines. Appreciate INR level. Child perez score: Class C 10 points Lactulose and rifaximin as above. Off propranolol. Strict input charting, daily weights. (9) Ascites: Ascitic fluid culture without growth. Added to ascites studies. Paracentesis performed 10/21. 3L. Not suggestive of peritonitis. (10) Anemia: Reviewed Hemoccult, negative. Thrombocytopenia, suspect related to cirrhosis. Gradually worsening anemia. But appears to have leveled off, hemoglobin. Negative hemoccult. Continue IV PPI twice daily. Monitor hemoglobin. Appreciate iron panel, vitamin B12, folate levels. (11) Hepatitis C: Reviewed HCV RNA PCR, not detected. Patient does not remember being treated in the past. Most likely need to set up with PCP as an outpatient for Follow-up. Plan Sedation: Currently off sedation for around 24 hours. Reassess mental status. Glycemic control: Not needed. A1c 4.6 Nutrition: N.p.o. start on tube feeds with Nepro at 10 cc/h with free water flushes at 250 every 6 hours CODE STATUS: Full code PUD prophylaxis: Protonix DVT prophylaxis: Resumed on heparin PPx. Continues on SCDs. Pain control: Restarted gabapentin 200 mg 3 times daily, [place] every 6 hours as needed. Discharge plan: Patient is on mechanical ventilation for over a week with difficult sedation weaning given concerns for polysubstance abuse, recurrent agitation, liver cirrhosis. Patient will need extensive physical and respiratory therapy going forward. Patient would benefit from LTAC. Case management alerted. This documentation was created by [employer] agricultural produce commission agent software. Every effort was made to ensure accuracy of agricultural produce commission agent. Any obvious errors or omissions should be clarified with the author of the document. Attestations Medical Necessity Statement*: Requires further hospitalization for management of acute encephalopathy which is multifactorial, CADEN on CKD, respiratory failure requiring mechanical ventilation. Critical Care Time: The high probability of a clinically significant, sudden or life threatening deterioration of the patient's [cardiac, renal, GI, neurological] system(s) required my full and direct attention, intervention and personal management. The critical care time is as shown. This time is in addition to time spent performing any reported procedures but includes the following: [x] Data and vital sign review and interpretation [x] Patient assessment, examination and intervention [x] Documentation [x] Medication orders and management Critical Care Time (min): 90 Coding Level of Care Code Critical Care >/= 30 minutes Critical care time (in minutes): 90 The high probability of a clinically significant, sudden or life threatening deterioration, as referenced in this documentation, required my full and direct attention, intervention and personal management. The critical care time shown is in addition to time spent performing any reported separately billable procedures and includes the following: [x] Data and vital sign review and interpretation [x] Patient assessment, examination and intervention [x] Medication orders and management [x] Patient/Family updates as able [x] Care Coordination and Documentation. Other Coding Information This patient has a high probability of clinically significant, sudden or life threatening deterioration of the patient's (neurological/pulmonary/cardiac/renal/ID/endocrine) systems required my full, direct attention, the highest level of physician preparedness for urgent intervention and personal management. I managed/supervised life or organ supporting interventions that required frequent physician assessment. I devoted my full attention in the ICU to the direct care of this patient for the period of time indicated above. Time I spent with family or surrogate(s) is included only if the patient was incapable of providing necessary information or participating in decision making. This time includes the following services provided: Telemetry review Mechanical Ventilation Hemodynamic interpretation, assessment and management Review and interpretation of CXR Review and interpretation of lab values Review and interpretation of microbiologic data and culture results Review of medications and administration Review and interpretation of Nutrition requirements and management Discussion of management with other consultants and services Clinical update to family members Diagnoses Acute encephalopathy G93.40 Pfkwu-ky-orapfyy kidney injury N17.9; N18.9 HTN (hypertension) I10 Respiratory failure J96.90 Hyperammonemia E72.20 CKD (chronic kidney disease) N18.9 Hepatorenal syndrome K76.7 Cirrhosis K74.60 Ascites R18.8 Anemia D64.9 Hepatitis C B19.20
[2023-10-29] MEDS: HYDROcodone-acetaminophen 10-325 mg Tablet 1 TAB PO (18:07)
[2023-10-29] MEDS: hyDRALAzine 50 mg Tablet PO (21:07)
[2023-10-29] MEDS: fluconazole premix 200 MG/100 ML PREMIX 50 MG IV (21:07)
[2023-10-29] MEDS: dexmedeTOMIDine 0.9 % NaCL 400 MCG/100 ML PREMIX IV (21:17)
[2023-10-30] VITALS (39 sets, daily range): BP systolic 129–168; BP diastolic 71–98; PULSE 50–80; RESP 10–18; TEMP 36.6–37.5; O2SAT 92–100
[2023-10-30] MEDS: ipratropium-albuterol 3 mL Neb INHALATION ×4 (01:15→20:24)
[2023-10-30] MEDS: chlorhexidine gluconate 4% Btl 118 mL 1 APPLIC TOPICAL (02:10)
[2023-10-30] MEDS: heparin 5,000 unit/mL INJ 1 mL 5000 UNIT SUBCUT ×2 (02:10→14:03)
[2023-10-30] MEDS: pantoprazole 40 mg SDV IVP ×2 (02:56→14:15)
[2023-10-30] MEDS: piperacillin-tazobactam 3.375 GM in dextrose 5% (plus) 50 ML IV ×2 (04:48→18:04)
[2023-10-30] MEDS: lactulose oral liq 20 gm/30 mL UDC 30 GM PO ×3 (04:48→18:12)
[2023-10-30] MEDS: hyDRALAzine 20 mg/mL INJ 1 mL 10 MG IVP (04:51)
[2023-10-30 05:52] LABS: Lymphocytes # 0.3 10^3/uL (0.8-4.8); Lymphocytes % 5.7 %; Mean Corpuscular HGB Conc 32.9 g/dL (30-55); Mean Corpuscular Hemoglobin 30.5 pg (27-33); Mean Corpuscular Volume 92.7 fl (82-101); Mean Platelet Volume 11.5 fL (7.4-10.4); Monocytes # 0.5 10^3/uL (0.2-0.9); Monocytes % 8.6 %; Neutrophils # 4.34 10^3/uL (1.8-7.7); Neutrophils % 82.7 %; Nucleated Red Blood Cells % 0 %; Platelet Count 66 10^3/cmm (157-399); Red Blood Count 2.59 10^6/uL (3.85-5.65); Red Cell Distribution Width 17.1 % (12.1-15.1); White Blood Count 5.25 10^3/uL (3.29-11.43)
[2023-10-30 06:16] LABS: Alanine Aminotransferase 14 U/L (0-41); Albumin Level 4.2 g/dL (3.5-5.2); Alkaline Phosphatase 186 U/L (40-130); Anion Gap 22.7 (5-19); Aspartate Amino Transferase 33 U/L (0-40); Calcium 8.8 mg/dL (8.5-10.5); Carbon Dioxide 20 mmol/L (22-29); Chloride 103 mmol/L (98-107); Globulin 1.7 g/dL (1.3-4.6); Glomerular Filtration Rate 21.3 mL/min (90-130); Glucose 333 mg/dL (65-115); Magnesium 2.6 mg/dL (1.7-2.3); Osmolality Calculated 338 mOsm/kg (285-295); Phosphorus 4.9 mg/dL (2.5-4.5); Potassium 3.7 mmol/L (3.5-5.1); Sodium 142 mmol/L (136-145); Total Bilirubin 2.1 mg/dL (0.15-1.2); Total Protein 5.9 g/dL (6.6-8.7)
[2023-10-30 06:17] LABS: Ammonia 57 umol/L (16-60)
[2023-10-30 06:23] LABS: Blood Urea Nitrogen 98 mg/dL (6-20)
--- NOTE | 2023-10-30 07:49 | P.PN_ITS ---
Subjective 2 Subjective: Patient was seen and examined. The patient is more awake remains intubated no pressors. Positive ascites. Medications: Reviewed: Yes Medication Review Details: Current Medications Acetaminophen (Acetaminophen 325 Mg Tablet) 500 mg PO Q8H PRN PRN Reason: Mild/Mod Pain Or Temp >/= 101 Hydrocodone Bitart/Acetaminophen (Hydrocodone-Acetaminophen 5-325 Mg Tablet) 1 tab PO Q6H PRN PRN Reason: MODERATE PAIN Last Admin: 10/28/23 21:17 Dose: 1 tab Albuterol/Ipratropium (Ipratropium-Albuterol 3 Ml Neb) 3 ml INHALATION Q6H.RESP [facility] [place] Last Admin: 10/30/23 07:43 Dose: 3 ml Bisacodyl (Bisacodyl 5 Mg Tablet) 10 mg PO DAILY PRN; Protocol PRN Reason: Constipation (see protocol) Buspirone HCl (Buspirone 10 Mg Tablet) 10 mg PO BID [facility] [place] Last Admin: 10/29/23 17:05 Dose: 10 mg Chlorhexidine Gluconate (Chlorhexidine Gluconate 4% Btl 118 Ml) 1 applic TOPICAL 0100 [facility] [place] Last Admin: 10/30/23 02:10 Dose: 1 applic Clonidine HCl (Clonidine 0.2 Mg/24 Hr Patch) 1 patch TRANSDERMA Q7D [facility] [place] Last Admin: 10/29/23 13:19 Dose: 1 patch Dexamethasone (Dexamethasone 10 Mg/Ml Inj) 6 mg IVP Q24H [facility] [place] Last Admin: 10/29/23 13:18 Dose: 6 mg Divalproex Sodium (Divalproex Sprinkles 125 Mg Capsule) 125 mg PO BID [facility] [place] Last Admin: 10/29/23 17:05 Dose: 125 mg Folic Acid (Folic Acid 1 Mg Tablet) 1 mg PO DAILY [facility] [place] Last Admin: 10/29/23 08:09 Dose: 1 mg Gabapentin (Gabapentin 100 Mg Capsule) 200 mg PO TID [facility] [place] Last Admin: 10/29/23 21:07 Dose: 200 mg Heparin Sodium (Porcine) (Heparin 5,000 Unit/Ml Inj 1 Ml) 5,000 unit SUBCUT Q12H [facility] [place] Last Admin: 10/30/23 02:10 Dose: 5,000 unit Hydralazine HCl (Hydralazine 20 Mg/Ml Inj 1 Ml) 10 mg IVP Q4H PRN PRN Reason: SBP More than 160 mmhg Last Admin: 10/30/23 04:51 Dose: 10 mg Hydralazine HCl (Hydralazine 50 Mg Tablet) 50 mg PO TID DEL Last Admin: 10/29/23 21:07 Dose: 50 mg Midazolam HCl (Versed) 100 mg in 100 mls @ 0 mls/hr IV .Q0M DEL; Protocol Last Titration: 10/25/23 17:23 Dose: Infused Fluconazole (Diflucan Premix) 200 mg in 100 mls @ 100 mls/hr IV Q24H DEL Last Infusion: 10/29/23 23:07 Dose: Infused Piperacillin Sod/Tazobactam (Sod 3.375 gm/ Dextrose) 50 mls @ 12.5 mls/hr IV Q12H DEL; Protocol Last Admin: 10/30/23 04:48 Dose: 12.5 mls/hr Potassium Chloride/Dextrose (Dextrose 5% + Kcl 20 Meq) 20 meq in 1,000 mls @ 75 mls/hr IV .[id number] DEL Last Admin: 10/29/23 21:10 Dose: 75 mls/hr Dexmedetomidine/Sodium Chloride (Precedex) 400 mcg in 100 mls @ 0 mls/hr IV .Q0M DEL; Protocol Last Titration: 10/29/23 22:18 Dose: 0.3 mcg/kg/hr, 6.31 mls/hr Lactulose (Lactulose Oral Liq 20 Gm/30 Ml Udc) 30 gm PO Q6H DEL; Protocol Last Admin: 10/30/23 04:48 Dose: 30 gm Lorazepam (Lorazepam 2 Mg/Ml Inj 1 Ml) 2 mg IVP Q4H PRN PRN Reason: ANXIETY Last Admin: 10/23/23 23:31 Dose: 2 mg Magnesium Hydroxide (Magnesium Hydroxide 30 Ml Udc) 30 ml PO DAILY PRN; Protocol PRN Reason: Constipation (see protocol) Last Admin: 10/22/23 10:47 Dose: 30 ml Morphine Sulfate (Morphine 4 Mg/Ml Sdv 1 Ml) 2 mg IVP Q4H PRN PRN Reason: SEVERE PAIN Last Admin: 10/28/23 23:24 Dose: 2 mg Non-Formulary Med ( Rifaximin 550mg Tablets) 1 each PO BID DEL Last Admin: 10/29/23 17:05 Dose: 1 each Ondansetron HCl (Ondansetron 2 Mg/Ml Sdv 2 Ml) 4 mg IVP Q8H PRN PRN Reason: vomiting, or N/V if npo Pantoprazole Sodium (Pantoprazole 40 Mg Sdv) 40 mg IVP Q12H [facility] [place] Last Admin: 10/30/23 02:56 Dose: 40 mg Thiamine Mononitrate (Thiamine 100 Mg Tablet) 100 mg PO DAILY [facility] [place] Last Admin: 10/29/23 08:09 Dose: 100 mg Vitals/I&O/Wt Last Vital Signs Temp 98.2 F 10/30/23 04:00 Pulse 72 10/30/23 07:46 Resp 16 10/30/23 07:46 BP 152/79 10/30/23 06:00 Pulse Ox 97 10/30/23 07:46 O2 Del Method Mechanical Ventilation 10/30/23 07:46 O2 Flow Rate 30 10/30/23 06:00 FiO2 30 10/30/23 07:46 10/29/23 10/30/23 10/30/23 22:59 06:59 14:59 Intake Total 1233.401 / 1383.401 747 / 2130.401 Output Total 650 / 650 Balance 1233.401 / 1383.401 97 / 1480.401 Weight last 48 hrs Weight 82.962 kg Weight 84.096 kg Weight 83.96 kg Weight 87.997 kg Physical Exam 2 Narrative: intubated fio2=30%, PEEP 5, no pressors heent- nc/at, eomi neck supple lungs dull bases heart reg abd soft, + bs ext b/l improving edema neuro- responds to pain and voice- more awake and alert Urinary Catheter Management: Castorena: Cath Placed During This Visit: yes Reason for Continuing Indwelling Catheter: Accurate Measurement of Urinary Output in Critically Ill Patients Urinary Catheter Date of Insertion: 10/21/23 Urinary Catheter Time of Insertion: 14:53 Data 10/30/23 05:29 10/30/23 05:29 Micro: Microbiology 10/22/23 10:00 Gram Stain - Final Peritoneal Fluid Anaerobic Culture - Final Body Fluid Culture - Final 10/22/23 00:15 Gram Stain - Final Sputum - Endotracheal Tube Aspirate Sputum Culture - Final Fernanda glabrata 10/29/23 13:30 Blood Culture - Preliminary Blood SPECIMEN COLLECTED 10/29/23 13:38 Blood Culture - Preliminary Blood SPECIMEN COLLECTED A&P Assessment and plan (1) Zvhwn-ff-ypnyijx kidney injury: 1. Acute on chronic kidney disease: Baseline creatinine not available, patient presented with a creatinine of 1.6 worsened to 3.6 mg/dl. cr slowly improving to at 3 mg/dl . Likely multifactorial-possibly ATN and, HRS also possible. Was on IV albumin and s/p octreotide . Blood pressure is now elevated. -Urine sodium of 46 and 54. Avoid nephrotoxins and contrast studies. 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 2. hypernatremia-has improved. Can DC IV fluids. 3. VDRF-, on 30% FiO2- wean as per hospitalist 4. Hepatic encephalopathy, - Liver cirrhosis , status post paracentesis continue IV albumin. 5. Respiratory alkalosis as per medicine 6. anemia and thrombocytopenia - likely from liver disease 7. htn - can start amlodipine 5 mg po d. Will try to avoid clonidine as it can cross decreased mental status and rebound hypertension if he misses doses. 8. Laryngeal edema on steroids as per medicine. chart reviewed Patient evaluated using audiovisual cart and RN examined pt Plan see above Attestations 2 Medical Necessity Statement*: Vent dependent respiratory failure, altered mental status, acute on chronic renal failure. Time Spent in Patient Care: 16 - 35 minutes (>than 50% of time sp ent in counselling and/or direct pt care on unit) . Coding Level of Care Code Acute Code for [facility] Fwd Diagnoses Trklj-gh-rdsoyol kidney injury N17.9; N18.9
[2023-10-30] MEDS: RIFAXIMIN 550 MG 1 EACH PO ×2 (08:35→18:13)
[2023-10-30] MEDS: gabapentin 100 mg Capsule 200 MG PO ×3 (08:35→21:49)
[2023-10-30] MEDS: amlodipine 5 mg Tablet PO (08:35)
[2023-10-30] MEDS: thiamine 100 mg Tablet PO (08:36)
[2023-10-30] MEDS: divalproex Sprinkles 125 mg Capsule PO ×2 (08:36→18:12)
[2023-10-30] MEDS: BuSPIRONE 10 mg Tablet PO ×2 (08:36→18:12)
[2023-10-30] MEDS: folic acid 1 mg Tablet PO (08:36)
[2023-10-30] MEDS: hyDRALAzine 50 mg Tablet PO ×3 (08:36→21:49)
[2023-10-30] MEDS: dexmedeTOMIDine 0.9 % NaCL 400 MCG/100 ML PREMIX 8.41 MCG IV (10:59)
[2023-10-30] MEDS: dextrose 5% + KCl 20 mEq 20 MEQ/1,000 ML BAG 75 MEQ IV (10:59)
[2023-10-30] MEDS: dexamethasone 10 mg/mL INJ 6 MG IVP (11:34)
[2023-10-30 12:31] LABS: Glucose Point of Care 273 mg/dL (70-110)
--- NOTE | 2023-10-30 16:09 | PM.PN ---
Subjective Subjective: No acute events overnight. Patient is on Precedex at 0.3. Awake and able to follow commands. Calm. Remains on 30% FiO2 saturating more than 90%. No cuff leak. Hemodynamically stable. Better blood pressures. Urine output of 650 cc in last 24 hours. Vitals/I&O/Wt Last Vital Signs Temp 98.9 F 10/30/23 12:00 Pulse 57 L 10/30/23 15:00 Resp 16 10/30/23 15:00 BP 135/72 10/30/23 15:00 Pulse Ox 93 10/30/23 15:00 O2 Del Method Mechanical Ventilation 10/30/23 15:00 O2 Flow Rate 30 10/30/23 06:00 FiO2 30 10/30/23 15:00 10/30/23 10/30/23 10/30/23 06:59 14:59 22:59 Intake Total 747 / 2130.401 1085.212 / 1085.212 Output Total 650 / 650 300 / 300 Balance 97 / 1480.401 785.212 / 785.212 Weight last 48 hrs Weight 83.461 kg Weight 82.962 kg Weight 84.096 kg Weight 83.96 kg Physical Exam Narrative: General: Intubated, not sedated, following simple commands HEENT: PERRLA, pupils bilaterally equal and reactive Chest: Normal vesicular breath sounds, no added sounds, equal good air entry bilaterally CVS: S1-S2 regular, no murmurs, no tachycardia, no gallops, no rubs Abdomen: Soft, distended, nontender no organomegaly, bowel sounds present Neuro: Moving all limbs, following simple commands Urinary Catheter Management: Castorena: Cath Placed During This Visit: yes Reason for Continuing Indwelling Catheter: Accurate Measurement of Urinary Output in Critically Ill Patients Urinary Catheter Date of Insertion: 10/21/23 Urinary Catheter Time of Insertion: 14:53 Data 10/30/23 05:29 10/30/23 05:29 Micro: Microbiology 10/29/23 13:30 Blood Culture - Preliminary Blood NEGATIVE TO DATE 10/29/23 13:38 Blood Culture - Preliminary Blood NEGATIVE TO DATE 10/22/23 10:00 Gram Stain - Final Peritoneal Fluid Anaerobic Culture - Final Body Fluid Culture - Final 10/22/23 00:15 Gram Stain - Final Sputum - Endotracheal Tube Aspirate Sputum Culture - Final Fernanda glabrata A&P Assessment and plan (1) Acute encephalopathy: Multifactorial. Could be in setting of sedation with fentanyl and propofol being weaned off the system given concerns for renal and liver dysfunction. Could be in setting of uremia. Could be in setting of hepatic encephalopathy with concerns for high ammonia levels. Ammonia levels are improving today. Patient having good bowel movements. Could be in setting of mild hypernatremia which is improving while being on D5 NS. Cannot rule out in setting of polysubstance withdrawal. On admission urine drug screen positive for cocaine and amphetamines. On review from old chart patient does have history of polysubstance abuse with amphetamine, cocaine, heroin and fentanyl. Cannot rule out in setting of withdrawal of home medications. On review of old chart patient is supposed to be on BuSpar, gabapentin, Depakote. Continue with BuSpar 10 mg twice daily, gabapentin 200 mg 3 times daily, Depakote 125 mg twice daily. Continue to monitor. Hold off on extubation for now given encephalopathy and concerns for laryngeal edema on CT neck done on 10/25. Continue with IV steroids with dexamethasone 6 mg daily. (2) Tujen-rv-lifsezy kidney injury: Appreciate nephrology recommendations. Restarted D5 infusion. Patient overall euvolemic as per input output charting. Does have anasarca. Albumin levels improving. Restart albumin at daily dose. Appreciate urine output. Does have concerns for uremia. Monitor electrolytes Concerns for hepatorenal syndrome in the past. Levophed drip had to be discontinued because of hypertension. (3) HTN (hypertension): Goal blood pressure less than 140/90 mmHg. Blood pressure is elevated. Could be in setting of withdrawal. Restarting psych medication as above. Continue with clonidine patch, hydralazine 50 mg 3 times daily, amlodipine 5 mg oral daily. Uptitrate for goal blood pressures. IV hydralazine 10 mg every 4 hours as needed for systolic blood pressure 160 mmHg. (4) Respiratory failure: Reviewed vitals, oxygen requirement, ventilatory settings. So far on minimal settings on the ventilator. Continue support. Mental status, renal failure, anasarca along with laryngeal edema seen on CT neck and current time bigger barriers to extubation. Does have pleural effusions. Continue diuresis as tolerated as per direction of nephrology. CT neck with laryngeal edema with fullness of the glottic structures. Symmetric crowding of the nasopharynx with adenoid hypertrophy. Discussed with respiratory therapy, leak test performed today, and showing improvement, there was air leak on 10/26. Airleak seems to have resolved for now. For now continue with IV dexamethasone 6 mg daily. Monitor for bleeding. Patient is at high risk of GI bleeding though persistently laryngeal edema for now steroid is important. IV Protonix 40 mg twice daily. Consider ENT assessment when getting ready for extubation. Monitor cultures. So far sputum culture growing Fernanda glabrata. Continue with IV fluconazole 10-day course. Continue with empiric Zosyn for overall 5-day course. Oxygen supplementation keeping saturation over 90%. Continue with DuoNeb. Status post paracentesis 3L. (5) Hyperammonemia: Ammonia levels resolving. Patient having good bowel movements. Change lactulose to 30 mg every 12 hourly. Continue with home dose of rifaximin. Target 2-3 soft bowel movements a day. (6) CKD (chronic kidney disease): Do not have baseline creatinine. Patient gives history of CKD. (7) Hepatorenal syndrome: Worsening renal function. Levophed had to be stopped. Albumin infusions. (8) Cirrhosis: Post TIPS procedure. With evidence of cirrhosis on CT abdomen/pelvis and varices. With hyperammonemia. Hep C positive. HIV negative, ammonia level appreciated. Urine drug screen positive for cocaine and amphetamines. Appreciate INR level. Child perez score: Class C 10 points Lactulose and rifaximin as above. Off propranolol. Strict input charting, daily weights. (9) Ascites: Ascitic fluid culture without growth. Added to ascites studies. Paracentesis performed 10/21. 3L. Not suggestive of peritonitis. (10) Anemia: Reviewed Hemoccult, negative. Thrombocytopenia, suspect related to cirrhosis. Gradually worsening anemia. But appears to have leveled off, hemoglobin. Negative hemoccult. Continue IV PPI twice daily. Monitor hemoglobin. Appreciate iron panel, vitamin B12, folate levels. (11) Hepatitis C: Reviewed HCV RNA PCR, not detected. Patient does not remember being treated in the past. Most likely need to set up with PCP as an outpatient for Follow-up. Plan Sedation: Currently off sedation for around 24 hours. Reassess mental status. Glycemic control: Not needed. A1c 4.6 Nutrition: N.p.o. start on tube feeds with Nepro at 10 cc/h with free water flushes at 250 every 6 hours CODE STATUS: Full code PUD prophylaxis: Protonix DVT prophylaxis: Resumed on heparin PPx. Continues on SCDs. Pain control: Restarted gabapentin 200 mg 3 times daily, Towson every 6 hours as needed. Discharge plan: Patient is on mechanical ventilation for over a week with difficult sedation weaning given concerns for polysubstance abuse, recurrent agitation, liver cirrhosis. Patient will need extensive physical and respiratory therapy going forward. Patient would benefit from LTAC. Case management alerted. Plan for the day: Continue to maintain sedation for now with Precedex. Continue restarted home medications including BuSpar, gabapentin along with Towson as needed. Continue with IV fluid as above. Ammonia levels and hypernatremia has resolved. Will plan for possible extubation tomorrow depending on mentation and BUN levels. Continue IV Zosyn for overall 5-day course. Continue with fluconazole for a 10-day course. Restart albumin IV daily. Goal pressure less than 140/90 mmHg. Blood pressures currently stable. Continue to monitor. Repeat chest x-ray and ABG in AM. This documentation was created by [employer] rare/endangered species specialist software. Every effort was made to ensure accuracy of rare/endangered species specialist. Any obvious errors or omissions should be clarified with the author of the document. Attestations Medical Necessity Statement*: Requires further hospitalization for management of respiratory failure in setting of congestive heart failure, liver cirrhosis leading to hepatic encephalopathy, encephalopathy due to drug withdrawal, uncontrolled hypertension Critical Care Time: The high probability of a clinically significant, sudden or life threatening deterioration of the patient's [cardiac, renal, hepatic, GI, neurological] system(s) required my full and direct attention, intervention and personal management. The critical care time is as shown. This time is in addition to time spent performing any reported procedures but includes the following: [x] Data and vital sign review and interpretation [x] Patient assessment, examination and intervention [x] Documentation [x] Medication orders and management Critical Care Time (min): 90 Coding Level of Care Code Critical Care >/= 30 minutes Critical care time (in minutes): 90 The high probability of a clinically significant, sudden or life threatening deterioration, as referenced in this documentation, required my full and direct attention, intervention and personal management. The critical care time shown is in addition to time spent performing any reported separately billable procedures and includes the following: [x] Data and vital sign review and interpretation [x] Patient assessment, examination and intervention [x] Medication orders and management [x] Patient/Family updates as able [x] Care Coordination and Documentation. Other Coding Information This patient has a high probability of clinically significant, sudden or life threatening deterioration of the patient's (neurological/pulmonary/cardiac/renal/ID/endocrine) systems required my full, direct attention, the highest level of physician preparedness for urgent intervention and personal management. I managed/supervised life or organ supporting interventions that required frequent physician assessment. I devoted my full attention in the ICU to the direct care of this patient for the period of time indicated above. Time I spent with family or surrogate(s) is included only if the patient was incapable of providing necessary information or participating in decision making. This time includes the following services provided: Telemetry review Mechanical Ventilation Hemodynamic interpretation, assessment and management Review and interpretation of CXR Review and interpretation of lab values Review and interpretation of microbiologic data and culture results Review of medications and administration Review and interpretation of Nutrition requirements and management Discussion of management with other consultants and services Clinical update to family members Diagnoses Acute encephalopathy G93.40 Tyxac-cm-aoghamw kidney injury N17.9; N18.9 HTN (hypertension) I10 Respiratory failure J96.90 Hyperammonemia E72.20 CKD (chronic kidney disease) N18.9 Hepatorenal syndrome K76.7 Cirrhosis K74.60 Ascites R18.8 Anemia D64.9 Hepatitis C B19.20
[2023-10-30] MEDS: morphine 4 mg/mL SDV 1 mL 2 MG IVP (17:19)
[2023-10-30] MEDS: albumin 37.5 GM/150 ML VIAL IV (18:05)
--- NOTE | 2023-10-30 19:17 | PC.NURSE ---
SHift SUmmary: Unevnetful shift. Rested in bed throughout the day. Has been on precedex ranging between 0.3-0.4mcg. SLept most of the day, calm and comfortable. SLight agitation when turning for linen changes. Will follow commands, answer yes/no questions, and attempted to communicate via writing near end of shift. 2 large liquid bowel movements.
[2023-10-30] MEDS: dexmedeTOMIDine 0.9 % NaCL 400 MCG/100 ML PREMIX 10.51 MCG IV (21:11)
[2023-10-30] MEDS: fluconazole premix 200 MG/100 ML PREMIX 100 MG IV (21:49)
[2023-10-31] VITALS (96 sets, daily range): BP systolic 117–167; BP diastolic 70–104; PULSE 44–71; RESP 7–26; TEMP 35.5–37; O2SAT 92–100; BMI 30.4
[2023-10-31] MEDS: lactulose oral liq 20 gm/30 mL UDC 30 GM PO (01:20)
[2023-10-31] MEDS: chlorhexidine gluconate 4% Btl 118 mL 1 APPLIC TOPICAL (01:21)
[2023-10-31] MEDS: sodium chloride 0.9% 1,000 ML 75 ML IV (01:21)
[2023-10-31] MEDS: heparin 5,000 unit/mL INJ 1 mL 5000 UNIT SUBCUT ×2 (01:47→13:31)
--- NOTE | 2023-10-31 02:05 | PC.NURSE ---
Gissell powerhouse oiler was contacted to see if we had any Dextrose 5% with 20 Meq in the facility. She stated we did not so Telepharmacy was also contacted and they also said we do not have any in the facility. Dr. Flores was notified that the facility does not have Dextrose 5% with 20 Meq of potassium. She ordered to just start the patient on Normal Saline at the same rate as the dextrose fluid which was 75mls/hr.
[2023-10-31] MEDS: ipratropium-albuterol 3 mL Neb INHALATION ×4 (02:18→20:04)
[2023-10-31] MEDS: pantoprazole 40 mg SDV IVP ×2 (03:46→16:22)
[2023-10-31 04:05] LABS: ABG PCO2 35.4 mmHg (35-45); ABG PH Result 7.38 (7.35-7.45); Alveolar-Arterial Oxygen Gradi 8.5 mmHg (5-10); Base Excess ABG -3.9 mmol/L (-2.0-2.0); Blood Gas Allen Test Pos; Blood Gas Sample Site Radial, right; Blood Gas Sample Type Arterial; Carboxyhemoglobin 1.4 %THgb (0.4-20.1); HCO3 ABG 20.8 mmol/L (22-26); HGB O2 Sat 97.6 % (95-100); Ionized Calcium Level - ABG 1.2 mmol/L (1.1-1.4); Methemoglobin 0.1 % (0.4-1.5); Oxygen Device VENT; PO2 FiO2 Ratio Arterial Blood 343; Potassium Level - ABG 3.7 mmol/L (3.5-5.0); Total Hemoglobin 7.8 g/dL (14-18)
[2023-10-31 05:14] LABS: Hematocrit 23.1 % (37-53); Lymphocytes # 0.2 10^3/uL (0.8-4.8); Lymphocytes % 6.4 %; Mean Corpuscular Hemoglobin 29.8 pg (27-33); Mean Corpuscular Volume 93.1 fl (82-101); Mean Platelet Volume 12.4 fL (7.4-10.4); Monocytes # 0.3 10^3/uL (0.2-0.9); Monocytes % 7.8 %; Neutrophils # 2.98 10^3/uL (1.8-7.7); Neutrophils % 83.6 %; Nucleated Red Blood Cells % 0 %; Platelet Count 49 10^3/cmm (157-399); Red Blood Count 2.48 10^6/uL (3.85-5.65); Red Cell Distribution Width 16.9 % (12.1-15.1); White Blood Count 3.57 10^3/uL (3.29-11.43)
[2023-10-31 05:40] LABS: Alanine Aminotransferase 17 U/L (0-41); Albumin Level 4.1 g/dL (3.5-5.2); Alkaline Phosphatase 199 U/L (40-130); Anion Gap 23.9 (5-19); Aspartate Amino Transferase 36 U/L (0-40); Calcium 8.7 mg/dL (8.5-10.5); Carbon Dioxide 19 mmol/L (22-29); Chloride 107 mmol/L (98-107); Creatinine Clr Calc Pharmacy 28.6344; Globulin 1.6 g/dL (1.3-4.6); Glomerular Filtration Rate 22.1 mL/min (90-130); Glucose 396 mg/dL (65-115); Magnesium 2.8 mg/dL (1.7-2.3); Osmolality Calculated 352 mOsm/kg (285-295); Phosphorus 5.8 mg/dL (2.5-4.5); Potassium 3.9 mmol/L (3.5-5.1); Sodium 146 mmol/L (136-145); Total Bilirubin 1.7 mg/dL (0.15-1.2); Total Protein 5.7 g/dL (6.6-8.7)
[2023-10-31] MEDS: piperacillin-tazobactam 3.375 GM in dextrose 5% (plus) 50 ML IV ×2 (05:49→16:22)
[2023-10-31 05:52] LABS: Blood Urea Nitrogen 106 mg/dL (6-20)
--- NOTE | 2023-10-31 06:04 | PC.NURSE ---
Sodium came up to 146. Dr. Flores was notified and she ordered for Normal Saline to be stopped and to restart dextrose 5% with 20 Meq since pharmacy was going to be here this morning.
[2023-10-31] MEDS: dextrose 5% + KCl 20 mEq 20 MEQ/1,000 ML BAG 75 MEQ IV (06:12)
[2023-10-31] MEDS: dexmedeTOMIDine 0.9 % NaCL 400 MCG/100 ML PREMIX 10.51 MCG IV (06:28)
--- NOTE | 2023-10-31 07:31 | P.PN_ITS ---
Subjective 2 Subjective: more awake and interactive. dec edema. wants to get extubated. awaits laryngeal x ray results. no complaints Medications: Reviewed: Yes Medication Review Details: Current Medications Acetaminophen (Acetaminophen 325 Mg Tablet) 500 mg PO Q8H PRN PRN Reason: Mild/Mod Pain Or Temp >/= 101 Hydrocodone Bitart/Acetaminophen (Hydrocodone-Acetaminophen 5-325 Mg Tablet) 1 tab PO Q6H PRN PRN Reason: MODERATE PAIN Last Admin: 10/28/23 21:17 Dose: 1 tab Albuterol/Ipratropium (Ipratropium-Albuterol 3 Ml Neb) 3 ml INHALATION Q6H.RESP [facility] Last Admin: 10/31/23 07:27 Dose: 3 ml Amlodipine Besylate (Amlodipine 5 Mg Tablet) 5 mg PO DAILY [facility] Last Admin: 10/30/23 08:35 Dose: 5 mg Bisacodyl (Bisacodyl 5 Mg Tablet) 10 mg PO DAILY PRN; Protocol PRN Reason: Constipation (see protocol) Buspirone HCl (Buspirone 10 Mg Tablet) 10 mg PO BID [facility] Last Admin: 10/30/23 18:12 Dose: 10 mg Chlorhexidine Gluconate (Chlorhexidine Gluconate 4% Btl 118 Ml) 1 applic TOPICAL 0100 [facility] Last Admin: 10/31/23 01:21 Dose: 1 applic Clonidine HCl (Clonidine 0.2 Mg/24 Hr Patch) 1 patch TRANSDERMA Q7D [facility] Last Admin: 10/29/23 13:19 Dose: 1 patch Dexamethasone (Dexamethasone 10 Mg/Ml Inj) 6 mg IVP Q24H [facility] Last Admin: 10/30/23 11:34 Dose: 6 mg Divalproex Sodium (Divalproex Sprinkles 125 Mg Capsule) 125 mg PO BID [facility] Last Admin: 10/30/23 18:12 Dose: 125 mg Folic Acid (Folic Acid 1 Mg Tablet) 1 mg PO DAILY [facility] Last Admin: 10/30/23 08:36 Dose: 1 mg Gabapentin (Gabapentin 100 Mg Capsule) 200 mg PO TID [facility] Last Admin: 10/30/23 21:49 Dose: 200 mg Heparin Sodium (Porcine) (Heparin 5,000 Unit/Ml Inj 1 Ml) 5,000 unit SUBCUT Q12H [facility] Last Admin: 10/31/23 01:47 Dose: 5,000 unit Hydralazine HCl (Hydralazine 20 Mg/Ml Inj 1 Ml) 10 mg IVP Q4H PRN PRN Reason: SBP More than 160 mmhg Last Admin: 10/30/23 04:51 Dose: 10 mg Hydralazine HCl (Hydralazine 50 Mg Tablet) 50 mg PO TID DEL Last Admin: 10/30/23 21:49 Dose: 50 mg Fluconazole (Diflucan Premix) 200 mg in 100 mls @ 100 mls/hr IV Q24H DEL Last Admin: 10/30/23 21:49 Dose: 100 mls/hr Piperacillin Sod/Tazobactam (Sod 3.375 gm/ Dextrose) 50 mls @ 12.5 mls/hr IV Q12H DEL; Protocol Stop: 11/01/23 16:59 Last Admin: 10/31/23 05:49 Dose: 12.5 mls/hr Dexmedetomidine/Sodium Chloride (Precedex) 400 mcg in 100 mls @ 0 mls/hr IV .Q0M DEL; Protocol Last Admin: 10/31/23 06:28 Dose: 0.5 mcg/kg/hr, 10.51 mls/hr Albumin Human (Albumin) 37.5 gm in 150 mls @ 60 mls/hr IV DAILY DEL Last Admin: 10/30/23 18:05 Dose: 60 mls/hr Potassium Chloride/Dextrose (Dextrose 5% + Kcl 20 Meq) 20 meq in 1,000 mls @ 75 mls/hr IV .[id number] DEL Last Admin: 10/31/23 06:12 Dose: 75 mls/hr Lactulose (Lactulose Oral Liq 20 Gm/30 Ml Udc) 30 gm PO Q8H DEL; Protocol Last Admin: 10/31/23 01:20 Dose: 30 gm Lorazepam (Lorazepam 2 Mg/Ml Inj 1 Ml) 2 mg IVP Q4H PRN PRN Reason: ANXIETY Last Admin: 10/23/23 23:31 Dose: 2 mg Magnesium Hydroxide (Magnesium Hydroxide 30 Ml Udc) 30 ml PO DAILY PRN; Protocol PRN Reason: Constipation (see protocol) Last Admin: 10/22/23 10:47 Dose: 30 ml Non-Formulary Med ( Rifaximin 550mg Tablets) 1 each PO BID [facility] Last Admin: 10/30/23 18:13 Dose: 1 each Ondansetron HCl (Ondansetron 2 Mg/Ml Sdv 2 Ml) 4 mg IVP Q8H PRN PRN Reason: vomiting, or N/V if npo Pantoprazole Sodium (Pantoprazole 40 Mg Sdv) 40 mg IVP Q12H [facility] Last Admin: 10/31/23 03:46 Dose: 40 mg Thiamine Mononitrate (Thiamine 100 Mg Tablet) 100 mg PO DAILY [facility] Last Admin: 10/30/23 08:36 Dose: 100 mg Vitals/I&O/Wt Last Vital Signs Temp 97.8 F 10/30/23 22:00 Pulse 55 L 10/31/23 07:29 Resp 17 10/31/23 07:29 BP 166/86 10/31/23 06:00 Pulse Ox 98 10/31/23 07:29 O2 Del Method Mechanical Ventilation 10/31/23 07:29 O2 Flow Rate 30 10/30/23 06:00 FiO2 28 10/31/23 07:29 10/30/23 10/31/23 10/31/23 22:59 06:59 14:59 Intake Total 658.757 / 1793.969 97.568 / 1891.537 Output Total 725 / 1025 250 / 1275 Balance -66.243 / 768.969 -152.432 / 616.537 Weight last 48 hrs Weight 82.809 kg Weight 83.461 kg Weight 82.962 kg Weight 84.096 kg Physical Exam 2 Narrative: intubated fio2=30%, no pressors awake, alert and interactive heent- nc/at, eomi neck supple lungs - good air movement b/l heart reg abd soft, + bs ext b/l stable edema neuro- awake and alert, interactive, following commands Urinary Catheter Management: Castorena: Cath Placed During This Visit: yes Reason for Continuing Indwelling Catheter: Accurate Measurement of Urinary Output in Critically Ill Patients Urinary Catheter Date of Insertion: 10/21/23 Urinary Catheter Time of Insertion: 14:53 Data 10/31/23 04:35 10/31/23 04:35 Micro: Microbiology 10/29/23 13:30 Blood Culture - Preliminary Blood NEGATIVE TO DATE 10/29/23 13:38 Blood Culture - Preliminary Blood NEGATIVE TO DATE A&P Assessment and plan (1) Nblkr-yx-bvunsaz kidney injury: 1. Acute on chronic kidney disease: Baseline creatinine not available, patient presented with a creatinine of 1.6 worsened to 3.6 mg/dl. cr slowly improving to at 3 mg/dl . Likely multifactorial-possibly ATN and, HRS also possible. Was on IV albumin and s/p octreotide . Blood pressure is now elevated. -Urine sodium of 46 and 54. Avoid nephrotoxins and contrast studies. 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 please monitor. 2. hypernatremia-please give water via NGT or by mouth if extubated 3. VDRF-hope to extubate if laryngeal swelling improves 4. Liver cirrhosis , status post paracentesis continue IV albumin. 5. anemia and thrombocytopenia - likely from liver disease 7. htn - on amlodipine 5 mg po d. clonidine patch. -monitor w/ extubation 8. Laryngeal edema on steroids as per medicine. chart reviewed Patient evaluated using audiovisual cart and RN examined pt Plan see above Attestations 2 Medical Necessity Statement*: nusrat on ckd, vdrf Time Spent in Patient Care: 16 - 35 minutes (>than 50% of time sp ent in counselling and/or direct pt care on unit) . Coding Level of Care Code Acute Code for [facility] Diagnoses [id number]-cc-[id number] kidney injury N17.9; N18.9
--- NOTE | 2023-10-31 08:00 | XRR_ITS ---
PROCEDURE INFORMATION: Exam: XR Chest Exam date and time: 10/31/2023 7:20 AM Age: 53 years old Clinical indication: Device placement; Ett placement (vent status); Additional info: Intubated TECHNIQUE: Imaging protocol: Radiologic exam of the chest. Views: 1 view. Total images: 2 COMPARISON: CR XR chest 1V portable [id number] 10/25/2023 8:38 AM FINDINGS: Tubes, catheters and devices: Right PICC line is partially withdrawn into the proximal SVC. Endotracheal tube tip is now 3 cm above the miriam.Enteric tube seen entering the stomach with tip not visualized. Lungs: Nonspecific opacity in the right lung base, favoring atelectasis or pneumonia. Pleural spaces: There is blunting of the right costophrenic angle, likely indicating a small pleural effusion. Heart/Mediastinum: Heart size is stable when compared to the prior exam. Bones/joints: Unremarkable. XR/XR chest 1V portable [id number] IMPRESSION: 1. Right PICC line is partially withdrawn into the proximal SVC. Endotracheal tube tip is now 3 cm above the miriam.Enteric tube seen entering the stomach with tip not visualized. 2. Nonspecific opacity in the right lung base, favoring atelectasis or pneumonia. 3. There is blunting of the right costophrenic angle, likely indicating a small pleural effusion.
[2023-10-31] MEDS: gabapentin 100 mg Capsule 200 MG PO ×3 (08:43→20:58)
[2023-10-31] MEDS: divalproex Sprinkles 125 mg Capsule PO ×2 (08:43→17:37)
[2023-10-31] MEDS: amlodipine 5 mg Tablet PO (08:43)
[2023-10-31] MEDS: hyDRALAzine 50 mg Tablet PO ×3 (08:43→20:58)
[2023-10-31] MEDS: BuSPIRONE 10 mg Tablet PO ×2 (08:43→17:37)
[2023-10-31] MEDS: folic acid 1 mg Tablet PO (08:43)
[2023-10-31] MEDS: thiamine 100 mg Tablet PO (08:43)
[2023-10-31] MEDS: albumin 37.5 GM/150 ML VIAL IV (08:44)
[2023-10-31] MEDS: RIFAXIMIN 550 MG 1 EACH PO ×2 (08:45→17:37)
[2023-10-31] MEDS: fentaNYL 50 mcg/mL INJ 2mL 25 MCG IVP (10:57)
--- NOTE | 2023-10-31 11:15 | XR_ITS ---
WS: [id number] XR chest 1V portable [id number] REASON FOR EXAM: NG FINDINGS: Endotracheal tube remains in proper position. Right arm PICC line is in position in the mid superior vena cava. Nasogastric tube has been placed the tip is coiled within the fundus of the stomach. The heart is enlarged. Diffuse interstitial and groundglass opacities in the left lower lung field and diffusely throughout the right lung. Likely there is a right pleural effusion. XR/XR chest 1V portable [id number] IMPRESSION: Compared to chest x-ray this AM the nasogastric tube has been retracted to the fundus of the stomach.
[2023-10-31] MEDS: HYDROcodone-acetaminophen 5-325 mg Tablet 1 TAB PO (13:31)
[2023-10-31] MEDS: dexamethasone 10 mg/mL INJ 6 MG IVP (13:31)
[2023-10-31 14:33] LABS: Anion Gap 23.9 (5-19); Carbon Dioxide 18 mmol/L (22-29); Chloride 101 mmol/L (98-107); Creatinine Clr Calc Pharmacy 28.7157; Glomerular Filtration Rate 22.1 mL/min (90-130); Glucose 465 mg/dL (65-115); Lactate Dehydrogenase 224 U/L (135-225); Osmolality Calculated 341 mOsm/kg (285-295); Potassium 3.9 mmol/L (3.5-5.1); Sodium 139 mmol/L (136-145)
[2023-10-31 14:45] LABS: Blood Urea Nitrogen 105 mg/dL (6-20)
[2023-10-31 14:47] LABS: Complement C3 30 mg/dL (90-180)
--- NOTE | 2023-10-31 15:11 | P.PN_ITS ---
Subjective 2 Subjective: No acute vents overnight. Patient is on Precedex at 0.4-0.5. Is awake and alert and following simple commands. Has remained hemodynamically stable and afebrile. Document urine output of 1.2 l in last 24-hour. Patient has had multiple bowel movements. Patient has been saturating well on 30% of FiO2. Currently on ventilator settings 30% FiO2, tidal volume 400 PEEP of 5. During the day patient was eventually extubated at around 12:00 to 2 L Giurgius supplementation. NGT was placed. Vitals/I&O/Wt Last Vital Signs Temp 98.6 F 10/31/23 08:30 Pulse 55 L 10/31/23 14:45 Resp 17 10/31/23 14:45 BP 136/79 10/31/23 14:45 Pulse Ox 100 10/31/23 14:45 O2 Del Method Nasal Cannula 10/31/23 13:59 O2 Flow Rate 2 10/31/23 13:59 FiO2 28 10/31/23 10:59 10/31/23 10/31/23 10/31/23 06:59 14:59 22:59 Intake Total 97.568 / 0434.859 4801 / 1450 Output Total 250 / 1275 Balance -152.432 / 191.689 3805 / 1450 Weight last 48 hrs Weight 83.96 kg Weight 82.809 kg Weight 83.461 kg Weight 82.962 kg Physical Exam 2 Narrative: General: Awake, alert, weak appearing, chronically sick appearing, AO x 2 to 3, following simple commands HEENT: PERRLA, pupils bilaterally equal and reactive Chest: Normal vesicular breath sounds, no added sounds, equal good air entry bilaterally CVS: S1-S2 regular, no murmurs, no tachycardia, no gallops, no rubs Abdomen: Soft, distended, nontender no organomegaly, bowel sounds present Neuro: Moving all limbs, following simple commands Urinary Catheter Management: Castorena: Cath Placed During This Visit: yes Reason for Continuing Indwelling Catheter: Accurate Measurement of Urinary Output in Critically Ill Patients Urinary Catheter Date of Insertion: 10/21/23 Urinary Catheter Time of Insertion: 14:53 Data 10/31/23 04:35 10/31/23 14:00 Micro: Microbiology 10/29/23 13:30 Blood Culture - Preliminary Blood NEGATIVE TO DATE 10/29/23 13:38 Blood Culture - Preliminary Blood NEGATIVE TO DATE A&P Assessment and plan (1) Acute encephalopathy: Multifactorial. Could be in setting of sedation with fentanyl and propofol being weaned off the system given concerns for renal and liver dysfunction. Could be in setting of uremia. Could be in setting of hepatic encephalopathy with concerns for high ammonia levels. Ammonia levels are improving today. Patient having good bowel movements. Could be in setting of mild hypernatremia which is improving while being on D5 NS. Cannot rule out in setting of polysubstance withdrawal. On admission urine drug screen positive for cocaine and amphetamines. On review from old chart patient does have history of polysubstance abuse with amphetamine, cocaine, heroin and fentanyl. Cannot rule out in setting of withdrawal of home medications. On review of old chart patient is supposed to be on BuSpar, gabapentin, Depakote. Continue with BuSpar 10 mg twice daily, gabapentin 200 mg 3 times daily, Depakote 125 mg twice daily. Continue to monitor. Hold off on extubation for now given encephalopathy and concerns for laryngeal edema on CT neck done on 10/25. Continue with IV steroids with dexamethasone 6 mg daily. (2) Kyupf-ys-[id number] kidney injury: Appreciate nephrology recommendations. Restarted D5 infusion. Patient overall euvolemic as per input output charting. Does have anasarca. Albumin levels improving. Restart albumin at daily dose. Appreciate urine output. Does have concerns for uremia. Monitor electrolytes Concerns for hepatorenal syndrome in the past. Levophed drip had to be discontinued because of hypertension. (3) HTN (hypertension): Goal blood pressure less than 140/90 mmHg. Blood pressure is elevated. Could be in setting of withdrawal. Restarting psych medication as above. Continue with clonidine patch, hydralazine 50 mg 3 times daily, amlodipine 5 mg oral daily. Uptitrate for goal blood pressures. IV hydralazine 10 mg every 4 hours as needed for systolic blood pressure 160 mmHg. (4) Respiratory failure: Reviewed vitals, oxygen requirement, ventilatory settings. So far on minimal settings on the ventilator. Continue support. Mental status, renal failure, anasarca along with laryngeal edema seen on CT neck and current time bigger barriers to extubation. Does have pleural effusions. Continue diuresis as tolerated as per direction of nephrology. CT neck with laryngeal edema with fullness of the glottic structures. Symmetric crowding of the nasopharynx with adenoid hypertrophy. Discussed with respiratory therapy, leak test performed today, and showing improvement, there was air leak on 10/26. Airleak seems to have resolved for now. For now continue with IV dexamethasone 6 mg daily. Monitor for bleeding. Patient is at high risk of GI bleeding though persistently laryngeal edema for now steroid is important. IV Protonix 40 mg twice daily. Consider ENT assessment when getting ready for extubation. Monitor cultures. So far sputum culture growing Fernanda glabrata. Continue with IV fluconazole 10-day course. Continue with empiric Zosyn for overall 5- day course. Oxygen supplementation keeping saturation over 90%. Continue with DuoNeb. Status post paracentesis 3L. (5) Hyperammonemia: Ammonia levels resolving. Patient having good bowel movements. Change lactulose to 30 mg every 12 hourly. Continue with home dose of rifaximin. Target 2-3 soft bowel movements a day. (6) CKD (chronic kidney disease): Do not have baseline creatinine. Patient gives history of CKD. (7) Hepatorenal syndrome: Worsening renal function. Levophed had to be stopped. Albumin infusions. (8) Cirrhosis: Post TIPS procedure. With evidence of cirrhosis on CT abdomen/pelvis and varices. With hyperammonemia. Hep C positive. HIV negative, ammonia level appreciated. Urine drug screen positive for cocaine and amphetamines. Appreciate INR level. Child perez score: Class C 10 points Lactulose and rifaximin as above. Off propranolol. Strict input charting, daily weights. (9) Ascites: Ascitic fluid culture without growth. Added to ascites studies. Paracentesis performed 10/21. 3L. Not suggestive of peritonitis. (10) Anemia: Reviewed Hemoccult, negative. Thrombocytopenia, suspect related to cirrhosis. Gradually worsening anemia. But appears to have leveled off, hemoglobin. Negative hemoccult. Continue IV PPI twice daily. Monitor hemoglobin. Appreciate iron panel, vitamin B12, folate levels. (11) Hepatitis C: Reviewed HCV RNA PCR, not detected. Patient does not remember being treated in the past. Most likely need to set up with PCP as an outpatient for Follow-up. Plan Sedation: Currently off sedation for around 24 hours. Reassess mental status. Glycemic control: Not needed. A1c 4.6 Nutrition: N.p.o. start on tube feeds with Nepro at 10 cc/h with free water flushes at 250 every 6 hours CODE STATUS: Full code PUD prophylaxis: Protonix DVT prophylaxis: Resumed on heparin PPx. Continues on SCDs. Pain control: Restarted gabapentin 200 mg 3 times daily, Sharon every 6 hours as needed. Discharge plan: Patient is on mechanical ventilation for over a week with difficult sedation weaning given concerns for polysubstance abuse, recurrent agitation, liver cirrhosis. Patient will need extensive physical and respiratory therapy going forward. Patient would benefit from LTAC. Case management alerted. Plan for the day: Patient extubated on 10/30. Hypernatremia has resolved. Stop IV fluids. Hepatic encephalopathy has resolved. Patient has had multiple bowel movements. Change lactulose to as needed. Continue with rifaximin. Continue with Precedex drip. Continue other chronic medications. Appreciate ABG and chest x-ray. Continue with IV dexamethasone. Restart tube feeds through NG tube. Will plan for PT and OT evaluation along speech evaluation in the next 24 hours. Blood pressure stable. Continue with current antihypertensives. Finish IV Zosyn for empiric 5-day course. Continue with fluconazole for 10 days. Patient's blood sugars elevated. Most likely in setting of IV steroids and D5 infusion. Start on insulin sliding scale 6 hourly. Patient having worsening thrombocytopenia. Insetting of severe uremia will also have platelet dysfunction. Hold off on heparin for now. Continue Protonix twice daily. Add Carafate ACHS. Appreciate hematological panel ordered by nephrology. Low haptoglobin but normal LDH. Patient continues to have persistent uremia. Will discuss further with nephrology regarding plan. Care discussed in detail with patient's son over the phone. All questions were answered. Patient is not . Son will be the DPOA. He is agreeable to make medical decisions. This documentation was created by [employer] aviation maintenance instructor software. Every effort was made to ensure accuracy of aviation maintenance instructor. Any obvious errors or omissions should be clarified with the author of the document. Attestations 2 Medical Necessity Statement*: Requires further hospitalization for management of encephalopathy which is multifactorial, respiratory failure postextubation, liver cirrhosis biopsy of discharge planning is sought Critical Care Time: The high probability of a clinically significant, sudden or life threatening deterioration of the patient's [cardiology, nephrology, GI, neurology] system(s) required my full and direct attention, intervention and personal management. The critical care time is as shown. This time is in addition to time spent performing any reported procedures but includes the following: [x] Data and vital sign review and interpretation [x] Patient assessment, examination and intervention [x] Documentation [x] Medication orders and management Critical Care Time (min): 80 Coding Level of Care Code Critical Care >/= 30 minutes Critical care time (in minutes): 80 The high probability of a clinically significant, sudden or life threatening deterioration, as referenced in this documentation, required my full and direct attention, intervention and personal management. The critical care time shown is in addition to time spent performing any reported separately billable procedures and includes the following: [x] Data and vital sign review and interpretation [x ] Patient assessment, examination and intervention [x] Medication orders and management [x] Patient/Family updates as able [x] Care Coordination and Documentation. Other Coding Information This patient has a high probability of clinically significant, sudden or life threatening deterioration of the patient's (neurological/pulmonary/cardiac/renal/ID/endocrine) systems required my full, direct attention, the highest level of physician preparedness for urgent intervention and personal management. I managed/supervised life or organ supporting interventions that required frequent physician assessment. I devoted my full attention in the ICU to the direct care of this patient for the period of time indicated above. Time I spent with family or surrogate(s) is included only if the patient was incapable of providing necessary information or participating in decision making. This time includes the following services provided: Telemetry review Mechanical Ventilation Hemodynamic interpretation, assessment and management Review and interpretation of CXR Review and interpretation of lab values Review and interpretation of microbiologic data and culture results Review of medications and administration Review and interpretation of Nutrition requirements and management Discussion of management with other consultants and services Clinical update to family members Diagnoses Acute encephalopathy G93.40 [id number] kidney injury N17.9; N18.9 HTN (hypertension) I10 Respiratory failure J96.90 Hyperammonemia E72.20 CKD (chronic kidney disease) N18.9 Hepatorenal syndrome K76.7 Cirrhosis K74.60 Ascites R18.8 Anemia D64.9 Hepatitis C B19.20
[2023-10-31 15:18] LABS: HIV 1 & 2 Antibody Non-Reactive (Non-Reactiv); HIV 1 & 2 Antigen Non-Reactive (Non-Reactiv)
[2023-10-31] MEDS: insulin lispro 100 unit/1 mL SUBCUT ×2 (16:22→21:53)
[2023-10-31] MEDS: sucralfate 1 gm/10 mL Oral Liq UDC PO ×2 (16:23→20:58)
[2023-10-31 19:25] LABS: Glucose Point of Care 399 mg/dL (70-110)
[2023-10-31] MEDS: fluconazole premix 200 MG/100 ML PREMIX 100 MG IV (20:59)
[2023-10-31 21:49] LABS: Glucose Point of Care 384 mg/dL (70-110)
[2023-11-01] VITALS (50 sets, daily range): BP systolic 136–179; BP diastolic 79–144; PULSE 46–91; RESP 8–21; TEMP 36–37.2; O2SAT 93–100; BMI 31.9
[2023-11-01] MEDS: ipratropium-albuterol 3 mL Neb INHALATION ×4 (01:37→19:54)
[2023-11-01] MEDS: HYDROcodone-acetaminophen 5-325 mg Tablet 1 TAB PO ×3 (03:15→18:21)
[2023-11-01 03:35] LABS: Glucose Point of Care 319 mg/dL (70-110)
[2023-11-01 03:35] LABS: Glucose Point of Care > 600 mg/dL (70-110)
[2023-11-01 03:55] LABS: Alanine Aminotransferase 20 U/L (0-41); Albumin Level 4.6 g/dL (3.5-5.2); Alkaline Phosphatase 188 U/L (40-130); Anion Gap 21.7 (5-19); Aspartate Amino Transferase 31 U/L (0-40); Calcium 9.5 mg/dL (8.5-10.5); Carbon Dioxide 19 mmol/L (22-29); Chloride 103 mmol/L (98-107); Creatinine Clr Calc Pharmacy 28.7157; Globulin 1.7 g/dL (1.3-4.6); Glomerular Filtration Rate 22.1 mL/min (90-130); Glucose 298 mg/dL (65-115); Magnesium 2.9 mg/dL (1.7-2.3); Phosphorus 5.9 mg/dL (2.5-4.5); Potassium 3.7 mmol/L (3.5-5.1); Sodium 140 mmol/L (136-145); Total Bilirubin 1.7 mg/dL (0.15-1.2); Total Protein 6.3 g/dL (6.6-8.7)
[2023-11-01 04:02] LABS: Osmolality Calculated 339 mOsm/kg (285-295)
[2023-11-01 04:04] LABS: Blood Urea Nitrogen 120 mg/dL (6-20)
[2023-11-01] MEDS: pantoprazole 40 mg SDV IVP ×2 (04:18→15:03)
[2023-11-01] MEDS: insulin lispro 100 unit/1 mL SUBCUT ×4 (04:19→20:37)
[2023-11-01] MEDS: piperacillin-tazobactam 3.375 GM in dextrose 5% (plus) 50 ML IV ×3 (04:20→20:11)
[2023-11-01] MEDS: sucralfate 1 gm/10 mL Oral Liq UDC PO ×4 (06:55→21:16)
--- NOTE | 2023-11-01 07:56 | PM.PN ---
Subjective Subjective: The patient was seen and examined. He is extubated has an NG tube getting feeds complains of being thirsty. Denies nausea. He is awake alert following commands denies chest pain denies headaches or diarrhea. Medications: Reviewed: Yes Medication Review Details: Current Medications Acetaminophen (Acetaminophen 325 Mg Tablet) 500 mg PO Q8H PRN PRN Reason: Mild/Mod Pain Or Temp >/= 101 Hydrocodone Bitart/Acetaminophen (Hydrocodone-Acetaminophen 5-325 Mg Tablet) 1 tab PO Q6H PRN PRN Reason: MODERATE PAIN Last Admin: 11/01/23 03:15 Dose: 1 tab Albuterol/Ipratropium (Ipratropium-Albuterol 3 Ml Neb) 3 ml INHALATION Q6H.RESP ON LICENSE OF [facility] Last Admin: 11/01/23 07:41 Dose: 3 ml Amlodipine Besylate (Amlodipine 5 Mg Tablet) 5 mg PO DAILY ON LICENSE OF [facility] Last Admin: 10/31/23 08:43 Dose: 5 mg Bisacodyl (Bisacodyl 5 Mg Tablet) 10 mg PO DAILY PRN; Protocol PRN Reason: Constipation (see protocol) Buspirone HCl (Buspirone 10 Mg Tablet) 10 mg PO BID ON LICENSE OF [facility] Last Admin: 10/31/23 17:37 Dose: 10 mg Clonidine HCl (Clonidine 0.2 Mg/24 Hr Patch) 1 patch TRANSDERMA Q7D ON LICENSE OF [facility] Last Admin: 10/29/23 13:19 Dose: 1 patch Dexamethasone (Dexamethasone 10 Mg/Ml Inj) 6 mg IVP Q24H ON LICENSE OF [facility] Last Admin: 10/31/23 13:31 Dose: 6 mg Divalproex Sodium (Divalproex Sprinkles 125 Mg Capsule) 125 mg PO BID ON LICENSE OF [facility] Last Admin: 10/31/23 17:37 Dose: 125 mg Folic Acid (Folic Acid 1 Mg Tablet) 1 mg PO DAILY ON LICENSE OF [facility] Last Admin: 10/31/23 08:43 Dose: 1 mg Gabapentin (Gabapentin 100 Mg Capsule) 200 mg PO TID ON LICENSE OF [facility] Last Admin: 10/31/23 20:58 Dose: 200 mg Glucagon (Glucagon 1 Mg/Ml Kit 1 Ml) 1 mg IM ONCE PRN; Protocol PRN Reason: Adult Acute Hypoglycemia Nursing Prot. Hydralazine HCl (Hydralazine 20 Mg/Ml Inj 1 Ml) 10 mg IVP Q4H PRN PRN Reason: SBP More than 160 mmhg Last Admin: 10/30/23 04:51 Dose: 10 mg Hydralazine HCl (Hydralazine 50 Mg Tablet) 50 mg PO TID DEL Last Admin: 10/31/23 20:58 Dose: 50 mg Fluconazole (Diflucan Premix) 200 mg in 100 mls @ 100 mls/hr IV Q24H DEL Last Infusion: 10/31/23 22:00 Dose: Infused Piperacillin Sod/Tazobactam (Sod 3.375 gm/ Dextrose) 50 mls @ 12.5 mls/hr IV Q12H DEL; Protocol Stop: 11/01/23 16:59 Last Admin: 11/01/23 04:20 Dose: 12.5 mls/hr Dexmedetomidine/Sodium Chloride (Precedex) 400 mcg in 100 mls @ 0 mls/hr IV .Q0M DEL; Protocol Last Titration: 10/31/23 15:00 Dose: 0 mcg/kg/hr, 0 mls/hr Albumin Human (Albumin) 37.5 gm in 150 mls @ 60 mls/hr IV DAILY DEL Last Infusion: 10/31/23 13:09 Dose: Infused Dextrose (D5w) 500 mls @ 0 mls/hr IV ONCE PRN; Protocol PRN Reason: Adult Acute Hypoglycemia Prot Dextrose (D10w) 125 mls @ 750 mls/hr IV PRN PRN; Protocol PRN Reason: Adult Acute Hypoglycemia Nursing Protocol Dextrose (D10w) 250 mls @ 1,000 mls/hr IV PRN PRN; Protocol PRN Reason: Adult Acute Hypoglycemia Nursing Protocol Insulin Human Lispro (Insulin Lispro 100 Unit/1 Ml) 0 unit SUBCUT Q6H DEL; Protocol Last Admin: 11/01/23 04:19 Dose: 10 unit Lactulose (Lactulose Oral Liq 20 Gm/30 Ml Udc) 30 gm PO Q8H PRN; Protocol PRN Reason: Constipation (see protocol) Lorazepam (Lorazepam 2 Mg/Ml Inj 1 Ml) 2 mg IVP Q4H PRN PRN Reason: ANXIETY Last Admin: 10/23/23 23:31 Dose: 2 mg Magnesium Hydroxide (Magnesium Hydroxide 30 Ml Udc) 30 ml PO DAILY PRN; Protocol PRN Reason: Constipation (see protocol) Last Admin: 10/22/23 10:47 Dose: 30 ml Non-Formulary Med ( Rifaximin 550mg Tablets) 1 each PO BID ON LICENSE OF [facility] Last Admin: 10/31/23 17:37 Dose: 1 each Ondansetron HCl (Ondansetron 2 Mg/Ml Sdv 2 Ml) 4 mg IVP Q8H PRN PRN Reason: vomiting, or N/V if npo Pantoprazole Sodium (Pantoprazole 40 Mg Sdv) 40 mg IVP Q12H ON LICENSE OF [facility] Last Admin: 11/01/23 04:18 Dose: 40 mg Sucralfate (Sucralfate 1 Gm/10 Ml Oral Liq Udc) 1 gm PO AC&BEDTIME ON LICENSE OF [facility] Last Admin: 11/01/23 06:55 Dose: 1 gm Thiamine Mononitrate (Thiamine 100 Mg Tablet) 100 mg PO DAILY ON LICENSE OF [facility] Last Admin: 10/31/23 08:43 Dose: 100 mg Vitals/I&O/Wt Last Vital Signs Temp 96 F L 10/31/23 19:00 Pulse 62 11/01/23 07:41 Resp 14 11/01/23 07:41 BP 157/84 11/01/23 06:15 Pulse Ox 97 11/01/23 07:41 O2 Del Method Room Air 11/01/23 07:41 O2 Flow Rate 2 11/01/23 01:41 FiO2 28 10/31/23 10:59 10/31/23 11/01/23 11/01/23 22:59 06:59 14:59 Intake Total 151.05 / 1658.180 Balance 151.05 / 1658.180 Weight last 48 hrs Weight 87.09 kg Weight 83.96 kg Weight 82.809 kg Weight 83.461 kg Physical Exam Narrative: The patient is extubated and comfortable. Blood pressure mildly elevated. awake, alert and interactive heent- nc/at, eomi, positive NG tube neck supple lungs - good air movement b/l heart reg abd soft, + bs ext b/l trace edema neuro- awake and alert, interactive, following commands Urinary Catheter Management: Castorena: Cath Placed During This Visit: yes Reason for Continuing Indwelling Catheter: Accurate Measurement of Urinary Output in Critically Ill Patients Urinary Catheter Date of Insertion: 10/21/23 Urinary Catheter Time of Insertion: 14:53 Data 10/31/23 04:35 11/01/23 03:32 A&P Assessment and plan (1) Qmixs-qa-[id number] kidney injury: 1. Acute on chronic kidney disease: Baseline creatinine not available, patient presented with a creatinine of 1.6 worsened to 3.6 mg/dl. cr slowly improving to at 3 mg/dl . Likely multifactorial-possibly ATN and, HRS also possible. The patient also had a positive urine tox is possible that contaminants in his drug caused kidney disease Was on IV albumin and s/p octreotide . Blood pressure is now elevated. -Urine sodium of 46 and 54. Avoid nephrotoxins and contrast studies. 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 Renal function is stable , but not improving. please monitor. If okay with medicine would give lactated Ringer's IV fluids. 2. hypernatremia-has improved with water. 3. Patient is extubated. Patient has NG tube. Patient wants to eat patient had recent laryngeal edema getting steroids. Would not feed until cleared by ENT or respiratory. 4. Liver cirrhosis , status post paracentesis continue IV albumin. Patient is status post TIPS recently. 5. anemia and thrombocytopenia - likely from liver disease 7. htn - on amlodipine 5 mg po d. clonidine patch. -monitor w/ extubation 8. Anemia with high iron saturation. Will give Epogen. Medications reviewed in detail Patient evaluated using audiovisual cart and RN examined pt Plan see above Attestations Medical Necessity Statement*: Acute on chronic renal failure likely, anemia, laryngeal edema Time Spent in Patient Care: 16 - 35 minutes (>than 50% of time spent in counselling and/or direct pt care on unit). Coding Level of Care Code Acute Code for [facility] Diagnoses Ixrbt-gd-[id number] kidney injury N17.9; N18.9
[2023-11-01] MEDS: hyDRALAzine 50 mg Tablet PO ×2 (08:17→15:03)
[2023-11-01] MEDS: gabapentin 100 mg Capsule 200 MG PO ×3 (08:17→20:35)
[2023-11-01] MEDS: folic acid 1 mg Tablet PO (08:17)
[2023-11-01] MEDS: thiamine 100 mg Tablet PO (08:17)
[2023-11-01] MEDS: amlodipine 5 mg Tablet PO ×2 (08:17→17:09)
[2023-11-01] MEDS: BuSPIRONE 10 mg Tablet PO ×2 (08:17→17:09)
[2023-11-01] MEDS: divalproex Sprinkles 125 mg Capsule PO ×2 (08:17→17:09)
[2023-11-01] MEDS: albumin 37.5 GM/150 ML VIAL IV (08:18)
[2023-11-01] MEDS: lactated ringers 1,000 ML 75 ML IV (08:36)
[2023-11-01] MEDS: RIFAXIMIN 550 MG 1 EACH PO ×2 (08:36→17:10)
[2023-11-01] MEDS: epoetin alfa 10,000 unit/mL INJ 10000 UNIT SUBCUT (08:38)
[2023-11-01 11:01] LABS: Glucose Point of Care 246 mg/dL (70-110)
[2023-11-01] MEDS: dexamethasone 10 mg/mL INJ 6 MG IVP (11:36)
[2023-11-01] MEDS: lactulose oral liq 20 gm/30 mL UDC 30 GM PO ×2 (11:44→17:11)
[2023-11-01] MEDS: saliva stimulant spray 30 mL Btl 1 SPRAY MUCOUS MEM (12:15)
[2023-11-01] MEDS: blistex lip oint 7 gm Tube 1 APPLIC TOPICAL (12:32)
--- NOTE | 2023-11-01 15:03 | P.PN_ITS ---
Subjective 2 Subjective: No acute vents overnight. Off Precedex. On room air. Blood pressure stable. Patient has remained calm without episode of agitation. Documented urine output of 1100 cc in last 24 hours. No further bowel movements after yesterday. Vitals/I&O/Wt Last Vital Signs Temp 98.9 F 11/01/23 10:00 Pulse 63 11/01/23 14:14 Resp 16 11/01/23 14:14 BP 147/83 11/01/23 13:00 Pulse Ox 96 11/01/23 14:14 O2 Del Method Room Air 11/01/23 14:14 O2 Flow Rate 2 11/01/23 01:41 FiO2 28 10/31/23 10:59 11/01/23 11/01/23 11/01/23 06:59 14:59 22:59 Output Total 1100 / 1100 Balance -1100 / -1100 Weight last 48 hrs Weight 87.09 kg Weight 83.96 kg Weight 82.809 kg Physical Exam 2 Narrative: General: Awake, alert, weak appearing, chronically sick appearing, AO x 3, HEENT: PERRLA, pupils bilaterally equal and reactive Chest: Normal vesicular breath sounds, no added sounds, equal good air entry bilaterally CVS: S1-S2 regular, no murmurs, no tachycardia, no gallops, no rubs Abdomen: Soft, distended, nontender no organomegaly, bowel sounds present Neuro: Moving all limbs, following simple commands Urinary Catheter Management: Castorena: Cath Placed During This Visit: yes Reason for Continuing Indwelling Catheter: Accurate Measurement of Urinary Output in Critically Ill Patients Urinary Catheter Date of Insertion: 10/21/23 Urinary Catheter Time of Insertion: 14:53 Data 10/31/23 04:35 11/01/23 03:32 A&P Assessment and plan (1) Acute encephalopathy: Multifactorial. Could be in setting of sedation with fentanyl and propofol being weaned off the system given concerns for renal and liver dysfunction. Could be in setting of uremia. Patient does not have any other uremic features though. BUN trending up to 120. Nephrology following. Could be in setting of hepatic encephalopathy with concerns for high ammonia levels. Resolved now. Patient had multiple bowel movements. Ammonia level normal. Restart lactulose 30 mg twice daily. Will uptitrate to the patient have 2 soft bowel movement a day. Could be in setting of mild hypernatremia which has since then resolved. Cannot rule out in setting of polysubstance withdrawal. On admission urine drug screen positive for cocaine and amphetamines. On review from old chart patient does have history of polysubstance abuse with amphetamine, cocaine, heroin and fentanyl. Cannot rule out in setting of withdrawal of home medications. On review of old chart patient is supposed to be on BuSpar, gabapentin, Depakote. Continue with BuSpar 10 mg twice daily, gabapentin 200 mg 3 times daily, Depakote 125 mg twice daily. Continue to monitor. Patient extubated on 10/30. Continue with IV dexamethasone for laryngeal edema. Will finish 7-day course. (2) Vurht-rk-mlgnzfr kidney injury: Appreciate nephrology recommendations. Fluid as per nephrology team. Patient overall euvolemic as per input output charting. Does have anasarca. Albumin levels improving. Restart albumin at daily dose. Appreciate urine output. Does have concerns for uremia. Monitor electrolytes Concerns for hepatorenal syndrome in the past. Levophed drip had to be discontinued because of hypertension. (3) HTN (hypertension): Goal blood pressure less than 140/90 mmHg. Blood pressure is better now. Restarted psych medications. Continue with [place] as needed. Continue with clonidine patch, hydralazine 50 mg 3 times daily, amlodipine 5 mg oral daily. Uptitrate for goal blood pressures. IV hydralazine 10 mg every 4 hours as needed for systolic blood pressure 160 mmHg. (4) Respiratory failure: Resolved. Extubated 10/30. Reviewed vitals, oxygen requirement, ventilatory settings. So far on minimal settings on the ventilator. Continue support. Mental status, renal failure, anasarca along with laryngeal edema seen on CT neck and current time bigger barriers to extubation. Does have pleural effusions. Continue diuresis as tolerated as per direction of nephrology. CT neck with laryngeal edema with fullness of the glottic structures. Symmetric crowding of the nasopharynx with adenoid hypertrophy. Discussed with respiratory therapy, leak test performed today, and showing improvement, there was air leak on 10/26. Airleak seems to have resolved for now. For now continue with IV dexamethasone 6 mg daily. Monitor for bleeding. Patient is at high risk of GI bleeding though persistently laryngeal edema for now steroid is important. IV Protonix 40 mg twice daily. Continue with Carafate ACH S. Consider ENT assessment when getting ready for extubation. Monitor cultures. So far sputum culture growing Fernanda glabrata. Continue with IV fluconazole 10-day course. Continue with empiric Zosyn for overall 5- day course. Oxygen supplementation keeping saturation over 90%. Continue with DuoNeb. Status post paracentesis 3L. Depending on the clinical picture will plan for another procedure of paracentesis. (5) Hyperammonemia: Ammonia level resolved. Patient having multiple bowel movements. Continue with rifaximin mean. Continue with lactulose every 12 hours. Uptitrated patient has 2 soft bowel movements a day. (6) CKD (chronic kidney disease): Do not have baseline creatinine. Patient gives history of CKD. (7) Hepatorenal syndrome: Worsening renal function. Levophed had to be stopped. Albumin infusions. (8) Cirrhosis: Post TIPS procedure. With evidence of cirrhosis on CT abdomen/pelvis and varices. With hyperammonemia. Hep C positive. HIV negative, ammonia level appreciated. Urine drug screen positive for cocaine and amphetamines. Appreciate INR level. Child perez score: Class C 10 points Lactulose and rifaximin as above. Off propranolol. Strict input charting, daily weights. (9) Ascites: Ascitic fluid culture without growth. Added to ascites studies. Paracentesis performed 10/21. 3L. Not suggestive of peritonitis. (10) Anemia: Reviewed Hemoccult, negative. Thrombocytopenia, suspect related to cirrhosis. Gradually worsening anemia. But appears to have leveled off, hemoglobin. Negative hemoccult. Continue IV PPI twice daily. Monitor hemoglobin. Appreciate iron panel, vitamin B12, folate levels. (11) Hepatitis C: Reviewed HCV RNA PCR, not detected. Patient does not remember being treated in the past. Most likely need to set up with PCP as an outpatient for Follow-up. Plan Thrombocytopenia: Most likely in setting of chronic liver cirrhosis. Given worsening uremia cannot rule out platelet dysfunction. Continue to hold off on medical DVT prophylaxis. Sedation: Currently off sedation for around 24 hours. Reassess mental status. Glycemic control: Not needed. A1c 4.6 Nutrition: N.p.o. start on tube feeds with Nepro at 10 cc/h with free water flushes at 250 every 6 hours CODE STATUS: Full code PUD prophylaxis: Protonix DVT prophylaxis: Hold off on medical prophylaxis given thrombocytopenia, high risk of bleeding with possibility of platelet dysfunction in setting of uremia. Continues on SCDs. Pain control: Restarted gabapentin 200 mg 3 times daily, [place] every 6 hours as needed. Discharge plan: Patient is on mechanical ventilation for over a week with difficult sedation weaning given concerns for polysubstance abuse, recurrent agitation, liver cirrhosis. Patient will need extensive physical and respiratory therapy going forward. Patient would benefit from LTAC. Patient has been accepted at LTAC as per case management. Awaiting Medicaid. Plan for the day: PT/OT/speech evaluation. Advance diet as per speech evaluation. Repeat BMP in evening. CBC not done today. Will plan for stat CBC to monitor for platelet and hemoglobin level. Patient has made his ex- the DPOA today. Care discussed in detail with patient's son over the phone. All questions were answered. Patient is not . Son will be the DPOA. He is agreeable to make medical decisions. This documentation was created by [employer] crane crew supervisor software. Every effort was made to ensure accuracy of crane crew supervisor. Any obvious errors or omissions should be clarified with the author of the document. Attestations 2 Medical Necessity Statement*: Requires further hospitalization for management of decompensated liver cirrhosis, uremia, acute encephalopathy in setting of uremia, drug withdrawal, postextubation care while safe discharge planning is sought Diagnoses Acute encephalopathy G93.40 [id number] kidney injury N17.9; N18.9 HTN (hypertension) I10 Respiratory failure J96.90 Hyperammonemia E72.20 CKD (chronic kidney disease) N18.9 Hepatorenal syndrome K76.7 Cirrhosis K74.60 Ascites R18.8 Anemia D64.9 Hepatitis C B19.20
[2023-11-01 15:08] LABS: Glucose Point of Care 240 mg/dL (70-110)
[2023-11-01 15:55] LABS: Basophils % 0.1 %; Eosinophils % 0.1 %; Hematocrit 24.6 % (37-53); Lymphocytes # 0.3 10^3/uL (0.8-4.8); Lymphocytes % 2.6 %; Mean Corpuscular HGB Conc 31.7 g/dL (30-55); Mean Corpuscular Hemoglobin 29.8 pg (27-33); Mean Corpuscular Volume 93.9 fl (82-101); Mean Platelet Volume 12.2 fL (7.4-10.4); Monocytes # 0.7 10^3/uL (0.2-0.9); Monocytes % 6.4 %; Neutrophils # 9.75 10^3/uL (1.8-7.7); Neutrophils % 84.8 %; Nucleated Red Blood Cells % 0.2 %; Platelet Count 104 10^3/cmm (157-399); Red Blood Count 2.62 10^6/uL (3.85-5.65); Red Cell Distribution Width 17.8 % (12.1-15.1); White Blood Count 11.49 10^3/uL (3.29-11.43)
[2023-11-01 16:07] LABS: Anion Gap 24.6 (5-19); Calcium 9.1 mg/dL (8.5-10.5); Carbon Dioxide 17 mmol/L (22-29); Chloride 102 mmol/L (98-107); Creatinine Clr Calc Pharmacy 32.4731; Glomerular Filtration Rate 24.9 mL/min (90-130); Glucose 209 mg/dL (65-115); Osmolality Calculated 331 mOsm/kg (285-295); Potassium 3.6 mmol/L (3.5-5.1); Sodium 140 mmol/L (136-145)
[2023-11-01 16:10] LABS: Blood Urea Nitrogen 109 mg/dL (6-20)
[2023-11-01 16:35] LABS: Slide Review Slide Review Perform
--- NOTE | 2023-11-01 18:09 | XRR_ITS ---
PROCEDURE INFORMATION: Exam: XR Chest Exam date and time: 11/01/2023 6:49 PM Age: 53 years old Clinical indication: Device placement; Ng tube; Prior surgery; Surgery date: 6+ months; Surgery type: Aretha; Additional info: Ng tube placement TECHNIQUE: Imaging protocol: Radiologic exam of the chest. Views: 1 view. COMPARISON: CR XR chest 1V portable [id number] 10/31/2023 11:21 AM FINDINGS: Tubes, catheters and devices: Enteric tube tip overlies the expected location of the proximal stomach. Right-sided PICC line tip overlies the expected region of the lower SVC. Lungs: Central vascular congestion with increasing mild pulmonary edema. Mild right basilar atelectasis. Pleural spaces: Increasing small right pleural effusion. Heart/Mediastinum: Cardiomegaly. Bones/joints: Unremarkable. Other findings: Interval extubation. XR/XR chest 1V portable [id number] IMPRESSION: 1. Enteric tube tip overlies the expected location of the proximal stomach. 2. Right-sided PICC line tip overlies the expected region of the lower SVC. 3. Central vascular congestion with increasing mild pulmonary edema. 4. Increasing small right pleural effusion with subjacent atelectasis.
[2023-11-01 20:22] LABS: Glucose Point of Care 269 mg/dL (70-110)
[2023-11-01] MEDS: hyDRALAzine 50 mg Tablet 75 MG PO (20:35)
[2023-11-01] MEDS: fluconazole premix 200 MG/100 ML PREMIX 100 MG IV (20:36)
[2023-11-02] VITALS (33 sets, daily range): BP systolic 122–168; BP diastolic 73–107; PULSE 62–90; RESP 9–19; TEMP 35.9–36.9; O2SAT 89–95
[2023-11-02] MEDS: ipratropium-albuterol 3 mL Neb INHALATION ×4 (01:46→20:25)
[2023-11-02] MEDS: hyDRALAzine 20 mg/mL INJ 1 mL 10 MG IVP (02:05)
[2023-11-02] MEDS: insulin lispro 100 unit/1 mL SUBCUT ×4 (02:16→21:31)
[2023-11-02 02:17] LABS: Glucose Point of Care 342 mg/dL (70-110)
[2023-11-02] MEDS: piperacillin-tazobactam 3.375 GM in dextrose 5% (plus) 50 ML IV ×3 (03:19→20:25)
[2023-11-02] MEDS: pantoprazole 40 mg SDV IVP ×2 (03:23→15:30)
[2023-11-02 03:44] LABS: Basophils % 0.1 %; Hematocrit 25.5 % (37-53); Lymphocytes # 0.4 10^3/uL (0.8-4.8); Lymphocytes % 2.6 %; Mean Corpuscular HGB Conc 32.2 g/dL (30-55); Mean Corpuscular Hemoglobin 30.3 pg (27-33); Mean Corpuscular Volume 94.1 fl (82-101); Mean Platelet Volume 12.4 fL (7.4-10.4); Monocytes # 1.1 10^3/uL (0.2-0.9); Neutrophils % 84.6 %; Nucleated Red Blood Cells % 0.3 %; Platelet Count 115 10^3/cmm (157-399); Red Blood Count 2.71 10^6/uL (3.85-5.65); White Blood Count 13.94 10^3/uL (3.29-11.43)
[2023-11-02 04:06] LABS: Alanine Aminotransferase 32 U/L (0-41); Albumin Level 4.6 g/dL (3.5-5.2); Alkaline Phosphatase 228 U/L (40-130); Anion Gap 23.5 (5-19); Aspartate Amino Transferase 57 U/L (0-40); Calcium 9.2 mg/dL (8.5-10.5); Carbon Dioxide 19 mmol/L (22-29); Chloride 99 mmol/L (98-107); Globulin 1.7 g/dL (1.3-4.6); Glomerular Filtration Rate 23.9 mL/min (90-130); Glucose 313 mg/dL (65-115); Magnesium 2.9 mg/dL (1.7-2.3); Phosphorus 5.1 mg/dL (2.5-4.5); Potassium 3.5 mmol/L (3.5-5.1); Sodium 138 mmol/L (136-145); Total Bilirubin 2.1 mg/dL (0.15-1.2); Total Protein 6.3 g/dL (6.6-8.7)
[2023-11-02 04:19] LABS: Blood Urea Nitrogen 122 mg/dL (6-20); Osmolality Calculated 337 mOsm/kg (285-295)
--- NOTE | 2023-11-02 06:00 | US_ITS ---
WS: [id number] ULTRASOUND-GUIDED PARACENTESIS CLINICAL INFORMATION: liver cirrhosis, ascitis COMPARISON: None. Procedure Informed consent: The risks, benefits, and alternatives of the procedure were discussed with the arabella ent. Verbal and written consent was obtained. Timeout: A timeout was performed to confirm the correct patient, procedure, and site. Preparation: A suitable skin site was identified. The patient was prepped and draped in usual sterile fashion. Lidocaine 1% was used for local anesthesia. Catheter: 4 Iceland[place] One-step LookUPeh catheter. Side: LEFT lower quadrant. Fluid Volume: 3500 ml Color: Clear yellow DISPOSITION: Discarded safely. Complications: None. US/US paracentesis abd w [id number] IMPRESSION: Uncomplicated ultrasound-guided paracentesis. Removal of 3500 cc
[2023-11-02] MEDS: sucralfate 1 gm/10 mL Oral Liq UDC PO ×4 (06:06→20:27)
[2023-11-02 06:54] LABS: Anti-Nuclear Antibody Screen NEGATIVE (NEGATIVE)
--- NOTE | 2023-11-02 08:35 | PM.PN ---
Subjective Subjective: The patient continues to improve. He is able to ambulate. He is on room air. He still using NG tube is not eating well. Has edema in his legs that are improving. Has ascites. Much more awake and alert oriented and interactive. Medications: Reviewed: Yes Medication Review Details: Current Medications Acetaminophen (Acetaminophen 325 Mg Tablet) 500 mg PO Q8H PRN PRN Reason: Mild/Mod Pain Or Temp >/= 101 Hydrocodone Bitart/Acetaminophen (Hydrocodone-Acetaminophen 5-325 Mg Tablet) 1 tab PO Q6H PRN PRN Reason: MODERATE PAIN Last Admin: 11/01/23 18:21 Dose: 1 tab Albuterol/Ipratropium (Ipratropium-Albuterol 3 Ml Neb) 3 ml INHALATION Q6H.RESP [facility] Last Admin: 11/02/23 01:46 Dose: 3 ml Amlodipine Besylate (Amlodipine 5 Mg Tablet) 10 mg PO DAILY DEL Bisacodyl (Bisacodyl 5 Mg Tablet) 10 mg PO DAILY PRN; Protocol PRN Reason: Constipation (see protocol) Buspirone HCl (Buspirone 10 Mg Tablet) 10 mg PO BID [facility] Last Admin: 11/01/23 17:09 Dose: 10 mg Camphor/Menthol/Phenol (Blistex Lip Oint 7 Gm Tube) 1 applic TOPICAL PRN PRN PRN Reason: DRYNESS Last Admin: 11/01/23 12:32 Dose: 1 applic Clonidine HCl (Clonidine 0.2 Mg/24 Hr Patch) 1 patch TRANSDERMA Q7D [facility] Last Admin: 10/29/23 13:19 Dose: 1 patch Dexamethasone (Dexamethasone 10 Mg/Ml Inj) 6 mg IVP Q24H [facility] Last Admin: 11/01/23 11:36 Dose: 6 mg Divalproex Sodium (Divalproex Sprinkles 125 Mg Capsule) 125 mg PO BID [facility] Last Admin: 11/01/23 17:09 Dose: 125 mg Folic Acid (Folic Acid 1 Mg Tablet) 1 mg PO DAILY [facility] Last Admin: 11/01/23 08:17 Dose: 1 mg Gabapentin (Gabapentin 100 Mg Capsule) 200 mg PO TID [facility] Last Admin: 11/01/23 20:35 Dose: 200 mg Glucagon (Glucagon 1 Mg/Ml Kit 1 Ml) 1 mg IM ONCE PRN; Protocol PRN Reason: Adult Acute Hypoglycemia Nursing Prot. Hydralazine HCl (Hydralazine 20 Mg/Ml Inj 1 Ml) 10 mg IVP Q4H PRN PRN Reason: SBP More than 160 mmhg Last Admin: 11/02/23 02:05 Dose: 10 mg Hydralazine HCl (Hydralazine 50 Mg Tablet) 75 mg PO TID DEL Last Admin: 11/01/23 20:35 Dose: 75 mg Fluconazole (Diflucan Premix) 200 mg in 100 mls @ 100 mls/hr IV Q24H DEL Last Infusion: 11/01/23 22:35 Dose: Infused Dexmedetomidine/Sodium Chloride (Precedex) 400 mcg in 100 mls @ 0 mls/hr IV .Q0M DEL; Protocol Last Titration: 10/31/23 15:00 Dose: 0 mcg/kg/hr, 0 mls/hr Albumin Human (Albumin) 37.5 gm in 150 mls @ 60 mls/hr IV DAILY [facility] Last Admin: 11/01/23 08:18 Dose: 60 mls/hr Dextrose (D5w) 500 mls @ 0 mls/hr IV ONCE PRN; Protocol PRN Reason: Adult Acute Hypoglycemia Prot Dextrose (D10w) 125 mls @ 750 mls/hr IV PRN PRN; Protocol PRN Reason: Adult Acute Hypoglycemia Nursing Protocol Dextrose (D10w) 250 mls @ 1,000 mls/hr IV PRN PRN; Protocol PRN Reason: Adult Acute Hypoglycemia Nursing Protocol Piperacillin Sod/Tazobactam (Sod 3.375 gm/ Dextrose) 50 mls @ 12.5 mls/hr IV Q8H DEL; Protocol Last Admin: 11/02/23 03:19 Dose: 12.5 mls/hr Insulin Human Lispro (Insulin Lispro 100 Unit/1 Ml) 0 unit SUBCUT Q6H DEL; Protocol Last Admin: 11/02/23 02:16 Dose: 10 unit Lactulose (Lactulose Oral Liq 20 Gm/30 Ml Udc) 30 gm PO BID DEL; Protocol Last Admin: 11/01/23 17:11 Dose: 30 gm Magnesium Hydroxide (Magnesium Hydroxide 30 Ml Udc) 30 ml PO DAILY PRN; Protocol PRN Reason: Constipation (see protocol) Last Admin: 10/22/23 10:47 Dose: 30 ml Non-Formulary Med ( Rifaximin 550mg Tablets) 1 each PO BID [facility] Last Admin: 11/01/23 17:10 Dose: 1 each Ondansetron HCl (Ondansetron 2 Mg/Ml Sdv 2 Ml) 4 mg IVP Q8H PRN PRN Reason: vomiting, or N/V if npo Pantoprazole Sodium (Pantoprazole 40 Mg Sdv) 40 mg IVP Q12H [facility] Last Admin: 11/02/23 03:23 Dose: 40 mg Saliva Substitute (Saliva Stimulant [employer] 30 Ml Btl) 1 spray MUCOUS MEM PRN PRN PRN Reason: Dry mouth Last Admin: 11/01/23 12:15 Dose: 1 spray Sucralfate (Sucralfate 1 Gm/10 Ml Oral Liq Udc) 1 gm PO AC&BEDTIME [facility] Last Admin: 11/02/23 06:06 Dose: 1 gm Thiamine Mononitrate (Thiamine 100 Mg Tablet) 100 mg PO DAILY [facility] Last Admin: 11/01/23 08:17 Dose: 100 mg Vitals/I&O/Wt Last Vital Signs Temp 97.3 F L 11/02/23 04:17 Pulse 67 11/02/23 08:00 Resp 14 11/02/23 08:00 BP 156/94 11/02/23 06:00 Pulse Ox 94 11/02/23 08:00 O2 Del Method Room Air 11/02/23 08:00 O2 Flow Rate 2 11/01/23 01:41 FiO2 16 11/02/23 01:42 11/01/23 11/02/23 11/02/23 22:59 06:59 14:59 Intake Total 510 / 510 250 / 760 Output Total 400 / 1500 550 / 2050 Balance 110 / -990 -300 / -1290 Weight last 48 hrs Weight 85.956 kg Weight 86.183 kg Weight 87.09 kg Weight 83.96 kg Physical Exam Narrative: The patient is extubated and comfortable. Vital signs noted. awake, alert and interactive heent- nc/at, eomi, positive NG tube neck supple lungs - good air movement b/l heart reg abd soft, + bs positive distended ext b/l trace edema neuro- awake and alert, interactive, following commands Urinary Catheter Management: [place]na: Cath Placed During This Visit: yes Reason for Continuing Indwelling Catheter: Accurate Measurement of Urinary Output in Critically Ill Patients Urinary Catheter Date of Insertion: 10/21/23 Urinary Catheter Time of Insertion: 14:53 Data 11/02/23 03:25 11/02/23 03:25 A&P Assessment and plan (1) Mbxee-lq-sjskfco kidney injury: 1. Acute on chronic kidney disease: Baseline creatinine not available, patient presented with a creatinine of 1.6 worsened to 3.6 mg/dl. cr slowly improving to at 3 mg/dl . Likely multifactorial-possibly ATN and, HRS also possible. The patient also had a positive urine tox is possible that contaminants in his drug caused kidney disease Was on IV albumin and s/p octreotide . Blood pressure is now elevated. -Urine sodium of 46 and 54. Avoid nephrotoxins and contrast studies. 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 = Replace potassium When eating he may need a phosphorus binder though phosphorus is already improved from 5.9-5.1 overnight. Renal function is stable to slightly improved. 2. Ascites for paracentesis. Please give albumin with the paracentesis. 3. Liver cirrhosis , status post paracentesis continue IV albumin. Patient is status post TIPS recently. 4. anemia and thrombocytopenia - likely from liver disease 5. htn - on amlodipine 5 mg po d. clonidine patch. -monitor w/ paracentesis. 6. Anemia with high iron saturation. I gave Epogen. 7. Acute encephalopathy improving 8. Laryngeal edema appears to improved. He continues on steroids 9. Hepatitis C positive as per medical team the patient and urine drug screen positive for cocaine and amphetamines on admission. - his child's Huddleston score was class C 10 points Medications reviewed in detail Patient evaluated using audiovisual cart and RN examined pt Plan see above Attestations Medical Necessity Statement*: Acute kidney injury, cirrhosis, liver disease, elevated glucose, ascites Time Spent in Patient Care: 16 - 35 minutes (>than 50% of time spent in counselling and/or direct pt care on unit). Coding Level of Care Code Acute Code for [facility] Diagnoses Dobab-sp-knzzmbb kidney injury N17.9; N18.9
[2023-11-02 08:40] LABS: Glucose Point of Care 244 mg/dL (70-110)
[2023-11-02] MEDS: divalproex Sprinkles 125 mg Capsule PO ×2 (08:43→17:19)
[2023-11-02] MEDS: BuSPIRONE 10 mg Tablet PO ×2 (08:43→17:19)
[2023-11-02] MEDS: amlodipine 5 mg Tablet 10 MG PO (08:43)
[2023-11-02] MEDS: albumin 37.5 GM/150 ML VIAL IV (08:43)
[2023-11-02] MEDS: hyDRALAzine 50 mg Tablet 75 MG PO ×3 (08:44→20:26)
[2023-11-02] MEDS: lactulose oral liq 20 gm/30 mL UDC 30 GM PO ×2 (08:44→17:19)
[2023-11-02] MEDS: gabapentin 100 mg Capsule 200 MG PO ×3 (08:44→20:26)
[2023-11-02] MEDS: folic acid 1 mg Tablet PO (08:44)
[2023-11-02] MEDS: thiamine 100 mg Tablet PO (08:45)
[2023-11-02] MEDS: RIFAXIMIN 550 MG 1 EACH PO ×2 (08:45→17:22)
[2023-11-02 11:20] LABS: Glucose Point of Care 198 mg/dL (70-110)
[2023-11-02] MEDS: FUROsemide 10 mg/mL SDV 4mL 40 MG IVP (11:24)
[2023-11-02] MEDS: dexamethasone 10 mg/mL INJ 6 MG IVP (11:31)
--- NOTE | 2023-11-02 14:57 | PC.NURSE ---
Dr. Lovett at bedside for paracentesis
--- NOTE | 2023-11-02 15:00 | P.PN_ITS ---
Subjective 2 Subjective: No acute events overnight. Today morning on examination patient is awake and alert but more lethargic than yesterday. Did have 1 bowel movement yesterday. Has remained hemodynamically stable and afebrile. Saturating in mid to high 80s. Placed on oxygen supplementation to maintain saturation over 90%. Patient states he is feeling hungry. Currently n.p.o. for paracentesis. Vitals/I&O/Wt Last Vital Signs Temp 97.3 F L 11/02/23 04:17 Pulse 76 11/02/23 14:02 Resp 16 11/02/23 14:02 BP 148/85 11/02/23 12:00 Pulse Ox 93 11/02/23 14:02 O2 Del Method Nasal Cannula 11/02/23 14:02 O2 Flow Rate 5 11/02/23 14:02 FiO2 16 11/02/23 01:42 11/02/23 11/02/23 11/02/23 06:59 14:59 22:59 Intake Total 250 / 910 50 / 50 Output Total 550 / 2050 Balance -300 / -1140 50 / 50 Weight last 48 hrs Weight 85.956 kg Weight 86.183 kg Weight 87.09 kg Physical Exam 2 Narrative: General: Awake, alert, weak appearing, chronically sick appearing, AO x 3, HEENT: PERRLA, pupils bilaterally equal and reactive Chest: Normal vesicular breath sounds, no added sounds, equal good air entry bilaterally CVS: S1-S2 regular, no murmurs, no tachycardia, no gallops, no rubs Abdomen: Soft, distended, nontender no organomegaly, bowel sounds present Neuro: Moving all limbs, following simple commands Urinary Catheter Management: Castorena: Cath Placed During This Visit: yes Reason for Continuing Indwelling Catheter: Accurate Measurement of Urinary Output in Critically Ill Patients Urinary Catheter Date of Insertion: 10/21/23 Urinary Catheter Time of Insertion: 14:53 Data 11/02/23 03:25 11/02/23 03:25 A&P Assessment and plan (1) Acute encephalopathy: Multifactorial. Could be in setting of sedation with fentanyl and propofol being weaned off the system given concerns for renal and liver dysfunction. Could be in setting of uremia. Patient does not have any other uremic features though. BUN trending up to 120. Nephrology following. Could be in setting of hepatic encephalopathy with concerns for high ammonia levels. Resolved now. Patient had multiple bowel movements. Ammonia level normal. Restart lactulose 30 mg twice daily. Will uptitrate to the patient have 2 soft bowel movement a day. Could be in setting of mild hypernatremia which has since then resolved. Cannot rule out in setting of polysubstance withdrawal. On admission urine drug screen positive for cocaine and amphetamines. On review from old chart patient does have history of polysubstance abuse with amphetamine, cocaine, heroin and fentanyl. Cannot rule out in setting of withdrawal of home medications. On review of old chart patient is supposed to be on BuSpar, gabapentin, Depakote. Continue with BuSpar 10 mg twice daily, gabapentin 200 mg 3 times daily, Depakote 125 mg twice daily. Continue to monitor. Patient extubated on 10/30. Continue with IV dexamethasone for laryngeal edema. Will finish 7-day course. (2) Njman-zr-rviwbja kidney injury: Appreciate nephrology recommendations. Fluid as per nephrology team. Patient overall euvolemic as per input output charting. Does have anasarca. Albumin levels improving. Restart albumin at daily dose. Appreciate urine output. Does have concerns for uremia. Monitor electrolytes Concerns for hepatorenal syndrome in the past. Levophed drip had to be discontinued because of hypertension. (3) HTN (hypertension): Goal blood pressure less than 140/90 mmHg. Blood pressure is better now. Restarted psych medications. Continue with [place] as needed. Continue with clonidine patch, hydralazine 50 mg 3 times daily, amlodipine 5 mg oral daily. Uptitrate for goal blood pressures. IV hydralazine 10 mg every 4 hours as needed for systolic blood pressure 160 mmHg. (4) Respiratory failure: Resolved. Extubated 10/30. Reviewed vitals, oxygen requirement, ventilatory settings. So far on minimal settings on the ventilator. Continue support. Mental status, renal failure, anasarca along with laryngeal edema seen on CT neck and current time bigger barriers to extubation. Does have pleural effusions. Continue diuresis as tolerated as per direction of nephrology. CT neck with laryngeal edema with fullness of the glottic structures. Symmetric crowding of the nasopharynx with adenoid hypertrophy. Discussed with respiratory therapy, leak test performed today, and showing improvement, there was air leak on 10/26. Airleak seems to have resolved for now. For now continue with IV dexamethasone 6 mg daily. Monitor for bleeding. Patient is at high risk of GI bleeding though persistently laryngeal edema for now steroid is important. IV Protonix 40 mg twice daily. Continue with Carafate ACH S. Consider ENT assessment when getting ready for extubation. Monitor cultures. So far sputum culture growing Fernanda glabrata. Continue with IV fluconazole 10-day course. Continue with empiric Zosyn for overall 5- day course. Oxygen supplementation keeping saturation over 90%. Continue with DuoNeb. Status post paracentesis 3L. Depending on the clinical picture will plan for another procedure of paracentesis. (5) Hyperammonemia: Ammonia level resolved. Patient having multiple bowel movements. Continue with rifaximin mean. Continue with lactulose every 12 hours. Uptitrated patient has 2 soft bowel movements a day. (6) CKD (chronic kidney disease): Do not have baseline creatinine. Patient gives history of CKD. (7) Hepatorenal syndrome: Worsening renal function. Levophed had to be stopped. Albumin infusions. (8) Cirrhosis: Post TIPS procedure. With evidence of cirrhosis on CT abdomen/pelvis and varices. With hyperammonemia. Hep C positive. HIV negative, ammonia level appreciated. Urine drug screen positive for cocaine and amphetamines. Appreciate INR level. Child perez score: Class C 10 points Lactulose and rifaximin as above. Off propranolol. Strict input charting, daily weights. (9) Ascites: Ascitic fluid culture without growth. Added to ascites studies. Paracentesis performed 10/21. 3L. Not suggestive of peritonitis. (10) Anemia: Reviewed Hemoccult, negative. Thrombocytopenia, suspect related to cirrhosis. Gradually worsening anemia. But appears to have leveled off, hemoglobin. Negative hemoccult. Continue IV PPI twice daily. Monitor hemoglobin. Appreciate iron panel, vitamin B12, folate levels. (11) Hepatitis C: Reviewed HCV RNA PCR, not detected. Patient does not remember being treated in the past. Most likely need to set up with PCP as an outpatient for Follow-up. Plan Thrombocytopenia: Most likely in setting of chronic liver cirrhosis. Given worsening uremia cannot rule out platelet dysfunction. Continue to hold off on medical DVT prophylaxis. Analgesia: Continue with [place] every 6 hours as needed. Glycemic control: Not needed. A1c 4.6 Nutrition: Stop tube feeds. Start on dysphagia level 6 diet as per speech evaluation. CODE STATUS: Full code. Patient's is her DPOA. PUD prophylaxis: Protonix DVT prophylaxis: Hold off on medical prophylaxis given thrombocytopenia, high risk of bleeding with possibility of platelet dysfunction in setting of uremia. Continues on SCDs. Pain control: Restarted gabapentin 200 mg 3 times daily, [place] every 6 hours as needed. Discharge plan: Patient is on mechanical ventilation for over a week with difficult sedation weaning given concerns for polysubstance abuse, recurrent agitation, liver cirrhosis. Patient will need extensive physical and respiratory therapy going forward. Patient would benefit from LTAC. Patient has been accepted at LTAC as per case management. Awaiting Medicaid. Plan for the day: Encephalopathy continues to be stable. Slightly more lethargic today. BUN continues to remain elevated. Patient continues to have soft bowel movements. Continue with lactulose twice daily. Appreciate chest x-ray done last night. Fluid stopped with concerns for worsening fluid overload. IV Lasix 40 mg one-time. Plan for paracentesis today. Continue with IV albumin. Will plan for repeat albumin around paracentesis. Oxygen supplementation keeping saturation over 90%. Continue with diet as per speech evaluation. Continue with PT evaluation. Worsening leukocytosis. Also appreciate increasing all the other lines. Patient placed post EPO on 10/31. Currently no concerns for worsening infection. Last dose of Zosyn today. Last dose of fluconazole today. Follow-up cultures. Blood pressure stable. Goal blood pressure less than 140/90 mmHg. Continue with amlodipine, clonidine patch, hydralazine 75 mg 3 times daily. Care discussed in detail with patient's son over the phone. All questions were answered. Patient is not . Son will be the DPOA. He is agreeable to make medical decisions. This documentation was created by [employer] blowing weasand software. Every effort was made to ensure accuracy of blowing weasand. Any obvious errors or omissions should be clarified with the author of the document. Attestations 2 Medical Necessity Statement*: Requires further hospitalization for management of encephalopathy in setting of elevated BUN, liver cirrhosis, respiratory failure in setting of congestive heart failure, CADEN on CKD, anemia, ascites requiring paracentesis passive discharge planning is sought in a patient with history of drug abuse currently positive for cocaine and amphetamines Diagnoses Acute encephalopathy G93.40 [id number]-[id number] kidney injury N17.9; N18.9 HTN (hypertension) I10 Respiratory failure J96.90 Hyperammonemia E72.20 CKD (chronic kidney disease) N18.9 Hepatorenal syndrome K76.7 Cirrhosis K74.60 Ascites R18.8 Anemia D64.9 Hepatitis C B19.20
[2023-11-02 15:47] LABS: Glucose Point of Care 166 mg/dL (70-110)
[2023-11-02] MEDS: albumin 12.5 GM/50 ML VIAL IV (15:48)
[2023-11-02 19:21] LABS: Apprearance, Body Fluid CLOUDY; Color, Body Fluid YELLOW
[2023-11-02 19:26] LABS: Body Fluid Polynuclear #Cells 0.012; Body Fluid WBC 80 /uL; Monocytes # Body Fluid 0.068
[2023-11-02 19:33] LABS: Cyto Order Verification Y; PATH Referral YES; pH Body Fluid 6.5
[2023-11-02 19:35] LABS: Body Fluid Specific Gravity 1.005
[2023-11-02 19:48] LABS: Albumin Body Fluid 2.3 g/dL; Cholesterol Body Fluid 36 mg/dL (0-200); Fluid Alkaline Phos. 57 IU/L; LDH Body Fluid 116 U/L; Total Protein Body Fluid 2.7 g/dL; Triglycerides Body Fluid 27 mg/dL (0-150); Uric Acid Body Fluid 12 mg/dL
[2023-11-02 20:00] LABS: Fluid Laterality Left Lower
[2023-11-02] MEDS: fluconazole premix 200 MG/100 ML PREMIX 100 MG IV (20:26)
[2023-11-02 21:18] LABS: Glucose Point of Care 232 mg/dL (70-110)
[2023-11-03] VITALS (24 sets, daily range): BP systolic 112–167; BP diastolic 64–89; PULSE 73–106; RESP 11–22; TEMP 35.7–36.4; O2SAT 86–97; BMI 30.9
[2023-11-03] MEDS: ipratropium-albuterol 3 mL Neb INHALATION ×3 (01:41→14:04)
[2023-11-03] MEDS: HYDROcodone-acetaminophen 5-325 mg Tablet 1 TAB PO ×2 (02:47→20:59)
[2023-11-03] MEDS: pantoprazole 40 mg SDV IVP ×2 (02:48→14:18)
[2023-11-03 02:56] LABS: Glucose Point of Care 207 mg/dL (70-110)
[2023-11-03] MEDS: insulin lispro 100 unit/1 mL SUBCUT ×4 (02:57→20:58)
[2023-11-03 03:26] LABS: Basophils # 0.1 10^3/uL (0.0-0.1); Basophils % 0.2 %; Hematocrit 26.6 % (37-53); Lymphocytes # 0.5 10^3/uL (0.8-4.8); Lymphocytes % 1.6 %; Mean Corpuscular HGB Conc 32.7 g/dL (30-55); Mean Corpuscular Hemoglobin 30.1 pg (27-33); Mean Platelet Volume 12.1 fL (7.4-10.4); Monocytes # 1.6 10^3/uL (0.2-0.9); Neutrophils # 28.92 10^3/uL (1.8-7.7); Nucleated Red Blood Cells # 0.1 /100WBC; Nucleated Red Blood Cells % 0.3 %; Platelet Count 100 10^3/cmm (157-399); Red Blood Count 2.89 10^6/uL (3.85-5.65); Red Cell Distribution Width 18.1 % (12.1-15.1)
[2023-11-03 03:48] LABS: Alanine Aminotransferase 51 U/L (0-41); Albumin Level 4.1 g/dL (3.5-5.2); Alkaline Phosphatase 203 U/L (40-130); Anion Gap 21.6 (5-19); Aspartate Amino Transferase 95 U/L (0-40); Calcium 8.7 mg/dL (8.5-10.5); Carbon Dioxide 20 mmol/L (22-29); Chloride 101 mmol/L (98-107); Creatinine Clr Calc Pharmacy 29.7747; Globulin 1.4 g/dL (1.3-4.6); Glucose 207 mg/dL (65-115); Magnesium 2.8 mg/dL (1.7-2.3); Phosphorus 4.4 mg/dL (2.5-4.5); Potassium 3.6 mmol/L (3.5-5.1); Sodium 139 mmol/L (136-145); Total Bilirubin 2.1 mg/dL (0.15-1.2); Total Protein 5.5 g/dL (6.6-8.7)
[2023-11-03 04:10] LABS: Osmolality Calculated 333 mOsm/kg (285-295)
[2023-11-03 04:12] LABS: Blood Urea Nitrogen 123 mg/dL (6-20); White Blood Count 31.45 10^3/uL (3.29-11.43)
[2023-11-03 04:36] LABS: Slide Review Slide Review Perform
[2023-11-03] MEDS: albumin 37.5 GM/150 ML VIAL IV (08:20)
[2023-11-03] MEDS: amlodipine 5 mg Tablet 10 MG PO (08:21)
[2023-11-03] MEDS: sucralfate 1 gm/10 mL Oral Liq UDC PO ×4 (08:21→20:58)
[2023-11-03] MEDS: gabapentin 100 mg Capsule 200 MG PO ×3 (08:21→20:58)
[2023-11-03] MEDS: folic acid 1 mg Tablet PO (08:21)
[2023-11-03] MEDS: BuSPIRONE 10 mg Tablet PO ×2 (08:21→17:10)
[2023-11-03] MEDS: hyDRALAzine 50 mg Tablet 75 MG PO ×3 (08:21→20:58)
[2023-11-03] MEDS: thiamine 100 mg Tablet PO (08:21)
[2023-11-03] MEDS: lactulose oral liq 20 gm/30 mL UDC 30 GM PO ×2 (08:21→17:09)
[2023-11-03] MEDS: divalproex Sprinkles 125 mg Capsule PO ×2 (08:21→17:10)
[2023-11-03] MEDS: RIFAXIMIN 550 MG 1 EACH PO ×2 (08:23→17:10)
--- NOTE | 2023-11-03 09:35 | PM.PN ---
Subjective Subjective: The patient is awake sitting up still has an NG tube which she would like out. He is eating well and denies shortness of breath or chest pain or other complaints. Medications: Reviewed: Yes Medication Review Details: Current Medications Acetaminophen (Acetaminophen 325 Mg Tablet) 500 mg PO Q8H PRN PRN Reason: Mild/Mod Pain Or Temp >/= 101 Hydrocodone Bitart/Acetaminophen (Hydrocodone-Acetaminophen 5-325 Mg Tablet) 1 tab PO Q6H PRN PRN Reason: MODERATE PAIN Last Admin: 11/03/23 02:47 Dose: 1 tab Albuterol/Ipratropium (Ipratropium-Albuterol 3 Ml Neb) 3 ml INHALATION Q6H.RESP [facility] Last Admin: 11/03/23 08:00 Dose: 3 ml Amlodipine Besylate (Amlodipine 5 Mg Tablet) 10 mg PO DAILY [facility] Last Admin: 11/03/23 08:21 Dose: 10 mg Bisacodyl (Bisacodyl 5 Mg Tablet) 10 mg PO DAILY PRN; Protocol PRN Reason: Constipation (see protocol) Buspirone HCl (Buspirone 10 Mg Tablet) 10 mg PO BID [facility] Last Admin: 11/03/23 08:21 Dose: 10 mg Camphor/Menthol/Phenol (Blistex Lip Oint 7 Gm Tube) 1 applic TOPICAL PRN PRN PRN Reason: DRYNESS Last Admin: 11/01/23 12:32 Dose: 1 applic Clonidine HCl (Clonidine 0.2 Mg/24 Hr Patch) 1 patch TRANSDERMA Q7D [facility] Last Admin: 10/29/23 13:19 Dose: 1 patch Dexamethasone (Dexamethasone 10 Mg/Ml Inj) 6 mg IVP Q24H [facility] Last Admin: 11/02/23 11:31 Dose: 6 mg Divalproex Sodium (Divalproex Sprinkles 125 Mg Capsule) 125 mg PO BID [facility] Last Admin: 11/03/23 08:21 Dose: 125 mg Folic Acid (Folic Acid 1 Mg Tablet) 1 mg PO DAILY [facility] Last Admin: 11/03/23 08:21 Dose: 1 mg Gabapentin (Gabapentin 100 Mg Capsule) 200 mg PO TID [facility] Last Admin: 11/03/23 08:21 Dose: 200 mg Glucagon (Glucagon 1 Mg/Ml Kit 1 Ml) 1 mg IM ONCE PRN; Protocol PRN Reason: Adult Acute Hypoglycemia Nursing Prot. Hydralazine HCl (Hydralazine 20 Mg/Ml Inj 1 Ml) 10 mg IVP Q4H PRN PRN Reason: SBP More than 160 mmhg Last Admin: 11/02/23 02:05 Dose: 10 mg Hydralazine HCl (Hydralazine 50 Mg Tablet) 75 mg PO TID [facility] Last Admin: 11/03/23 08:21 Dose: 75 mg Albumin Human (Albumin) 37.5 gm in 150 mls @ 60 mls/hr IV DAILY [facility] Last Admin: 11/03/23 08:20 Dose: 60 mls/hr Dextrose (D5w) 500 mls @ 0 mls/hr IV ONCE PRN; Protocol PRN Reason: Adult Acute Hypoglycemia Prot Dextrose (D10w) 125 mls @ 750 mls/hr IV PRN PRN; Protocol PRN Reason: Adult Acute Hypoglycemia Nursing Protocol Dextrose (D10w) 250 mls @ 1,000 mls/hr IV PRN PRN; Protocol PRN Reason: Adult Acute Hypoglycemia Nursing Protocol Insulin Human Lispro (Insulin Lispro 100 Unit/1 Ml) 0 unit SUBCUT Q6H DEL; Protocol Last Admin: 11/03/23 02:57 Dose: 4 unit Lactulose (Lactulose Oral Liq 20 Gm/30 Ml Udc) 30 gm PO BID DEL; Protocol Last Admin: 11/03/23 08:21 Dose: 30 gm Magnesium Hydroxide (Magnesium Hydroxide 30 Ml Udc) 30 ml PO DAILY PRN; Protocol PRN Reason: Constipation (see protocol) Last Admin: 10/22/23 10:47 Dose: 30 ml Non-Formulary Med ( Rifaximin 550mg Tablets) 1 each PO BID [facility] Last Admin: 11/03/23 08:23 Dose: 1 each Ondansetron HCl (Ondansetron 2 Mg/Ml Sdv 2 Ml) 4 mg IVP Q8H PRN PRN Reason: vomiting, or N/V if npo Pantoprazole Sodium (Pantoprazole 40 Mg Sdv) 40 mg IVP Q12H [facility] Last Admin: 11/03/23 02:48 Dose: 40 mg Saliva Substitute (Saliva Stimulant Davis 30 Ml Btl) 1 spray MUCOUS MEM PRN PRN PRN Reason: Dry mouth Last Admin: 11/01/23 12:15 Dose: 1 spray Sucralfate (Sucralfate 1 Gm/10 Ml Oral Liq Udc) 1 gm PO AC&BEDTIME DEL Last Admin: 11/03/23 08:21 Dose: 1 gm Thiamine Mononitrate (Thiamine 100 Mg Tablet) 100 mg PO DAILY [facility] Last Admin: 11/03/23 08:21 Dose: 100 mg Vitals/I&O/Wt Last Vital Signs Temp 96.9 F L 11/03/23 06:00 Pulse 89 11/03/23 08:00 Resp 18 11/03/23 08:00 BP 152/89 11/03/23 06:00 Pulse Ox 92 11/03/23 08:00 O2 Del Method Nasal Cannula 11/03/23 08:00 O2 Flow Rate 2 11/03/23 08:00 FiO2 16 11/02/23 01:42 11/02/23 11/03/23 11/03/23 22:59 06:59 14:59 Intake Total 1010 / 1210 1222 / 2432 Output Total 950 / 950 350 / 1300 Balance 60 / 260 872 / 1132 Weight last 48 hrs Weight 84.368 kg Weight 84.368 kg Weight 85.956 kg Weight 86.183 kg Physical Exam Narrative: The patient is extubated and comfortable. Vital signs noted. awake, alert and interactive heent- nc/at, eomi, positive NG tube neck supple lungs - good air movement b/l heart reg abd soft, + bs positive distended ext b/l trace edema neuro- awake and alert, interactive, following commands Urinary Catheter Management: Castorena: Cath Placed During This Visit: yes Reason for Continuing Indwelling Catheter: Accurate Measurement of Urinary Output in Critically Ill Patients Urinary Catheter Date of Insertion: 10/21/23 Urinary Catheter Time of Insertion: 14:53 Data 11/03/23 02:47 11/03/23 02:47 Micro: Microbiology 11/02/23 19:10 Gram Stain - Final Peritoneal Fluid A&P Assessment and plan (1) [id number] kidney injury: 1. Acute on chronic kidney disease: Baseline creatinine not available, patient presented with a creatinine of 1.6 worsened to 3.6 mg/dl. cr slowly improving to at 3 mg/dl . Likely multifactorial-possibly ATN and, HRS also possible. The patient also had a positive urine tox is possible that contaminants in his drug caused kidney disease Was on IV albumin and s/p octreotide . Blood pressure is now elevated. -Urine sodium of 46 and 54. Avoid nephrotoxins and contrast studies. 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 = Replace potassium as needed -cr janine to 2.9, asymptomatic- monitor uop and chemistires Renal function is stable to slightly improved. 2. The patient is status post a 1.5 L paracentesis yesterday she still has ascites. 3. Liver cirrhosis , status post paracentesis continue IV albumin. Patient is status post TIPS recently. 4. anemia and thrombocytopenia - likely from liver disease. -Patient now has significant leukocytosis. Monitor for any fevers or infection. 5. htn - on amlodipine 10 mg po d. clonidine patch and hydralazine. 6. Anemia with high iron saturation. s/p Epogen. 7. Acute encephalopathy improved 8. Laryngeal edema appears to improved. He continues on steroids 9. Hepatitis C positive as per medical team the patient and urine drug screen positive for cocaine and amphetamines on admission. - his child's Huddleston score was class C 10 points Medications reviewed in detail Patient evaluated using audiovisual cart and RN examined pt Plan see above Attestations Medical Necessity Statement*: cirrhosis, nusrat Time Spent in Patient Care: 16 - 35 minutes Coding Level of Care Code Acute Code for Chg Fwd Diagnoses [id number] kidney injury N17.9; N18.9
--- NOTE | 2023-11-03 10:21 | XRR_ITS ---
PROCEDURE INFORMATION: Exam: XR Soft Tissue Neck Exam date and time: 11/03/2023 11:31 AM Age: 53 years old Clinical indication: Other: Laryngeal edema TECHNIQUE: Imaging protocol: Radiologic exam of the soft tissues of the neck. COMPARISON: CT neck con [id number] 10/27/2023 1:04 AM FINDINGS: Tubes, catheters and devices: The patient has been extubated and the nasogastric tube has been removed. Airway: Normal. No abnormal narrowing. Soft tissues: Limited view of the neck soft tissues is unremarkable. The patient's shoulders obscure the neck soft tissues from the C4 level and below. The AP view of the neck is unremarkable. Bones/joints: Unremarkable. Lungs: Bilateral upper lobe pulmonary infiltrates/edema. XR/XR soft tissue neck [id number] IMPRESSION: 1. Limited views of the neck soft tissues are unremarkable. 2. Bilateral upper lobe pulmonary infiltrates versus pulmonary edema.
[2023-11-03] MEDS: dexamethasone 10 mg/mL INJ 6 MG IVP (12:08)
[2023-11-03 13:04] LABS: Glomerular Bsmt Membrane IGG <1.0 AI
[2023-11-03 13:10] LABS: Glucose Point of Care 198 mg/dL (70-110)
[2023-11-03 13:10] LABS: Glucose Point of Care 142 mg/dL (70-110)
--- NOTE | 2023-11-03 15:32 | P.PN_ITS ---
Subjective 2 Subjective: No acute vents overnight. Patient seen in ICU today. Sitting up in chair. Worked well with physical therapy. Currently on 4 L maintaining saturation over 91%. Awake and alert. Able to have complete conversation. Urine output of around 1300 cc in last 24 hours. Underwent paracentesis yesterday. Vitals/I&O/Wt Last Vital Signs Temp 96.3 F L 11/03/23 09:00 Pulse 80 11/03/23 14:05 Resp 18 11/03/23 14:05 BP 139/76 11/03/23 11:00 Pulse Ox 91 11/03/23 14:05 O2 Del Method Nasal Cannula 11/03/23 14:05 O2 Flow Rate 2 11/03/23 14:05 FiO2 16 11/02/23 01:42 11/03/23 11/03/23 11/03/23 06:59 14:59 22:59 Intake Total 1222 / 2432 120 / 120 Output Total 350 / 1300 25 / 25 Balance 872 / 1132 95 / 95 Weight last 48 hrs Weight 84.368 kg Weight 84.368 kg Weight 85.956 kg Physical Exam 2 Narrative: General: Awake, alert, weak appearing, chronically sick appearing, AO x 3, HEENT: PERRLA, pupils bilaterally equal and reactive Chest: Normal vesicular breath sounds, no added sounds, equal good air entry bilaterally CVS: S1-S2 regular, no murmurs, no tachycardia, no gallops, no rubs Abdomen: Soft, distended, nontender no organomegaly, bowel sounds present Neuro: Moving all limbs, following simple commands Urinary Catheter Management: Castorena: Cath Placed During This Visit: yes Reason for Continuing Indwelling Catheter: Accurate Measurement of Urinary Output in Critically Ill Patients Urinary Catheter Date of Insertion: 10/21/23 Urinary Catheter Time of Insertion: 14:53 Data 11/03/23 02:47 11/03/23 02:47 Micro: Microbiology 11/03/23 14:50 Blood Culture - Preliminary Blood SPECIMEN COLLECTED 10/29/23 13:30 Blood Culture - Final Blood NO GROWTH AFTER 5 DAYS 10/29/23 13:38 Blood Culture - Final Blood NO GROWTH AFTER 5 DAYS 11/03/23 12:11 Blood Culture - Preliminary Blood SPECIMEN COLLECTED 11/02/23 19:10 Gram Stain - Final Peritoneal Fluid Anaerobic Culture - Preliminary A&P Assessment and plan (1) Acute encephalopathy: Multifactorial. Could be in setting of sedation with fentanyl and propofol being weaned off the system given concerns for renal and liver dysfunction. Could be in setting of uremia. Patient does not have any other uremic features though. BUN trending up to 120. Nephrology following. Could be in setting of hepatic encephalopathy with concerns for high ammonia levels. Resolved now. Patient had multiple bowel movements. Ammonia level normal. Restart lactulose 30 mg twice daily. Will uptitrate to the patient have 2 soft bowel movement a day. Could be in setting of mild hypernatremia which has since then resolved. Cannot rule out in setting of polysubstance withdrawal. On admission urine drug screen positive for cocaine and amphetamines. On review from old chart patient does have history of polysubstance abuse with amphetamine, cocaine, heroin and fentanyl. Cannot rule out in setting of withdrawal of home medications. On review of old chart patient is supposed to be on BuSpar, gabapentin, Depakote. Continue with BuSpar 10 mg twice daily, gabapentin 200 mg 3 times daily, Depakote 125 mg twice daily. Continue to monitor. Patient extubated on 10/30. Continue with IV dexamethasone for laryngeal edema. Will finish 7-day course. (2) Glnyb-fq-cgtqped kidney injury: Appreciate nephrology recommendations. Fluid as per nephrology team. Patient overall euvolemic as per input output charting. Does have anasarca. Albumin levels improving. Restart albumin at daily dose. Appreciate urine output. Does have concerns for uremia. Monitor electrolytes Concerns for hepatorenal syndrome in the past. Levophed drip had to be discontinued because of hypertension. (3) HTN (hypertension): Goal blood pressure less than 140/90 mmHg. Blood pressure is better now. Restarted psych medications. Continue with [place] as needed. Continue with clonidine patch, hydralazine 50 mg 3 times daily, amlodipine 5 mg oral daily. Uptitrate for goal blood pressures. IV hydralazine 10 mg every 4 hours as needed for systolic blood pressure 160 mmHg. (4) Respiratory failure: Resolved. Extubated 10/30. Reviewed vitals, oxygen requirement, ventilatory settings. So far on minimal settings on the ventilator. Continue support. Mental status, renal failure, anasarca along with laryngeal edema seen on CT neck and current time bigger barriers to extubation. Does have pleural effusions. Continue diuresis as tolerated as per direction of nephrology. CT neck with laryngeal edema with fullness of the glottic structures. Symmetric crowding of the nasopharynx with adenoid hypertrophy. Discussed with respiratory therapy, leak test performed today, and showing improvement, there was air leak on 10/26. Airleak seems to have resolved for now. For now continue with IV dexamethasone 6 mg daily. Monitor for bleeding. Patient is at high risk of GI bleeding though persistently laryngeal edema for now steroid is important. IV Protonix 40 mg twice daily. Continue with Carafate ACH S. Consider ENT assessment when getting ready for extubation. Monitor cultures. So far sputum culture growing Fernanda glabrata. Continue with IV fluconazole 10-day course. Continue with empiric Zosyn for overall 5- day course. Oxygen supplementation keeping saturation over 90%. Continue with DuoNeb. Status post paracentesis 3L and repeat paracentesis on 11/01 when 3.5 L cc was removed. Depending on the clinical picture will plan for another procedure of paracentesis. (5) Hyperammonemia: Ammonia level resolved. Patient having multiple bowel movements. Continue with rifaximin mean. Continue with lactulose every 12 hours. Uptitrated patient has 2 soft bowel movements a day. (6) CKD (chronic kidney disease): Do not have baseline creatinine. Patient gives history of CKD. (7) Hepatorenal syndrome: Worsening renal function. Levophed had to be stopped. Albumin infusions. (8) Cirrhosis: Post TIPS procedure. With evidence of cirrhosis on CT abdomen/pelvis and varices. With hyperammonemia. Hep C positive. HIV negative, ammonia level appreciated. Urine drug screen positive for cocaine and amphetamines. Appreciate INR level. Child perez score: Class C 10 points Lactulose and rifaximin as above. Off propranolol. Strict input charting, daily weights. (9) Ascites: Ascitic fluid culture without growth. Added to ascites studies. Paracentesis performed 10/21. 3L. Not suggestive of peritonitis. (10) Anemia: Reviewed Hemoccult, negative. Thrombocytopenia, suspect related to cirrhosis. Gradually worsening anemia. But appears to have leveled off, hemoglobin. Negative hemoccult. Continue IV PPI twice daily. Monitor hemoglobin. Appreciate iron panel, vitamin B12, folate levels. (11) Hepatitis C: Reviewed HCV RNA PCR, not detected. Patient does not remember being treated in the past. Most likely need to set up with PCP as an outpatient for Follow-up. Plan Thrombocytopenia: Most likely in setting of chronic liver cirrhosis. Given worsening uremia cannot rule out platelet dysfunction. Continue to hold off on medical DVT prophylaxis. Analgesia: Continue with [place] every 6 hours as needed. Glycemic control: Not needed. A1c 4.6 Nutrition: Stop tube feeds. Start on dysphagia level 6 diet as per speech evaluation. CODE STATUS: Full code. Patient's is her DPOA. PUD prophylaxis: Protonix DVT prophylaxis: Hold off on medical prophylaxis given thrombocytopenia, high risk of bleeding with possibility of platelet dysfunction in setting of uremia. Continues on SCDs. Pain control: Restarted gabapentin 200 mg 3 times daily, [place] every 6 hours as needed. Discharge plan: Patient is on mechanical ventilation for over a week with difficult sedation weaning given concerns for polysubstance abuse, recurrent agitation, liver cirrhosis. Patient will need extensive physical and respiratory therapy going forward. Patient would benefit from LTAC. Patient has been accepted at LTAC as per case management. Awaiting Medicaid. Plan for the day: Continues to have worsening leukocytosis. Most likely in setting of EPO received recently along with IV steroids which she is getting daily. Patient has remained hemodynamically stable and afebrile. But for now we will remove Castorena catheter, check urine analysis, blood culture, C. difficile. Appreciate peritoneal fluid analysis from yesterday. Patient finished a course of IV antibiotics on 11/01 and fluconazole on 11/01 after receiving antibiotics and IV fluconazole for more than 10 days. For now we will continue to hold off on antifungal and antiviral medications and continue to monitor. Check neck soft tissue x-ray given history of laryngeal edema. Oxygen supplementation keeping saturation over 90%. NG tube removed. Continue with oral diet. Blood pressure stable. Continue with current antihypertensive. Out of bed to chair. Incentive spirometry. Repeat oral 40 mg Lasix. Care discussed in detail with patient's son over the phone. All questions were answered. Patient is not . Son will be the DPOA. He is agreeable to make medical decisions. This documentation was created by [employer] engineering faculty software. Every effort was made to ensure accuracy of engineering faculty. Any obvious errors or omissions should be clarified with the author of the document. Attestations 2 Medical Necessity Statement*: Requires further hospitalization for management of metabolic encephalopathy in setting of drug withdrawal, hepatic encephalopathy, uremia in a patient with history of liver cirrhosis, resolving respiratory failure, CADEN on CKD while safe discharge planning is sought Diagnoses Acute encephalopathy G93.40 Hsvta-bm-noasamb kidney injury N17.9; N18.9 HTN (hypertension) I10 Respiratory failure J96.90 Hyperammonemia E72.20 CKD (chronic kidney disease) N18.9 Hepatorenal syndrome K76.7 Cirrhosis K74.60 Ascites R18.8 Anemia D64.9 Hepatitis C B19.20
--- NOTE | 2023-11-03 15:33 | PC.NURSE ---
Transferred patient to [facility] room 276 bed 2. Report given to Angeline, patient received by DON noguera and DON morales. Belongings sent included clothing, cellphone, and cellphone bag grader. Patient states that his family took his wallet home.
[2023-11-03 15:34] LABS: ANCA Screen NEGATIVE (NEGATIVE)
[2023-11-03] MEDS: FUROsemide 40 mg Tablet PO (16:11)
[2023-11-03 17:27] LABS: Glucose Point of Care 268 mg/dL (70-110)
[2023-11-03 20:37] LABS: Glucose Point of Care 336 mg/dL (70-110)
[2023-11-03 20:59] LABS: C.Diff PCR (Lab) NEGATIVE (Negative)
[2023-11-04] VITALS (22 sets, daily range): BP systolic 117–171; BP diastolic 65–88; PULSE 73–102; RESP 8–26; TEMP 36.1–36.9; O2SAT 89–96
[2023-11-04] MEDS: ipratropium-albuterol 3 mL Neb INHALATION ×3 (01:16→20:54)
[2023-11-04] MEDS: pantoprazole 40 mg SDV IVP ×2 (02:58→16:51)
--- NOTE | 2023-11-04 04:03 | PC.NURSE ---
pt continue to deny need or urge to void
[2023-11-04] MEDS: FUROsemide 10 mg/mL SDV 2mL 20 MG IVP (04:43)
[2023-11-04 05:21] LABS: Basophils % 0.1 %; Hematocrit 22.5 % (37-53); Lymphocytes # 0.2 10^3/uL (0.8-4.8); Lymphocytes % 1.1 %; Mean Corpuscular HGB Conc 31.6 g/dL (30-55); Mean Corpuscular Hemoglobin 30.2 pg (27-33); Mean Corpuscular Volume 95.7 fl (82-101); Mean Platelet Volume 12.2 fL (7.4-10.4); Monocytes # 0.5 10^3/uL (0.2-0.9); Monocytes % 2.8 %; Neutrophils # 15.18 10^3/uL (1.8-7.7); Neutrophils % 95.2 %; Nucleated Red Blood Cells % 0.1 %; Platelet Count 43 10^3/cmm (157-399); Red Blood Count 2.35 10^6/uL (3.85-5.65); Red Cell Distribution Width 18.5 % (12.1-15.1); White Blood Count 15.94 10^3/uL (3.29-11.43)
[2023-11-04 05:34] LABS: Charge for UA Resulting for Rev
[2023-11-04 05:37] LABS: Bilirubin Urine Negative (Negative); Blood Urine Negative (Negative); Glucose Urine UA Negative (Normal); Ketones Urine Negative (Negative); Leukocyte Esterase Urine Negative (Negative); Nitrate Urine Negative (Negative); Protein Urine 2+ (Negative); Specific Gravity, Urine 1.017 (1.005-1.030); Urine Appearance Cloudy (CLEAR); Urine Color Yellow (Yellow); Urobilinogen Urine 0.2 mg/dL (Negative)
[2023-11-04 05:41] LABS: Alanine Aminotransferase 61 U/L (0-41); Alkaline Phosphatase 295 U/L (40-130); Aspartate Amino Transferase 93 U/L (0-40); Calcium 8.8 mg/dL (8.5-10.5); Carbon Dioxide 18 mmol/L (22-29); Chloride 100 mmol/L (98-107); Creatinine Clr Calc Pharmacy 24.3219; Globulin 1.5 g/dL (1.3-4.6); Glomerular Filtration Rate 18.5 mL/min (90-130); Glucose 272 mg/dL (65-115); Magnesium 2.9 mg/dL (1.7-2.3); Phosphorus 4.8 mg/dL (2.5-4.5); Sodium 139 mmol/L (136-145); Total Bilirubin 1.8 mg/dL (0.15-1.2); Total Protein 5.5 g/dL (6.6-8.7)
[2023-11-04 05:42] LABS: Hyaline Casts Urine 14.47 /lpf; Squamous Epithelial Cell Urine 0-5 /hpf (0-5); WBC Urine 0-5 /hpf (0-5)
[2023-11-04 05:57] LABS: Osmolality Calculated 341 mOsm/kg (285-295)
[2023-11-04 05:57] LABS: Add Urine Culture? Yes; Bacteria Urine 1+ /hpf; Mucus Urine TRACE /hpf
[2023-11-04 05:58] LABS: Blood Urea Nitrogen 134 mg/dL (6-20)
[2023-11-04 06:26] LABS: Glucose Point of Care 282 mg/dL (70-110)
[2023-11-04] MEDS: sucralfate 1 gm/10 mL Oral Liq UDC PO ×4 (06:56→20:01)
[2023-11-04] MEDS: insulin lispro 100 unit/1 mL SUBCUT ×4 (06:57→20:29)
--- NOTE | 2023-11-04 08:03 | XRR_ITS ---
PROCEDURE INFORMATION: Exam: XR Chest Exam date and time: 11/04/2023 9:12 AM Age: 53 years old Clinical indication: Shortness of breath; Additional info: SOB, chf TECHNIQUE: Imaging protocol: Radiologic exam of the chest. Views: 1 view. COMPARISON: CR XR chest 1V portable [id number] 11/01/2023 6:49 PM FINDINGS: Tubes, catheters and devices: PICC from the right arm with the tip in the distal SVC in satisfactory position. Lungs: There is dense consolidation involving the right lung base and faint patchy infiltrate is seen throughout the left lower lung field. Pleural spaces: Unremarkable. No pleural effusion. No pneumothorax. Heart/Mediastinum: Unremarkable. No cardiomegaly. Bones/joints: Unremarkable. XR/XR chest 1V portable [id number] IMPRESSION: Persistent and stable bilateral pulmonary infiltrates
--- NOTE | 2023-11-04 08:06 | PM.PN ---
Subjective Subjective: inc sob, uncomfortabel, weak Medications: Reviewed: Yes Medication Review Details: Current Medications Acetaminophen (Acetaminophen 325 Mg Tablet) 500 mg PO Q8H PRN PRN Reason: Mild/Mod Pain Or Temp >/= 101 Hydrocodone Bitart/Acetaminophen (Hydrocodone-Acetaminophen 5-325 Mg Tablet) 1 tab PO Q6H PRN PRN Reason: MODERATE PAIN Last Admin: 11/03/23 20:59 Dose: 1 tab Albuterol/Ipratropium (Ipratropium-Albuterol 3 Ml Neb) 3 ml INHALATION Q6H.RESP [facility] Last Admin: 11/04/23 07:12 Dose: 3 ml Amlodipine Besylate (Amlodipine 5 Mg Tablet) 10 mg PO DAILY [facility] Last Admin: 11/03/23 08:21 Dose: 10 mg Bisacodyl (Bisacodyl 5 Mg Tablet) 10 mg PO DAILY PRN; Protocol PRN Reason: Constipation (see protocol) Buspirone HCl (Buspirone 10 Mg Tablet) 10 mg PO BID [facility] Last Admin: 11/03/23 17:10 Dose: 10 mg Camphor/Menthol/Phenol (Blistex Lip Oint 7 Gm Tube) 1 applic TOPICAL PRN PRN PRN Reason: DRYNESS Last Admin: 11/01/23 12:32 Dose: 1 applic Clonidine HCl (Clonidine 0.2 Mg/24 Hr Patch) 1 patch TRANSDERMA Q7D [facility] Last Admin: 10/29/23 13:19 Dose: 1 patch Dexamethasone (Dexamethasone 10 Mg/Ml Inj) 6 mg IVP Q24H [facility] Stop: 11/05/23 12:29 Last Admin: 11/03/23 12:08 Dose: 6 mg Divalproex Sodium (Divalproex Sprinkles 125 Mg Capsule) 125 mg PO BID [facility] Last Admin: 11/03/23 17:10 Dose: 125 mg Folic Acid (Folic Acid 1 Mg Tablet) 1 mg PO DAILY [facility] Last Admin: 11/03/23 08:21 Dose: 1 mg Gabapentin (Gabapentin 100 Mg Capsule) 200 mg PO TID [facility] Last Admin: 11/03/23 20:58 Dose: 200 mg Glucagon (Glucagon 1 Mg/Ml Kit 1 Ml) 1 mg IM ONCE PRN; Protocol PRN Reason: Adult Acute Hypoglycemia Nursing Prot. Hydralazine HCl (Hydralazine 20 Mg/Ml Inj 1 Ml) 10 mg IVP Q4H PRN PRN Reason: SBP More than 160 mmhg Last Admin: 11/02/23 02:05 Dose: 10 mg Hydralazine HCl (Hydralazine 50 Mg Tablet) 75 mg PO TID [facility] Last Admin: 11/03/23 20:58 Dose: 75 mg Albumin Human (Albumin) 37.5 gm in 150 mls @ 60 mls/hr IV DAILY [facility] Last Infusion: 11/03/23 17:39 Dose: Infused Dextrose (D5w) 500 mls @ 0 mls/hr IV ONCE PRN; Protocol PRN Reason: Adult Acute Hypoglycemia Prot Dextrose (D10w) 125 mls @ 750 mls/hr IV PRN PRN; Protocol PRN Reason: Adult Acute Hypoglycemia Nursing Protocol Dextrose (D10w) 250 mls @ 1,000 mls/hr IV PRN PRN; Protocol PRN Reason: Adult Acute Hypoglycemia Nursing Protocol Furosemide 100 mg/ Sodium (Chloride) 50 mls @ 4 mls/hr IV .[id number] [facility]; Protocol Insulin Human Lispro (Insulin Lispro 100 Unit/1 Ml) 0 unit SUBCUT AC&BEDTIME DEL; Protocol Last Admin: 11/04/23 06:57 Dose: 8 unit Lactulose (Lactulose Oral Liq 20 Gm/30 Ml Udc) 30 gm PO BID [facility]; Protocol Last Admin: 11/03/23 17:09 Dose: 30 gm Magnesium Hydroxide (Magnesium Hydroxide 30 Ml Udc) 30 ml PO DAILY PRN; Protocol PRN Reason: Constipation (see protocol) Last Admin: 10/22/23 10:47 Dose: 30 ml Non-Formulary Med ( Rifaximin 550mg Tablets) 1 each PO BID [facility] Last Admin: 11/03/23 17:10 Dose: 1 each Ondansetron HCl (Ondansetron 2 Mg/Ml Sdv 2 Ml) 4 mg IVP Q8H PRN PRN Reason: vomiting, or N/V if npo Pantoprazole Sodium (Pantoprazole 40 Mg Sdv) 40 mg IVP Q12H [facility] Last Admin: 11/04/23 02:58 Dose: 40 mg Saliva Substitute (Saliva Stimulant Jennings 30 Ml Btl) 1 spray MUCOUS MEM PRN PRN PRN Reason: Dry mouth Last Admin: 11/01/23 12:15 Dose: 1 spray Sucralfate (Sucralfate 1 Gm/10 Ml Oral Liq Udc) 1 gm PO AC&BEDTIME DEL Last Admin: 11/04/23 06:56 Dose: 1 gm Thiamine Mononitrate (Thiamine 100 Mg Tablet) 100 mg PO DAILY [facility] Last Admin: 11/03/23 08:21 Dose: 100 mg Vitals/I&O/Wt Last Vital Signs Temp 98 F 11/04/23 07:39 Pulse 102 H 11/04/23 07:39 Resp 22 H 11/04/23 07:39 BP 123/65 11/04/23 07:39 Pulse Ox 89 L 11/04/23 07:39 O2 Del Method BiPAP 11/04/23 07:39 O2 Flow Rate 7 11/04/23 07:13 FiO2 40 11/04/23 04:54 11/03/23 11/04/23 11/04/23 22:59 06:59 14:59 Intake Total 3520 / 4560 340 / 4900 Output Total 175 / 300 0 / 300 Balance 3345 / 4260 340 / 4600 Weight last 48 hrs Weight 81.873 kg Weight 84.368 kg Weight 84.368 kg Physical Exam Narrative: The patient is extubated and uncomfortable. Vital signs noted. awake, alert and interactive heent- nc/at, eomi, positive NG tube neck supple lungs - diffuse ronchi and crackles b/l heart reg abd soft, + bs positive distended ext b/l 1+ edema neuro- awake and alert, interactive, following commands Urinary Catheter Management: Castorena: Cath Placed During This Visit: yes, but has since been removed by the nurse Reason for Continuing Indwelling Catheter: Acute Urinary Retention or Obstruction Urinary Catheter Date of Insertion: 11/04/23 Urinary Catheter Time of Insertion: 05:00 Date Urinary Catheter Removed: 11/03/23 Time Urinary Catheter Discontinued: 11:00 Data 11/04/23 04:42 11/04/23 04:42 Micro: Microbiology 11/03/23 14:50 Blood Culture - Preliminary Blood SPECIMEN COLLECTED 10/29/23 13:30 Blood Culture - Final Blood NO GROWTH AFTER 5 DAYS 10/29/23 13:38 Blood Culture - Final Blood NO GROWTH AFTER 5 DAYS 11/03/23 12:11 Blood Culture - Preliminary Blood SPECIMEN COLLECTED 11/02/23 19:10 Gram Stain - Final Peritoneal Fluid Anaerobic Culture - Preliminary A&P Assessment and plan (1) Hawfl-ha-jldsfez kidney injury: 1. Acute on chronic kidney disease: Baseline creatinine not available, patient presented with a creatinine of 1.6 worsened to 3.6 mg/dl. cr slowly improved to 2.7 mg/dl . His creatinine is rising again. He had an underlying ATN versus hepatorenal syndrome. I am now concerned that he may have developed ATN after paracentesis. Underlying CKD can be from liver disease versus toxicity from drugs. -Urine sodium of 46 and 54. Avoid nephrotoxins and contrast studies. His blood pressure has decreased. Hold blood pressure pills. Patient is now oliguric and short of breath. Will check chest x-ray. Will check ABG. Will start a Lasix drip. Will monitor patient's renal function closely may need dialysis soon. 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 2. The patient is status post a 1.5 L paracentesis yesterday she still has ascites. 3. Liver cirrhosis , status post paracentesis continue IV albumin. Patient is status post TIPS recently. 4. anemia and thrombocytopenia - likely from liver disease. -Would consider blood transfusion.. 5. htn - on amlodipine 10 mg po d. clonidine patch and hydralazine. Blood pressure is decreased will decrease medications 6. Anemia with high iron saturation. s/p Epogen. 7. Acute encephalopathy improved 8. Laryngeal edema appears to improved. He continues on steroids 9. Hepatitis C positive as per medical team the patient and urine drug screen positive for cocaine and amphetamines on admission. - his child's Huddleston score was class C 10 points Medications reviewed in detail Will repeat labs in 4 hours and monitor urine output. Patient may need dialysis soon. Patient consents to dialysis if needed. Patient evaluated using audiovisual cart and RN examined pt discussed w/ Dr Weinstein Plan see above Attestations Medical Necessity Statement*: Acute on chronic renal failure, laryngeal edema, shortness of breath, history of drug use. Time Spent in Patient Care: 16 - 35 minutes (>than 50% of time spent in counselling and/or direct pt care on unit). Coding Level of Care Code Acute Code for [facility] Diagnoses Gkpfh-wz-vufuieb kidney injury N17.9; N18.9
[2023-11-04] MEDS: FUROsemide 10 mg/mL SDV 10mL 60 MG IVP (08:16)
[2023-11-04] MEDS: divalproex Sprinkles 125 mg Capsule PO ×2 (08:18→16:59)
[2023-11-04] MEDS: folic acid 1 mg Tablet PO (08:19)
[2023-11-04] MEDS: BuSPIRONE 10 mg Tablet PO ×2 (08:19→16:59)
[2023-11-04] MEDS: gabapentin 100 mg Capsule 200 MG PO ×3 (08:19→20:01)
[2023-11-04] MEDS: lactulose oral liq 20 gm/30 mL UDC 30 GM PO ×2 (08:19→16:56)
[2023-11-04] MEDS: FUROsemide 10 mg/mL SDV 4mL 40 MG IVP (08:59)
[2023-11-04] MEDS: RIFAXIMIN 550 MG 1 EACH PO ×2 (08:59→17:33)
[2023-11-04] MEDS: thiamine 100 mg Tablet PO (08:59)
[2023-11-04 09:30] LABS: ABG PCO2 33.2 mmHg (35-45); ABG PH Result 7.35 (7.35-7.45); Alveolar-Arterial Oxygen Gradi 21.6 mmHg (5-10); Arterial Blood Gas Hematocrit 22.7 % (42-52); Base Excess ABG -6.5 mmol/L (-2.0-2.0); Blood Gas Allen Test Pos; Blood Gas Operator Identificat AMH; Blood Gas Sample Site Radial, right; Blood Gas Sample Type Arterial; Carboxyhemoglobin 1.3 %THgb (0.4-20.1); HCO3 ABG 18.4 mmol/L (22-26); Ionized Calcium Level - ABG 1.2 mmol/L (1.1-1.4); Methemoglobin 1.7 % (0.4-1.5); Oxygen Device NC; PO2 ABG 78.4 mmHg (80.0-100.0); PO2 FiO2 Ratio Arterial Blood 196; Potassium Level - ABG 3.7 mmol/L (3.5-5.0); Total Hemoglobin 7.4 g/dL (14-18)
[2023-11-04] MEDS: albumin 37.5 GM/150 ML VIAL IV (09:30)
[2023-11-04 11:01] LABS: Glucose Point of Care 341 mg/dL (70-110)
[2023-11-04] MEDS: dexamethasone 10 mg/mL INJ 6 MG IVP (11:38)
[2023-11-04] MEDS: hyDRALAzine 50 mg Tablet 75 MG PO ×3 (11:51→20:01)
[2023-11-04 12:13] LABS: Alanine Aminotransferase 55 U/L (0-41); Albumin Level 4.5 g/dL (3.5-5.2); Alkaline Phosphatase 319 U/L (40-130); Anion Gap 24.8 (5-19); Aspartate Amino Transferase 79 U/L (0-40); Carbon Dioxide 18 mmol/L (22-29); Chloride 97 mmol/L (98-107); Globulin 1.5 g/dL (1.3-4.6); Glomerular Filtration Rate 18.5 mL/min (90-130); Glucose 336 mg/dL (65-115); Potassium 3.8 mmol/L (3.5-5.1); Sodium 136 mmol/L (136-145); Total Bilirubin 1.9 mg/dL (0.15-1.2)
--- NOTE | 2023-11-04 12:39 | P.CONIM_ITS ---
Providers/Reason For Consult 2 Consulting Physician/Specialty*: General surgery Reason for Consult*: Need for dialysis Attending Physician: Byron Medeiros MD History of Present Illness History of Present Illness Luis Fernando Funes is a 53 year old male who was admitted to the hospital with respiratory failure hepatorenal syndrome and acute on chronic kidney disease. Despite aggressive medical intervention his BUN and creatinine has not improved and has been continuously worsening and therefore nephrology has deemed him a good candidate for dialysis. I have been requested to do a temporarily dialysis catheter for this patient. Patient is understandable and agreeable to proceed with dialysis Review of Systems 2 General: Reports: 10 or more systems reviewed and unremarkable except in HPI and below Medications/Allergies Home Medications Medication Instructions Recorded Confirmed Last Taken Type azithromycin 250 mg tablet See Rx Instructions PO .COMPLEX #6 10/20/23 Unknown Rx (Zithromax Z-[place]) tabs cefdinir 300 mg capsule 300 mg PO BID 7 days #14 caps 10/20/23 Unknown Rx dexamethasone 6 mg tablet 6 mg PO DAILY 5 days #5 tabs 10/20/23 Unknown Rx furosemide 40 mg tablet (Lasix) 40 mg PO QAM 5 days #5 tabs 10/20/23 Unknown Rx hydrocodone 5 mg-acetaminophen 325 1 tab PO Q6H PRN pain #20 tabs 10/20/23 Unknown Rx mg tablet lactulose 10 gram/15 mL oral 30 ml PO BID 10/20/23 10/20/23 10/19/23 21:00 History solution polyethylene glycol 3350 17 17 g PO DAILY #510 grams 10/20/23 Unknown Rx gram/dose oral powder (Miralax) rifaximin 550 mg tablet 1 mg PO BID 10/20/23 10/20/23 10/19/23 21:00 History Allergies Allergy/AdvReac Type Severity Reaction Status Date / Time No Known Allergies Allergy Verified 10/20/23 09:09 Current Medications Generic Name Dose Route Start Last Admin Trade Name Freq PRN Reason Stop Dose Admin Hydrocodone Bitart/Acetaminophen 1 tab 10/20/23 15:25 11/03/23 20:59 Hydrocodone-Acetaminophen 5-325 Mg Tablet PO 1 tab Q6H PRN Administration MODERATE PAIN Albuterol/Ipratropium 3 ml 10/21/23 20:00 11/04/23 07:12 Ipratropium-Albuterol 3 Ml Neb INHALATION 3 ml Q6H.RESP DEL Administration Buspirone HCl 10 mg 10/29/23 18:00 11/04/23 08:19 Buspirone 10 Mg Tablet PO 10 mg BID DEL Administration Camphor/Menthol/Phenol 1 applic 11/01/23 12:09 11/01/23 12:32 Blistex Lip Oint 7 Gm Tube TOPICAL 1 applic PRN PRN Administration DRYNESS Dexamethasone 6 mg 10/29/23 12:30 11/04/23 11:38 Dexamethasone 10 Mg/Ml Inj IVP 11/05/23 12:29 6 mg Q24H DEL Administration Divalproex Sodium 125 mg 10/29/23 18:00 11/04/23 08:18 Divalproex Sprinkles 125 Mg Capsule PO 125 mg BID DEL Administration Folic Acid 1 mg 10/22/23 09:00 11/04/23 08:19 Folic Acid 1 Mg Tablet PO 1 mg DAILY DEL Administration Gabapentin 200 mg 10/29/23 12:30 11/04/23 08:19 Gabapentin 100 Mg Capsule PO 200 mg TID DEL Administration Hydralazine HCl 10 mg 10/29/23 12:30 11/02/23 02:05 Hydralazine 20 Mg/Ml Inj 1 Ml IVP 10 mg Q4H PRN Administration SBP More than 160 mmhg Hydralazine HCl 75 mg 11/01/23 21:00 11/04/23 11:51 Hydralazine 50 Mg Tablet PO 75 mg TID DEL Administration Albumin Human 37.5 gm in 150 mls @ 60 mls/hr 10/30/23 16:20 11/04/23 09:30 Albumin IV 60 mls/hr DAILY DEL Administration Insulin Human Lispro 0 unit 11/03/23 11:00 11/04/23 11:37 Insulin Lispro 100 Unit/1 Ml SUBCUT 10 unit AC&BEDTIME DEL Administration Protocol Lactulose 30 gm 11/01/23 11:45 11/04/23 08:19 Lactulose Oral Liq 20 Gm/30 Ml Udc PO 30 gm BID DEL Administration Protocol Magnesium Hydroxide 30 ml 10/20/23 12:57 10/22/23 10:47 Magnesium Hydroxide 30 Ml Udc PO 30 ml DAILY PRN Administration Constipation (see protocol) Protocol Non-Formulary Med ( 1 each 10/20/23 18:00 11/04/23 08:59 Rifaximin 550mg PO 1 each Tablets) BID DEL Administration Pantoprazole Sodium 40 mg 10/21/23 15:15 11/04/23 02:58 Pantoprazole 40 Mg Sdv IVP 40 mg Q12H DEL Administration Saliva Substitute 1 spray 11/01/23 12:09 11/01/23 12:15 Saliva Stimulant [place] 30 Ml Btl MUCOUS MEM 1 spray PRN PRN Administration Dry mouth Sucralfate 1 gm 10/31/23 17:00 11/04/23 11:51 Sucralfate 1 Gm/10 Ml Oral Liq Udc PO 1 gm AC&BEDTIME DEL Administration Thiamine Mononitrate 100 mg 10/22/23 09:00 11/04/23 08:59 Thiamine 100 Mg Tablet PO 100 mg DAILY DEL Administration PFSH Acute 2 PFSH: Medical History (Updated 10/25/23 @ 21:47 by Andrés Hassan MD) CKD (chronic kidney disease) Varices, gastric Hepatitis C Anemia Portal hypertension Cirrhosis Surgical History (Updated 10/20/23 @ 12:59 by Byron Medeiros MD) S/P TIPS (transjugular intrahepatic portosystemic shunt) Vitals/I&O/Wt Last Vital Signs Temp 97.1 F L 11/04/23 11:48 Pulse 94 11/04/23 11:48 Resp 20 H 11/04/23 11:48 BP 171/82 11/04/23 11:48 Pulse Ox 90 11/04/23 11:48 O2 Del Method BiPAP 11/04/23 07:39 O2 Flow Rate 5 11/04/23 08:00 FiO2 40 11/04/23 04:54 11/03/23 11/04/23 11/04/23 22:59 06:59 14:59 Intake Total 3520 / 4560 340 / 4900 120 / 120 Output Total 175 / 300 260 / 560 Balance 3345 / 4260 80 / 4340 120 / 120 Weight last 48 hrs Weight 180 lb 8 oz Weight 186 lb Physical Exam 2 Narrative: Patient is alert and oriented, he is short of breath at baseline, currently on the BiPAP. Abdomen is distended noted to have a positive ascitic wave. Bilateral groins appear normal as well as bilateral neck. Ultrasound examination showed a very good target on the right groin for a femoral vein therefore I decided to proceed in this location. Urinary Catheter Management: Castorena: Cath Placed During This Visit: yes, but has since been removed by the nurse Reason for Continuing Indwelling Catheter: Acute Urinary Retention or Obstruction Urinary Catheter Date of Insertion: 11/04/23 Urinary Catheter Time of Insertion: 05:00 Date Urinary Catheter Removed: 11/03/23 Time Urinary Catheter Discontinued: 11:00 Data 11/04/23 04:42 11/04/23 11:46 Micro: Microbiology 11/02/23 19:10 Gram Stain - Final Peritoneal Fluid Anaerobic Culture - Preliminary Body Fluid Culture - Preliminary 11/03/23 14:50 Blood Culture - Preliminary Blood SPECIMEN COLLECTED 10/29/23 13:30 Blood Culture - Final Blood NO GROWTH AFTER 5 DAYS 10/29/23 13:38 Blood Culture - Final Blood NO GROWTH AFTER 5 DAYS 11/03/23 12:11 Blood Culture - Preliminary Blood SPECIMEN COLLECTED A&P Assessment and plan (1) Cirrhosis: (2) Ascites: (3) Hepatic encephalopathy: (4) Hepatitis C: (5) CKD (chronic kidney disease): Plan This a 53-year-old male with acute on chronic kidney disease who requires dialysis. I have been asked to proceed with a dialysis catheter placement. After discussion of all recent benefits including the risk of injury to surrounding structures, need for additional interventions, infection, bleeding, failure of dialysis, injury to the great vessels in the abdomen we decided to proceed with a right femoral temporary dialysis catheter placement. The procedure was done without complications and patient remained stable after the catheter was placed. Catheter is ready to be used for dialysis. -Right femoral venous dialysis catheter was placed, catheter is ready to be used as needed. Coding Level of Care Code 12451 Diagnoses Cirrhosis K74.60 Ascites R18.8 Hepatic encephalopathy K76.82 Hepatitis C B19.20 CKD (chronic kidney disease) N18.9
--- NOTE | 2023-11-04 12:44 | PM.ACPR ---
Procedure/Consent Time out: Time Out Performed: Yes Consent: Consent for Procedure: Consent obtained from patient Procedure Narrative: With the patient in a supine position the right groin was prepped and draped in the usual sterile fashion, a timeout was conducted. I then proceeded to identify the right femoral vein with ultrasound and local anesthesia was infiltrated on the skin on top of the vein. I then cannulated the pain using an 18-gauge needle under ultrasound guidance, immediate return of blood was noted upon seeing the tip of the needle entering the vein. A wire was advanced, the needle was removed. The position of the wire was verified with ultrasound. I then proceeded to make a 0.5 cm cut at the level of the wire insertion site on the skin. I then dilated the tract with sequential sizes of dilators. At 20 cm double-lumen hemodialysis catheter was then advanced over the wire and the wire was then removed leaving the catheter in place. Adequate flow was noted from the venous and arterial port. The catheter was fixed to the skin with #3-0 silk. Biopatch and sterile dressing was applied. Before leaving the room I tested the catheter 1 more time to ensure adequate functionality and excellent flow was noted in both lumens. At the end of the procedure patient remained stable in the medical surgical kam[facility] Acute Procedures Epistaxis Control: Time out performed: Yes
[2023-11-04 13:16] LABS: Blood Urea Nitrogen 137 mg/dL (6-20); Creatinine Clr Calc Pharmacy 24.3219; Osmolality Calculated 340 mOsm/kg (285-295)
--- NOTE | 2023-11-04 14:40 | P.PN_ITS ---
Subjective 2 Subjective: [facility] Overnight patient had difficulty in breathing for which she required BiPAP ventilation. Today morning seen on 4 L of nasal cannula oxygen supplementation been transition to facemask. Patient received Lasix yesterday which he had overall 560 cc of urine output. Hemodynamically stable. Saturating well on 4 L oxy mask currently. Intermittently requiring BiPAP. Vitals/I&O/Wt Last Vital Signs Temp 97.0 F L 11/04/23 14:30 Pulse 85 11/04/23 14:30 Resp 24 H 11/04/23 14:30 BP 140/73 11/04/23 14:30 Pulse Ox 93 11/04/23 14:30 O2 Del Method BiPAP 11/04/23 07:39 O2 Flow Rate 5 11/04/23 08:00 FiO2 40 11/04/23 04:54 11/03/23 11/04/23 11/04/23 22:59 06:59 14:59 Intake Total 3520 / 4560 340 / 4900 510 / 510 Output Total 175 / 300 260 / 560 Balance 3345 / 4260 80 / 4340 510 / 510 Weight last 48 hrs Weight 81.817 kg Weight 81.873 kg Weight 84.368 kg Physical Exam 2 Narrative: General: Awake, alert, weak appearing, chronically sick appearing, AO x 3, HEENT: PERRLA, pupils bilaterally equal and reactive Chest: Normal vesicular breath sounds, no added sounds, equal good air entry bilaterally CVS: S1-S2 regular, no murmurs, no tachycardia, no gallops, no rubs Abdomen: Soft, distended, nontender no organomegaly, bowel sounds present Neuro: Moving all limbs, following simple commands Urinary Catheter Management: Cast[place]na: Cath Placed During This Visit: yes, but has since been removed by the nurse Reason for Continuing Indwelling Catheter: Acute Urinary Retention or Obstruction Urinary Catheter Date of Insertion: 11/04/23 Urinary Catheter Time of Insertion: 05:00 Date Urinary Catheter Removed: 11/03/23 Time Urinary Catheter Discontinued: 11:00 Data 11/04/23 04:42 11/04/23 11:46 Micro: Microbiology 11/03/23 12:11 Blood Culture - Preliminary Blood NEGATIVE TO DATE 11/02/23 19:10 Gram Stain - Final Peritoneal Fluid Anaerobic Culture - Preliminary Body Fluid Culture - Preliminary 11/03/23 14:50 Blood Culture - Preliminary Blood SPECIMEN COLLECTED 10/29/23 13:30 Blood Culture - Final Blood NO GROWTH AFTER 5 DAYS 10/29/23 13:38 Blood Culture - Final Blood NO GROWTH AFTER 5 DAYS A&P Assessment and plan (1) Acute encephalopathy: Multifactorial. Could be in setting of sedation with fentanyl and propofol being weaned off the system given concerns for renal and liver dysfunction. Could be in setting of uremia. Patient does not have any other uremic features though. BUN trending up to 120. Nephrology following. Could be in setting of hepatic encephalopathy with concerns for high ammonia levels. Resolved now. Patient had multiple bowel movements. Ammonia level normal. Restart lactulose 30 mg twice daily. Will uptitrate to the patient have 2 soft bowel movement a day. Could be in setting of mild hypernatremia which has since then resolved. Cannot rule out in setting of polysubstance withdrawal. On admission urine drug screen positive for cocaine and amphetamines. On review from old chart patient does have history of polysubstance abuse with amphetamine, cocaine, heroin and fentanyl. Cannot rule out in setting of withdrawal of home medications. On review of old chart patient is supposed to be on BuSpar, gabapentin, Depakote. Continue with BuSpar 10 mg twice daily, gabapentin 200 mg 3 times daily, Depakote 125 mg twice daily. Continue to monitor. Patient extubated on 10/30. Continue with IV dexamethasone for laryngeal edema. Will finish 7-day course. (2) Cfiud-xk-mvvqeew kidney injury: Appreciate nephrology recommendations. Fluid as per nephrology team. Patient overall euvolemic as per input output charting. Does have anasarca. Albumin levels improving. Restart albumin at daily dose. Appreciate urine output. Does have concerns for uremia. Monitor electrolytes Concerns for hepatorenal syndrome in the past. Levophed drip had to be discontinued because of hypertension. (3) HTN (hypertension): Goal blood pressure less than 140/90 mmHg. Blood pressure is better now. Restarted psych medications. Continue with [place] as needed. Blood pressure is better. Clonidine patch and hydralazine discontinued as per nephrology. For now continue with hydralazine 75 mg 3 times daily with holding parameters. Uptitrate for goal blood pressures. IV hydralazine 10 mg every 4 hours as needed for systolic blood pressure 160 mmHg. (4) Respiratory failure: Resolved. Extubated 10/30. Reviewed vitals, oxygen requirement, ventilatory settings. So far on minimal settings on the ventilator. Continue support. Mental status, renal failure, anasarca along with laryngeal edema seen on CT neck and current time bigger barriers to extubation. Does have pleural effusions. Continue diuresis as tolerated as per direction of nephrology. CT neck with laryngeal edema with fullness of the glottic structures. Symmetric crowding of the nasopharynx with adenoid hypertrophy. Discussed with respiratory therapy, leak test performed today, and showing improvement, there was air leak on 10/26. Airleak seems to have resolved for now. For now continue with IV dexamethasone 6 mg daily. Monitor for bleeding. Patient is at high risk of GI bleeding though persistently laryngeal edema for now steroid is important. IV Protonix 40 mg twice daily. Continue with Carafate ACH S. Consider ENT assessment when getting ready for extubation. Monitor cultures. So far sputum culture growing Fernanda glabrata. Continue with IV fluconazole 10-day course. Continue with empiric Zosyn for overall 5- day course. Oxygen supplementation keeping saturation over 90%. Continue with DuoNeb. Status post paracentesis 3L and repeat paracentesis on 11/01 when 3.5 L cc was removed. Depending on the clinical picture will plan for another procedure of paracentesis. (5) Hyperammonemia: Ammonia level resolved. Patient having multiple bowel movements. Continue with rifaximin mean. Continue with lactulose every 12 hours. Uptitrated patient has 2 soft bowel movements a day. (6) CKD (chronic kidney disease): Do not have baseline creatinine. Patient gives history of CKD. (7) Hepatorenal syndrome: Worsening renal function. Levophed had to be stopped. Albumin infusions. (8) Cirrhosis: Post TIPS procedure. With evidence of cirrhosis on CT abdomen/pelvis and varices. With hyperammonemia. Hep C positive. HIV negative, ammonia level appreciated. Urine drug screen positive for cocaine and amphetamines. Appreciate INR level. Child perez score: Class C 10 points Lactulose and rifaximin as above. Off propranolol. Strict input charting, daily weights. (9) Ascites: Ascitic fluid culture without growth. Added to ascites studies. Paracentesis performed 10/21. 3L. Not suggestive of peritonitis. (10) Anemia: Reviewed Hemoccult, negative. Thrombocytopenia, suspect related to cirrhosis. Gradually worsening anemia. But appears to have leveled off, hemoglobin. Negative hemoccult. Continue IV PPI twice daily. Monitor hemoglobin. Appreciate iron panel, vitamin B12, folate levels. (11) Hepatitis C: Reviewed HCV RNA PCR, not detected. Patient does not remember being treated in the past. Most likely need to set up with PCP as an outpatient for Follow-up. Plan Thrombocytopenia: Most likely in setting of chronic liver cirrhosis. Given worsening uremia cannot rule out platelet dysfunction. Continue to hold off on medical DVT prophylaxis. Analgesia: Continue with [place] every 6 hours as needed. Glycemic control: Not needed. A1c 4.6 Nutrition: Stop tube feeds. Start on dysphagia level 6 diet as per speech evaluation. CODE STATUS: Full code. Patient's ex- is her DPOA. PUD prophylaxis: Protonix DVT prophylaxis: Hold off on medical prophylaxis given thrombocytopenia, high risk of bleeding with possibility of platelet dysfunction in setting of uremia. Continues on SCDs. Pain control: Restarted gabapentin 200 mg 3 times daily, [place] every 6 hours as needed. Discharge plan: Patient is on mechanical ventilation for over a week with difficult sedation weaning given concerns for polysubstance abuse, recurrent agitation, liver cirrhosis. Patient will need extensive physical and respiratory therapy going forward. Patient would benefit from LTAC. Patient has been accepted at LTAC as per case management. Awaiting Medicaid. Plan for the day: Respiratory failure getting worse today. Appreciate ABG, chest x-ray. Limited urine output to Lasix yesterday. Discussed in detail with nephrology. Plan for Lasix challenge. If no urine output or less urine output in next few hours we will plan for dialysis catheter placement with surgical consultation and possible dialysis little later in the day. Oxygen supplementation keeping saturation over 90%. Strict input output charting, daily weights. Continue with fluid restriction. Leukocytosis trending down today. All lines including white count and platelet count also trending down. No antibiotics for last 36-48 hours. C. difficile negative. Follow-up blood culture. Appreciate urinalysis. Chest x-ray showing possibility of right lower lobe consolidation though cannot rule out congestion. For now as leukocytosis is resolving off antibiotics, patient has remained afebrile will hold off on antibiotics. Plan to repeat chest x-ray in AM. Continued out of bed to chair. PT. Continue with oral diet. Blood pressure stable. Will continue to monitor after dialysis. Goal blood pressure less than 140/90 mmHg. Metabolic encephalopathy seems to have resolved. Last dose of dexamethasone on 11/04 to finish a 7-day course for laryngeal edema. Care discussed in detail with patient's son over the phone. All questions were answered. Patient is not . Patient made his ex- the DPOA. This documentation was created by [employer] booking manager software. Every effort was made to ensure accuracy of booking manager. Any obvious errors or omissions should be clarified with the author of the document. Attestations 2 Medical Necessity Statement*: Requires further hospitalization for management of respiratory failure in setting of congestive heart failure in a patient with CADEN on CKD, liver cirrhosis, encephalopathy in setting of uremia, hyperammonemia, drug withdrawal while hemodialysis was initiated and safe discharge planning is sought Diagnoses Acute encephalopathy G93.40 Qwmrd-ju-qvcwrlo kidney injury N17.9; N18.9 HTN (hypertension) I10 Respiratory failure J96.90 Hyperammonemia E72.20 CKD (chronic kidney disease) N18.9 Hepatorenal syndrome K76.7 Cirrhosis K74.60 Ascites R18.8 Anemia D64.9 Hepatitis C B19.20
[2023-11-04 16:56] LABS: Glucose Point of Care 270 mg/dL (70-110)
[2023-11-04 17:30] LABS: Hematocrit 26.1 % (37-53)
[2023-11-04 20:13] LABS: Glucose Point of Care 367 mg/dL (70-110)
[2023-11-04] MEDS: HYDROcodone-acetaminophen 5-325 mg Tablet 1 TAB PO (20:48)
[2023-11-05] VITALS (28 sets, daily range): BP systolic 136–180; BP diastolic 72–84; PULSE 78–109; RESP 8–32; TEMP 36.4–37.3; O2SAT 85–97
[2023-11-05] MEDS: morphine 4 mg/mL SDV 1 mL 2 MG IVP ×5 (00:19→23:28)
[2023-11-05] MEDS: ipratropium-albuterol 3 mL Neb INHALATION ×4 (02:55→19:44)
[2023-11-05] MEDS: pantoprazole 40 mg SDV IVP ×2 (03:44→14:50)
[2023-11-05] MEDS: hyDRALAzine 20 mg/mL INJ 1 mL 10 MG IVP (04:03)
[2023-11-05 04:24] LABS: Basophils % 0.1 %; Hematocrit 24.6 % (37-53); Lymphocytes # 0.2 10^3/uL (0.8-4.8); Mean Corpuscular HGB Conc 32.5 g/dL (30-55); Mean Corpuscular Volume 92.1 fl (82-101); Monocytes # 0.7 10^3/uL (0.2-0.9); Monocytes % 3.9 %; Neutrophils # 15.69 10^3/uL (1.8-7.7); Neutrophils % 93.5 %; Nucleated Red Blood Cells % 0.2 %; Platelet Count 43 10^3/cmm (157-399); Red Blood Count 2.67 10^6/uL (3.85-5.65); Red Cell Distribution Width 18.1 % (12.1-15.1); White Blood Count 16.79 10^3/uL (3.29-11.43)
[2023-11-05 04:48] LABS: Alanine Aminotransferase 59 U/L (0-41); Albumin Level 4.4 g/dL (3.5-5.2); Alkaline Phosphatase 411 U/L (40-130); Anion Gap 23.9 (5-19); Aspartate Amino Transferase 81 U/L (0-40); Calcium 9.1 mg/dL (8.5-10.5); Carbon Dioxide 20 mmol/L (22-29); Chloride 100 mmol/L (98-107); Creatinine Clr Calc Pharmacy 25.2519; Globulin 1.5 g/dL (1.3-4.6); Glomerular Filtration Rate 19.8 mL/min (90-130); Glucose 314 mg/dL (65-115); Magnesium 2.7 mg/dL (1.7-2.3); Osmolality Calculated 335 mOsm/kg (285-295); Phosphorus 3.7 mg/dL (2.5-4.5); Potassium 3.9 mmol/L (3.5-5.1); Sodium 140 mmol/L (136-145); Total Bilirubin 2.1 mg/dL (0.15-1.2); Total Protein 5.9 g/dL (6.6-8.7)
[2023-11-05 05:07] LABS: Blood Urea Nitrogen 104 mg/dL (6-20)
[2023-11-05 06:23] LABS: Glucose Point of Care 420 mg/dL (70-110)
[2023-11-05] MEDS: sucralfate 1 gm/10 mL Oral Liq UDC PO ×4 (06:23→21:15)
[2023-11-05] MEDS: insulin lispro 100 unit/1 mL SUBCUT ×4 (06:24→21:15)
[2023-11-05] MEDS: albumin 37.5 GM/150 ML VIAL IV (09:26)
[2023-11-05] MEDS: gabapentin 100 mg Capsule 200 MG PO ×3 (09:27→21:15)
[2023-11-05] MEDS: thiamine 100 mg Tablet PO (09:27)
[2023-11-05] MEDS: lactulose oral liq 20 gm/30 mL UDC 30 GM PO ×2 (09:27→19:00)
[2023-11-05] MEDS: folic acid 1 mg Tablet PO (09:27)
[2023-11-05] MEDS: divalproex Sprinkles 125 mg Capsule PO ×2 (09:27→19:02)
[2023-11-05] MEDS: hyDRALAzine 50 mg Tablet 75 MG PO ×3 (09:27→21:15)
[2023-11-05] MEDS: RIFAXIMIN 550 MG 1 EACH PO ×2 (09:28→19:00)
[2023-11-05] MEDS: BuSPIRONE 10 mg Tablet PO ×2 (09:28→19:02)
--- NOTE | 2023-11-05 10:55 | P.PN_ITS ---
Subjective 2 Subjective: on BIPAP Medications: Reviewed: Yes Vitals/I&O/Wt Last Vital Signs Temp 98.2 F 11/05/23 07:22 Pulse 100 11/05/23 08:00 Resp 20 H 11/05/23 08:00 BP 136/72 11/05/23 07:22 Pulse Ox 91 11/05/23 08:37 O2 Del Method BiPAP 11/05/23 08:00 O2 Flow Rate 40 11/05/23 02:56 FiO2 50 11/05/23 08:37 11/04/23 11/05/23 11/05/23 22:59 06:59 14:59 Intake Total 1430 / 1940 390 / 390 Output Total 3326 / 3326 375 / 3701 Balance -1896 / -1386 -375 / -1761 390 / 390 Weight last 48 hrs Weight 78.2 kg Weight 78.2 kg Weight 81.817 kg Weight 81.873 kg Physical Exam 2 Narrative: The patient is extubated and uncomfortable. Vital signs noted. awake, alert and interactive heent- nc/at, eomi, positive NG tube neck supple lungs - diffuse ronchi and crackles b/l heart reg abd soft, + bs positive distended ext b/l 1+ edema neuro- awake and alert, interactive, following commands Urinary Catheter Management: Catsorena: Cath Placed During This Visit: yes, but has since been removed by the nurse Reason for Continuing Indwelling Catheter: Acute Urinary Retention or Obstruction Urinary Catheter Date of Insertion: 11/04/23 Urinary Catheter Time of Insertion: 05:00 Date Urinary Catheter Removed: 11/03/23 Time Urinary Catheter Discontinued: 11:00 Data 11/05/23 03:34 11/05/23 03:34 Micro: Microbiology 11/02/23 19:10 Gram Stain - Final Peritoneal Fluid Anaerobic Culture - Preliminary Body Fluid Culture - Preliminary 11/03/23 14:50 Blood Culture - Preliminary Blood NEGATIVE TO DATE 11/03/23 12:11 Blood Culture - Preliminary Blood NEGATIVE TO DATE A&P Assessment and plan (1) Irnzh-oi-xgaxkap kidney injury: 1. Acute on chronic kidney disease: Baseline creatinine not available, patient presented with a creatinine of 1.6 worsened to 3.6 mg/dl. cr slowly improved to 2.7 mg/dl . His creatinine is rising again. He had an underlying ATN versus hepatorenal syndrome. I am now concerned that he may have developed ATN after paracentesis. Underlying CKD can be from liver disease versus toxicity from drugs. Avoid nephrotoxins and contrast studies. 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 2. The patient is status post a 1.5 L paracentesis 3. Liver cirrhosis , status post paracentesis continue IV albumin. Patient is status post TIPS recently. 4. anemia and thrombocytopenia - likely from liver disease. 5. htn - on amlodipine 10 mg po d. clonidine patch and hydralazine. Blood pressure is decreased will decrease medications 6. Anemia with high iron saturation. s/p Epogen. 7. Acute encephalopathy improved 8. Laryngeal edema appears to improved. He continues on steroids 9. Hepatitis C positive as per medical team the patient and urine drug screen positive for cocaine and amphetamines on admission. - his child's Huddleston score was class C 10 points Medications reviewed in detail Patient evaluated using audiovisual cart and RN examined pt Plan see above Attestations 2 Medical Necessity Statement*: per nazia Coding Level of Care Code Acute Code for Chg Fwd Diagnoses Yvnni-uq-nvfoqsv kidney injury N17.9; N18.9
[2023-11-05 12:02] LABS: Glucose Point of Care 368 mg/dL (70-110)
[2023-11-05] MEDS: heparin, porcine 1,000 unit/mL INJ 10 mL 1000 UNIT IV (15:35)
--- NOTE | 2023-11-05 15:51 | PC.HD ---
Heparin 1000 units loading dose administered via venous port of HD catheter at 1535 per medical billing associate's orders.
[2023-11-05 17:13] LABS: Adenovirus Not Detected (NOT DETECT); Chlamydia Pneumoniae Not Detected (NOT DETECT); Coronavirus 229E,HKU1,NL63,OC4 Not Detected (NOT DETECT); Human Metapneumovirus Not Detected (NOT DETECT); Human Rhinovirus/Enterovirus Not Detected (NOT DETECT); Influenza A Not Detected (NOT DETECT); Influenza A H1 Not Detected (NOT DETECT); Influenza A H1-2009 Not Detected (NOT DETECT); Influenza A H3 Not Detected (NOT DETECT); Influenza B Not Detected (NOT DETECT); Mycoplasma Pneumoniae Not Detected (NOT DETECT); Parainfluenza Virus Type 1 Not Detected (NOT DETECT); Parainfluenza Virus Type 2 Not Detected (NOT DETECT); Parainfluenza Virus Type 3 Not Detected (NOT DETECT); Parainfluenza Virus Type 4 Not Detected (NOT DETECT); Respiratory Syncytial Virus A Not Detected (NOT DETECT); Respiratory Syncytial Virus B Not Detected (NOT DETECT); SARS-COV-2 Not Detected (NOT DETECT)
--- NOTE | 2023-11-05 17:46 | P.PN_ITS ---
Subjective 2 Subjective: He states overall he is doing fairly okay. His chest does sound congested, he is not bringing up phlegm. He is agreeable to try some Mucinex. He states had dialysis yesterday. He states he is eating all right. Vitals/I&O/Wt Last Vital Signs Temp 99.1 F 11/05/23 15:49 Pulse 102 H 11/05/23 15:49 Resp 20 H 11/05/23 15:49 BP 164/84 11/05/23 15:49 Pulse Ox 91 11/05/23 15:35 O2 Del Method BiPAP 11/05/23 15:32 O2 Flow Rate 40 11/05/23 02:56 FiO2 50 11/05/23 15:34 11/05/23 11/05/23 11/05/23 06:59 14:59 22:59 Intake Total 830 / 830 Output Total 375 / 3701 Balance -375 / -1761 830 / 830 Weight last 48 hrs Weight 78.2 kg Weight 78.2 kg Weight 81.817 kg Weight 81.873 kg Physical Exam 2 Const: COMMON NORMALS: alert Eye: OTHER: Pupils equal. Neck/C-Spine: COMMON NORMALS: no JVD Resp: COMMON NORMALS: clear to auscultation bilaterally AUSCULTATION: clear to auscultation bilaterally and wheezes Cardio: COMMON NORMALS: no JVD, regular rhythm, S1 normal heart sound present, S2 normal heart sound present and No murmurs present (Cardio) RHYTHM: regular rhythm HEART SOUNDS: S1 normal heart sound present and S2 normal heart sound present GI: COMMON NORMALS: Normal to inspection, nondistended, normoactive bowel sounds present, Soft to palpation and non-tender PALPATION: Yes Soft to palpation : OTHER: Producing urine. Extremity: COMMON NORMALS: no joint enlargement and no pedal edema OTHER: Anasarca. Improved edema hands. 2-3+ edema feet Neuro: SENSORIUM/ORIENTATION: Yes alert Skin: COMMON NORMALS: no rashes or lesions noted GENERAL SKIN EXAM: no rashes or lesions noted Urinary Catheter Management: [place]: Cath Placed During This Visit: yes, but has since been removed by the nurse Reason for Continuing Indwelling Catheter: Acute Urinary Retention or Obstruction Urinary Catheter Date of Insertion: 11/04/23 Urinary Catheter Time of Insertion: 05:00 Date Urinary Catheter Removed: 11/03/23 Time Urinary Catheter Discontinued: 11:00 Data 11/05/23 03:34 11/05/23 03:34 Micro: Microbiology 11/02/23 19:10 Gram Stain - Final Peritoneal Fluid Anaerobic Culture - Preliminary Body Fluid Culture - Final 11/03/23 14:50 Blood Culture - Preliminary Blood NEGATIVE TO DATE 11/03/23 12:11 Blood Culture - Preliminary Blood NEGATIVE TO DATE A&P Assessment and plan (1) Respiratory failure: Worsening respiratory failure over the last several days. Also wheezing, chest congestion. Continue DuoNeb. Add Mucinex. Will reduce albumin infectious dose to 12.5 g daily for now. Monitor for risk of fluid overload with IV infusions. Reassess. Reviewed chest x-ray from 11/03, persistent and stable bilateral pulmonary infiltrates. Reviewed CBC, CMP, vitals. He is afebrile. Leukocytosis had improved, but persistent at 16.79. He does not have very significant cough. It appears to may be residual infiltrates after pneumonia, possibly combination with fluid overload, possibly component of bronchitis. Continue hemodialysis for anasarca. Possibility of aspiration. She is off of steroid. Will resume him on Zosyn. Additionally requested coronavirus PCR/viral panel. Reviewed blood culture, negative. Discussed with respiratory therapy, nursing, case technician. Extubated 10/30. Reviewed vitals, oxygen requirement, ventilatory settings. So far on minimal settings on the ventilator. Continue support. Mental status, renal failure, anasarca along with laryngeal edema seen on CT neck and current time bigger barriers to extubation. Does have pleural effusions. Continue diuresis as tolerated as per direction of nephrology. CT neck with laryngeal edema with fullness of the glottic structures. Symmetric crowding of the nasopharynx with adenoid hypertrophy. Discussed with respiratory therapy, leak test performed today, and showing improvement, there was air leak on 10/26. Airleak seems to have resolved for now. Monitor for bleeding. Patient is at high risk of GI bleeding though persistently laryngeal edema for now steroid is important. IV Protonix 40 mg twice daily. Continue with Carafate ACH S. Monitor cultures. So far sputum culture growing Fernanda glabrata. Continue with IV fluconazole 10-day course. Continue with empiric Zosyn for overall 5- day course. Oxygen supplementation keeping saturation over 90%. Continue with DuoNeb. Status post paracentesis 3L and repeat paracentesis on 11/01 when 3.5 L cc was removed. Depending on the clinical picture will plan for another procedure of paracentesis. (2) Acute encephalopathy: Improved. Continue dialysis as per nephrology. Will recheck ammonia. Multifactorial. Could be in setting of sedation with fentanyl and propofol being weaned off the system given concerns for renal and liver dysfunction. Could be in setting of uremia. Patient does not have any other uremic features though. BUN trending up to 120. Nephrology following. Could be in setting of hepatic encephalopathy with concerns for high ammonia levels. Resolved now. Lactulose 30 mg twice daily. Target 2 soft bowel movement a day. Could be in setting of mild hypernatremia which has since then resolved. Cannot rule out in setting of polysubstance withdrawal. On admission urine drug screen positive for cocaine and amphetamines. On review from old chart patient does have history of polysubstance abuse with amphetamine, cocaine, heroin and fentanyl. Cannot rule out in setting of withdrawal of home medications. On review of old chart patient is supposed to be on BuSpar, gabapentin, Depakote. Continue with BuSpar 10 mg twice daily, gabapentin 200 mg 3 times daily, Depakote 125 mg twice daily. Continue to monitor. Patient extubated on 10/30. Received IV dexamethasone for laryngeal edema. (3) Vcnlr-bm-lgrcyad kidney injury: Appreciate nephrology recommendations. Hemodialysis as per nephrology. Reviewed note. Today's note is pending. Fluid as per nephrology team. Patient overall euvolemic as per input output charting. Does have anasarca. Albumin levels improving. Reduce albumin daily dose. Monitor for risk of fluid overload with albumin. Appreciate urine output. Does have concerns for uremia. Monitor electrolytes Concerns for hepatorenal syndrome in the past. Levophed drip had to be discontinued because of hypertension. (4) HTN (hypertension): Goal blood pressure less than 140/90 mmHg. Blood pressure is better now. Restarted psych medications. Continue with [place] as needed. Blood pressure is better. Clonidine patch and hydralazine discontinued as per nephrology. For now continue with hydralazine 75 mg 3 times daily with holding parameters. Uptitrate for goal blood pressures. IV hydralazine 10 mg every 4 hours as needed for systolic blood pressure 160 mmHg. (5) Hyperammonemia: Ammonia level resolved. Patient having multiple bowel movements. Continue with rifaximin mean. Continue with lactulose every 12 hours. Uptitrated patient has 2 soft bowel movements a day. (6) CKD (chronic kidney disease): Do not have baseline creatinine. Patient gives history of CKD. (7) Hepatorenal syndrome: Worsening renal function. Levophed had to be stopped. Reduce dose of albumin infusions. (8) Cirrhosis: Post TIPS procedure. With evidence of cirrhosis on CT abdomen/pelvis and varices. With hyperammonemia. Hep C positive. HIV negative, ammonia level appreciated. Urine drug screen positive for cocaine and amphetamines. Appreciate INR level. Child perez score: Class C 10 points Lactulose and rifaximin as above. Off propranolol. Strict input charting, daily weights. (9) Ascites: Ascitic fluid culture without growth. Added to ascites studies. Paracentesis performed 10/21 and 11/01. 3L and 3500 removed respectively. Not suggestive of peritonitis. (10) Anemia: Reviewed Hemoccult, negative. Thrombocytopenia, suspect related to cirrhosis. Gradually worsening anemia. But appears to have leveled off, hemoglobin. Negative hemoccult. Continue IV PPI twice daily. Monitor hemoglobin. Appreciate iron panel, vitamin B12, folate levels. (11) Hepatitis C: Reviewed HCV RNA PCR, not detected. Patient does not remember being treated in the past. Most likely need to set up with PCP as an outpatient for Follow-up. Plan Thrombocytopenia: Most likely in setting of chronic liver cirrhosis. Worsened down to 43,000. Given worsening uremia cannot rule out platelet dysfunction. Continue to hold off on medical DVT prophylaxis. Analgesia: Continue with [place] every 6 hours as needed. Glycemic control: Not needed. A1c 4.6 Nutrition: Stop tube feeds. Start on dysphagia level 6 diet as per speech evaluation. CODE STATUS: Full code. Patient's ex- is her DPOA. PUD prophylaxis: Protonix DVT prophylaxis: Hold off on medical prophylaxis given thrombocytopenia, high risk of bleeding with possibility of platelet dysfunction in setting of uremia. Continues on SCDs. Pain control: Restarted gabapentin 200 mg 3 times daily, [place] every 6 hours as needed. Discharge plan: Patient is on BiPAP support for respiratory failure after pneumonia, possible aspiration pneumonia, anasarca with fluid overload, renal failure, after concerns for polysubstance abuse, recurrent agitation, liver cirrhosis. Patient will need extensive physical and respiratory therapy going forward. Patient would benefit from LTAC. Patient has been accepted at LTAC as per case management. Awaiting Medicaid. This documentation was created by [employer] tools administrator software. Every effort was made to ensure accuracy of tools administrator. Any obvious errors or omissions should be clarified with the author of the document. Attestations 2 Medical Necessity Statement*: Continue admission for assessment management of respiratory failure, anasarca, renal failure, with underlying liver cirrhosis, postdischarge planning and arrangements. and High MDM includes amount and/or complexity of data reviewed/ordered [ resulted lab(s)/test(s), ordered lab(s)/test(s) and other healthcare professional discussion] and described risk of complication, morbidity or mortality of management as documented Diagnoses Respiratory failure J96.90 Acute encephalopathy G93.40 Ghcdh-gj-ywlktox kidney injury N17.9; N18.9 HTN (hypertension) I10 Hyperammonemia E72.20 CKD (chronic kidney disease) N18.9 Hepatorenal syndrome K76.7 Cirrhosis K74.60 Ascites R18.8 Anemia D64.9 Hepatitis C B19.20
[2023-11-05 18:42] LABS: Glucose Point of Care 156 mg/dL (70-110)
[2023-11-05] MEDS: piperacillin-tazobactam 3.375 GM in sodium chloride 0.9% (plus) 50 ML IV (19:00)
[2023-11-05] MEDS: guaiFENesin 600 mg Tablet PO (19:02)
[2023-11-05 20:29] LABS: Glucose Point of Care 224 mg/dL (70-110)
[2023-11-05] MEDS: FUROsemide 10 mg/mL SDV 10mL 60 MG IVP (23:53)
[2023-11-06] VITALS (33 sets, daily range): BP systolic 127–163; BP diastolic 66–89; PULSE 81–114; RESP 13–24; TEMP 36.4–37; O2SAT 89–100
[2023-11-06] MEDS: pantoprazole 40 mg SDV IVP ×2 (02:31→14:40)
[2023-11-06] MEDS: ipratropium-albuterol 3 mL Neb INHALATION ×4 (02:58→20:10)
[2023-11-06 05:07] LABS: Basophils % 0.1 %; Eosinophils % 0.1 %; Hematocrit 26.2 % (37-53); Lymphocytes # 0.3 10^3/uL (0.8-4.8); Lymphocytes % 1.3 %; Mean Corpuscular HGB Conc 32.4 g/dL (30-55); Mean Corpuscular Hemoglobin 30.4 pg (27-33); Mean Corpuscular Volume 93.6 fl (82-101); Mean Platelet Volume 11.6 fL (7.4-10.4); Monocytes # 0.4 10^3/uL (0.2-0.9); Monocytes % 2.1 %; Neutrophils # 18.53 10^3/uL (1.8-7.7); Neutrophils % 94.5 %; Nucleated Red Blood Cells % 0.2 %; Platelet Count 37 10^3/cmm (157-399); Red Cell Distribution Width 18.9 % (12.1-15.1)
[2023-11-06 05:22] LABS: Alanine Aminotransferase 51 U/L (0-41); Albumin Level 4.3 g/dL (3.5-5.2); Alkaline Phosphatase 405 U/L (40-130); Ammonia 73 umol/L (16-60); Aspartate Amino Transferase 63 U/L (0-40); Calcium 8.7 mg/dL (8.5-10.5); Carbon Dioxide 23 mmol/L (22-29); Chloride 101 mmol/L (98-107); Creatinine Clr Calc Pharmacy 32.0429; Globulin 1.7 g/dL (1.3-4.6); Glomerular Filtration Rate 26.1 mL/min (90-130); Glucose 172 mg/dL (65-115); Magnesium 2.3 mg/dL (1.7-2.3); Osmolality Calculated 316 mOsm/kg (285-295); Phosphorus 3.2 mg/dL (2.5-4.5); Sodium 139 mmol/L (136-145); Total Bilirubin 2.7 mg/dL (0.15-1.2)
[2023-11-06 05:30] LABS: Blood Urea Nitrogen 81 mg/dL (6-20)
[2023-11-06 05:38] LABS: Slide Review Slide Review Perform
[2023-11-06 06:33] LABS: Glucose Point of Care 191 mg/dL (70-110)
[2023-11-06] MEDS: piperacillin-tazobactam 3.375 GM in sodium chloride 0.9% (plus) 50 ML IV ×2 (06:59→17:15)
--- NOTE | 2023-11-06 08:04 | PC.NURSE ---
This nurse came into patient's room to administer mediation that was due. Patient found on floor with stool on him and the floor. I asked patient if he hit his head and he shakes his head no. When I ask him if he hurts anywhere, he points to his sara area. When he was found, his sacrum was sitting on the leg of an IV pole. The only visible injuries I see are that he bit his lip and a small skin tear to the left buttock. Patient was cleaned, linen change provided, and patient assisted back to bed. He is alert and oriented, however to due having a fall, I have set his bed alarm. material handling crew supervisor, son (Minesh), and Dr. Hassan notified. I called RT and asked her to come see patient, as patient's oxygen saturation drops into the 70s when taken off the Bipap to eat, even with an oxymask on [address] Hassan notified.
[2023-11-06] MEDS: morphine 4 mg/mL SDV 1 mL 2 MG IVP ×2 (08:08→20:03)
[2023-11-06] MEDS: lactulose oral liq 20 gm/30 mL UDC 30 GM PO ×2 (08:09→17:35)
[2023-11-06] MEDS: albumin 12.5 GM/50 ML VIAL IV (08:09)
[2023-11-06] MEDS: gabapentin 100 mg Capsule 200 MG PO ×3 (08:09→21:03)
[2023-11-06] MEDS: hyDRALAzine 50 mg Tablet 75 MG PO ×3 (08:09→21:03)
[2023-11-06] MEDS: guaiFENesin 600 mg Tablet PO ×2 (08:10→17:35)
[2023-11-06] MEDS: insulin lispro 100 unit/1 mL SUBCUT ×4 (08:10→20:35)
[2023-11-06] MEDS: folic acid 1 mg Tablet PO (08:10)
[2023-11-06] MEDS: RIFAXIMIN 550 MG 1 EACH PO ×2 (08:10→17:35)
[2023-11-06] MEDS: BuSPIRONE 10 mg Tablet PO ×2 (08:10→17:35)
[2023-11-06] MEDS: thiamine 100 mg Tablet PO (08:10)
[2023-11-06] MEDS: sucralfate 1 gm/10 mL Oral Liq UDC PO ×4 (08:10→21:03)
[2023-11-06] MEDS: divalproex Sprinkles 125 mg Capsule PO ×2 (08:58→17:35)
[2023-11-06] MEDS: HYDROcodone-acetaminophen 5-325 mg Tablet 1 TAB PO (10:48)
[2023-11-06 11:22] LABS: Glucose Point of Care 264 mg/dL (70-110)
[2023-11-06 13:05] LABS: ABG PCO2 50.3 mmHg (35-45); ABG PH Result 7.32 (7.35-7.45); Alveolar-Arterial Oxygen Gradi 46.7 mmHg (5-10); Arterial Blood Gas Hematocrit 25.4 % (42-52); Base Excess ABG -0.7 mmol/L (-2.0-2.0); Blood Gas Allen Test Pos; Blood Gas Operator Identificat AMH; Blood Gas Sample Site Radial, right; Blood Gas Sample Type Arterial; Carboxyhemoglobin 1.7 %THgb (0.4-20.1); HCO3 ABG 25.7 mmol/L (22-26); HGB O2 Sat 92.7 % (95-100); Ionized Calcium Level - ABG 1.2 mmol/L (1.1-1.4); Methemoglobin 1.4 % (0.4-1.5); Oxygen Device BIPAP; Oxygen Saturation ABG 95.7; PO2 ABG 80.2 mmHg (80.0-100.0); PO2 FiO2 Ratio Arterial Blood 114; Potassium Level - ABG 3.6 mmol/L (3.5-5.0); Total Hemoglobin 8.3 g/dL (14-18)
--- NOTE | 2023-11-06 13:40 | USCV_ITS ---
Luis Fernando Funes Age: 53 Gender: M : 1970 Exam Date: 11/06/2023 14:06 Ordering Phys: Andrés Hassan MD Technologist: GARY Exam Location: [facility] [place] Indication: BLE SWELLING HISTORY: Lower extremity swelling. PROCEDURES: Venous duplex imaging was performed in bilateral lower extremities. The following venous structures were evaluated: common femoral vein, profunda vein, proximal portion of the greater saphenous vein, superficial femoral vein, and the popliteal vein. In addition, the posterior tibial and peroneal trunk were evaluated. Serial compression, augmentation maneuvers, and spectral Doppler flow evaluation were performed. FINDINGS: No evidence of DVT seen in any vessel visualized at this time. Edema seen in bilat legs CONCLUSIONS No evidence of right lower extremity DVT. No evidence of left lower extremity DVT. Hector Lovett MD (Electronically Signed) Final Date: 06 November 2023 15:53 S
--- NOTE | 2023-11-06 14:11 | CTR_ITS ---
PROCEDURE INFORMATION: Exam: CTA Chest With Contrast Exam date and time: 11/06/2023 3:13 PM Age: 53 years old Clinical indication: Other: Resp failure; Additional info: Resp fail, assess for pe TECHNIQUE: Imaging protocol: Computed tomographic angiography of the chest with contrast. Exam focused on the arteries. 3D rendering (Not supervised by radiologist): MIP and/or 3D reconstructed images were created by the technologist. Radiation optimization: All CT scans at this facility use at least one of these dose optimization techniques: automated exposure control; mA and/or kV adjustment per patient size (includes targeted exams where dose is matched to clinical indication); or iterative reconstruction. Contrast material: OMNI 350; Contrast volume: 78 ml; Contrast route: INTRAVENOUS (IV); COMPARISON[place] [id number] 10/20/2023 10:49 AM RADIATION DOSE METRICS: Total DLP (mGy-cm): 456 FINDINGS: Pulmonary arteries: Poor opacification of the pulmonary arteries. No obvious larger central or segmental pulmonary embolus, but a smaller subsegmental PE in either lung cannot be excluded by this CTA. Pulmonary arteries are not dilated. Aorta: Unremarkable. No aortic aneurysm. No aortic dissection. Lungs: Markedly increased extensive bilateral pulmonary edema and/or pneumonitis. Large amount of new atelectasis or consolidating pneumonia in the mid and lower right lung. New narrowing and occlusion of several right bronchi. Pleural spaces: New large right pleural effusion. No pneumothorax. No left pleural effusion. Heart: New mild cardiomegaly. No evidence of right heart strain. The right ventricular to left ventricular ratio is 0.95. Coronary arteries: No calcification in the visualized coronary arteries. Lymph nodes: Unremarkable. No enlarged lymph nodes. Bones/joints: A few mild vertebral body compression deformities are unchanged. Some may be pathologic. Unchanged thickening of the upper sternum. This could be an expansile neoplasm or a congenital variant. Consider MRI to evaluate these further. Otherwise, unremarkable. Soft tissues: Increased large amount of diffuse body wall edema. Otherwise, unremarkable visualized body wall. Otherwise, unremarkable soft tissues. CT/CT angio chest PE protcl [id number] IMPRESSION: 1. Poor opacification of the pulmonary arteries. No obvious larger central or segmental pulmonary embolus, but a smaller subsegmental PE in either lung cannot be excluded by this CTA. 2. Additional details as above.
--- NOTE | 2023-11-06 14:28 | P.PN_ITS ---
Subjective 2 Subjective: This morning on HHF, reports feeling well on it, comfortable, it also allowed him to talk, take sips of water and eat. However, later by the afternoon starting at dyspneic, with some tachypnea, more shallow breaths, needing additional support. Had to be restarted on BiPAP. Did retain CO2, ABG 7.32/50.3/80. Vitals/I&O/Wt Last Vital Signs Temp 98.4 F 11/06/23 11:11 Pulse 92 11/06/23 12:44 Resp 24 H 11/06/23 12:35 BP 156/82 11/06/23 11:11 Pulse Ox 91 11/06/23 12:44 O2 Del Method Heated High Flow 11/06/23 11:11 O2 Flow Rate 45 11/06/23 12:35 FiO2 70 11/06/23 12:44 11/05/23 11/06/23 11/06/23 22:59 06:59 14:59 Intake Total 620 / 1450 50 / 1500 830 / 830 Output Total 4150 / 4150 300 / 4450 Balance -3530 / -2700 -250 / -2950 830 / 830 Weight last 48 hrs Weight 78.16 kg Weight 78.16 kg Weight 80.3 kg Weight 78.2 kg Weight 78.2 kg Physical Exam 2 Narrative: Earlier this morning on heated high flow, alert, interactive. On reevaluation later this afternoon on BiPAP support after worsening respiratory status. Eye: OTHER: Pupils equal. Neck/C-Spine: COMMON NORMALS: no JVD Resp: COMMON NORMALS: clear to auscultation bilaterally AUSCULTATION: clear to auscultation bilaterally and wheezes Cardio: COMMON NORMALS: no JVD, regular rhythm, S1 normal heart sound present, S2 normal heart sound present and No murmurs present (Cardio) RHYTHM: regular rhythm HEART SOUNDS: S1 normal heart sound present and S2 normal heart sound present GI: COMMON NORMALS: Normal to inspection, nondistended, normoactive bowel sounds present, Soft to palpation and non-tender PALPATION: Yes Soft to palpation Extremity: COMMON NORMALS: no joint enlargement and no pedal edema OTHER: Anasarca. Improved edema hands. 2-3+ edema LE Skin: COMMON NORMALS: no rashes or lesions noted GENERAL SKIN EXAM: no rashes or lesions noted Urinary Catheter Management: [place]: Cath Placed During This Visit: yes, but has since been removed by the nurse Reason for Continuing Indwelling Catheter: Acute Urinary Retention or Obstruction Urinary Catheter Date of Insertion: 11/04/23 Urinary Catheter Time of Insertion: 05:00 Date Urinary Catheter Removed: 11/03/23 Time Urinary Catheter Discontinued: 11:00 Data 11/06/23 04:58 11/06/23 04:58 Micro: Microbiology 11/02/23 19:10 Gram Stain - Final Peritoneal Fluid Anaerobic Culture - Preliminary Body Fluid Culture - Final A&P Assessment and plan (1) Respiratory failure: This morning doing well on heated high flow, however, respiratory status worsened through the afternoon, with worsening dyspnea, tachypnea, increased work of breathing, had to go back on BiPAP. Respiratory acidosis with CO2 retention on Review of ABG, 7.32/50.3/80.2. On review of chest x-ray is discussed with patient and family persistence of bilateral pulmonary infiltrates. Yesterday antibiotic coverage resumed with Zosyn, and had additional dialysis as per discussion with nephrology, with additional removal of 3.5 L of fluid. Yesterday albumin infusions also reduced in dose down to 12.5 g daily. Continued with scheduled nebs for bronchial component with bilateral wheezes. With worsening respiratory status, worsening leukocytosis today, discussed with him and family broadening antibiotic further with linezolid for MRSA coverage given he has been in the hospital, as well as resuming antifungal coverage with micafungin given prior sputum culture with Fernanda glabrata. Discussed with nephrology, he will get additional hemodialysis today. Discussed with patient and family regarding risk and possible benefit of additional assessment by CT angiogram chest. Additionally requested venous duplex ultrasound of his legs to assess for any DVT. As some of the wheezes are persistent, he also is retaining CO2, continue nebs, but discussed also the risk of resuming steroid with Solu- Medrol for bronchial component and suspected severe pneumonia. Additionally with worsening leukocytosis, with persistent infiltrates and possible pleural effusion on the right, further assessment with CT as above, in the setting of thrombocytopenia unable to have thoracentesis with radiology currently. With worsening respiratory failure since seeing him yesterday compared to his prior improvement a week ago, discussed also with pulmonology for further consultation, consideration of pleural effusion and thoracentesis and/or other recommendations. Discussed with patient and family for now moving back to intensive care unit. Discussed concern for possibility of progressive respiratory failure, possibility of need of further respiratory support, intubation, mechanical ventilation and associated risks. Will make n.p.o. for now. Discussed condition and plan with respiratory therapy, nursing, watch case polisher. Could not reach Anita on the listed phone number, discussed with patient's son. Extubated 10/30. Received a course of Decadron sara-extubation due to laryngeal edema. CT neck 10/25 while intubated with laryngeal edema with fullness of the glottic structures. Symmetric crowding of the nasopharynx with adenoid hypertrophy. Sputum culture growing Fernanda glabrata 10/21. Status post paracentesis 3L and repeat paracentesis on 11/01 when 3.5 L cc was removed. Depending on the clinical picture will plan for another procedure of paracentesis. (2) Ocedp-ry-wbdebhg kidney injury: Discussed with activity assistant. Additional hemodialysis today. Appreciate nephrology recommendations. Hemodialysis as per nephrology. Reviewed note. Today's note is pending. Fluid as per nephrology team. Patient overall euvolemic as per input output charting. Does have anasarca. Albumin levels improving. Reduce albumin daily dose. Monitor for risk of fluid overload with albumin. Appreciate urine output. Does have concerns for uremia. Monitor electrolytes Concerns for hepatorenal syndrome in the past. Levophed drip had to be discontinued because of hypertension. (3) Acute encephalopathy: Overall improved, he was doing well this morning. Ammonia with elevation of 73. Had a bowel movement today. Continue lactulose for hepatic encephalopathy, discussed with him target 2-3 bowel movements per day. Has been receiving temporary HD. BUN down to 81. Today also worsening of respiratory failure with CO2 retention, respiratory acidosis as above. Prior severe encephalopathy with altered mental status over the preceding 2 weeks, multifactorial. Possible polysubstance withdrawal, hepatic encephalopathy, uremia, and other metabolic encephalopathy. Possible withdrawal from home medications. And other causes. (4) HTN (hypertension): Goal blood pressure less than 140/90 mmHg. Blood pressure is better now. Restarted psych medications. Continue with [place] as needed. Blood pressure is better. Clonidine patch and hydralazine discontinued as per nephrology. For now continue with hydralazine 75 mg 3 times daily with holding parameters. Uptitrate for goal blood pressures. IV hydralazine 10 mg every 4 hours as needed for systolic blood pressure 160 mmHg. (5) Hyperammonemia: Ammonia level resolved. Patient having multiple bowel movements. Continue with rifaximin mean. Continue with lactulose every 12 hours. Uptitrated patient has 2 soft bowel movements a day. (6) CKD (chronic kidney disease): Do not have baseline creatinine. Patient gives history of CKD. (7) Hepatorenal syndrome: Worsening renal function. Levophed had to be stopped. Reduce dose of albumin infusions. (8) Cirrhosis: Post TIPS procedure. With evidence of cirrhosis on CT abdomen/pelvis and varices. With hyperammonemia. Hep C positive. HIV negative, ammonia level appreciated. Urine drug screen positive for cocaine and amphetamines. Appreciate INR level. Child perez score: Class C 10 points Lactulose and rifaximin as above. Off propranolol. Strict input charting, daily weights. (9) Ascites: Ascitic fluid culture without growth. Added to ascites studies. Paracentesis performed 10/21 and 11/01. 3L and 3500 removed respectively. Not suggestive of peritonitis. (10) Anemia: Reviewed Hemoccult, negative. Thrombocytopenia, suspect related to cirrhosis. Gradually worsening anemia. But appears to have leveled off, hemoglobin. Negative hemoccult. Continue IV PPI twice daily. Monitor hemoglobin. Appreciate iron panel, vitamin B12, folate levels. (11) Hepatitis C: Reviewed HCV RNA PCR, not detected. Patient does not remember being treated in the past. Most likely need to set up with PCP as an outpatient for Follow-up. Plan Thrombocytopenia: Most likely in setting of chronic liver cirrhosis. Worsened down to 37 Given worsening uremia cannot rule out platelet dysfunction. DVT prophylaxis has been on hold. Analgesia: Continue with [place] every 6 hours as needed. Glycemic control: Not needed. A1c 4.6 Nutrition: Stop tube feeds. Start on dysphagia level 6 diet as per speech evaluation. CODE STATUS: Full code. Patient's ex- is her DPOA. PUD prophylaxis: Protonix DVT prophylaxis: Hold off on medical prophylaxis given thrombocytopenia, high risk of bleeding with possibility of platelet dysfunction in setting of uremia. Continues on SCDs. Pain control: Restarted gabapentin 200 mg 3 times daily, [place] every 6 hours as needed. Discharge plan: Patient is on BiPAP support for respiratory failure after pneumonia, possible aspiration pneumonia, anasarca with fluid overload, renal failure, after concerns for polysubstance abuse, recurrent agitation, liver cirrhosis. Patient will need extensive physical and respiratory therapy going forward. Patient would benefit from LTAC. Patient has been accepted at LTAC as per case management. Awaiting Medicaid. This documentation was created by [employer] mending carrier software. Every effort was made to ensure accuracy of mending carrier. Any obvious errors or omissions should be clarified with the author of the document. Attestations 2 Medical Necessity Statement*: Continue admission for assessment management of respiratory failure, suspected pneumonia with bronchial component, anasarca, renal failure, with underlying liver cirrhosis, postdischarge planning and arrangements. Coding Level of Care Code Critical Care >/= 30 minutes Critical care time (in minutes): 40 The high probability of a clinically significant, sudden or life threatening deterioration, as referenced in this documentation, required my full and direct attention, intervention and personal management. The critical care time shown is in addition to time spent performing any reported separately billable procedures and includes the following: [x] Data and vital sign review and interpretation [x ] Patient assessment, examination and intervention [x] Medication orders and management [x] Patient/Family updates as able [x] Care Coordination and Documentation. Diagnoses Respiratory failure J96.90 Gffyo-es-ojdqlka kidney injury N17.9; N18.9 Acute encephalopathy G93.40 HTN (hypertension) I10 Hyperammonemia E72.20 CKD (chronic kidney disease) N18.9 Hepatorenal syndrome K76.7 Cirrhosis K74.60 Ascites R18.8 Anemia D64.9 Hepatitis C B19.20
[2023-11-06] MEDS: methylPREDNISolone sod succ 40 mg/mL INJ IVP ×2 (14:40→20:34)
[2023-11-06] MEDS: micafungin 100 MG in sodium chloride 0.9% (plus) 100 ML IV (14:42)
[2023-11-06] MEDS: linezolid premix 600 MG/300 ML PREMIX 300 MG IV (14:42)
--- NOTE | 2023-11-06 15:12 | PC.NURSE ---
Patient taken down to CT and will be taken to ICU after. Report was given to Raj OCHOA.
--- NOTE | 2023-11-06 15:54 | PC.NURSE ---
1530 Recieved patient in bed from [facility] from [facility] due to worsening resp status. Patient on Bipap Sat at 93 upon arrival and opened eyes and motioning when ask if in any pain, then communicated about him falling earlier today and back side hurts. Noted Hydrocodone given at 1048 and due yet again. Dialysis nurse Virgen here to do his dialysis.
--- NOTE | 2023-11-06 15:57 | PC.NURSE ---
1545 Obtained Heparin 10,000u from [facility] and give to Virgen for Dialysis.
--- NOTE | 2023-11-06 16:24 | PC.OT ---
OT tx attempted at this time. Pt has had a decline in respiratory function and has been transferred to ICU. OT tx withheld and OTR to reassess pts status tomorrow.
--- NOTE | 2023-11-06 17:40 | P.CONIM_ITS ---
Providers/Reason For Consult 2 Consulting Physician/Specialty*: Dr Patricia Vaughan/ [facility] Critical [facility] Reason for Consult*: Respiratory failure Requesting Physician: Andrés Hassan Attending Physician: Andrés Hassan History of Present Illness History of Present Illness Luis Fernando Funes is a 53 years old male with past medical history significant for overweight BMI 28.7, end-stage liver disease secondary to hepatitis C?alcoholic cirrhosis with refractory ascites status post TIPS procedure, who presented to the emergency department 10/20/2023 with a complaint of progressive shortness of breath and altered mental status. Initial workup demonstrated normal white count 7.35, Non- AG metabolic acidosis with hyperchloremia chloride 115 with a bicarb of 19, BUN 33, Creat 1.6 and GFR 45.6. Liver panel relevabt for Alb 1.9,AST 41, ALT19, AP 456. Ammonia 118, INR 1.47. Initial chest CT , personally reviewed and independent interpretation performed, was relevant for no evidence of consolidation, minimal lingular atelectasis. NO bronchoalveolar infiltrate. Despite normal white count, no bronchoalveolar infiltrate patient was diagnosis with pneumonia and he was placed on empirical broad-spectrum antibiotic with Vanc + Zosyn. Per EMR he was intubated in the emergency department due to encephalopathy and hypoxemia. Hospital course was relevant for needs of mechanical vent support and he was unable to be extubated due persistent AMS/encepahlopathy with agitation and a concern of Upper Airways Obstructive edema. He was finally extubated after 11 days of Mech Ventilation, on 10/31/23. Post extubation he was kept on large dose of systemic steroids for it? For his dx of PNA : broad-spectrum antibiotic with Vanc + Zosyn. Vanc after 72 hs and he completed 8 days course with Zosyn + diflucan. For his Resp Failure: Mech ventilation / O2 NC and Bipap He was also placed on large dose Systemic steroids and VANESSA-ROZINA/ CADEN on CKD questionable ATN-Hepathorenal alb infusion / octreotide/ bicarb/Suportive of care He had Urine electrolites on 10/28/23. He was given furosemide dueing hospitalization so I am unsure how reliable is his FeNa . Not Urine Urea level available to calulate FeUrea . Regardless his FeNA at some moment was 2.5% consistent with ATN / Intrinsic Catalina 58 - Serum Na 146 / U creat 53- Serum Creat 3.4/ U Cl 40 S Cl 106 After second paracentesis with removal of 3.5 Lit his rebal function declined further , he become oliguric adn decision was made to start HD . For his refractory ascitis (despite his Tips) he underwent trough 2 paracentesis procedures first 10/22/23 3,000 cc removal and 11/02/23 3500 cc procedure complicated with worsening renal function. For management of encephalopathy targetting hyermmonemia with rifaximin- lactulose. After extubation he stabilized and seems slowly demonstrated improvement. O2 requirement were minimal and his MS improved. After his second paracentesis, 3500 cc fluid removal, there was evidence of elevation of WBC up to 32.45 / ABG 7.35 / 33/ 78.4/18/ 96% while in 5 Lit - He developed AG metabolic acidosis BUN 122 / Crear 2.8 GFR 23.9 . Since 11/04/23 his respiratory continue to declined, He became oliguric despite larger dose of diuretics and HD was initiated for fluid removal He reqiored intermittent BiPap . He was re-stared on Zosyn- Today , 11/06/23 seems pt was on hi flow and was able to sumi and eat however early afternoon he become with worsening WOB and Hypoxemia requiring Bipap. New Chest X ray showed opacification of RLL consistent with pleural effusion and basilar atelectasis. Pulmonary consult performed for further recommendations. Pt status declined that required transfer to ICU. Upon My evaluation pt is in ICU and HD. No family upon my arrival. Pt is on Bipap nd seems hemodynamically stable. He is lethargic and when stimulated he is not very responsive. Review of Systems 2 Narrative: UNABLE TO PERFORM. PT evaluated in ICU While in Bipap and ongoing HD. Pt open eyes but abraham s not follow command . Unable to follow orders. He falls sleep. Medications/Allergies Home Medications Medication Instructions Recorded Confirmed Last Taken Type azithromycin 250 mg tablet See Rx Instructions PO .COMPLEX #6 10/20/23 Unknown Rx (Zithromax Z-Corby) tabs cefdinir 300 mg capsule 300 mg PO BID 7 days #14 caps 10/20/23 Unknown Rx dexamethasone 6 mg tablet 6 mg PO DAILY 5 days #5 tabs 10/20/23 Unknown Rx furosemide 40 mg tablet (Lasix) 40 mg PO QAM 5 days #5 tabs 10/20/23 Unknown Rx hydrocodone 5 mg-acetaminophen 325 1 tab PO Q6H PRN pain #20 tabs 10/20/23 Unknown Rx mg tablet lactulose 10 gram/15 mL oral 30 ml PO BID 10/20/23 10/20/23 10/19/23 21:00 History solution polyethylene glycol 3350 17 17 g PO DAILY #510 grams 10/20/23 Unknown Rx gram/dose oral powder (Miralax) rifaximin 550 mg tablet 1 mg PO BID 10/20/23 10/20/23 10/19/23 21:00 History Allergies Allergy/AdvReac Type Severity Reaction Status Date / Time No Known Allergies Allergy Verified 10/20/23 09:09 Current Medications Generic Name Dose Route Start Last Admin Trade Name Freq PRN Reason Stop Dose Admin Hydrocodone Bitart/Acetaminophen 1 tab 10/20/23 15:25 11/06/23 10:48 Hydrocodone-Acetaminophen 5-325 Mg Tablet PO 1 tab Q6H PRN Administration MODERATE PAIN Albuterol/Ipratropium 3 ml 10/21/23 20:00 11/06/23 14:38 Ipratropium-Albuterol 3 Ml Neb INHALATION 3 ml Q6H.RESP DEL Administration Buspirone HCl 10 mg 10/29/23 18:00 11/06/23 08:10 Buspirone 10 Mg Tablet PO 10 mg BID DEL Administration Camphor/Menthol/Phenol 1 applic 11/01/23 12:09 11/01/23 12:32 Blistex Lip Oint 7 Gm Tube TOPICAL 1 applic PRN PRN Administration DRYNESS Divalproex Sodium 125 mg 10/29/23 18:00 11/06/23 08:58 Divalproex Sprinkles 125 Mg Capsule PO 125 mg BID DEL Administration Folic Acid 1 mg 10/22/23 09:00 11/06/23 08:10 Folic Acid 1 Mg Tablet PO 1 mg DAILY DEL Administration Gabapentin 200 mg 10/29/23 12:30 11/06/23 14:40 Gabapentin 100 Mg Capsule PO 200 mg TID DEL Administration Guaifenesin 600 mg 11/05/23 18:00 11/06/23 08:10 Guaifenesin 600 Mg Tablet PO 600 mg BID DEL Administration Hydralazine HCl 10 mg 10/29/23 12:30 11/05/23 04:03 Hydralazine 20 Mg/Ml Inj 1 Ml IVP 10 mg Q4H PRN Administration SBP More than 160 mmhg Hydralazine HCl 75 mg 11/01/23 21:00 11/06/23 14:40 Hydralazine 50 Mg Tablet PO 75 mg TID DEL Administration Albumin Human 12.5 gm in 50 mls @ 60 mls/hr 11/06/23 09:00 11/06/23 11:04 Albumin IV Infused DAILY DEL Infusion Piperacillin Sod/Tazobactam 50 mls @ 12.5 mls/hr 11/05/23 18:00 11/06/23 17:15 Sod 3.375 gm/ Sodium Chloride IV 12.5 mls/hr Q12H DEL Administration Protocol Micafungin Sodium 100 mg/ 100 mls @ 100 mls/hr 11/06/23 13:45 11/06/23 15:40 Sodium Chloride IV Infused Q24H DEL Infusion Linezolid 600 mg in 300 mls @ 300 mls/hr 11/06/23 14:00 11/06/23 15:40 Zyvox Premix IV Infused Q12H DEL Infusion Protocol Insulin Human Lispro 0 unit 11/03/23 11:00 11/06/23 17:14 Insulin Lispro 100 Unit/1 Ml SUBCUT 6 unit AC&BEDTIME DEL Administration Protocol Lactulose 30 gm 11/01/23 11:45 11/06/23 08:09 Lactulose Oral Liq 20 Gm/30 Ml Udc PO 30 gm BID DEL Administration Protocol Magnesium Hydroxide 30 ml 10/20/23 12:57 10/22/23 10:47 Magnesium Hydroxide 30 Ml Udc PO 30 ml DAILY PRN Administration Constipation (see protocol) Protocol Methylprednisolone Sodium Succinate 40 mg 11/06/23 14:00 11/06/23 14:40 Methylprednisolone Sod Succ 40 Mg/Ml Inj IVP 40 mg Q6H DEL Administration Morphine Sulfate 2 mg 11/04/23 22:11 11/06/23 08:08 Morphine 4 Mg/Ml Sdv 1 Ml IVP 2 mg Q4H PRN Administration SEVERE PAIN Non-Formulary Med ( 1 each 10/20/23 18:00 11/06/23 08:10 Rifaximin 550mg PO 1 each Tablets) BID DEL Administration Pantoprazole Sodium 40 mg 10/21/23 15:15 11/06/23 14:40 Pantoprazole 40 Mg Sdv IVP 40 mg Q12H DEL Administration Saliva Substitute 1 spray 11/01/23 12:09 11/01/23 12:15 Saliva Stimulant [place] 30 Ml Btl MUCOUS MEM 1 spray PRN PRN Administration Dry mouth Sucralfate 1 gm 10/31/23 17:00 11/06/23 10:48 Sucralfate 1 Gm/10 Ml Oral Liq Udc PO 1 gm AC&BEDTIME DEL Administration Thiamine Mononitrate 100 mg 10/22/23 09:00 11/06/23 08:10 Thiamine 100 Mg Tablet PO 100 mg DAILY DEL Administration PFSH Acute 2 PFSH: Medical History (Updated 11/06/23 @ 21:47 by Patricia Vaughan MD) CKD (chronic kidney disease) Varices, gastric Hepatitis C Anemia Portal hypertension Cirrhosis Surgical History (Updated 10/20/23 @ 12:59 by Byron Medeiros MD) S/P TIPS (transjugular intrahepatic portosystemic shunt) Vitals/I&O/Wt Last Vital Signs Temp 98.1 F 11/06/23 16:24 Pulse 100 11/06/23 16:24 Resp 18 11/06/23 16:24 BP 163/81 11/06/23 16:24 Pulse Ox 93 11/06/23 16:12 O2 Del Method BiPAP 11/06/23 14:39 O2 Flow Rate 45 11/06/23 12:35 FiO2 70 11/06/23 16:12 11/06/23 11/06/23 11/06/23 06:59 14:59 22:59 Intake Total 50 / 1500 830 / 830 400 / 1230 Output Total 300 / 4450 Balance -250 / -2950 830 / 830 400 / 1230 Weight last 48 hrs Weight 172 lb 5 oz Weight 172 lb 5 oz Weight 177 lb 0.499 oz Weight 172 lb 6.424 oz Weight 172 lb 6.424 oz Physical Exam 2 Narrative: GENERAL: Patient is lethargic, he falls sleep, unable to communicate. acute respiratory distress. NECK: + JVD - Trachea midline - No adenopathy or mass. RESPIRATORY: No chest wall deformities. Decrease BS R > L , ronchies and + anterior crackles L > R . + diffuse wheezing . CARDIOVASCULAR: Regular rate and rhythm, S1 S/S S2 present, no murmur, ++ peripheral edema ABDOMEN: Obese distended , + ascetics + hematoma on abdominal wall . BS decrease. MUSCULOSKELETAL: No obvious joint deformity, normal gait SKIN:No rash, no evidence of erythema nodosum or multiforme LYMPHATIC:No Cervical adenopathy. No supraclavicular adenopathy. NEUROLOGIC:M He is NOT awake, he can be arause with sternal rubbing . He is in ICU on Bipap on HD. Urinary Catheter Management: Castorena: Cath Placed During This Visit: yes, but has since been removed by the nurse Reason for Continuing Indwelling Catheter: Acute Urinary Retention or Obstruction Urinary Catheter Date of Insertion: 11/04/23 Urinary Catheter Time of Insertion: 05:00 Date Urinary Catheter Removed: 11/03/23 Time Urinary Catheter Discontinued: 11:00 Data 11/06/23 04:58 11/06/23 04:58 Other Labs: Arterial Blood Gas 11/06/23 pH 7.32?pCO2 50.3-pO2 80.2?bicarb 25?saturation 95% while on BiPAP with an FiO2 of 70% PEEP of 8 Micro: Microbiology 11/02/23 19:10 Gram Stain - Final Peritoneal Fluid Anaerobic Culture - Preliminary Body Fluid Culture - Final CT Chest: My impression: CHEST CT 11/06/23 * Personally reviewed and independent interpretation performed Large R side Pleural effusion with basilar atelectasis. Bilateral Bronchoalveolar infiltrate consistent with pulmonary edema Vs pneumonitis ( Post aspiration?) CHEST CT 10/20/23 * Personally reviewed and independent interpretation performed No evidence of consolidation, minimal lingular atelectasis. NO bronchoalveolar infiltrate. Radiologist's impression: Chest CT 11/06/23 Lungs: Markedly increased extensive bilateral pulmonary edema and/or pneumonitis. Large amount of new atelectasis or consolidating pneumonia in the mid and lower right lung. New narrowing and occlusion of several right bronchi. Pleural spaces: New large right pleural effusion. No pneumothorax. No left pleural effusion. Heart: New mild cardiomegaly. No evidence of right heart strain. The right ventricular to left ventricular ratio is 0.95. Coronary arteries: No calcification in the visualized coronary arteries. Lymph nodes: Unremarkable. No enlarged lymph nodes. Chest Ct 10/20/23 Lungs: There are subtle infiltrates in the lingula which could represent mild pneumonia and/or atelectasis. Pleural spaces: Unremarkable. No pneumothorax. No pleural effusion. Heart: Unremarkable. No cardiomegaly. No pericardial effusion. Coronary arteries: No visible calcified coronary artery disease. Lymph nodes: Several tiny, nonspecific mediastinal and bilateral axillary lymph nodes. Vasculature: Unremarkable. No aortic aneurysm. ABG Interpretation 4: 10/21/23 10/21/23 10/22/23 14:50 17:00 03:50 ABG pH 7.33 L 7.29 L 7.25 L ABG pCO2 35.7 39.1 42.1 ABG pO2 103.0 H 244.0 H 140.0 H ABG HCO3 18.8 L 19.0 L 18.4 L ABG O2 Saturation 99.8 ABG Base Excess -6.5 L -7.0 L -8.4 L 10/29/23 10/31/23 11/04/23 07:40 03:53 09:18 ABG pH 7.46 H 7.38 7.35 ABG pCO2 33.2 L 35.4 33.2 L ABG pO2 76.8 L 103.0 H 78.4 L ABG HCO3 23.5 20.8 L 18.4 L ABG O2 Saturation 96.5 99.0 96.0 ABG Base Excess -0.1 -3.9 L -6.5 L 11/06/23 12:55 ABG pH 7.32 L ABG pCO2 50.3 H ABG pO2 80.2 ABG HCO3 25.7 ABG O2 Saturation 95.7 ABG Base Excess -0.7 My Interpretation: Primary Respiratory Acidosis, Acute, with: Appropriately Compensated by Metabolic Alkalosis Other data: 10/20/23 ECHO complete Mild left ventricle hypertrophy. Normal LV systolic function. Estimated LVEF 65%. No significant valvular abnormalities noted. Normal right heart and pulmonary pressures. Small size pericardial effusion noted around inferoposterior surface. A&P Assessment and plan (1) Acute respiratory failure with hypoxia and hypercapnia: (2) Aspiration pneumonitis: (3) Hydrothorax: (4) Compression atelectasis: (5) Refractory ascites: (6) End stage liver disease: (7) Cirrhosis: Qualifiers: Hepatic cirrhosis type: unspecified hepatic cirrhosis Ascites presence: with ascites Qualified Code(s): K74.60 - Unspecified cirrhosis of liver; R18.8 - Other ascites (8) [id number] kidney injury: Qualifiers: Acute renal failure type: unspecified Chronic kidney disease stage: u nspecified stage Qualified Code(s): N17.9 - Acute kidney failure, unspecified; N18.9 - Chronic kidney disease, unspecified (9) Ascites: Qualifiers: Ascites type: other type Qualified Code(s): R18.8 - Other ascites (10) Hepatic encephalopathy: Plan 1. ACUTE HYPOXIC AND HYPERCARBIC RESPIRATORY FAILURE Multifactorial in etiology with associated condition is his ESLD with refractory ascites now with development of moderate large R ight side pleural effusion associated with significant RLL consolidation/atelectasis . In addition there are evidence of bronchoalveolar infiltrate with butterfly like distribution. This is most likely an hydrothorax with RLL atelectais . Unable to rule out consolidation process due PNA. HPt has bilateral bronchoalveolar infiltrate with a butterfly like distribution . this is compatible with vasculat congestion - pulmonary edema Vs Chemical pneumonitis due aspiration. Arterial Blood Gas 11/06/23 pH 7.32?pCO2 50.3-pO2 80.2?bicarb 25?saturation 95% while on BiPAP with an FiO2 of 70% PEEP of 8. ther eis a Primary Respiratory Acidosis, Acute, with appropriately Compensated by Metabolic Alkalosis. As mentioned in HPI pt recently completed 11 days of mechanical ventilation secondary to encephalopathy and questionable PNA. His underlying condition is his Liver dz/ cirrhosis due alcohol / Hep C. Pt is NO candidate for liver transplant. At this time further invasive interventions are futile without significant impact for pt survival. Pt prognosis is very poor and chance for a meaningful recovery is unlikely. Pt with high risk mortality during this hospitalization. I personally called pt's and I will hold a family meeting to adress code status. No emergent needs for intubation. WSill continue with BiPAP. 2. ASPIRATION PNEUMONITIS Thsi si more chemical in etiology rather than bacterial. Due there is a new infiltrate in his X ray and pt significant decline in oxuygenation and ventilation agree with antibiotic coverage however i would include broader spectrum. I will hold to change antibiotics until family meeting 3. HYDROTHORAX 4. COMPRESSIVE ATELECTAISIS Treatment of hepatic hydrothorax is similar to the treatment of ascites. DX and Therapeutic thoracentesis may be indicated however is contraindicated with pt's thrombocytopenia. Chest tubes should NOT be placed for the treatment of hepatic hydrothorax. The overall therapy is management of his end of liver dz. Pt already had the maximal procedure for refractory ascitis which is his TIPS procedure. Refractory hepatic hydrothorax is independent risk factor for mortality . Supportive measures. 5. REFRACTORY ASCITES 6. 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 Pt while in [place] had recurrent hospital re- admission with serial therapeutic paracenteses (approximately every two weeks). Pt later underwent for transjugular intrahepatic portosystemic stent shunt (TIPS) placement and after that intervention the only possible intervention is liver transplant for which this pt does not qualify due his + drug screen , + still drinking and smoking and poor functional status. IZA-C ACLF Score 69?points + 88.0% probability of at 1 month - 95.9% probability of at 3 months - 96.7% probability of at 6 months -97.3% probability of at 1 year Data suggest that refractory ascitis is associated with increased mortality risk. Poor prognosis. 7. ACUTE ON CHRONIC RENAL FAILURE Pt with known CKD . He had worsening of his renal function interpreted as ATN component. Most likely worsened after paracentesis . At this time recommend AGAINST futher HD as fluid removal wont improve pt's overall survival. CUSTOMER RESOLUTION SPECIALIST should be limited to bridge patients to a liver transplant procedure. I will meet family later evening and asses code status and overal plan of care. If pt family agreed with DNR/DNI orders HIGHLY recommend to discontinue this temporary HD treatment that were initiated due questionable ATN component. Despite his CUSTOMER RESOLUTION SPECIALIST and fluid removal pt with progressive asitis/ hydrothorax . 8. HEPATIC ENCEPHALOPATHY Multifactorial. He is on therapy targetting hyermmonemia with rifaximin- lactulose. 10. NUTRITION Pt is NPO as he is bipap dependent 11. DVT /GI PROPHYLAXIS His baseline INR is elevated. Need to redraw level. Recommend SCD. 12. ASPIRATION PRECAUTIONS 13. CODE STATUS 14. MULTIDISCIPLINARY ASSESMENT Personally communicate with bedside HD and ICU nurse. Communicate with primary team attending . Pt family meeting plan for this PM after 6 PM . Consult Attestations 2 Critical Care Time: Critical care time of 70 minutes was required to evaluate, managing, and providing care for thsi critically ill patient. Critical care time Included direct patient care at bedside as well as time spent reviewing test results, discussing the case with consultants or family members, and documenting in the patient's chart. Pt critically acutely condition impairs one or more vital organ systems such that there is a high probability of imminent or life threatening deterioration in the patient?s condition. The high probability of sudden, clinically significant, or life-threatening deterioration in the patient's condition that requires the highest level of physician preparedness to intervene urgently Critical care time involved high complexity decision making to assess, manipulate, and support vital system function to treat single or multiple vital organ system failure and/or to prevent further life threatening deterioration of the patient?s condition. Critical care time did not included procedure. Pt was unable to participate on medical decision making as he is lethargic/ encephalopathic and bipap dependent. Family meeting is expecting for this evening. Critical Care Time (min): 70 Coding Level of Care Code Acute Code for Chg Fwd Diagnoses Acute respiratory failure with hypoxia and hypercapnia J96.01; J96.02 Aspiration pneumonitis J69.0 Hydrothorax J94.8 Compression atelectasis J98.11 Refractory ascites R18.8 End stage liver disease K72.10 Cirrhosis of liver with ascites, unspecified hepatic cirrhosis type K74.60; R18.8 Hepatic cirrhosis type: unspecified hepatic cirrhosis Ascites presence: with ascites Acute renal failure superimposed on chronic kidney disease, unspecified acute renal failure type, unspecified CKD stage N17.9; N18.9 Acute renal failure type: unspecified Chronic kidney disease stage: unspecified stage Other ascites R18.8 Ascites type: other type Hepatic encephalopathy K76.82
[2023-11-06 19:07] LABS: Glucose Point of Care 244 mg/dL (70-110)
[2023-11-06] MEDS: heparin, porcine 1,000 unit/mL INJ 10 mL 10000 UNIT INTRACATH (19:26)
--- NOTE | 2023-11-06 19:47 | P.PN_ITS ---
Subjective 2 Subjective: on BIPAP Medications: Reviewed: Yes Vitals/I&O/Wt Last Vital Signs Temp 97.7 F 11/06/23 19:27 Pulse 95 11/06/23 19:27 Resp 19 H 11/06/23 19:27 BP 152/88 11/06/23 19:27 Pulse Ox 98 11/06/23 18:00 O2 Del Method BiPAP 11/06/23 17:00 O2 Flow Rate 45 11/06/23 12:35 FiO2 70 11/06/23 16:12 11/06/23 11/06/23 11/06/23 06:59 14:59 22:59 Intake Total 50 / 1500 830 / 830 900 / 1730 Output Total 300 / 4450 4050 / 4050 Balance -250 / -2950 830 / 830 -3150 / -2320 Weight last 48 hrs Weight 73.6 kg Weight 78.16 kg Weight 78.16 kg Weight 80.3 kg Weight 78.2 kg Physical Exam 2 Narrative: The patient is extubated and uncomfortable. Vital signs noted. awake, alert and interactive heent- nc/at, eomi, positive NG tube neck supple lungs - diffuse ronchi and crackles b/l heart reg abd soft, + bs positive distended ext b/l 1+ edema neuro- awake and alert, interactive, following commands Urinary Catheter Management: Castorena: Cath Placed During This Visit: yes, but has since been removed by the nurse Reason for Continuing Indwelling Catheter: Acute Urinary Retention or Obstruction Urinary Catheter Date of Insertion: 11/04/23 Urinary Catheter Time of Insertion: 05:00 Date Urinary Catheter Removed: 11/03/23 Time Urinary Catheter Discontinued: 11:00 Data 11/06/23 04:58 11/06/23 04:58 Micro: Microbiology 11/02/23 19:10 Gram Stain - Final Peritoneal Fluid Anaerobic Culture - Preliminary Body Fluid Culture - Final A&P Assessment and plan (1) [id number] kidney injury: 1. Acute on chronic kidney disease: Baseline creatinine not available, patient presented with a creatinine of 1.6 worsened to 3.6 mg/dl. cr slowly improved to 2.7 mg/dl . His creatinine is rising again. He had an underlying ATN versus hepatorenal syndrome. I am now concerned that he may have developed ATN after paracentesis. Underlying CKD can be from liver disease versus toxicity from drugs. Avoid nephrotoxins and contrast studies. 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 2. The patient is status post a 1.5 L paracentesis 3. Liver cirrhosis , status post paracentesis continue IV albumin. Patient is status post TIPS recently. 4. anemia and thrombocytopenia - likely from liver disease. 5. htn - on amlodipine 10 mg po d. clonidine patch and hydralazine. Blood pressure is decreased will decrease medications 6. Anemia with high iron saturation. s/p Epogen. 7. Acute encephalopathy improved 8. Laryngeal edema appears to improved. He continues on steroids 9. Hepatitis C positive as per medical team the patient and urine drug screen positive for cocaine and amphetamines on admission. - his child's Huddleston score was class C 10 points Medications reviewed in detail Patient evaluated using audiovisual cart and RN examined pt Plan see above Attestations 2 Medical Necessity Statement*: per nazia Coding Level of Care Code Acute Code for Chg Fwd Diagnoses [id number] kidney injury N17.9; N18.9
[2023-11-06] MEDS: blistex lip oint 7 gm Tube 1 APPLIC TOPICAL (22:00)
[2023-11-06] MEDS: saliva stimulant spray 30 mL Btl 1 SPRAY MUCOUS MEM (22:06)
--- NOTE | 2023-11-06 22:32 | PC.NURSE ---
Patient on NPO diet with PO meds ordered. Discussed with Dr. Miller, instructed to give PO meds and if any difficulty swallowing then strict NPO. Medications crushed and administered in pudding while patient on heated high flow oxygen. Patient swallowed without coughing, no nasal drainage, no watering eyes. Remained on heated high flow for 1.5 hours, oxygen saturation remained 93% or greater, switched back to bipap for sleep.
[2023-11-06 23:28] LABS: Glucose Point of Care 229 mg/dL (70-110)
[2023-11-07] VITALS (62 sets, daily range): BP systolic 129–179; BP diastolic 65–90; PULSE 81–113; RESP 11–24; TEMP 36.2–36.6; O2SAT 87–100
[2023-11-07] MEDS: methylPREDNISolone sod succ 40 mg/mL INJ IVP ×4 (01:30→20:44)
[2023-11-07] MEDS: linezolid premix 600 MG/300 ML PREMIX 300 MG IV ×2 (01:32→15:24)
[2023-11-07] MEDS: morphine 4 mg/mL SDV 1 mL 2 MG IVP ×5 (01:55→21:26)
--- NOTE | 2023-11-07 02:50 | PC.NURSE ---
Patient wrote on his chart he communicates with that he wants to talk to doctor about hospice and that he wants a medium rare vince and zainabcolate shake from [employer].
[2023-11-07] MEDS: pantoprazole 40 mg SDV IVP ×2 (02:59→15:38)
[2023-11-07] MEDS: ipratropium-albuterol 3 mL Neb INHALATION ×4 (03:12→19:55)
[2023-11-07 05:51] LABS: Basophils % 0.1 %; Hematocrit 24.7 % (37-53); Lymphocytes # 0.1 10^3/uL (0.8-4.8); Lymphocytes % 1.3 %; Mean Corpuscular HGB Conc 31.6 g/dL (30-55); Mean Corpuscular Hemoglobin 29.8 pg (27-33); Mean Corpuscular Volume 94.3 fl (82-101); Monocytes # 0.1 10^3/uL (0.2-0.9); Monocytes % 1.5 %; Neutrophils # 7.77 10^3/uL (1.8-7.7); Neutrophils % 95.3 %; Nucleated Red Blood Cells % 0 %; Red Blood Count 2.62 10^6/uL (3.85-5.65); Red Cell Distribution Width 18.5 % (12.1-15.1); White Blood Count 8.16 10^3/uL (3.29-11.43)
[2023-11-07] MEDS: piperacillin-tazobactam 3.375 GM in sodium chloride 0.9% (plus) 50 ML IV ×2 (05:59→15:30)
[2023-11-07 06:14] LABS: Alanine Aminotransferase 44 U/L (0-41); Alkaline Phosphatase 421 U/L (40-130); Anion Gap 19.4 (5-19); Aspartate Amino Transferase 49 U/L (0-40); Blood Urea Nitrogen 62 mg/dL (6-20); Calcium 8.6 mg/dL (8.5-10.5); Carbon Dioxide 23 mmol/L (22-29); Chloride 99 mmol/L (98-107); Creatinine Clr Calc Pharmacy 38.6106; Globulin 1.8 g/dL (1.3-4.6); Glomerular Filtration Rate 33.3 mL/min (90-130); Glucose 327 mg/dL (65-115); Magnesium 2.2 mg/dL (1.7-2.3); Osmolality Calculated 314 mOsm/kg (285-295); Phosphorus 4.4 mg/dL (2.5-4.5); Potassium 4.4 mmol/L (3.5-5.1); Sodium 137 mmol/L (136-145); Total Bilirubin 3.1 mg/dL (0.15-1.2); Total Protein 5.8 g/dL (6.6-8.7)
[2023-11-07] MEDS: sucralfate 1 gm/10 mL Oral Liq UDC PO ×4 (06:16→20:44)
[2023-11-07] MEDS: insulin lispro 100 unit/1 mL SUBCUT ×4 (06:25→20:46)
[2023-11-07 06:35] LABS: Platelet Count 27 10^3/cmm (157-399)
[2023-11-07 07:30] LABS: Glucose Point of Care 376 mg/dL (70-110)
[2023-11-07] MEDS: gabapentin 100 mg Capsule 200 MG PO ×3 (08:43→20:45)
[2023-11-07] MEDS: RIFAXIMIN 550 MG 1 EACH PO ×2 (08:44→17:16)
[2023-11-07] MEDS: hyDRALAzine 50 mg Tablet 75 MG PO ×3 (08:45→20:45)
[2023-11-07] MEDS: guaiFENesin 600 mg Tablet PO ×2 (08:46→17:15)
[2023-11-07] MEDS: divalproex Sprinkles 125 mg Capsule PO ×2 (08:46→17:14)
[2023-11-07] MEDS: thiamine 100 mg Tablet PO (08:46)
[2023-11-07] MEDS: BuSPIRONE 10 mg Tablet PO ×2 (08:46→17:14)
[2023-11-07] MEDS: folic acid 1 mg Tablet PO (08:46)
--- NOTE | 2023-11-07 09:36 | P.PN_ITS ---
Subjective 2 Subjective: on BIPAP events noted , chart reviewed seen by pulm last night Medications: Reviewed: Yes Vitals/I&O/Wt Last Vital Signs Temp 97.9 F 11/07/23 05:17 Pulse 106 H 11/07/23 08:30 Resp 21 H 11/07/23 08:30 BP 151/83 11/07/23 08:30 Pulse Ox 96 11/07/23 08:30 O2 Del Method Heated High Flow 11/07/23 07:48 O2 Flow Rate 45 11/07/23 07:48 FiO2 60 11/07/23 07:48 11/06/23 11/07/23 11/07/23 22:59 06:59 14:59 Intake Total 950 / 1780 300 / 2080 0 / 0 Output Total 4050 / 4050 100 / 4150 Balance -3100 / -2270 200 / -2070 0 / 0 Weight last 48 hrs Weight 70.488 kg Weight 73.6 kg Weight 78.16 kg Weight 78.16 kg Weight 80.3 kg Weight 78.2 kg Physical Exam 2 Narrative: The patient is extubated and uncomfortable. Vital signs noted. awake, alert and interactive heent- nc/at, eomi, positive NG tube neck supple lungs - diffuse ronchi and crackles b/l heart reg abd soft, + bs positive distended ext b/l 1+ edema neuro- awake and alert, interactive, following commands Urinary Catheter Management: Castorena: Cath Placed During This Visit: yes, but has since been removed by the nurse Reason for Continuing Indwelling Catheter: Accurate Measurement of Urinary Output in Critically Ill Patients Urinary Catheter Date of Insertion: 11/04/23 Urinary Catheter Time of Insertion: 05:00 Date Urinary Catheter Removed: 11/03/23 Time Urinary Catheter Discontinued: 11:00 Data 11/07/23 05:38 11/07/23 05:38 Micro: Microbiology 11/02/23 19:10 Gram Stain - Final Peritoneal Fluid Anaerobic Culture - Preliminary Body Fluid Culture - Final A&P Assessment and plan (1) Twane-hq-imsltix kidney injury: 1. Acute on chronic kidney disease: Baseline creatinine not available, patient presented with a creatinine of 1.6 worsened to 3.6 mg/dl. He had an underlying ATN versus hepatorenal syndrome. I am now concerned that he may have developed ATN after paracentesis. Underlying CKD can be from liver disease versus toxicity from drugs. Avoid nephrotoxins and contrast studies. 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 2. The patient is status post a 1.5 L paracentesis 3. Liver cirrhosis , status post paracentesis continue IV albumin. Patient is status post TIPS recently. 4. anemia and thrombocytopenia - likely from liver disease. 5. htn - on amlodipine 10 mg po d. clonidine patch and hydralazine. Blood pressure is decreased will decrease medications 6. Anemia with high iron saturation. s/p Epogen. 7. Acute encephalopathy improved 8. Laryngeal edema appears to improved. He continues on steroids 9. Hepatitis C positive as per medical team the patient and urine drug screen positive for cocaine and amphetamines on admission. - his child's Huddleston score was class C 10 points Medications reviewed in detail Patient evaluated using audiovisual cart and RN examined pt Qualifiers: Acute renal failure type: unspecified Chronic kidney disease stage: u nspecified stage Qualified Code(s): N17.9 - Acute kidney failure, unspecified; N18.9 - Chronic kidney disease, unspecified Plan see above Attestations 2 Medical Necessity Statement*: per nazia Coding Level of Care Code Acute Code for Chg Fwd Diagnoses Acute renal failure superimposed on chronic kidney disease, unspecified acute renal failure type, unspecified CKD stage N17.9; N18.9 Acute renal failure type: unspecified Chronic kidney disease stage: unspecified stage
[2023-11-07 11:20] LABS: Glucose Point of Care 348 mg/dL (70-110)
--- NOTE | 2023-11-07 14:38 | P.PN_ITS ---
Subjective 2 Subjective: He is awake and alert. On heated high flow cannula. Insistent that he is going to eat. This morning he has been giving consideration of LTAC versus hospice. Vitals/I&O/Wt Last Vital Signs Temp 97.9 F 11/07/23 05:17 Pulse 99 11/07/23 13:03 Resp 14 11/07/23 13:03 BP 153/75 11/07/23 13:00 Pulse Ox 96 11/07/23 13:03 O2 Del Method BiPAP 11/07/23 13:03 O2 Flow Rate 45 11/07/23 07:48 FiO2 60 11/07/23 13:03 11/06/23 11/07/23 11/07/23 22:59 06:59 14:59 Intake Total 950 / 1780 300 / 2080 290 / 290 Output Total 4050 / 4050 100 / 4150 Balance -3100 / -2270 200 / -2070 290 / 290 Weight last 48 hrs Weight 70.488 kg Weight 73.6 kg Weight 78.16 kg Weight 78.16 kg Weight 80.3 kg Physical Exam 2 Narrative: On heated high flow, alert and lucid. Const: COMMON NORMALS: alert GENERAL APPEARANCE: patient mechanically ventilated Eye: OTHER: Pupils equal. Neck/C-Spine: COMMON NORMALS: no JVD Resp: AUSCULTATION: wheezes (Milder) Cardio: COMMON NORMALS: no JVD, regular rhythm, S1 normal heart sound present, S2 normal heart sound present and No murmurs present (Cardio) RHYTHM: regular rhythm HEART SOUNDS: S1 normal heart sound present and S2 normal heart sound present GI: COMMON NORMALS: Normal to inspection, nondistended, normoactive bowel sounds present, Soft to palpation and non-tender PALPATION: Yes Soft to palpation Extremity: COMMON NORMALS: no joint enlargement and no pedal edema OTHER: Anasarca. Improved edema hands. 2-3+ edema LE Neuro: SENSORIUM/ORIENTATION: Yes alert Skin: COMMON NORMALS: no rashes or lesions noted GENERAL SKIN EXAM: no rashes or lesions noted Urinary Catheter Management: Castorena: Cath Placed During This Visit: yes, but has since been removed by the nurse Reason for Continuing Indwelling Catheter: Accurate Measurement of Urinary Output in Critically Ill Patients Urinary Catheter Date of Insertion: 11/04/23 Urinary Catheter Time of Insertion: 05:00 Date Urinary Catheter Removed: 11/03/23 Time Urinary Catheter Discontinued: 11:00 Data 11/07/23 05:38 11/07/23 05:38 Micro: Microbiology 11/02/23 19:10 Mycobacterial Smear - Preliminary Body Fluids - Peritoneal 11/02/23 19:10 Gram Stain - Final Peritoneal Fluid Anaerobic Culture - Preliminary Body Fluid Culture - Final A&P Assessment and plan (1) Respiratory failure: Reviewed vitals, CBC, CMP, CTA chest, pulmonary/critical care consultation, discussed with specialist, discussed with nursing, discussed with patient this morning. Last night and meeting was held given decline in his condition despite treatment he has received, overall poor prognosis, on discussion of goals of care CODE STATUS was changed to no resuscitation case of cardiopulmonary arrest on discussion with patient family. Patient is awake and lucid today, revisited further regarding his condition and the above concerns, confirmed CODE STATUS, patient is agreeable no resuscitation in case of cardiac or pulmonary arrest, no further escalation of care. He is adamant that he would want to eat today. He otherwise was on heated high flow this morning saturation in the 90s on 60% FiO2. He has been further considering hospice care versus attempting to get approval for LTAC. On discussion with him of persistent respiratory failure, noted right-sided pleural effusion, persistence of edema, ascites despite fluid removal and despite presence of TIPS, very high overall mortality, and lack of improvement despite attempted treatment discussed very high likelihood of further deterioration in his condition, rehospitalization, high risk of mortality in case he was even able to get into LTAC, although we could check if he could be a candidate if these were his wishes. Seems this was a consideration after discussion of patient with one of his sons this morning. Discussed otherwise transition to hospice care, hospice with support for both him and family, hospice follow-up of anxiety, pain distress or other symptoms that may be associated with his condition and end-of-life. He states that he favors proceeding with hospice care. He states he does not want to here in the hospital. Yesterday with worsening leukocytosis, respiratory failure, with consolidation/atelectasis in the right lower lobe, pleural effusion, as well as bilateral pulmonary edema and/or pneumonitis, possible aspiration. Had been broadened on antimicrobial regimen with linezolid, micafungin with prior Fernanda gallbladder and sputum culture on 10/21. 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 For now continuing on current supportive measures pending further determination pursuant to goals of care and overall condition. Hospice care would need to be on juvenal basis and case management is attempting to confirm this possibility. At current time patient declines to further pursue LTAC. Discussed also with his ex- (LONI), and he has made similar statements to her later on in the day during her visit on history obtained from his ex- during phone conversation. Extubated 10/30. Received a course of Decadron sara-extubation due to laryngeal edema. CT neck 10/25 while intubated with laryngeal edema with fullness of the glottic structures. Symmetric crowding of the nasopharynx with adenoid hypertrophy. Status post paracentesis 3L and repeat paracentesis on 11/01 when 3.5 L cc was removed. (2) Ascites: Ascitic fluid culture without growth. Added to ascites studies. Paracentesis performed 10/21 and 11/01. 3L and 3500 removed respectively. Not suggestive of peritonitis. Qualifiers: Ascites type: other type Qualified Code(s): R18.8 - Other ascites (3) Mhudr-bt-lroppvk kidney injury: Given lack of significant response despite dialysis, with pleural effusion likely hepatic hydrothorax despite fluid removal with dialysis trial, despite presence of TIPS, with overall poor prognosis as per discussion with nephrology further dialysis is withheld. Qualifiers: Acute renal failure type: unspecified Chronic kidney disease stage: u nspecified stage Qualified Code(s): N17.9 - Acute kidney failure, unspecified; N18.9 - Chronic kidney disease, unspecified (4) Acute encephalopathy: Improved, he is awake and alert. He is able to converse about his condition. Tells me about his past history and hospitalizations. Realizes the severity of his condition. Understands the importance and consequences of goals of care discussions, understands transition to hospice, versus LTAC. Continue lactulose for hepatic encephalopathy, discussed with him target 2-3 bowel movements per day. Reassess renal function, at risk of uremia. Today also worsening of respiratory failure with CO2 retention, respiratory acidosis as above. Prior severe encephalopathy with altered mental status over the preceding 2 weeks, multifactorial. Possible polysubstance withdrawal, hepatic encephalopathy, uremia, and other metabolic encephalopathy. Possible withdrawal from home medications. And other causes. (5) HTN (hypertension): Blood pressure is better. Clonidine patch and hydralazine discontinued as per nephrology. For now continue with hydralazine 75 mg 3 times daily with holding parameters. Uptitrate for goal blood pressures. IV hydralazine 10 mg every 4 hours as needed for systolic blood pressure 160 mmHg. (6) Hyperammonemia: Ammonia level reviewed. Patient having bowel movements. Continue with rifaximin mean. Continue with lactulose every 12 hours. Uptitrated patient has 2 soft bowel movements a day. (7) CKD (chronic kidney disease): Do not have baseline creatinine. Patient gives history of CKD. (8) Hepatorenal syndrome: Worsening renal function. Levophed had to be stopped. Reduce dose of albumin infusions. (9) Cirrhosis: Post TIPS procedure. With evidence of cirrhosis on CT abdomen/pelvis and varices. With hyperammonemia. Hep C positive. HIV negative, ammonia level appreciated. Urine drug screen positive for cocaine and amphetamines. Appreciate INR level. Child perez score: Class C 10 points Lactulose and rifaximin as above. Off propranolol. Strict input charting, daily weights. Qualifiers: Ascites presence: with ascites Hepatic cirrhosis type: unspecified hepatic cirrhosis Qualified Code(s): K74.60 - Unspecified cirrhosis of liver; R18.8 - Other ascites (10) Anemia: Reviewed Hemoccult, negative. Thrombocytopenia, suspect related to cirrhosis. Gradually worsening anemia. But appears to have leveled off, hemoglobin. Negative hemoccult. Continue IV PPI twice daily. Monitor hemoglobin. Appreciate iron panel, vitamin B12, folate levels. (11) Hepatitis C: Reviewed HCV RNA PCR, not detected. Patient does not remember being treated in the past. Most likely need to set up with PCP as an outpatient for Follow-up. Plan Thrombocytopenia: Most likely in setting of chronic liver cirrhosis. Worsened down to 37 Given worsening uremia cannot rule out platelet dysfunction. DVT prophylaxis has been on hold. Analgesia: Continue with Sherman every 6 hours as needed. Glycemic control: Not needed. A1c 4.6 Nutrition: Stop tube feeds. Start on dysphagia level 6 diet as per speech evaluation. CODE STATUS: Full code. Patient's ex- is her DPOA. PUD prophylaxis: Protonix DVT prophylaxis: Hold off on medical prophylaxis given thrombocytopenia, high risk of bleeding with possibility of platelet dysfunction in setting of uremia. Continues on SCDs. Pain control: Restarted gabapentin 200 mg 3 times daily, Sherman every 6 hours as needed. Discharge plan: Patient is on BiPAP support for respiratory failure after pneumonia, possible aspiration pneumonia, anasarca with fluid overload, renal failure, after concerns for polysubstance abuse, recurrent agitation, liver cirrhosis. Patient will need extensive physical and respiratory therapy going forward. Patient would benefit from LTAC. Patient has been accepted at LTAC as per case management. Awaiting Medicaid. This documentation was created by [employer] shuttle buggy operator software. Every effort was made to ensure accuracy of shuttle buggy operator. Any obvious errors or omissions should be clarified with the author of the document. Attestations 2 Medical Necessity Statement*: Continue admission for assessment management of respiratory failure, multiorgan dysfunction with underlying liver cirrhosis, care commensurate to adjusted patient goals, postdischarge planning and arrangements. Diagnoses Respiratory failure J96.90 Other ascites R18.8 Ascites type: other type Acute renal failure superimposed on chronic kidney disease, unspecified acute renal failure type, unspecified CKD stage N17.9; N18.9 Acute renal failure type: unspecified Chronic kidney disease stage: unspecified stage Acute encephalopathy G93.40 HTN (hypertension) I10 Hyperammonemia E72.20 CKD (chronic kidney disease) N18.9 Hepatorenal syndrome K76.7 Cirrhosis of liver with ascites, unspecified hepatic cirrhosis type K74.60; R18.8 Ascites presence: with ascites Hepatic cirrhosis type: unspecified hepatic cirrhosis Anemia D64.9 Hepatitis C B19.20
--- NOTE | 2023-11-07 15:45 | PC.OT ---
Pt declines OT treatment today; states What's the point? I have three months tops. Will attempt treatment again at later time.
[2023-11-07 17:07] LABS: Glucose Point of Care 409 mg/dL (70-110)
[2023-11-07] MEDS: lactulose oral liq 20 gm/30 mL UDC 30 GM PO (17:15)
[2023-11-08] VITALS (56 sets, daily range): BP systolic 126–165; BP diastolic 59–87; PULSE 85–107; RESP 10–24; TEMP 36.6–36.7; O2SAT 85–100
[2023-11-08 00:20] LABS: Glucose Point of Care 342 mg/dL (70-110)
[2023-11-08] MEDS: piperacillin-tazobactam 3.375 GM in sodium chloride 0.9% (plus) 50 ML IV ×4 (00:53→23:34)
[2023-11-08] MEDS: pantoprazole 40 mg SDV IVP ×2 (02:13→15:52)
[2023-11-08] MEDS: methylPREDNISolone sod succ 40 mg/mL INJ IVP ×4 (02:13→20:13)
[2023-11-08] MEDS: linezolid premix 600 MG/300 ML PREMIX 300 MG IV ×2 (02:14→14:04)
[2023-11-08] MEDS: ipratropium-albuterol 3 mL Neb INHALATION ×4 (02:46→20:01)
[2023-11-08] MEDS: morphine 4 mg/mL SDV 1 mL 2 MG IVP ×3 (03:56→16:07)
[2023-11-08 05:01] LABS: Basophils % 0.2 %; Hematocrit 25.2 % (37-53); Lymphocytes # 0.1 10^3/uL (0.8-4.8); Lymphocytes % 0.8 %; Mean Corpuscular HGB Conc 31.7 g/dL (30-55); Mean Corpuscular Hemoglobin 30.2 pg (27-33); Mean Corpuscular Volume 95.1 fl (82-101); Mean Platelet Volume 10.6 fL (7.4-10.4); Monocytes # 0.5 10^3/uL (0.2-0.9); Monocytes % 4.3 %; Neutrophils # 11.07 10^3/uL (1.8-7.7); Neutrophils % 92.9 %; Nucleated Red Blood Cells % 0 %; Platelet Count 43 10^3/cmm (157-399); Red Blood Count 2.65 10^6/uL (3.85-5.65); Red Cell Distribution Width 18.5 % (12.1-15.1); White Blood Count 11.92 10^3/uL (3.29-11.43)
[2023-11-08 05:14] LABS: Ammonia 90 umol/L (16-60)
[2023-11-08 06:43] LABS: Glucose Point of Care 379 mg/dL (70-110)
[2023-11-08 06:43] LABS: Glucose Point of Care 335 mg/dL (70-110)
[2023-11-08] MEDS: insulin lispro 100 unit/1 mL SUBCUT ×4 (06:44→20:11)
[2023-11-08 07:20] LABS: Glucose Point of Care 361 mg/dL (70-110)
[2023-11-08] MEDS: sucralfate 1 gm/10 mL Oral Liq UDC PO ×4 (07:37→20:17)
[2023-11-08 09:16] LABS: Alanine Aminotransferase 43 U/L (0-41); Albumin Level 4.1 g/dL (3.5-5.2); Alkaline Phosphatase 449 U/L (40-130); Anion Gap 25.4 (5-19); Aspartate Amino Transferase 44 U/L (0-40); Calcium 8.7 mg/dL (8.5-10.5); Carbon Dioxide 20 mmol/L (22-29); Chloride 94 mmol/L (98-107); Globulin 1.9 g/dL (1.3-4.6); Glomerular Filtration Rate 24.9 mL/min (90-130); Glucose 346 mg/dL (65-115); Osmolality Calculated 319 mOsm/kg (285-295); Potassium 4.4 mmol/L (3.5-5.1); Sodium 135 mmol/L (136-145); Total Bilirubin 2.7 mg/dL (0.15-1.2)
[2023-11-08 09:21] LABS: Blood Urea Nitrogen 82 mg/dL (6-20)
[2023-11-08] MEDS: gabapentin 100 mg Capsule 200 MG PO ×3 (09:33→20:17)
[2023-11-08] MEDS: divalproex Sprinkles 125 mg Capsule PO ×2 (09:33→17:35)
[2023-11-08] MEDS: BuSPIRONE 10 mg Tablet PO ×2 (09:33→17:35)
[2023-11-08] MEDS: guaiFENesin 600 mg Tablet PO ×2 (09:33→17:35)
[2023-11-08] MEDS: folic acid 1 mg Tablet PO (09:33)
[2023-11-08] MEDS: hyDRALAzine 50 mg Tablet 75 MG PO ×3 (09:34→20:16)
[2023-11-08] MEDS: thiamine 100 mg Tablet PO (09:34)
[2023-11-08] MEDS: lactulose oral liq 20 gm/30 mL UDC 30 GM PO ×2 (09:34→17:35)
[2023-11-08] MEDS: RIFAXIMIN 550 MG 1 EACH PO ×2 (09:43→17:35)
[2023-11-08 11:57] LABS: Glucose Point of Care 350 mg/dL (70-110)
--- NOTE | 2023-11-08 13:01 | PM.PN ---
Subjective Subjective: on 60% FIO2 Medications: Reviewed: Yes Vitals/I&O/Wt Last Vital Signs Temp 98.0 F 11/08/23 00:00 Pulse 99 11/08/23 12:00 Resp 20 H 11/08/23 12:00 BP 138/82 11/08/23 12:00 Pulse Ox 92 11/08/23 12:00 O2 Del Method High Flow Nasal Cannula 11/08/23 12:00 O2 Flow Rate 45 11/08/23 12:00 FiO2 65 11/08/23 12:00 11/07/23 11/08/23 11/08/23 22:59 06:59 14:59 Intake Total 590 / 880 349.375 / 1229.375 290 / 290 Output Total 200 / 200 250 / 450 Balance 390 / 680 99.375 / 779.375 290 / 290 Weight last 48 hrs Weight 70.488 kg Weight 73.6 kg Physical Exam Narrative: The patient is extubated and uncomfortable. Vital signs noted. awake, alert and interactive heent- nc/at, eomi, positive NG tube neck supple lungs - diffuse ronchi and crackles b/l heart reg abd soft, + bs positive distended ext b/l 1+ edema neuro- awake and alert, interactive, following commands Urinary Catheter Management: Castorena: Cath Placed During This Visit: yes, but has since been removed by the nurse Reason for Continuing Indwelling Catheter: Accurate Measurement of Urinary Output in Critically Ill Patients Urinary Catheter Date of Insertion: 11/04/23 Urinary Catheter Time of Insertion: 05:00 Date Urinary Catheter Removed: 11/03/23 Time Urinary Catheter Discontinued: 11:00 Data 11/08/23 04:36 11/08/23 04:36 Micro: Microbiology 11/02/23 19:10 Gram Stain - Final Peritoneal Fluid Anaerobic Culture - Preliminary Body Fluid Culture - Final 11/02/23 19:10 Mycobacterial Smear - Preliminary Body Fluids - Peritoneal A&P Assessment and plan (1) Rbqrp-cn-rgqyuhh kidney injury: 1. Acute on chronic kidney disease: Baseline creatinine not available, patient presented with a creatinine of 1.6 worsened to 3.6 mg/dl. He had an underlying ATN versus hepatorenal syndrome. I am now concerned that he may have developed ATN after paracentesis. Underlying CKD can be from liver disease versus toxicity from drugs. Avoid nephrotoxins and contrast studies. 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 2. The patient is status post a 1.5 L paracentesis 3. Liver cirrhosis , status post paracentesis continue IV albumin. Patient is status post TIPS recently. 4. anemia and thrombocytopenia - likely from liver disease. 5. htn - on amlodipine 10 mg po d. clonidine patch and hydralazine. Blood pressure is decreased will decrease medications 6. Anemia with high iron saturation. s/p Epogen. 7. Acute encephalopathy improved 8. Laryngeal edema appears to improved. He continues on steroids 9. Hepatitis C positive as per medical team the patient and urine drug screen positive for cocaine and amphetamines on admission. - his child's Huddleston score was class C 10 points Medications reviewed in detail Patient evaluated using audiovisual cart and RN examined pt Qualifiers: Acute renal failure type: unspecified Chronic kidney disease stage: unspecified stage Qualified Code(s): N17.9 - Acute kidney failure, unspecified; N18.9 - Chronic kidney disease, unspecified Plan see above Attestations Medical Necessity Statement*: per [facility] Coding Level of Care Code Acute Code for Chg Fwd Diagnoses Acute renal failure superimposed on chronic kidney disease, unspecified acute renal failure type, unspecified CKD stage N17.9; N18.9 Acute renal failure type: unspecified Chronic kidney disease stage: unspecified stage
[2023-11-08] MEDS: micafungin 100 MG in sodium chloride 0.9% (plus) 100 ML IV (13:06)
--- NOTE | 2023-11-08 13:27 | PC.OT ---
Discharged from OT services due to going on hospice.
[2023-11-08 14:09] LABS: Amylase, Peritoneal Fluid 24 U/L
--- NOTE | 2023-11-08 17:14 | P.PN_ITS ---
Subjective 2 Subjective: He denies additional changes. She does get tired with eating. Discussed with him aspiration precautions. We discussed if he would be willing to downgrade diet to minced and initially he was reluctant, but agreed that that might be easier for him. He is otherwise working with his family and case management to try to make it possible for him to come home with hospice. Vitals/I&O/Wt Last Vital Signs Temp 98.0 F 11/08/23 00:00 Pulse 101 H 11/08/23 17:00 Resp 24 H 11/08/23 17:00 BP 130/70 11/08/23 17:00 Pulse Ox 92 11/08/23 17:00 O2 Del Method High Flow Nasal Cannula 11/08/23 17:00 O2 Flow Rate 10 11/08/23 17:00 FiO2 65 11/08/23 15:30 11/08/23 11/08/23 11/08/23 06:59 14:59 22:59 Intake Total 349.375 / 1229.375 630 / 630 300 / 930 Output Total 250 / 450 Balance 99.375 / 779.375 630 / 630 300 / 930 Weight last 48 hrs Weight 70.488 kg Weight 73.6 kg Physical Exam 2 Narrative: On heated high flow, wakes up to voice, lucid. Const: COMMON NORMALS: alert Eye: OTHER: Pupils equal. Neck/C-Spine: COMMON NORMALS: no JVD Resp: COMMON NORMALS: clear to auscultation bilaterally EFFORT & INSPECTION: Yes tachypneic AUSCULTATION: clear to auscultation bilaterally and wheezes (Milder, Right lower lung) Cardio: COMMON NORMALS: no JVD, regular rhythm, S1 normal heart sound present, S2 normal heart sound present and No murmurs present (Cardio) RHYTHM: regular rhythm HEART SOUNDS: S1 normal heart sound present and S2 normal heart sound present GI: COMMON NORMALS: Normal to inspection, nondistended, normoactive bowel sounds present, Soft to palpation and non-tender PALPATION: Yes Soft to palpation : OTHER: Producing urine. Extremity: COMMON NORMALS: no joint enlargement and no pedal edema OTHER: Anasarca. Improved edema hands. 2+ edema LE Neuro: SENSORIUM/ORIENTATION: Yes alert Urinary Catheter Management: Castorena: Cath Placed During This Visit: yes, but has since been removed by the nurse Reason for Continuing Indwelling Catheter: Accurate Measurement of Urinary Output in Critically Ill Patients Urinary Catheter Date of Insertion: 11/04/23 Urinary Catheter Time of Insertion: 05:00 Date Urinary Catheter Removed: 11/03/23 Time Urinary Catheter Discontinued: 11:00 Data 11/08/23 04:36 11/08/23 04:36 Micro: Microbiology 11/03/23 14:50 Blood Culture - Final Blood NO GROWTH AFTER 5 DAYS 11/03/23 12:11 Blood Culture - Final Blood NO GROWTH AFTER 5 DAYS 11/02/23 19:10 Gram Stain - Final Peritoneal Fluid Anaerobic Culture - Preliminary Body Fluid Culture - Final A&P Assessment and plan (1) Respiratory failure: Reviewed vitals, CBC, CMP. He is requiring 65% FiO2 on 10 L heated high flow cannula. Will hold off further repeat labs. He is working with his family and case management to allow him to come home with hospice. Discussed with nursing, case advocate. Will downgrade his diet to minced and moist as he gets tired with regular diet. Continue care on medical surgical floor. Worsening hyperglycemia with steroid, switch to moderate insulin sliding scale. Risk of hyperglycemia with IV Solu-Medrol. Risk of uremia. Continue for now pending preparations for hospice care. He wants to be able to pass away at home. 11/05 with worsening condition, leukocytosis, respiratory failure, with consolidation/atelectasis in the right lower lobe, pleural effusion, as well as bilateral pulmonary edema and/or pneumonitis, possible aspiration. Had been broadened on antimicrobial regimen with linezolid, micafungin with prior Fernanda gallbladder and sputum culture on 10/21. 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 For now continuing on current supportive measures pending further determination pursuant to goals of care and overall condition. Hospice care would need to be on juvenal basis and case management is attempting to confirm this possibility. At current time patient declines to further pursue LTAC. Discussed also with his ex- (LONI), and he has made similar statements to her later on in the day during her visit on history obtained from his ex- during phone conversation. Extubated 10/30. Received a course of Decadron sara-extubation due to laryngeal edema. CT neck 10/25 while intubated with laryngeal edema with fullness of the glottic structures. Symmetric crowding of the nasopharynx with adenoid hypertrophy. Status post paracentesis 3L and repeat paracentesis on 11/01 when 3.5 L cc was removed. (2) Ascites: Ascitic fluid culture without growth on final study. Added to ascites studies. Paracentesis performed 10/21 and 11/01. 3L and 3500 removed respectively. Not suggestive of peritonitis. Qualifiers: Ascites type: other type Qualified Code(s): R18.8 - Other ascites (3) Lyhka-ps-sudrxyh kidney injury: Rise in BUN up to 82, creatinine 2.7. Given lack of significant response despite dialysis, with pleural effusion likely hepatic hydrothorax despite fluid removal with dialysis trial, despite presence of TIPS, with overall poor prognosis as per discussion with nephrology further dialysis is withheld. Qualifiers: Acute renal failure type: unspecified Chronic kidney disease stage: u nspecified stage Qualified Code(s): N17.9 - Acute kidney failure, unspecified; N18.9 - Chronic kidney disease, unspecified (4) Acute encephalopathy: Improved, he is awake and alert. At high risk of recurrence. He is able to converse about his condition. Tells me about his past history and hospitalizations. Realizes the severity of his condition. Understands the importance and consequences of goals of care discussions, understands transition to hospice, versus LTAC. Continue lactulose for hepatic encephalopathy, discussed with him target 2-3 bowel movements per day. Reassess renal function, at risk of uremia. Today also worsening of respiratory failure with CO2 retention, respiratory acidosis as above. Prior severe encephalopathy with altered mental status over the preceding 2 weeks, multifactorial. Possible polysubstance withdrawal, hepatic encephalopathy, uremia, and other metabolic encephalopathy. Possible withdrawal from home medications. And other causes. (5) HTN (hypertension): Blood pressure is better. Clonidine patch and hydralazine discontinued as per nephrology. For now continue with hydralazine 75 mg 3 times daily with holding parameters. Uptitrate for goal blood pressures. IV hydralazine 10 mg every 4 hours as needed for systolic blood pressure 160 mmHg. (6) Hyperammonemia: Ammonia level reviewed. Patient having bowel movements. Continue with rifaximin mean. Continue with lactulose every 12 hours. Uptitrated patient has 2 soft bowel movements a day. (7) CKD (chronic kidney disease): Do not have baseline creatinine. Patient gives history of CKD. (8) Hepatorenal syndrome: Worsening renal function. Levophed had to be stopped. Reduce dose of albumin infusions. (9) Cirrhosis: Post TIPS procedure. With evidence of cirrhosis on CT abdomen/pelvis and varices. With hyperammonemia. Hep C positive. HIV negative, ammonia level appreciated. Urine drug screen positive for cocaine and amphetamines. Appreciate INR level. Child perez score: Class C 10 points Lactulose and rifaximin as above. Off propranolol. Strict input charting, daily weights. Qualifiers: Ascites presence: with ascites Hepatic cirrhosis type: unspecified hepatic cirrhosis Qualified Code(s): K74.60 - Unspecified cirrhosis of liver; R18.8 - Other ascites (10) Anemia: Reviewed Hemoccult, negative. Thrombocytopenia, suspect related to cirrhosis. Gradually worsening anemia. But appears to have leveled off, hemoglobin. Negative hemoccult. Continue IV PPI twice daily. Monitor hemoglobin. Appreciate iron panel, vitamin B12, folate levels. (11) Hepatitis C: Reviewed HCV RNA PCR, not detected. Patient does not remember being treated in the past. Most likely need to set up with PCP as an outpatient for Follow-up. Plan Thrombocytopenia: Most likely in setting of chronic liver cirrhosis. Worsened down to 43 Given worsening uremia cannot rule out platelet dysfunction. DVT prophylaxis has been on hold. Analgesia: Continue with [place] every 6 hours as needed. Glycemic control: Not needed. A1c 4.6 Nutrition: Stop tube feeds. Start on dysphagia level 6 diet as per speech evaluation. CODE STATUS: Full code. Patient's ex- is her DPOA. PUD prophylaxis: Protonix DVT prophylaxis: Hold off on medical prophylaxis given thrombocytopenia, high risk of bleeding with possibility of platelet dysfunction in setting of uremia. Continues on SCDs. Pain control: Restarted gabapentin 200 mg 3 times daily, [place] every 6 hours as needed. Discharge plan: Arrangements for return home with hospice. This documentation was created by [employer] academic support coordinator software. Every effort was made to ensure accuracy of academic support coordinator. Any obvious errors or omissions should be clarified with the author of the document. Attestations 2 Medical Necessity Statement*: Continue admission for assessment management of respiratory failure, multiorgan dysfunction with underlying liver cirrhosis, care commensurate to adjusted patient goals, postdischarge planning and arrangements. and High MDM includes amount and/or complexity of data reviewed/ordered [ resulted lab(s)/test(s), ordered lab(s)/test(s) and other healthcare professional discussion] and described risk of complication, morbidity or mortality of management as documented Diagnoses Respiratory failure J96.90 Other ascites R18.8 Ascites type: other type Acute renal failure superimposed on chronic kidney disease, unspecified acute renal failure type, unspecified CKD stage N17.9; N18.9 Acute renal failure type: unspecified Chronic kidney disease stage: unspecified stage Acute encephalopathy G93.40 HTN (hypertension) I10 Hyperammonemia E72.20 CKD (chronic kidney disease) N18.9 Hepatorenal syndrome K76.7 Cirrhosis of liver with ascites, unspecified hepatic cirrhosis type K74.60; R18.8 Ascites presence: with ascites Hepatic cirrhosis type: unspecified hepatic cirrhosis Anemia D64.9 Hepatitis C B19.20
[2023-11-08 18:25] LABS: Glucose Point of Care 449 mg/dL (70-110)
[2023-11-08 20:23] LABS: Glucose Point of Care 423 mg/dL (70-110)
--- NOTE | 2023-11-08 20:29 | PC.NURSE ---
this nurse called report to Isa CHAN, patient is to go to room 269, family was notified of room change.
[2023-11-09] VITALS (16 sets, daily range): BP systolic 144–158; BP diastolic 66–76; PULSE 90–107; RESP 16–20; TEMP 36.4–36.8; O2SAT 95–97; BMI 25.6
[2023-11-09] MEDS: linezolid premix 600 MG/300 ML PREMIX 300 MG IV ×2 (01:58→14:35)
[2023-11-09] MEDS: methylPREDNISolone sod succ 40 mg/mL INJ IVP ×4 (01:58→20:42)
[2023-11-09] MEDS: ipratropium-albuterol 3 mL Neb INHALATION ×4 (02:28→19:41)
[2023-11-09] MEDS: pantoprazole 40 mg SDV IVP ×2 (03:07→14:36)
[2023-11-09 06:32] LABS: Glucose Point of Care 348 mg/dL (70-110)
[2023-11-09] MEDS: insulin lispro 100 unit/1 mL SUBCUT ×4 (06:40→21:10)
[2023-11-09] MEDS: sucralfate 1 gm/10 mL Oral Liq UDC PO ×4 (06:40→20:42)
[2023-11-09] MEDS: gabapentin 100 mg Capsule 200 MG PO ×3 (08:28→20:42)
[2023-11-09] MEDS: thiamine 100 mg Tablet PO (08:28)
[2023-11-09] MEDS: lactulose oral liq 20 gm/30 mL UDC 30 GM PO ×2 (08:28→17:56)
[2023-11-09] MEDS: divalproex Sprinkles 125 mg Capsule PO ×2 (08:28→17:56)
[2023-11-09] MEDS: BuSPIRONE 10 mg Tablet PO ×2 (08:28→17:56)
[2023-11-09] MEDS: guaiFENesin 600 mg Tablet PO ×2 (08:29→17:56)
[2023-11-09] MEDS: folic acid 1 mg Tablet PO (08:29)
[2023-11-09] MEDS: piperacillin-tazobactam 3.375 GM in sodium chloride 0.9% (plus) 50 ML IV ×2 (08:29→16:37)
[2023-11-09] MEDS: hyDRALAzine 50 mg Tablet 75 MG PO ×3 (08:30→20:42)
[2023-11-09] MEDS: morphine 4 mg/mL SDV 1 mL 2 MG IVP ×2 (10:51→18:19)
[2023-11-09 11:20] LABS: Glucose Point of Care 326 mg/dL (70-110)
[2023-11-09] MEDS: RIFAXIMIN 550 MG 1 EACH PO ×2 (12:03→17:56)
[2023-11-09] MEDS: micafungin 100 MG in sodium chloride 0.9% (plus) 100 ML IV (12:56)
[2023-11-09 17:02] LABS: Glucose Point of Care 453 mg/dL (70-110)
--- NOTE | 2023-11-09 18:45 | P.PN_ITS ---
Subjective 2 Subjective: no new c/o Medications: Reviewed: Yes Vitals/I&O/Wt Last Vital Signs Temp 97.6 F 11/09/23 15:40 Pulse 99 11/09/23 15:40 Resp 20 H 11/09/23 18:19 BP 144/68 11/09/23 15:40 Pulse Ox 96 11/09/23 15:40 O2 Del Method Nasal Cannula 11/09/23 15:40 O2 Flow Rate 10 11/09/23 13:19 FiO2 65 11/08/23 15:30 11/09/23 11/09/23 11/09/23 06:59 14:59 22:59 Intake Total 1450.000 / 2990.000 630 / 630 300 / 930 Output Total 150 / 350 300 / 300 Balance 1300.000 / 2640.000 630 / 630 0 / 630 Weight last 48 hrs Weight 75.977 kg Weight 69.853 kg Physical Exam 2 Narrative: Vital signs noted. no distress Urinary Catheter Management: [place]na: Cath Placed During This Visit: yes, but has since been removed by the nurse Reason for Continuing Indwelling Catheter: Acute Urinary Retention or Obstruction Urinary Catheter Date of Insertion: 11/04/23 Urinary Catheter Time of Insertion: 05:00 Date Urinary Catheter Removed: 11/03/23 Time Urinary Catheter Discontinued: 11:00 Data 11/08/23 04:36 11/08/23 04:36 Micro: Microbiology 11/02/23 19:10 Gram Stain - Final Peritoneal Fluid Anaerobic Culture - Final Body Fluid Culture - Final 11/03/23 14:50 Blood Culture - Final Blood NO GROWTH AFTER 5 DAYS A&P Assessment and plan (1) Ffxhv-xr-syfjiag kidney injury: 1. Acute on chronic kidney disease: Baseline creatinine not available, patient presented with a creatinine of 1.6 worsened to 3.6 mg/dl. He had an underlying ATN versus hepatorenal syndrome. I am now concerned that he may have developed ATN after paracentesis. Underlying CKD can be from liver disease versus toxicity from drugs. Avoid nephrotoxins and contrast studies. 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 2. The patient is status post a 1.5 L paracentesis 3. Liver cirrhosis , status post paracentesis continue IV albumin. Patient is status post TIPS recently. 4. anemia and thrombocytopenia - likely from liver disease. 5. htn - on amlodipine 10 mg po d. clonidine patch and hydralazine. Blood pressure is decreased will decrease medications 6. Anemia with high iron saturation. s/p Epogen. 7. Acute encephalopathy improved 8. Laryngeal edema appears to improved. He continues on steroids 9. Hepatitis C positive as per medical team the patient and urine drug screen positive for cocaine and amphetamines on admission. - his child's Huddleston score was class C 10 points Medications reviewed in detail Patient evaluated using audiovisual cart and RN examined pt Qualifiers: Acute renal failure type: unspecified Chronic kidney disease stage: u nspecified stage Qualified Code(s): N17.9 - Acute kidney failure, unspecified; N18.9 - Chronic kidney disease, unspecified Plan see above Attestations 2 Medical Necessity Statement*: per [facility] Coding Level of Care Code Acute Code for Chg Fwd Diagnoses Acute renal failure superimposed on chronic kidney disease, unspecified acute renal failure type, unspecified CKD stage N17.9; N18.9 Acute renal failure type: unspecified Chronic kidney disease stage: unspecified stage
[2023-11-09 20:53] LABS: Glucose Point of Care 361 mg/dL (70-110)
--- NOTE | 2023-11-09 23:11 | P.PN_ITS ---
Subjective 2 Subjective: He is working with his family and case management on trying to return home. Equipment is being ordered for him. He has to be repositioned in bed and we do so with the help of the aide. Vitals/I&O/Wt Last Vital Signs Temp 97.6 F 11/09/23 20:00 Pulse 93 11/09/23 22:00 Resp 17 11/09/23 20:00 BP 158/76 11/09/23 20:00 Pulse Ox 97 11/09/23 20:00 O2 Del Method Nasal Cannula 11/09/23 20:00 O2 Flow Rate 10 11/09/23 19:42 FiO2 65 11/08/23 15:30 11/09/23 11/09/23 11/10/23 14:59 22:59 06:59 Intake Total 630 / 630 350 / 980 Output Total 300 / 300 Balance 630 / 630 50 / 680 Weight last 48 hrs Weight 75.977 kg Weight 69.853 kg Physical Exam 2 Narrative: On heated high flow, wakes up to voice, lucid. Const: COMMON NORMALS: alert GENERAL APPEARANCE: patient mechanically ventilated Eye: OTHER: Pupils equal. Neck/C-Spine: COMMON NORMALS: no JVD Resp: COMMON NORMALS: clear to auscultation bilaterally EFFORT & INSPECTION: Yes tachypneic AUSCULTATION: clear to auscultation bilaterally and wheezes (lower lungs) Cardio: COMMON NORMALS: no JVD, regular rhythm, S1 normal heart sound present, S2 normal heart sound present and No murmurs present (Cardio) RHYTHM: regular rhythm HEART SOUNDS: S1 normal heart sound present and S2 normal heart sound present GI: COMMON NORMALS: Normal to inspection, nondistended, normoactive bowel sounds present, Soft to palpation and non-tender PALPATION: Yes Soft to palpation : OTHER: Producing urine. Extremity: COMMON NORMALS: no joint enlargement and no pedal edema OTHER: Anasarca. Improved edema hands. 2+ edema LE Neuro: SENSORIUM/ORIENTATION: Yes alert Skin: COMMON NORMALS: no rashes or lesions noted GENERAL SKIN EXAM: no rashes or lesions noted Urinary Catheter Management: Cast[place]na: Cath Placed During This Visit: yes, but has since been removed by the nurse Reason for Continuing Indwelling Catheter: Acute Urinary Retention or Obstruction Urinary Catheter Date of Insertion: 11/04/23 Urinary Catheter Time of Insertion: 05:00 Date Urinary Catheter Removed: 11/03/23 Time Urinary Catheter Discontinued: 11:00 Data 11/08/23 04:36 11/08/23 04:36 Micro: Microbiology 11/02/23 19:10 Gram Stain - Final Peritoneal Fluid Anaerobic Culture - Final Body Fluid Culture - Final A&P Assessment and plan (1) Encounter for hospice care discussion: Continue arrangements for him to be able to return home with hospice. Equipment is being requested for him. [facility] has not yet accepted him. He is hoping to be able to return home. Discussed with dependency case manager, nursing. Respiratory therapy. (2) Respiratory failure: We will stop Solu-Medrol, switch to prednisone. Switch IV antibiotics to Augmentin and oral linezolid. 11/05 with worsening condition, leukocytosis, respiratory failure, with consolidation/atelectasis in the right lower lobe, pleural effusion, as well as bilateral pulmonary edema and/or pneumonitis, possible aspiration. Had been broadened on antimicrobial regimen with linezolid, micafungin with prior Fernanda gallbladder and sputum culture on 10/21. 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 For now continuing on current supportive measures pending further determination pursuant to goals of care and overall condition. Hospice care would need to be on juvenal basis and case management is attempting to confirm this possibility. At current time patient declines to further pursue LTAC. Discussed also with his ex- (LONI), and he has made similar statements to her later on in the day during her visit on history obtained from his ex- during phone conversation. Extubated 10/30. Received a course of Decadron sara-extubation due to laryngeal edema. CT neck 10/25 while intubated with laryngeal edema with fullness of the glottic structures. Symmetric crowding of the nasopharynx with adenoid hypertrophy. Status post paracentesis 3L and repeat paracentesis on 11/01 when 3.5 L cc was removed. (3) Ascites: Ascitic fluid culture without growth on final study. Added to ascites studies. Paracentesis performed 10/21 and 11/01. 3L and 3500 removed respectively. Not suggestive of peritonitis. Qualifiers: Ascites type: other type Qualified Code(s): R18.8 - Other ascites (4) Ubjjp-lc-qjqnqhg kidney injury: Rise in BUN up to 82, creatinine 2.7. Given lack of significant response despite dialysis, with pleural effusion likely hepatic hydrothorax despite fluid removal with dialysis trial, despite presence of TIPS, with overall poor prognosis as per discussion with nephrology further dialysis is withheld. Qualifiers: Acute renal failure type: unspecified Chronic kidney disease stage: u nspecified stage Qualified Code(s): N17.9 - Acute kidney failure, unspecified; N18.9 - Chronic kidney disease, unspecified (5) Acute encephalopathy: Improved, he is awake and alert. At high risk of recurrence. He is able to converse about his condition. Tells me about his past history and hospitalizations. Realizes the severity of his condition. Understands the importance and consequences of goals of care discussions, understands transition to hospice, versus LTAC. Continue lactulose for hepatic encephalopathy, discussed with him target 2-3 bowel movements per day. Reassess renal function, at risk of uremia. Today also worsening of respiratory failure with CO2 retention, respiratory acidosis as above. Prior severe encephalopathy with altered mental status over the preceding 2 weeks, multifactorial. Possible polysubstance withdrawal, hepatic encephalopathy, uremia, and other metabolic encephalopathy. Possible withdrawal from home medications. And other causes. (6) HTN (hypertension): Blood pressure is better. Clonidine patch and hydralazine discontinued as per nephrology. For now continue with hydralazine 75 mg 3 times daily with holding parameters. Uptitrate for goal blood pressures. IV hydralazine 10 mg every 4 hours as needed for systolic blood pressure 160 mmHg. (7) Hyperammonemia: Ammonia level reviewed. Patient having bowel movements. Continue with rifaximin mean. Continue with lactulose every 12 hours. Uptitrated patient has 2 soft bowel movements a day. (8) CKD (chronic kidney disease): Do not have baseline creatinine. Patient gives history of CKD. (9) Hepatorenal syndrome: Worsening renal function. Levophed had to be stopped. Reduce dose of albumin infusions. (10) Cirrhosis: Post TIPS procedure. With evidence of cirrhosis on CT abdomen/pelvis and varices. With hyperammonemia. Hep C positive. HIV negative, ammonia level appreciated. Urine drug screen positive for cocaine and amphetamines. Appreciate INR level. Child perez score: Class C 10 points Lactulose and rifaximin as above. Off propranolol. Strict input charting, daily weights. Qualifiers: Ascites presence: with ascites Hepatic cirrhosis type: unspecified hepatic cirrhosis Qualified Code(s): K74.60 - Unspecified cirrhosis of liver; R18.8 - Other ascites (11) Anemia: Reviewed Hemoccult, negative. Thrombocytopenia, suspect related to cirrhosis. Gradually worsening anemia. But appears to have leveled off, hemoglobin. Negative hemoccult. Continue IV PPI twice daily. Monitor hemoglobin. Appreciate iron panel, vitamin B12, folate levels. (12) Hepatitis C: Reviewed HCV RNA PCR, not detected. Patient does not remember being treated in the past. Most likely need to set up with PCP as an outpatient for Follow-up. Plan Thrombocytopenia: Most likely in setting of chronic liver cirrhosis. Worsened down to 43 Given worsening uremia cannot rule out platelet dysfunction. DVT prophylaxis has been on hold. Analgesia: Continue with [place] every 6 hours as needed. Glycemic control: Not needed. A1c 4.6 Nutrition: Stop tube feeds. Start on dysphagia level 6 diet as per speech evaluation. CODE STATUS: Full code. Patient's ex- is her DPOA. PUD prophylaxis: Protonix DVT prophylaxis: Hold off on medical prophylaxis given thrombocytopenia, high risk of bleeding with possibility of platelet dysfunction in setting of uremia. Continues on SCDs. Pain control: Restarted gabapentin 200 mg 3 times daily, [place] every 6 hours as needed. Discharge plan: Arrangements for return home with hospice. This documentation was created by [employer] waiter/waitress economy class software. Every effort was made to ensure accuracy of waiter/waitress economy class. Any obvious errors or omissions should be clarified with the author of the document. Attestations 2 Medical Necessity Statement*: Continue admission for assessment management of respiratory failure, multiorgan dysfunction with underlying liver cirrhosis, care commensurate to adjusted patient goals, postdischarge planning and arrangements. Diagnoses Encounter for hospice care discussion Z71.89 Respiratory failure J96.90 Other ascites R18.8 Ascites type: other type Acute renal failure superimposed on chronic kidney disease, unspecified acute renal failure type, unspecified CKD stage N17.9; N18.9 Acute renal failure type: unspecified Chronic kidney disease stage: unspecified stage Acute encephalopathy G93.40 HTN (hypertension) I10 Hyperammonemia E72.20 CKD (chronic kidney disease) N18.9 Hepatorenal syndrome K76.7 Cirrhosis of liver with ascites, unspecified hepatic cirrhosis type K74.60; R18.8 Ascites presence: with ascites Hepatic cirrhosis type: unspecified hepatic cirrhosis Anemia D64.9 Hepatitis C B19.20
[2023-11-10] VITALS (17 sets, daily range): BP systolic 115–157; BP diastolic 68–82; PULSE 67–103; RESP 13–18; TEMP 36.3–36.9; O2SAT 93–99
[2023-11-10] MEDS: piperacillin-tazobactam 3.375 GM in sodium chloride 0.9% (plus) 50 ML IV (00:31)
[2023-11-10] MEDS: ipratropium-albuterol 3 mL Neb INHALATION ×4 (02:09→20:27)
[2023-11-10] MEDS: pantoprazole 40 mg SDV IVP (02:21)
[2023-11-10] MEDS: linezolid premix 600 MG/300 ML PREMIX 300 MG IV (02:22)
[2023-11-10] MEDS: morphine 4 mg/mL SDV 1 mL 2 MG IVP ×2 (05:57→22:49)
[2023-11-10 07:01] LABS: Glucose Point of Care 400 mg/dL (70-110)
[2023-11-10] MEDS: insulin lispro 100 unit/1 mL SUBCUT ×2 (09:05→21:10)
[2023-11-10 11:02] LABS: Glucose Point of Care 408 mg/dL (70-110)
[2023-11-10 16:32] LABS: Glucose Point of Care 326 mg/dL (70-110)
--- NOTE | 2023-11-10 18:47 | P.PN_ITS ---
Subjective 2 Subjective: He has been experiencing pain in multiple body parts. Including his lower back, legs. He was declined by [facility] hospice. He declined his medications today. He requested to add pain control for comfort. He had also discussed this with his ex-. His family were bringing him Damion Pham today and he very much enjoyed the entire meal. Vitals/I&O/Wt Last Vital Signs Temp 98.4 F 11/10/23 15:40 Pulse 90 11/10/23 15:40 Resp 18 11/10/23 15:40 BP 138/68 11/10/23 15:40 Pulse Ox 99 11/10/23 15:40 O2 Del Method Nasal Cannula 11/10/23 15:40 O2 Flow Rate 9 11/10/23 14:52 FiO2 65 11/08/23 15:30 11/10/23 11/10/23 11/10/23 06:59 14:59 22:59 Intake Total 400 / 1380 480 / 480 Output Total 225 / 525 450 / 450 Balance 175 / 855 480 / 480 -450 / 30 Weight last 48 hrs Weight 78.97 kg Weight 76.43 kg Weight 75.977 kg Weight 69.853 kg Physical Exam 2 Narrative: On heated high flow, wakes up to voice, lucid. Const: COMMON NORMALS: alert GENERAL APPEARANCE: patient mechanically ventilated Eye: OTHER: Pupils equal. Neck/C-Spine: COMMON NORMALS: no JVD Resp: COMMON NORMALS: clear to auscultation bilaterally EFFORT & INSPECTION: Yes tachypneic AUSCULTATION: clear to auscultation bilaterally and wheezes (lower lungs) Cardio: COMMON NORMALS: no JVD, regular rhythm, S1 normal heart sound present, S2 normal heart sound present and No murmurs present (Cardio) RHYTHM: regular rhythm HEART SOUNDS: S1 normal heart sound present and S2 normal heart sound present GI: COMMON NORMALS: Normal to inspection, nondistended, normoactive bowel sounds present, Soft to palpation and non-tender PALPATION: Yes Soft to palpation Extremity: COMMON NORMALS: no joint enlargement and no pedal edema OTHER: Anasarca. Improved edema hands. 2+ edema LE Neuro: SENSORIUM/ORIENTATION: Yes alert Skin: COMMON NORMALS: no rashes or lesions noted GENERAL SKIN EXAM: no rashes or lesions noted Urinary Catheter Management: Castorena: Cath Placed During This Visit: yes, but has since been removed by the nurse Reason for Continuing Indwelling Catheter: Other Urinary Catheter Date of Insertion: 11/04/23 Urinary Catheter Time of Insertion: 05:00 Date Urinary Catheter Removed: 11/03/23 Time Urinary Catheter Discontinued: 11:00 Data 11/08/23 04:36 11/08/23 04:36 A&P Assessment and plan (1) Encounter for hospice care discussion: Per discussion with nursing staff declined by [facility]. Will need to resume arrangements for hospice on Sunday when case management is back. In the meantime he has declined his medications today, requested addition of pain control for comfort. He also discussed this with his ex- who is his DPJANETH. (2) Respiratory failure: She declines today's medications. If allows continue prednisone. Augmentin and oral linezolid. Otherwise continue supportive measures alone pending preparations for hospice care. Unless he decides to transition to full comfort measures. Reviewed blood culture, no growth after 5 days. Reviewed mycobacterial smear, preliminary no acid-fast bacilli. 11/05 with worsening condition, leukocytosis, respiratory failure, with consolidation/atelectasis in the right lower lobe, pleural effusion, as well as bilateral pulmonary edema and/or pneumonitis, possible aspiration. Had been broadened on antimicrobial regimen with linezolid, micafungin with prior Fernanda gallbladder and sputum culture on 10/21. 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 For now continuing on current supportive measures pending further determination pursuant to goals of care and overall condition. Hospice care would need to be on juvenal basis and case management is attempting to confirm this possibility. At current time patient declines to further pursue LTAC. Discussed also with his ex- (LONI), and he has made similar statements to her later on in the day during her visit on history obtained from his ex- during phone conversation. Extubated 10/30. Received a course of Decadron sara-extubation due to laryngeal edema. CT neck 10/25 while intubated with laryngeal edema with fullness of the glottic structures. Symmetric crowding of the nasopharynx with adenoid hypertrophy. Status post paracentesis 3L and repeat paracentesis on 11/01 when 3.5 L cc was removed. (3) Hyperglycemia: Add Lantus insulin. Continue sliding scale. Continue POC glucose checks unless switches to complete comfort care. (4) Ascites: Ascitic fluid culture without growth on final study. Added to ascites studies. Paracentesis performed 10/21 and 11/01. 3L and 3500 removed respectively. Not suggestive of peritonitis. Qualifiers: Ascites type: other type Qualified Code(s): R18.8 - Other ascites (5) [id number] kidney injury: Rise in BUN up to 82, creatinine 2.7. Given lack of significant response despite dialysis, with pleural effusion likely hepatic hydrothorax despite fluid removal with dialysis trial, despite presence of TIPS, with overall poor prognosis as per discussion with nephrology further dialysis is withheld. Qualifiers: Acute renal failure type: unspecified Chronic kidney disease stage: u nspecified stage Qualified Code(s): N17.9 - Acute kidney failure, unspecified; N18.9 - Chronic kidney disease, unspecified (6) Acute encephalopathy: Improved, he is awake and alert. At high risk of recurrence. He is able to converse about his condition. Tells me about his past history and hospitalizations. Realizes the severity of his condition. Understands the importance and consequences of goals of care discussions, understands transition to hospice, versus LTAC. Continue lactulose for hepatic encephalopathy, discussed with him target 2-3 bowel movements per day. Reassess renal function, at risk of uremia. Today also worsening of respiratory failure with CO2 retention, respiratory acidosis as above. Prior severe encephalopathy with altered mental status over the preceding 2 weeks, multifactorial. Possible polysubstance withdrawal, hepatic encephalopathy, uremia, and other metabolic encephalopathy. Possible withdrawal from home medications. And other causes. (7) HTN (hypertension): Blood pressure is better. Clonidine patch and hydralazine discontinued as per nephrology. For now continue with hydralazine 75 mg 3 times daily with holding parameters. Uptitrate for goal blood pressures. IV hydralazine 10 mg every 4 hours as needed for systolic blood pressure 160 mmHg. (8) Hyperammonemia: Ammonia level reviewed. Patient having bowel movements. Continue with rifaximin mean. Continue with lactulose every 12 hours. Uptitrated patient has 2 soft bowel movements a day. (9) CKD (chronic kidney disease): Do not have baseline creatinine. Patient gives history of CKD. (10) Hepatorenal syndrome: Worsening renal function. Levophed had to be stopped. Reduce dose of albumin infusions. (11) Cirrhosis: Post TIPS procedure. With evidence of cirrhosis on CT abdomen/pelvis and varices. With hyperammonemia. Hep C positive. HIV negative, ammonia level appreciated. Urine drug screen positive for cocaine and amphetamines. Appreciate INR level. Child perez score: Class C 10 points Lactulose and rifaximin as above. Off propranolol. Strict input charting, daily weights. Qualifiers: Ascites presence: with ascites Hepatic cirrhosis type: unspecified hepatic cirrhosis Qualified Code(s): K74.60 - Unspecified cirrhosis of liver; R18.8 - Other ascites (12) Anemia: Reviewed Hemoccult, negative. Thrombocytopenia, suspect related to cirrhosis. Gradually worsening anemia. But appears to have leveled off, hemoglobin. Negative hemoccult. Continue IV PPI twice daily. Monitor hemoglobin. Appreciate iron panel, vitamin B12, folate levels. (13) Hepatitis C: Reviewed HCV RNA PCR, not detected. Patient does not remember being treated in the past. Most likely need to set up with PCP as an outpatient for Follow-up. Plan Thrombocytopenia: Most likely in setting of chronic liver cirrhosis. Worsened down to 43 Given worsening uremia cannot rule out platelet dysfunction. DVT prophylaxis has been on hold. Analgesia: Continue with [place] every 6 hours as needed. Glycemic control: Not needed. A1c 4.6 Nutrition: Stop tube feeds. Start on dysphagia level 6 diet as per speech evaluation. CODE STATUS: Full code. Patient's ex- is her DPOA. PUD prophylaxis: Protonix DVT prophylaxis: Hold off on medical prophylaxis given thrombocytopenia, high risk of bleeding with possibility of platelet dysfunction in setting of uremia. Continues on SCDs. Pain control: Restarted gabapentin 200 mg 3 times daily, [place] every 6 hours as needed. Discharge plan: Arrangements for return home with hospice. This documentation was created by [employer] mortgage loan underwriter software. Every effort was made to ensure accuracy of mortgage loan underwriter. Any obvious errors or omissions should be clarified with the author of the document. Attestations 2 Medical Necessity Statement*: Continue admission for assessment management of respiratory failure, multiorgan dysfunction with underlying liver cirrhosis, care commensurate to adjusted patient goals, postdischarge planning and arrangements. Diagnoses Encounter for hospice care discussion Z71.89 Respiratory failure J96.90 Hyperglycemia R73.9 Other ascites R18.8 Ascites type: other type Acute renal failure superimposed on chronic kidney disease, unspecified acute renal failure type, unspecified CKD stage N17.9; N18.9 Acute renal failure type: unspecified Chronic kidney disease stage: unspecified stage Acute encephalopathy G93.40 HTN (hypertension) I10 Hyperammonemia E72.20 CKD (chronic kidney disease) N18.9 Hepatorenal syndrome K76.7 Cirrhosis of liver with ascites, unspecified hepatic cirrhosis type K74.60; R18.8 Ascites presence: with ascites Hepatic cirrhosis type: unspecified hepatic cirrhosis Anemia D64.9 Hepatitis C B19.20
[2023-11-10 20:44] LABS: Glucose Point of Care 386 mg/dL (70-110)
[2023-11-10] MEDS: morphine 10 mg/0.5 mL oral liq UD 5 MG PO (21:09)
[2023-11-10] MEDS: benzonatate 100 mg Capsule PO (23:10)
[2023-11-11] VITALS (10 sets, daily range): BP systolic 95–162; BP diastolic 51–77; PULSE 63–104; RESP 10–22; TEMP 34.7–36.4; O2SAT 87–98
[2023-11-11] MEDS: ipratropium-albuterol 3 mL Neb INHALATION (01:49)
[2023-11-11] MEDS: morphine 4 mg/mL SDV 1 mL 2 MG IVP (05:59)
[2023-11-11 06:52] LABS: Glucose Point of Care 268 mg/dL (70-110)
[2023-11-11] MEDS: morphine 10 mg/0.5 mL oral liq UD 5 MG PO ×3 (10:41→20:34)
--- NOTE | 2023-11-11 10:49 | PC.NURSE ---
Spoke with Dr Hassan regarding admin of pt meds; he stated to hold all ordered medications except for Morphine. Waiting on acceptance to hospice/comfort care.
--- NOTE | 2023-11-11 12:54 | PM.PN ---
Subjective Subjective: He has been having some pain. Medications: Reviewed: Yes Medication Review Details: Current Medications Acetaminophen (Acetaminophen 325 Mg Tablet) 500 mg PO Q8H PRN PRN Reason: Mild/Mod Pain Or Temp >/= 101 Hydrocodone Bitart/Acetaminophen (Hydrocodone-Acetaminophen 5-325 Mg Tablet) 1 tab PO Q6H PRN PRN Reason: MODERATE PAIN Last Admin: 11/03/23 20:59 Dose: 1 tab Albuterol/Ipratropium (Ipratropium-Albuterol 3 Ml Neb) 3 ml INHALATION Q6H.RESP [facility] Last Admin: 11/04/23 07:12 Dose: 3 ml Amlodipine Besylate (Amlodipine 5 Mg Tablet) 10 mg PO DAILY [facility] Last Admin: 11/03/23 08:21 Dose: 10 mg Bisacodyl (Bisacodyl 5 Mg Tablet) 10 mg PO DAILY PRN; Protocol PRN Reason: Constipation (see protocol) Buspirone HCl (Buspirone 10 Mg Tablet) 10 mg PO BID [facility] Last Admin: 11/03/23 17:10 Dose: 10 mg Camphor/Menthol/Phenol (Blistex Lip Oint 7 Gm Tube) 1 applic TOPICAL PRN PRN PRN Reason: DRYNESS Last Admin: 11/01/23 12:32 Dose: 1 applic Clonidine HCl (Clonidine 0.2 Mg/24 Hr Patch) 1 patch TRANSDERMA Q7D [facility] Last Admin: 10/29/23 13:19 Dose: 1 patch Dexamethasone (Dexamethasone 10 Mg/Ml Inj) 6 mg IVP Q24H [facility] Stop: 11/05/23 12:29 Last Admin: 11/03/23 12:08 Dose: 6 mg Divalproex Sodium (Divalproex Sprinkles 125 Mg Capsule) 125 mg PO BID [facility] Last Admin: 11/03/23 17:10 Dose: 125 mg Folic Acid (Folic Acid 1 Mg Tablet) 1 mg PO DAILY [facility] Last Admin: 11/03/23 08:21 Dose: 1 mg Gabapentin (Gabapentin 100 Mg Capsule) 200 mg PO TID [facility] Last Admin: 11/03/23 20:58 Dose: 200 mg Glucagon (Glucagon 1 Mg/Ml Kit 1 Ml) 1 mg IM ONCE PRN; Protocol PRN Reason: Adult Acute Hypoglycemia Nursing Prot. Hydralazine HCl (Hydralazine 20 Mg/Ml Inj 1 Ml) 10 mg IVP Q4H PRN PRN Reason: SBP More than 160 mmhg Last Admin: 11/02/23 02:05 Dose: 10 mg Hydralazine HCl (Hydralazine 50 Mg Tablet) 75 mg PO TID [facility] Last Admin: 11/03/23 20:58 Dose: 75 mg Albumin Human (Albumin) 37.5 gm in 150 mls @ 60 mls/hr IV DAILY [facility] Last Infusion: 11/03/23 17:39 Dose: Infused Dextrose (D5w) 500 mls @ 0 mls/hr IV ONCE PRN; Protocol PRN Reason: Adult Acute Hypoglycemia Prot Dextrose (D10w) 125 mls @ 750 mls/hr IV PRN PRN; Protocol PRN Reason: Adult Acute Hypoglycemia Nursing Protocol Dextrose (D10w) 250 mls @ 1,000 mls/hr IV PRN PRN; Protocol PRN Reason: Adult Acute Hypoglycemia Nursing Protocol Furosemide 100 mg/ Sodium (Chloride) 50 mls @ 4 mls/hr IV .[id number] [facility]; Protocol Insulin Human Lispro (Insulin Lispro 100 Unit/1 Ml) 0 unit SUBCUT AC&BEDTIME [facility]; Protocol Last Admin: 11/04/23 06:57 Dose: 8 unit Lactulose (Lactulose Oral Liq 20 Gm/30 Ml Udc) 30 gm PO BID [facility]; Protocol Last Admin: 11/03/23 17:09 Dose: 30 gm Magnesium Hydroxide (Magnesium Hydroxide 30 Ml Udc) 30 ml PO DAILY PRN; Protocol PRN Reason: Constipation (see protocol) Last Admin: 10/22/23 10:47 Dose: 30 ml Non-Formulary Med ( Rifaximin 550mg Tablets) 1 each PO BID [facility] Last Admin: 11/03/23 17:10 Dose: 1 each Ondansetron HCl (Ondansetron 2 Mg/Ml Sdv 2 Ml) 4 mg IVP Q8H PRN PRN Reason: vomiting, or N/V if npo Pantoprazole Sodium (Pantoprazole 40 Mg Sdv) 40 mg IVP Q12H [facility] Last Admin: 11/04/23 02:58 Dose: 40 mg Saliva Substitute (Saliva Stimulant [place] 30 Ml Btl) 1 spray MUCOUS MEM PRN PRN PRN Reason: Dry mouth Last Admin: 11/01/23 12:15 Dose: 1 spray Sucralfate (Sucralfate 1 Gm/10 Ml Oral Liq Udc) 1 gm PO AC&BEDTIME [facility] Last Admin: 11/04/23 06:56 Dose: 1 gm Thiamine Mononitrate (Thiamine 100 Mg Tablet) 100 mg PO DAILY [facility] Last Admin: 11/03/23 08:21 Dose: 100 mg Vitals/I&O/Wt Last Vital Signs Temp 97 F L 11/11/23 08:00 Pulse 101 H 11/11/23 08:00 Resp 22 H 11/11/23 08:00 BP 162/76 11/11/23 08:00 Pulse Ox 88 L 11/11/23 08:00 O2 Del Method Nasal Cannula 11/11/23 08:00 O2 Flow Rate 4 11/11/23 08:00 FiO2 65 11/08/23 15:30 11/10/23 11/11/23 11/11/23 22:59 06:59 14:59 Intake Total 240 / 720 Output Total 450 / 450 100 / 550 Balance -210 / 270 -100 / 170 Weight last 48 hrs Weight 80.467 kg Weight 78.97 kg Weight 76.43 kg Physical Exam Narrative: Accompanied by his son. Today he is more somnolent. Briefly wakes up to voice. Const: COMMON NORMALS: alert GENERAL APPEARANCE: patient mechanically ventilated Eye: OTHER: Pupils equal. Neck/C-Spine: COMMON NORMALS: no JVD Resp: EFFORT & INSPECTION: Yes labored AUSCULTATION: rhonchi and wheezes (lower lungs) Cardio: COMMON NORMALS: no JVD, regular rhythm, S1 normal heart sound present, S2 normal heart sound present and No murmurs present (Cardio) RHYTHM: regular rhythm HEART SOUNDS: S1 normal heart sound present and S2 normal heart sound present GI: COMMON NORMALS: Normal to inspection, nondistended, normoactive bowel sounds present, Soft to palpation and non-tender PALPATION: Yes Soft to palpation Extremity: COMMON NORMALS: no joint enlargement and no pedal edema OTHER: Anasarca. Improved edema hands. 2+ edema LE Neuro: SENSORIUM/ORIENTATION: Yes alert Skin: COMMON NORMALS: no rashes or lesions noted GENERAL SKIN EXAM: no rashes or lesions noted Urinary Catheter Management: [place]na: Cath Placed During This Visit: yes, but has since been removed by the nurse Reason for Continuing Indwelling Catheter: Other Urinary Catheter Date of Insertion: 11/04/23 Urinary Catheter Time of Insertion: 05:00 Date Urinary Catheter Removed: 11/03/23 Time Urinary Catheter Discontinued: 11:00 Data 11/08/23 04:36 11/08/23 04:36 A&P Assessment and plan (1) Encounter for hospice care discussion: Per discussion with nursing staff declined by [facility]. Resume attempt for hospice on Sunday when case management is back. Overnight requested for comfort measures. These have been started. (2) Respiratory failure: He is more somnolent, weaker, rhonchi, increased respiratory effort. On comfort measures. Tomorrow consideration if arrangements can be made for him to return home as he did want to pass away at home. Discussed with his son at bedside. 11/05 with worsening condition, leukocytosis, respiratory failure, with consolidation/atelectasis in the right lower lobe, pleural effusion, as well as bilateral pulmonary edema and/or pneumonitis, possible aspiration. Had been broadened on antimicrobial regimen with linezolid, micafungin with prior Fernanda gallbladder and sputum culture on 10/21. 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 For now continuing on current supportive measures pending further determination pursuant to goals of care and overall condition. Hospice care would need to be on juvenal basis and case management is attempting to confirm this possibility. At current time patient declines to further pursue LTAC. Discussed also with his ex- (LONI), and he has made similar statements to her later on in the day during her visit on history obtained from his ex- during phone conversation. Extubated 10/30. Received a course of Decadron sara-extubation due to laryngeal edema. CT neck 10/25 while intubated with laryngeal edema with fullness of the glottic structures. Symmetric crowding of the nasopharynx with adenoid hypertrophy. Status post paracentesis 3L and repeat paracentesis on 11/01 when 3.5 L cc was removed. (3) Hyperglycemia: (4) Ascites: Ascitic fluid culture without growth on final study. Added to ascites studies. Paracentesis performed 10/21 and 11/01. 3L and 3500 removed respectively. Not suggestive of peritonitis. Qualifiers: Ascites type: other type Qualified Code(s): R18.8 - Other ascites (5) [id number]-[id number] kidney injury: Rise in BUN up to 82, creatinine 2.7. Given lack of significant response despite dialysis, with pleural effusion likely hepatic hydrothorax despite fluid removal with dialysis trial, despite presence of TIPS, with overall poor prognosis as per discussion with nephrology further dialysis is withheld. Qualifiers: Acute renal failure type: unspecified Chronic kidney disease stage: unspecified stage Qualified Code(s): N17.9 - Acute kidney failure, unspecified; N18.9 - Chronic kidney disease, unspecified (6) Acute encephalopathy: Improved, he is awake and alert. At high risk of recurrence. He is able to converse about his condition. Tells me about his past history and hospitalizations. Realizes the severity of his condition. Understands the importance and consequences of goals of care discussions, understands transition to hospice, versus LTAC. Continue lactulose for hepatic encephalopathy, discussed with him target 2-3 bowel movements per day. Reassess renal function, at risk of uremia. Today also worsening of respiratory failure with CO2 retention, respiratory acidosis as above. Prior severe encephalopathy with altered mental status over the preceding 2 weeks, multifactorial. Possible polysubstance withdrawal, hepatic encephalopathy, uremia, and other metabolic encephalopathy. Possible withdrawal from home medications. And other causes. (7) HTN (hypertension): Blood pressure is better. Clonidine patch and hydralazine discontinued as per nephrology. For now continue with hydralazine 75 mg 3 times daily with holding parameters. Uptitrate for goal blood pressures. IV hydralazine 10 mg every 4 hours as needed for systolic blood pressure 160 mmHg. (8) Hyperammonemia: Ammonia level reviewed. Patient having bowel movements. Continue with rifaximin mean. Continue with lactulose every 12 hours. Uptitrated patient has 2 soft bowel movements a day. (9) CKD (chronic kidney disease): Do not have baseline creatinine. Patient gives history of CKD. (10) Hepatorenal syndrome: Worsening renal function. Levophed had to be stopped. Reduce dose of albumin infusions. (11) Cirrhosis: Post TIPS procedure. With evidence of cirrhosis on CT abdomen/pelvis and varices. With hyperammonemia. Hep C positive. HIV negative, ammonia level appreciated. Urine drug screen positive for cocaine and amphetamines. Appreciate INR level. Child perez score: Class C 10 points Lactulose and rifaximin as above. Off propranolol. Strict input charting, daily weights. Qualifiers: Ascites presence: with ascites Hepatic cirrhosis type: unspecified hepatic cirrhosis Qualified Code(s): K74.60 - Unspecified cirrhosis of liver; R18.8 - Other ascites (12) Anemia: Reviewed Hemoccult, negative. Thrombocytopenia, suspect related to cirrhosis. Gradually worsening anemia. But appears to have leveled off, hemoglobin. Negative hemoccult. Continue IV PPI twice daily. Monitor hemoglobin. Appreciate iron panel, vitamin B12, folate levels. (13) Hepatitis C: Reviewed HCV RNA PCR, not detected. Patient does not remember being treated in the past. Most likely need to set up with PCP as an outpatient for Follow-up. Plan Thrombocytopenia: Most likely in setting of chronic liver cirrhosis. Worsened down to 43 Given worsening uremia cannot rule out platelet dysfunction. DVT prophylaxis has been on hold. Analgesia: Continue with [place] every 6 hours as needed. Glycemic control: Not needed. A1c 4.6 Nutrition: Stop tube feeds. Start on dysphagia level 6 diet as per speech evaluation. CODE STATUS: Full code. Patient's ex- is her DPOA. PUD prophylaxis: Protonix DVT prophylaxis: Hold off on medical prophylaxis given thrombocytopenia, high risk of bleeding with possibility of platelet dysfunction in setting of uremia. Continues on SCDs. Pain control: Restarted gabapentin 200 mg 3 times daily, [place] every 6 hours as needed. Discharge plan: Arrangements for return home with hospice. This documentation was created by [employer] policy cancellation clerk software. Every effort was made to ensure accuracy of policy cancellation clerk. Any obvious errors or omissions should be clarified with the author of the document. Attestations Medical Necessity Statement*: Continue end-of-life care. Diagnoses Encounter for hospice care discussion Z71.89 Respiratory failure J96.90 Hyperglycemia R73.9 Other ascites R18.8 Ascites type: other type Acute renal failure superimposed on chronic kidney disease, unspecified acute renal failure type, unspecified CKD stage N17.9; N18.9 Acute renal failure type: unspecified Chronic kidney disease stage: unspecified stage Acute encephalopathy G93.40 HTN (hypertension) I10 Hyperammonemia E72.20 CKD (chronic kidney disease) N18.9 Hepatorenal syndrome K76.7 Cirrhosis of liver with ascites, unspecified hepatic cirrhosis type K74.60; R18.8 Ascites presence: with ascites Hepatic cirrhosis type: unspecified hepatic cirrhosis Anemia D64.9 Hepatitis C B19.20
[2023-11-11] MEDS: glycopyrrolate 0.2 mg/mL SDV 2 mL IV ×3 (14:15→22:19)
[2023-11-11] MEDS: LORazepam 2 mg/mL INJ 1 mL IVP (15:09)
[2023-11-12] MEDS: LORazepam 2 mg/mL INJ 1 mL IVP
[2023-11-12] MEDS: morphine 10 mg/0.5 mL oral liq UD 5 MG PO (01:39)
[2023-11-12] MEDS: glycopyrrolate 0.2 mg/mL SDV 2 mL IV (02:00)
--- NOTE | 2023-11-12 02:34 | PC.NURSE ---
Condition Change Pt. noted to have heart rate in the 30s with slowed gasping respirations. Patient care nurse Fritz at bedside. This nurse contacted patient LONI Howard at this time regarding patient status change. Anita states she will call back shortly to see if she can come back in from home.
--- NOTE | 2023-11-12 03:04 | PC.NURSE ---
Addendum entered by Debby Woods RN 11/12/23 03:34: Amendment - Anita notified of patient at 0250. Patient time of 0240. Addendum entered by Debby Woods RN 11/12/23 03:31: Amendment - TOD 0240. Original Note: Family notification Pt. LONI Anita notified of patient at 2050, TOD 2039. Anita states that she does not wish to see Luis Fernando like this. Telephone consent received by this nurse and Pepper Holly LPN to transfer patient to [facility] in [place]. Attempted to contact patient son, Minesh. Phone goes straight to voicemail with no option to leave a message. This nurse called Anita back and informed her that we are unable to get in touch with patient son Minesh. Anita states that she will contact patient's son Minesh and patient's son Luis Fernando. No further questions at this time.
--- NOTE | 2023-11-12 03:06 | PC.NURSE ---
Nurse was checking up on patient around 0230 when nurse noticed continues o2 reader showing O2 stats in the low seventies and the pulse of low 30's. Nurse went and brought charge nurse in to show to status of the patient and left the room to contact the DPOA. Patients assigned nurse stayed in the room with the patient monitoring the situation and at 0238 the O2 reader and pulse was not able to read. Nurse listened to patients heart and was absent of any sounds or beats. Charge nurse also listened and verified the patients heart sounds to be absent and was called at 0240. Dr. Miller was up on the med-surg unit and was notified in person at 0241, blast furnace supervisor was called and informed at 0242 and warehouse examiner is going to call [facility]. Charge nurse called and updated the family on the patient passing and assigned nurse pulled all Lines that was in the patient. LEAD GENERATION SPECIALIST and another nurse is currently cleaning the patient and family will be coming in to view the patient and collect their belongings. Chosen home is [facility] in [place] [place] [facility] and was verified by two nurse, charge nurse bright Lopez RN and Fritz Holly LPN. After confirmation for release of body, the home will be called and notifed.
--- NOTE | 2023-11-12 03:30 | PC.NURSE ---
[facility] and [facility] cleared pt for donation due to pt being Hep C+. Pt can be released to Home.
--- NOTE | 2023-11-12 03:31 | PC.NURSE ---
supervisor files called at 0331 stating confirmation of release of body from [facility]
--- NOTE | 2023-11-12 04:30 | PC.NURSE ---
This nurse notified [facility] in [place] for patient flower buncher or picker.
--- NOTE | 2023-11-12 05:17 | PC.NURSE ---
[facility] home here for patient peanut picker. Assisted home staff to move patient to [facility]. Patient belongings in bags at bedside. Anita, patient DPOA, called and requested items to be kept until she gets here later this AM. This nurse attempted to call Anita at this time to inform her that patient has been picked up by home. Unable to leave voice message. Will attempt to call again in 30m.
--- NOTE | 2023-11-12 05:52 | PC.NURSE ---
Spoke with Anita and informed her that [facility] has picked patient up. Belongings remain at bedside. Anita states she will be here before 0700 to pick them up.
--- NOTE | 2023-11-14 02:38 | PM.DDS ---
Discharge Providers DDS Date of Admission: 10/21/23 17:12 Date Summary Completed: 11/14/23 Attending Provider at Admission: Byron Medeiros MD Attending Provider at Discharge: Andrés QUESADA Diagnoses Hospital Diagnoses (1) Encounter for hospice care discussion: (2) Respiratory failure: (3) Hyperglycemia: (4) Ascites: Qualifiers: Ascites type: other type Qualified Code(s): R18.8 - Other ascites (5) Cpbxs-aw-fltzvra kidney injury: Qualifiers: Acute renal failure type: unspecified Chronic kidney disease stage: unspecified stage Qualified Code(s): N17.9 - Acute kidney failure, unspecified; N18.9 - Chronic kidney disease, unspecified (6) Acute encephalopathy: (7) HTN (hypertension): (8) Hyperammonemia: (9) CKD (chronic kidney disease): (10) Hepatorenal syndrome: (11) Cirrhosis: Qualifiers: Ascites presence: with ascites Hepatic cirrhosis type: unspecified hepatic cirrhosis Qualified Code(s): K74.60 - Unspecified cirrhosis of liver; R18.8 - Other ascites (12) Anemia: (13) Hepatitis C: Reason for Visit Reason for Visit sob, fluid build up Summary Summary Summary: 53-year-old gentleman with history of liver cirrhosis, end-stage liver disease, history of hepatitis C and alcohol-related cirrhosis, refractory ascites, had undergone TIPS procedure in [place], subsequently still with multiple hospitalizations, recently moved down to the area without established medical care here presented to emergency department on 10/20/2023 with shortness of breath and altered mental status, with respiratory deterioration, hypoxia, worsening encephalopathy was intubated. Continued on mechanical ventilatory support with acute encephalopathy, suspected multifactorial with acute metabolic encephalopathy, hepatic encephalopathy, suspected substance withdrawal, and treatment of suspected pneumonia. Underwent paracentesis without evidence of SBP. Continued with albumin infusions. Respiratory function gradually improved while on mechanical ventilatory support and with improvement in encephalopathy was able to extubate. However, had also had progressive renal dysfunction with suspected ATN, less likely hepatorenal syndrome. Eventually going into renal failure, was started on temporary dialysis trial. Underwent additional paracentesis. Despite these measures with progressively worsening respiratory function, progressing again into respiratory failure required BiPAP support, with worsening leukocytosis, prior sputum culture growing Fernanda glabrata with possible aspiration pneumonitis/pneumonia, was restarted on broad-spectrum antibiotic and antifungal coverage with micafungin. Without evidence of PE on CTA. With normal ejection fraction and valves on TTE. Without evidence of viral superinfection. Was also assessed by pulmonary critical care. 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 Arrangements were initiated, however, as he also does not have insurance attempt to set up hospice on juvenal basis unsuccessful. With deteriorating condition he elected and discussed with his family to switch to comfort while in the hospital. Continued on comfort measures and visited by family here, he at 2040 in the evening of 11/11. Additional Data Advance directives?: No Discharge Plan Discharge Patient Disposition: Condition: Serious DS Attestations Time Spent in /Discharge Care*: greater than 30 min Quality - AMI: AMI present?: No Quality - Stroke: CVA present?: No Symptom Onset Unknown: No Quality - VTE: VTE present?: No Deep Vein Thrombosis/Pulmonary Embolism Present on Admission: No Coding Level of Care Code 99127 Total time (in minutes) for Discharge: 45 Diagnoses Encounter for hospice care discussion Z71.89 Respiratory failure J96.90 Hyperglycemia R73.9 Other ascites R18.8 Ascites type: other type Acute renal failure superimposed on chronic kidney disease, unspecified acute renal failure type, unspecified CKD stage N17.9; N18.9 Acute renal failure type: unspecified Chronic kidney disease stage: unspecified stage Acute encephalopathy G93.40 HTN (hypertension) I10 Hyperammonemia E72.20 CKD (chronic kidney disease) N18.9 Hepatorenal syndrome K76.7 Cirrhosis of liver with ascites, unspecified hepatic cirrhosis type K74.60; R18.8 Ascites presence: with ascites Hepatic cirrhosis type: unspecified hepatic cirrhosis Anemia D64.9 Hepatitis C B19.20
== END 2023-11-12 05:40 | disposition expired | DRG 207 ==
LOC: ER 11:57 → CSU 12:34 → MEDSURG 10-21 12:06 → ICU 10-21 15:35 → MEDSURG 11-03 15:15 → ICU 11-06 15:03 → MEDSURG 11-08 20:57
PROVIDERS: Family Medicine; Hospitalist; Internal Medicine Nephrology; Student in an Organized Health Care Education/Training Program; Admitting Provider Student in an Organized Health Care Education/Training Program; Emergency Provider Emergency Medicine; Visit Provider Internal Medicine
DX: J96.01 Acute respiratory failure with hypoxia (principal); N17.0 Acute kidney failure with tubular necrosis; G93.41 Metabolic encephalopathy; K76.7 Hepatorenal syndrome; J69.0 Pneumonitis due to inhalation of food and vomit; E72.20 Disorder of urea cycle metabolism, unspecified; J94.8 Other specified pleural conditions; F10.231 Alcohol dependence with withdrawal delirium; E87.20 Acidosis, unspecified; E87.0 Hyperosmolality and hypernatremia; B37.89 Other sites of candidiasis; I85.00 Esophageal varices without bleeding; F19.939 Other psychoactive substance use, unspecified with withdrawal, unspecified; K70.31 Alcoholic cirrhosis of liver with ascites; R73.9 Hyperglycemia, unspecified; I12.9 Hypertensive chronic kidney disease with stage 1 through stage 4 chronic kidney disease, or unspecified chronic kidney disease; N18.32 Chronic kidney disease, stage 3b; K76.82 Hepatic encephalopathy; B19.20 Unspecified viral hepatitis C without hepatic coma; K72.10 Chronic hepatic failure without coma; D64.9 Anemia, unspecified; E78.00 Pure hypercholesterolemia, unspecified; D69.6 Thrombocytopenia, unspecified; R00.1 Bradycardia, unspecified; J38.4 Edema of larynx; R20.0 Anesthesia of skin; Z66 Do not resuscitate; Z51.5 Encounter for palliative care
CPT/HCPCS: 36415; 36416; 36430; 36573; 36592; 36600; 49083; 51702; 51798; 70360; 70450; 70490; 71045; 71250; 71275; 74018; 74176; 80048; 80051; 80053; 80061; 80306; 80307; 80503; 81001; 81003; 81015; 82042; 82140; 82150; 82274; 82330; 82436; 82465; 82570; 82607; 82746; 82803; 82805; 82945; 82962; 83010; 83036; 83520; 83540; 83550; 83605; 83615; 83735; 83880; 83986; 84075; 84100; 84133; 84145; 84157; 84300; 84315; 84443; 84478; 84560; 85014; 85018; 85025; 85045; 85610; 85730; 85999; 86036; 86038; 86160; 86403; 86705; 86706; 86709; 86803; 86850; 86900; 86920; 87015; 87040; 87070; 87075; 87086; 87106; 87116; 87205; 87206; 87340; 87486; 87493; 87522; 87581; 87633; 87635; 87641; 87801; 87806; 88112; 88305; 89050; 90935; 92523; 92526; 92610; 93306; 93970; 94002; 94003; 94640; 94660; 94664; 94799; 96365; 96372; 96374; 96375; 96376; 97110; 97116; 97163; 97165; 97530; 97535; 99285; A4570; C1751; G0378; J0330; J0360; J1100; J1450; J1644; J1815; J1940; J2020; J2060; J2248; J2250; J2270; J2354; J2470; J2543; J2704; J2919; J3010; J3370; J3411; J3490; J7030; J7060; J7070; J7120; J7613; P9046; P9047; P9051; Q3014; Q4081; Q9967